=== PATIENT | female | born 1945 | race Caucasian/White ===

== ENCOUNTER → 2023-09-18 10:52 | Outpatient (REF) | payer MEDICARE, SELFPAY ==
[2023-09-18 12:28] LABS: % Basophils 0.4 % (0-2); % Eosinophils 0.4 % (0-6); % Immature Granulocytes 0.4 % (0-0.5); % Lymphocytes 11.6 % (20.5-51.1); % Monocytes 5.2 % (1.7-9.3); Absolute Lymphocytes 0.5 10^3/uL (1.2-3.4); Absolute Monocytes 0.2 10^3/uL (0.1-0.6); Absolute Neutrophils 3.8 10^3/uL (1.4-6.5); Hematocrit 32.5 % (37.0-47.0); Hemoglobin 10.4 g/dL (12.0-16.0); Mean Corpuscular Hgb 31.2 pg (27.0-31.0); Mean Corpuscular Volume 97.6 fL (81.0-99.0); Mean Platelet Volume 10.8 fL (7.4-10.4); Nucleated Red Blood Cells % 0 %; Platelet Count 156 10^3/uL (130-400); Red Blood Cell Count 3.33 10^6/uL (4.20-5.40); Red Cell Dist. Width 13.1 % (11.5-14.5); White Blood Cell Count 4.7 10^3/uL (4.8-10.8)
[2023-09-18 13:13] LABS: ALT (SGPT) 14 U/L (0-35); AST (SGOT) 31 U/L (14-36); Albumin 3.7 g/dl (3.5-5.0); Alkaline Phosphatase 58 U/L (38-126); Blood Urea Nitrogen 16 mg/dl (7-17); Calcium 9.2 mg/dl (8.4-10.2); Carbon Dioxide 32 mmol/L (22-30); Chloride 103 mmol/L (98-107); Glucose 95 mg/dl (70-99); Iron 86 ug/dl (37-170); Sodium 142 mmol/L (135-145); Total Bilirubin 0.9 mg/dl (0.2-1.3); Total Protein 6.2 g/dl (6.3-8.2); eGFR > 60.00
[2023-09-18 13:23] LABS: Percent Saturation 32 % (20-50); Total Iron Binding Capacity 263 ug/dl (265-497)
[2023-09-18 13:35] LABS: Vitamin D, 25-OH*** 56.3 ng/mL (30-80)
[2023-09-18 13:53] LABS: Ferritin 30.9 ng/ml (11.1-264.0)
[2023-09-18 14:25] LABS: Vitamin B12 585 pg/ml (239-931)
== END ==
LOC: RAD 10:52
PROVIDERS: ATTENDING PHYSICIAN Surgery Vascular Surgery; FAMILY PHYSICIAN Internal Medicine; REFERRING PHYSICIAN Internal Medicine Rheumatology
DX: I73.9 Peripheral vascular disease, unspecified (principal); D64.9 Anemia, unspecified; E55.9 Vitamin D deficiency, unspecified; E78.5 Hyperlipidemia, unspecified; M06.00 Rheumatoid arthritis without rheumatoid factor, unspecified site; M54.9 Dorsalgia, unspecified; M79.671 Pain in right foot; M79.641 Pain in right hand; M81.0 Age-related osteoporosis without current pathological fracture; Z68.1 Body mass index [BMI] 19.9 or less, adult; Z79.899 Other long term (current) drug therapy
CPT/HCPCS: 36415; 80053; 82306; 82607; 82728; 82746; 83540; 83550; 85025; 86140; 93922; 93925

== ENCOUNTER → 2023-10-22 06:50 | Outpatient (REF) | payer MEDICARE, SELFPAY | LOC: MRI 06:50 | PROVIDERS: ATTENDING PHYSICIAN Physician Assistant Surgical; FAMILY PHYSICIAN Internal Medicine | DX: M54.50 Low back pain, unspecified (principal) | CPT/HCPCS: 72148 ==

== ENCOUNTER → 2023-12-19 10:26 | Outpatient (REF) | payer MEDICARE, SELFPAY | LOC: RAD 10:26 | PROVIDERS: ATTENDING PHYSICIAN Internal Medicine Hematology & Oncology; FAMILY PHYSICIAN Internal Medicine; OTHER PHYSICIAN Internal Medicine Rheumatology | DX: R63.4 Abnormal weight loss (principal); M06.9 Rheumatoid arthritis, unspecified; D64.9 Anemia, unspecified | CPT/HCPCS: 74177; Q9967 ==

== ENCOUNTER 2024-02-19 13:51 | Inpatient (IN) | payer MEDICARE, SELFPAY ==
[2024-02-19] VITALS (10 sets, daily range): BP systolic 123–155; BP diastolic 60–97; BMI 20.3; BMI 19.2
--- NOTE | 2024-02-19 07:11 | ED.GENMED ---
History of Present Illness
General
Chief Complaint: Chest Pain
Time Seen by Provider: 02/19/24 07:05
History of Present Illness
History of Present Illness:
78-year-old female with history of aortic stenosis and hypertension presents to the emergency department for evaluation of chest pain radiating through to the thoracic back beginning last night. She felt nauseated last night, took a Xanax in order
to sleep when she awoke the pain was much worse. Denies any vomiting, shortness of breath. Denies positional or pleuritic nature to the pain. No fever, chills, sweats, coughing, leg swelling, abdominal pain, or lower GI symptoms. Notes a family
history of 'ruptured aorta' involving both her mother and her grandmother
Past History
Past History
ED Past Medical History: HTN, Valvular disease ( heart murmur) and Other (Rheumatoid arthritis, bipolar, pulmonary embolism)
ED Past Surgical History: Cholecystectomy, Gynecological (Hysterectomy), Orthopedic (Right hand surgery, left hand surgery, R knee replacement) and Other (Surgery for deviated septum)
Social History
Tobacco: Former smoker
Alcohol: None
Drug: None
Personal:
Living: alone
Employment: Retired
Family History
Family History: Hypertension and CAD
Review of Systems
Review of Systems
Allergies reviewed?: Yes
All Other Systems: ROS reviewed and negative except as documented in HPI and ROS
Phy Exam
Physical Exam
Physical Exam:
GEN: Well appearing, NAD, WDWN
Eyes: PERRLA, EOMs intact, no scleral icterus
HENT: NCAT, oral mucosa moist, no JVD
Lungs: CTAB, no wheezes, rales, rhonchi, normal chest wall excursion
Cardiac: Regular rate and rhythm, 4/6 holosystolic murmur, radial and pedal pulses 2+ and symmetric bilaterally
Abdomen: S, NT, ND, NABS, no masses or hepatosplenomegaly
Neuro: AO x 3, bilateral upper extremity strength intact and symmetric
MSK: No gross deformity or ecchymosis. No edema. No digital clubbing
Skin: No rashes, petechiae. Normal color, no pallor or jaundice.
Psych: Calm, cooperative, proper hygiene
Scores
Heart Score for Chest Pain Patients
STEMI patient?: No
History: Moderately Suspicious
ECG: Nonspecific Repolarization
Age: >/= 65 years
Risk Factors: >/= 3 Risk Factors or History of CAD
Troponin: </= Normal Limit
Heart Score for Chest Pain Patients: 6
Heart Score Risk: 20.3% MACE over next 6 weeks
Course
Orders/Labs/Results
Orders:
Orders
02/19/24 06:44
EKG [Electrocardiogram (*1)] Urgent
Reason for Study: Chest Pain
EKG- Treatment ONCE
02/19/24 06:50
Cardiac Monitoring- Treatment ONCE
IV Insert/Care/Rem.- Treatment PRN
02/19/24 07:03
Complete Blood Count/With Diff Urgent
Comprehensive Metabolic Panel Urgent
Troponin I Urgent
02/19/24 07:26
CT Chest/abd/pelvis Angio W/wo Urgent
Comment:
Reason For Exam: chest pain radiating to back, FmHx of TAA
02/19/24 08:27
Famotidine [Pepcid] 20 mg IV NOW STA
Sucralfate Suspension [Carafate Suspension] 1 gm PO NOW STA
02/19/24 08:28
EKG- Treatment ONCE
02/19/24 10:00
Electrocardiogram (*1) Urgent
Reason for Study: Chest Pain
02/19/24 10:09
Troponin I Routine
02/19/24 11:00
Aspirin Chewable [Low Strength Aspirin] 324 mg PO NOW STA
Heparin 3,300 units IV NOW STA
Heparin 81488 Units/250 ml 25,000 units in 250 ml IV PER PROTOCOL
Weight to be used for heparin protocol in kilograms (kg):: 55.3
Protocol:: Cardiac Tx/Acute Coronary
PTT Goal Range to be used:: PTT 73 to 111 seconds
Order type:: Initial
INITIAL Infusion Dose (UNITS/KG/hr) & then follow protocol:: 12 units/kg/hr
Infusion Dose in UNITS/hr & then follow protocol (UNITS/hr):: 650
INFUSION RATE in mL/hr & then follow protocol (mL/hr):: 6.5
PTT less than or equal to 64 seconds:: Increase rate by 200 units/hr (+ 2 mL/hr)
PTT 64.1 to 72.9 seconds:: Increase rate by 100 units/hr (+ 1 mL/hr)
PTT 73 to 111 seconds:: Target Range. No change in rate.
PTT 111.1 to 130.9 seconds:: Decrease rate by 100 units/hr (- 1 mL/hr)
PTT 131 to 199.9 seconds:: HOLD for 1 hr. Then decrease rate by 200 units/hr (- 2 mL/hr)
PTT greater than or equal to 200 seconds:: HOLD for 2 hrs & Notify Provider. Then decrease by 200 units/hr (-
2 mL/hr)
Lab follow-up:: Each change, PTT q6h until 2 consecutive are therapeutic. Then PTT
daily.
Nursing to Place Non Medication Order As Directed
Physician Order: PTT 6 hours after initial start of Heparin infusion
Above order entered?: Yes
02/19/24 11:16
PTT Urgent
Comment: Obtain baseline before beginning heparin infusion if not already collected
02/19/24 12:47
Acetaminophen [Tylenol] 650 mg PO Q6HPRN PRN
Nitroglycerin Sublingual [Nitrostat (Sublingual)] 0.4 mg SL NOW STA
02/19/24 13:05
Admit/Transfer Patient As Directed
Co-Sign Provider:
Level of Care: Inpatient admission
Assign to:: IVU
Physician / Group: jona jimenez
Diagnosis: nstemi
Reason for Hospitalization: nstemi
Expected length of stay greater than two midnights?: Yes
ELOS- Estimated Length of Stay in days: 5
I certify the patient meets the requirements for IP care: Yes
Code Status As Directed
Resuscitation Status: Do not resuscitate
Reached after discussion with pt or family/Healthcare POA: Yes
Based on pt advanced directive or healthcare POA form: Yes
Decision communicated with: per pt
02/19/24 13:06
DNR Bracelet Application ONCE
02/19/24 13:18
Metoprolol [Lopressor] 12.5 mg PO NOW STA
02/19/24 13:19
CARDIOLOGY CONSULT Routine
Consulting Provider: Marcio Chapman
Was physician already notified: Yes
Reason for consult: nstemi
02/19/24 13:52
Troponin I Q6H
02/19/24 14:00
EKG [Electrocardiogram (*1)] Urgent
Reason for Study: Chest Pain
02/19/24 14:20
Hydrocodone 5/APAP 325 [[place] 5/325] 1 tablet PO Q8HPRN PRN
02/19/24 14:20
VTE Contraindication Routine
VTE Mechanical Device Contraindication: Medical Contraindication
Pharmocologic Contraindication: Medical Contraindication
Comment: pt on iv heparin
Heparin Protocol- PTT Orders As Directed
PTT per Heparin protocol: -Obtain CBC and baseline PTT - if not already collected.
-Obtain PTT 6 hours from start of infusion. Then, every 6 hours until 2 consecutive
PTT's are therapeutic. Then, PTT Daily.
-With each rate change, obtain PTT every 6 hours until 2 consecutive PTT's are
therapeutic. Then, PTT Daily.
Activity As Directed
Activity Level: As Tolerated
Intake/ Output As Directed
Frequency: Per unit guidelines
Notify MD As Directed
Notify physician if: PTT is greater than or equal to 200.
Vital Signs As Directed
Frequency: Per unit guidelines
Weight As Directed
Frequency: Daily
Ot Eval And Treat Routine
Pt Eval And Treat Routine
Activity Level: As Tolerated
02/19/24 17:22
PTT Urgent
02/19/24 20:00
Troponin I Q6H
Metoprolol [Lopressor] 12.5 mg PO BID
02/19/24 22:00
Alprazolam [Xanax] 0.5 mg PO HS
Mirtazapine [Remeron] 60 mg PO HS
Polyethylene Glycol Powder [Miralax] 17 grams PO HS
02/20/24 02:00
Troponin I Q6H
02/20/24 06:00
Cardiovascular Evaluation IN AM
Complete Blood Count/With Diff IN AM
Comprehensive Metabolic Panel IN AM
02/20/24 08:00
Amlodipine [Norvasc] 2.5 mg PO DAILY
Aspirin Low Dose EC [Aspir Low (Enteric Coated)] 81 mg PO DAILY
Cholecalciferol (Vitamin D3) [VITAMIN D3 (cholecalciferol)] 25 mcg PO DAILY
Citalopram [Celexa] 20 mg PO DAILY
MethylPREDNISolone [Medrol] 4 mg PO DAILY
Oxycodone Controlled Release [Oxycontin (Controlled Release)] 20 mg PO DAILY
lisinopril 40 mg PO DAILY
omeprazole 40 mg PO DAILY
vitamins A,C,L-fuhd-hqsnmh [PreserVision AREDS] 1 cap PO DAILY
02/21/24 06:00
Complete Blood Count/No Diff Q2D
Comment: notify provider: Platelet count < 130,000 or decrease by 50% from baseline
Complete Blood Count/With Diff IN AM
Comprehensive Metabolic Panel IN AM
02/22/24 06:00
Complete Blood Count/With Diff IN AM
Comprehensive Metabolic Panel IN AM
02/23/24 06:00
Complete Blood Count/No Diff Q2D
Comment: notify provider: Platelet count < 130,000 or decrease by 50% from baseline
Complete Blood Count/With Diff IN AM
Comprehensive Metabolic Panel IN AM
02/25/24 06:00
Complete Blood Count/No Diff Q2D
Comment: notify provider: Platelet count < 130,000 or decrease by 50% from baseline
02/27/24 06:00
Complete Blood Count/No Diff Q2D
Comment: notify provider: Platelet count < 130,000 or decrease by 50% from baseline
02/29/24 06:00
Complete Blood Count/No Diff Q2D
Comment: notify provider: Platelet count < 130,000 or decrease by 50% from baseline
03/02/24 06:00
Complete Blood Count/No Diff Q2D
Comment: notify provider: Platelet count < 130,000 or decrease by 50% from baseline
03/04/24 06:00
Complete Blood Count/No Diff Q2D
Comment: notify provider: Platelet count < 130,000 or decrease by 50% from baseline
03/06/24 06:00
Complete Blood Count/No Diff Q2D
Comment: notify provider: Platelet count < 130,000 or decrease by 50% from baseline
Abnormal Lab Results
02/19/24 02/19/24
07:03 10:09
WBC 12.4 H 10^3/uL
(4.8-10.8)
RBC 3.72 L 10^6/uL
(4.20-5.40)
Hgb 11.5 L g/dL
(12.0-16.0)
Hct 34.4 L %
(37.0-47.0)
MPV 10.7 H fL
(7.4-10.4)
Abs Immat Gran (auto) 0.1 H 10^3/uL
(0-0.05)
Absolute Neuts (auto) 10.8 H 10^3/uL
(1.4-6.5)
Absolute Lymphs (auto) 0.9 L 10^3/uL
(1.2-3.4)
Immature Gran % 0.6 H %
(0-0.5)
Neutrophils % 87.3 H %
(42.2-75.2)
Lymphocytes % 7.4 L %
(20.5-51.1)
Chloride 109 H mmol/L
(98-107)
BUN 25 H mg/dl
(7-17)
Glucose 129 H mg/dl
(70-99)
Troponin I 0.094 H* D ng/ml
02/19/24 07:03
02/19/24 07:03
Vital Signs
Initial and Last Documented VS:
Initial Vital Signs
Temp Pulse Resp BP Pulse Ox
97.9 F 91 20 145/90 98
02/19/24 06:55 02/19/24 06:55 02/19/24 06:55 02/19/24 06:55 02/19/24 06:55
Last Documented Vital Signs
Temp Pulse Resp BP Pulse Ox
98.6 F 63 20 155/69 98
02/19/24 14:48 02/19/24 14:45 02/19/24 14:48 02/19/24 14:35 02/19/24 14:33
MDM/Problems Addressed
MDM/Problems Addressed:
Patient was initially evaluated for chest pain rating to the back, she noted a positive family history of aortic aneurysm ruptures thus was sent promptly for CT dissection study which was unremarkable for aortic emergency. Initial troponin was
negative however pain persisted. She was treated for gastritis/GERD with improvement in symptoms however repeat troponin came back elevated prompting concern for acute coronary syndrome. On my reevaluation the patient's pain had resolved thus we
avoided giving nitroglycerin particularly in the setting of her known aortic stenosis. Will admit to the hospital service with cardiology consultation for further assessment
Comment
Comment:
EKG independently interpreted by me shows a normal sinus rhythm at a rate of [address] changes concerning for ischemia, isolated PVC noted, QTc of 418
*Critical Care Note
Total Time (30-74mins, 75-104mins- exclusive of procedures): Not Applicable
ED Attending Note
-
Portions of this chart may have been created with voice recognition software.� Occasional wrong word or��sound alike� substitutions may have occurred due to the inherent limitations of voice recognition software.
Discharge Plan
Departure
Patient Disposition: Admit
Date of Disposition: 02/19/24
Time of Disposition: 11:01
Admit to: Telemetry
Presentation/result/management discussed w/ accepting MD/DO: Hospitalist
Discharge Problem:
Non-ST elevation IN (NSTEMI), Aortic stenosis
Interventions
Interventions:
*Risk Screen - Suicide Last Done: 02/19/24 07:08
*General Assessment Last Done: 02/19/24 07:08
*Neglect/Abuse Screening Last Done: 02/19/24 07:08
ED- Fall Risk Assessment Last Done: 02/19/24 07:08
*ED COVID-19 Vaccine History Last Done: 02/19/24 07:08
ED- Cardiac Assessment Last Done: 02/19/24 07:08
[2024-02-19 07:16] LABS: % Basophils 0.1 % (0-2); % Immature Granulocytes 0.6 % (0-0.5); % Lymphocytes 7.4 % (20.5-51.1); % Monocytes 4.6 % (1.7-9.3); % Neutrophils 87.3 % (42.2-75.2); Absolute Immature Granulocytes 0.1 10^3/uL (0-0.05); Absolute Lymphocytes 0.9 10^3/uL (1.2-3.4); Absolute Monocytes 0.6 10^3/uL (0.1-0.6); Absolute Neutrophils 10.8 10^3/uL (1.4-6.5); Hematocrit 34.4 % (37.0-47.0); Hemoglobin 11.5 g/dL (12.0-16.0); Mean Corp Hgb Conc. 33.4 g/dL (33.0-37.0); Mean Corpuscular Hgb 30.9 pg (27.0-31.0); Mean Corpuscular Volume 92.5 fL (81.0-99.0); Mean Platelet Volume 10.7 fL (7.4-10.4); Nucleated Red Blood Cells % 0 %; Platelet Count 182 10^3/uL (130-400); Red Blood Cell Count 3.72 10^6/uL (4.20-5.40); Red Cell Dist. Width 13.7 % (11.5-14.5); White Blood Cell Count 12.4 10^3/uL (4.8-10.8)
[2024-02-19 07:32] LABS: ALT (SGPT) 17 U/L (0-35); AST (SGOT) 31 U/L (14-36); Albumin 4.5 g/dl (3.5-5.0); Alkaline Phosphatase 54 U/L (38-126); Blood Urea Nitrogen 25 mg/dl (7-17); Calcium 9.4 mg/dl (8.4-10.2); Carbon Dioxide 23 mmol/L (22-30); Chloride 109 mmol/L (98-107); Estimated Creatinine Clearance 44 ml/min; Glucose 129 mg/dl (70-99); Potassium 4.2 mmol/L (3.5-5.1); Sodium 142 mmol/L (135-145); Total Bilirubin 0.9 mg/dl (0.2-1.3); eGFR > 60.00
[2024-02-19 07:43] LABS: Troponin I 0.013 ng/ml
[2024-02-19] MEDS: PEPCID 20 MG IV ×2 (08:35→19:44)
[2024-02-19] MEDS: CARAFATE SUSPENSION 1 GM PO ×2 (08:35→19:44)
[2024-02-19 10:46] LABS: Troponin I 0.094 ng/ml
[2024-02-19] MEDS: LOW STRENGTH ASPIRIN 324 MG PO (11:21)
[2024-02-19] MEDS: HEPARIN 3300 UNITS IV (11:21)
[2024-02-19] MEDS: HEPARIN 25000 UNITS/250 ML IV (11:22)
[2024-02-19 11:45] LABS: APTT 25.5 Sec (23.4-35.0)
--- NOTE | 2024-02-19 12:48 | HPS.HSE ---
Family Physician
-
Family Physician: Tangela Ching
Chief Complaint
-
chest thru to back
History of Present Illness
78-year-old female who reports midsternal chest pain through to her back with strong heaviness, nausea and indigestion that started yesterday. She reports taking a Xanax to try to help her sleep which she did but upon wakening the chest pain was
still present 8 out of 10 along with nausea and indigestion. She has no past medical history of NM. She does have past medical history of aortic stenosis and gastritis. She also reports she has been feeling depressed since losing her
August 04, 2023. She denies radiation, diaphoresis headache, sore throat, fever, chills, shortness of breath, cough, abdominal pain, vomiting, diarrhea, urinary symptoms. She has past medical history of HTN, HLD, aortic stenosis, gastritis,
chronic back pain on chronic oral opiates, rheumatoid arthritis, DDD lumbar, depression, anxiety, memory impairment post anesthesia right knee surgery lasting 2 weeks in 2014, PE post right knee surgery 2014, pleural effusion approximately 2011 that
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
Medical History
Past Medical History
Past Medical History: Reports Other
Additional Past Medical History:
HTN-benign
HLD
Aortic stenosis
Superior mesenteric artery syndrome
Gastritis
Chronic back pain
Rheumatoid arthritis on chronic oral opiates
DDD lumbar
Depression/anxiety
History memory impairment post anesthesia knee surgery lasting 2 weeks 2014
PE post knee surgery 2014
Pleural effusion 2011 with MRSA
Ex-smoker smoked for 3 years
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
Pancreatitis Hx
Gout
Anemia
Past Surgical History: Reports Other
Additional Past Surgical History:
Right hand surgery
Left hand surgery
Right foot surgery
Right total knee replacement 10/12/2014
Deviated septum repair
Tonsillectomy
Cholecystectomy
Social History
Tobacco: Former Smoker (Smoked for 3 years)
Alcohol: Former (Drank for 30 years quit age 49)
Drug: None
Personal: (August 04, 2023)
Living: Alone
Employment: Retired
Family History
Family History: Other (Mother ruptured abdominal aortic aneurysm history of CVA age 60s and carotid stenosis, maternal grandmother ruptured AAA, father mesothelioma, 2 brothers 1 brain hemorrhage, other sepsis, 2 sisters
living depression)
Allergies / Home Medications
Allergies reflects when Allergies were last updated in [employer].
Home Medications with original date entered in [employer]
Allergy/Medication List:
Allergies
Allergy/AdvReac Type Severity Reaction Status Date / Time
Sulfa (Sulfonamide Allergy Stomach Verified 02/19/24 06:46
Antibiotics) cramps
Home Medications
lisinopril 40 mg tablet 40 mg PO DAILY Heart disease/condition 09/29/14
amlodipine 2.5 mg tablet 2.5 mg PO DAILY Heart disease/condition 01/23/16
methylprednisolone 4 mg tablet 4 mg PO DAILY Anti-inflammatory 01/23/16
etanercept 50 mg/mL (1 mL) subcutaneous syringe (Enbrel) 50 mg SQ SA arthritis 12/09/20
oxycodone 20 mg tablet,crush resistant,extended release 12 hr (OxyContin) 20 mg PO DAILY 12/09/20
alprazolam 0.5 mg tablet (Xanax) 0.5 mg PO HS sleep 06/18/22
aspirin 81 mg tablet,delayed release 81 mg PO DAILY 06/18/22
cholecalciferol (vitamin D3) 25 mcg (1,000 unit) tablet (Vitamin D3) 25 mcg PO DAILY 02/19/24
citalopram 20 mg tablet 20 mg PO DAILY 02/19/24
hydrocodone 5 mg-acetaminophen 325 mg tablet 1 tab PO Q8HPRN PRN severe pain 02/19/24
mirtazapine 30 mg tablet 60 mg PO HS 02/19/24
omeprazole 40 mg capsule,delayed release 40 mg PO DAILY 02/19/24
polyethylene glycol 3350 17 gram oral powder packet (Miralax) 17 g PO HS 02/19/24
vitamins A,C,R-iovb-vasntj 4,296 mcg-226 mg-90 mg capsule (PreserVision AREDS) 1 cap PO DAILY 02/19/24
Review of Systems
-
History Source: Patient
A 12 point ROS was completed and negative except as noted: Yes
Constitutional: Denies Fever or Fatigue
EENT: Denies Sore Throat or Runny Nose
Respiratory: Denies Cough or Trouble Breathing
Cardiac: Reports Chest Pain (Midsternal to back); Denies Diaphoresis, Palpitations or Syncope
Abdomen/GI: Reports Nausea; Denies Abdominal Pain, Vomiting or Diarrhea
: Denies Dysuria, Frequency, Flank Pain, Incontinence or Difficulty Voiding
Musculoskeletal: Denies Joint Pain or Edema
Skin: Denies Itching or Rash
Neurological: Denies Dizzy, Headache, Weakness or Numbness
Endocrine: Reports No Symptoms
Hematologic/Lymphatic: Reports No Symptoms
Psych: Reports Calm and Depression (Over loss of in July)
Physical Exam
Vital Signs
Vital Signs
Temp Pulse Resp BP Pulse Ox
97.9 F 76 16 139/60 99
02/19/24 06:55 02/19/24 12:30 02/19/24 12:30 02/19/24 12:00 02/19/24 12:30
Physical Exam
General: Conversant and Pain (5 out of 10 chest pain); No Fever or Chills
HEENT: NormoCephalic, Anicteric, PERRLA, [place] Conjunctivae and No Ptosis
Respiratory: Clear; No Wheezes, Rales or Rhonchi
Cardiac: S1/S2, Regular Rhythm and Murmur (4/6 systolic); No Rub, Gallop or Peripheral Edema
Breast: Deferred by me
GI: Soft, Non Tender, Non Distended, Normal Bowel Sounds and No Hepatosplenomegaly
Rectal: Deferred by Provider
Genito-urinary: Deferred by me
Musculoskeletal: No Clubbing, No Cyanosis and No Edema
Skin: Warm and Dry; No Rash or Jaundice
Neuro: AO x 3, No Motor Deficits, Nonfocal/grossly intact and Cranial Nerves Intact; No DTR's Intact & Symmetrical, Slurred Speech, Facial Droop or Tremors
Psych: Calm
Laboratory Results
-
02/19/24 07:03
02/19/24 07:03
Laboratory Results
APTT 25.5 Sec (23.4-35.0) 02/19/24 11:16
Total Bilirubin 0.9 mg/dl (0.2-1.3) 02/19/24 07:03
AST 31 U/L (14-36) 02/19/24 07:03
ALT 17 U/L (0-35) 02/19/24 07:03
Alkaline Phosphatase 54 U/L (38-126) 02/19/24 07:03
Troponin I 0.094 ng/ml H* D 02/19/24 10:09
Impression/Plan
-
Impression/plan:
Admit to IVU
#NSTEMI
-Troponin 0.094 will trend
-Trend daily EKGs
-Aspirin 325 given in ER will continue aspirin 81 mg daily
-Sublingual nitroglycerin NOW for chest pain 5 out of 10
-IV heparin drip
-Add metoprolol tartrate 12.5 mg twice daily will give dose now
-Check lipid profile
-Check 2D echo
EKG: NSR 69 bpm, QTc [address] elevation present anterior leads
CT chest abdomen pelvis with without: 1. Small saccular aneurysm of the infrarenal abdominal aorta measuring up to 6.5 mm
2. 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
3. Severe coronary artery and mitral valve calcifications. Moderate aortic valve calcifications
4. No aortic dissection or thoracic aneurysm
#Per CT saccular aneurysm of the infrarenal abdominal aorta measuring up to 6.5 mm
#Leukocytosis secondary to daily methylprednisone 4 mg for RA
No signs of infection, fever, chills, cough
#HTN-benign
139/60
-Continue lisinopril 40 mg daily
#HLD
-Check lipid profile
#Aortic stenosis
2D echo 06/29/2022: EF 55 to 60%, mild LVH, no wall abnormalities, mild to moderate MR, mild aortic stenosis peak mean gradient 49/18, mild to moderate TR
#Gastritis hx
-Continue omeprazole
#Rheumatoid arthritis on chronic oral opiates
#Chronic back pain/DDD lumbar
-Continue OxyContin 20 mg daily
-She takes Enbrel on Saturdays only
-Patient on methylprednisone 4 mg daily
#Depression/anxiety
-Continue citalopram 20 mg daily, Xanax 0.5 mg at bedtime
-Continue mirtazapine 60 mg at bedtime
#PE post knee surgery 2014
#Pleural effusion 2012 with MRSA
Other PMH:
History memory impairment post anesthesia knee surgery lasting 2 weeks 2014
Ex-smoker smoked for 3 years
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
Pancreatitis Hx
Gout
Anemia-Hgb stable 11.5
DVT prophylaxis
IV heparin drip
DNR per patient
[2024-02-19] MEDS: NITROSTAT (SUBLINGUAL) 0.4 MG SL (13:05)
--- NOTE | 2024-02-19 13:43 | CON.CAR ---
Addendum entered and electronically signed by Marcio Chapman MD 02/19/24 15:24:
I saw and examined the patient.
The Post Closing Specialist's note was reviewed and I agree with the note.
Comment:
GEN: No distress, awake, Ox3
HEENT: supple, anicteric, mmm
LUNGS: CTA, no wheezes/rales
CV: Reg, S1/S2, 3/6 syst LSB, no gallop
ABD: soft, BS+, NT/ND
EXT: No edema
NEURO: Gross non-focal
SKIN: chronic stasis channges
plan:
She has a past medical history of rheumatoid arthritis, pulmonary embolism, hypertension, coronary artery disease, aortic stenosis and mitral regurgitation who presents with 12 to 18 hours of chest tightness and chest discomfort. The pain started
last night as a pressure in the center of her chest which did radiate to her back. She took Xanax and helped her sleep but she had more pain this morning which is up to 9 out of 10. At that point she came to the emergency room. Troponin was 0.13
and repeat was 0.09. She was given nitroglycerin which improved her symptoms. She has known peripheral vascular disease. She currently is pain-free.
Check echocardiogram to reevaluate LVEF and valves.
Will proceed with cardiac catheterization to evaluate for coronary artery disease. I suspect she likely will have multivessel coronary artery disease.
Continue aspirin, check lipids, and start high intensity statin..
Will add metoprolol. Continue lisinopril.
Original Note:
Consultation
Consultation Request
Date/Time Consultation Performed: 02/19/24
Requesting Provider: Petros Felipe PA-C
Performing Provider: Chelsea Moore PA-C for Dr. Chapman
Reason for Consultation: CP
Medical History
-
Chief Complaint: CP
History of Present Illness:
Patient is a 78 yo F with PMH of RA on chronic steroids, chronic back pain requiring opioids, PE s/p R knee replacement in 2017, depression/anxiety, HTN, remote former smoker, mild , mitral regurgitation, coronary artery calcifications by prior CT
scans who presented to [facility] due to chest discomfort. She reports 2 days ago she got a 'lumbar shot'. She states yesterday she developed indigestion/stomach ache/nausea and took Pepto-Bismol without improvement. She then developed some chest
discomfort with radiation through to her back. She took a dose of Xanax and was able to sleep. This morning when she woke up she continued with the discomfort. She describes it as achy in her chest, but feels more sharp in her back. She came to
the emergency room for evaluation of this. She reports some pain significantly improved status post sublingual nitro x 1 and aspirin. She is presently with minimal pain on IV heparin. She describes claudication with walking approximately 5
minutes, then needs to rest prior to resuming. She is followed by Dr. Duarte as an outpatient. She denies prior chest discomfort with ambulation. She denies shortness of breath or palpitations. Initial troponin 0.013, repeat 0.09 resulting in
cardiology consultation. States she was started on cholesterol medication last year by PCP.
PMH:
RA on chronic steroid therapy
chronic back pain requiring opioids
PE s/p R knee replacement 2016
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
depression/anxiety
HTN
HLD
mild
MR
coronary artery calcifications by CT scans
Family history of aortic aneurysm
Remote former smoker
Former alcoholic
Past Medical History
Past Medical History: Other (in HPI)
Social History
Tobacco: Former Smoker
Alcohol: Former
Personal:
Employment: Retired
Family History
Family History: Other (aortic aneurysm in mother)
Allergies / Home Medications
Allergy/AdvReac Type Severity Reaction Status Date / Time
Sulfa (Sulfonamide Allergy Stomach Verified 02/19/24 06:46
Antibiotics) cramps
�Medication �Instructions �Recorded �Confirmed �Type
lisinopril 40 mg tablet 40 mg PO DAILY Heart 09/29/14 02/19/24 History
disease/condition
amlodipine 2.5 mg tablet 2.5 mg PO DAILY Heart 01/23/16 02/19/24 History
disease/condition
methylprednisolone 4 mg tablet 4 mg PO DAILY Anti-inflammatory 01/23/16 02/19/24 History
etanercept 50 mg/mL (1 mL) 50 mg SQ SA arthritis 12/09/20 02/19/24 History
subcutaneous syringe (Enbrel)
oxycodone 20 mg tablet,crush 20 mg PO DAILY 12/09/20 02/19/24 History
resistant,extended release 12 hr
(OxyContin)
alprazolam 0.5 mg tablet (Xanax) 0.5 mg PO HS sleep 06/18/22 02/19/24 History
aspirin 81 mg tablet,delayed 81 mg PO DAILY 06/18/22 02/19/24 History
release
cholecalciferol (vitamin D3) 25 25 mcg PO DAILY 02/19/24 02/19/24 History
mcg (1,000 unit) tablet (Vitamin
D3)
citalopram 20 mg tablet 20 mg PO DAILY 02/19/24 02/19/24 History
hydrocodone 5 mg-acetaminophen 325 1 tab PO Q8HPRN PRN severe pain 02/19/24 02/19/24 History
mg tablet
mirtazapine 30 mg tablet 60 mg PO HS 02/19/24 02/19/24 History
omeprazole 40 mg capsule,delayed 40 mg PO DAILY 02/19/24 02/19/24 History
release
polyethylene glycol 3350 17 gram 17 g PO HS 02/19/24 02/19/24 History
oral powder packet (Miralax)
vitamins A,C,Q-vxog-zhpewd 4,296 1 cap PO DAILY 02/19/24 02/19/24 History
mcg-226 mg-90 mg capsule
(PreserVision AREDS)
Review of Systems
-
History Source: Patient
All other systems: Negative unless noted
Physical Exam
Vital Signs
Temp Pulse Resp BP Pulse Ox
97.9 F 71 24 130/97 98
02/19/24 06:55 02/19/24 13:02 02/19/24 13:02 02/19/24 13:02 02/19/24 13:02
Lab Results
02/19/24 07:03
02/19/24 07:03
Troponin I 0.094 ng/ml H* D 02/19/24 10:09
Physical Exam
General: No Apparent Distress and Comfortable
HEENT: Normocephalic, Anicteric and Moist Mucous Membranes
Respiratory: Clear and Non Labored Respirations
Cardiac: S1/S2, Regular Rhythm and Murmur
GI: Soft, Non Tender, Non Distended and Normal Bowel Sounds
Musculoskeletal: No Clubbing, No Cyanosis and No Edema
Skin: Warm, Dry and Other (thin skin with scattered ecchymoses consistent with chronic steroid use)
Neuro: AO x 3
Impression / Plan
-
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 Portillo in 2019
Assessment:
Presentation with CP
Elevated troponin
coronary artery calcifications by CT scans
HTN
HLD
mild
Mild to moderate MR
RA on chronic steroid therapy
chronic back pain requiring opioids
PE s/p R knee replacement 2016
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
LE claudication, followed by vascular
depression/anxiety
Family history of aortic aneurysm
Remote former smoker
Former alcoholic
DNR code status
ECHO 2021: EF 55 to 60%, mild concentric LVH, mild to moderate eccentric MR, mild with peak/mean gradients 49/18 mmHg, mild to moderate TR, PAP 39 mmHg
Plan:
-Patient presents with chest discomfort with radiation to her back. Initial troponin negative, however repeat 0.09 resulting in cardiology consultation.
-She has noted to have severe coronary artery calcification dating back at least 2019, again noted by CT scan earlier today. No evidence of dissection or thoracic aortic aneurysm
-EKG with isolated ST elevation in V2. Patient's pain significantly reduced status post sublingual nitro x 1 and aspirin
-Continue IV heparin
-Cardiac catheterization procedure reviewed with patient and she is agreeable to proceed. N.p.o. status for now. Significant concern for multivessel coronary disease
-Check echo, last from 2021 with results as above, mild to moderate MR and mild
-Trend troponins to peak
-Continue aspirin
-Add beta-mable
-Check CVE. On rosuvastatin as outpatient
-Further recommendations based on results of cardiac catheterization
-On amlodipine 2.5 mg daily and lisinopril 40 mg daily as outpatient.
Data Reviewed
-
EKG: Tracing Personally Visualized and interpreted
CT Scan: Report Reviewed by me
Medical Tests (Nuc Med, Echo etc): Report Reviewed by me
Labs: Labs Reviewed by me
Old Records: Reviewed
--- NOTE | 2024-02-19 13:45 | W.PN.UPDATE ---
Update Note
Progress Note Update
Patient seen and examined, discussed with DELMA Salas, and I agree with her note.
Gen-AAOx3, NAD
HEENT-NC, AT, anicteric, clear oral mm
Neck-supple
CV-reg, no M, +S1/S2
Lungs-clear B/L
Abd-soft, NT, ND
Ext-no edema
Musculoskeletal-no cyanosis, clubbing
Skin-warm and dry
Neuro-grossly non-focal
Psych-calm, cooperative
Atypical chest pain -admit to IVU. Trend troponins. EKG concerning, ST elevation noted in anterior leads. Consult cardiology. Continue IV heparin. Add beta-blockade. Continue aspirin.
Patient denies history of coronary disease. Denies exertional symptoms.
Essential hypertension -stable.
Hyperlipidemia
Aortic stenosis
Rheumatoid arthritis
History of pleural effusion
History of pulm embolism
Gout
Depression/anxiety
DNR
[2024-02-19] MEDS: LOPRESSOR 12.5 MG PO ×2 (14:00→19:24)
[2024-02-19 14:29] LABS: Troponin I 0.416 ng/ml
--- NOTE | 2024-02-19 16:33 | CM ---
Chart reviewed. Patient is independent of ADLS, lives with her son in a 1 STH, 2 SULEMAN, 0 DME. Patient currently with no discharge needs. Plan is for the patient to return home. CM to follow
--- NOTE | 2024-02-19 17:27 | PTCARENOTE ---
Pt received from the ED at 1430. Pt denies any chest pain or sob. Heparin infusing as ordered. Pt NPO for poss cath today which was now rescheduled to tomorrow. No c/o offered.
[2024-02-19 17:53] LABS: APTT 96.9 Sec (23.4-35.0)
[2024-02-19] MEDS: NSS (PRESERVATIVE FREE) 8 ML IV (19:45)
[2024-02-19 20:40] LABS: Troponin I 0.523 ng/ml
[2024-02-19] MEDS: REMERON 60 MG PO (22:22)
[2024-02-19] MEDS: XANAX 0.5 MG PO (22:22)
[2024-02-19 23:07] LABS: APTT 73.2 Sec (23.4-35.0)
[2024-02-20] VITALS (14 sets, daily range): BP systolic 109–171; BP diastolic 59–121; BMI 18.9
--- NOTE | 2024-02-20 00:56 | PTCARENOTE ---
Pt rec'd at beginning of shift awake, alert. Pt reported having nausea and some GI discomfort at that time. Pt states it is not the same pressure that she came in with. pt also reports freq loose/soft stools. No recent hx of abx. Pt states 'I think
it might be because I'm anxious'. 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 Pt given Carafate and IV Pepcid with relief of GI symptoms noted. Sinus on telemetry. Heparin gtt therapeutic. Npo after mn for cath in am.
[2024-02-20 03:27] LABS: % Basophils 0.1 % (0-2); % Immature Granulocytes 0.5 % (0-0.5); % Lymphocytes 9.9 % (20.5-51.1); % Monocytes 4.3 % (1.7-9.3); % Neutrophils 85.2 % (42.2-75.2); Absolute Immature Granulocytes 0.1 10^3/uL (0-0.05); Absolute Lymphocytes 0.9 10^3/uL (1.2-3.4); Absolute Monocytes 0.4 10^3/uL (0.1-0.6); Absolute Neutrophils 7.9 10^3/uL (1.4-6.5); Hematocrit 32.2 % (37.0-47.0); Mean Corp Hgb Conc. 34.2 g/dL (33.0-37.0); Mean Corpuscular Hgb 30.7 pg (27.0-31.0); Mean Corpuscular Volume 89.9 fL (81.0-99.0); Mean Platelet Volume 11.1 fL (7.4-10.4); Nucleated Red Blood Cells % 0 %; Platelet Count 152 10^3/uL (130-400); Red Blood Cell Count 3.58 10^6/uL (4.20-5.40); Red Cell Dist. Width 13.9 % (11.5-14.5); White Blood Cell Count 9.3 10^3/uL (4.8-10.8)
[2024-02-20 03:40] LABS: APTT 73.4 Sec (23.4-35.0)
--- NOTE | 2024-02-20 04:05 | PTCARENOTE ---
Pt with no c/o chest pain or nausea during the night.
[2024-02-20 04:08] LABS: Troponin I 0.395 ng/ml
[2024-02-20 04:21] LABS: ALT (SGPT) 17 U/L (0-35); AST (SGOT) 31 U/L (14-36); Alkaline Phosphatase 50 U/L (38-126); Blood Urea Nitrogen 27 mg/dl (7-17); Calcium 8.8 mg/dl (8.4-10.2); Carbon Dioxide 23 mmol/L (22-30); Chloride 112 mmol/L (98-107); Estimated Creatinine Clearance 46 ml/min; Glucose 94 mg/dl (70-99); HDL Cholesterol 100 mg/dl; LDL Cholesterol, Calculated 78 mg/dl; Potassium 4.5 mmol/L (3.5-5.1); Sodium 141 mmol/L (135-145); Total Cholesterol 191 mg/dl (50-199); Total Protein 6.4 g/dl (6.3-8.2); Triglyceride 68 mg/dl (10-149); Very Low Density Lipoprotein 13 mg/dl (0-30); eGFR > 60.00
[2024-02-20] MEDS: ASPIR LOW (ENTERIC COATED) 81 MG PO (07:01)
[2024-02-20 08:31] LABS: ACT-LR - POC 221 Seconds (116-155)
[2024-02-20 08:41] LABS: ACT-LR - POC 258 Seconds (116-155)
[2024-02-20 08:58] LABS: ACT-LR - POC 284 Seconds (116-155)
[2024-02-20] MEDS: PROTONIX 40 MG PO (09:42)
[2024-02-20] MEDS: LOPRESSOR 12.5 MG PO ×3 (09:42→11:00)
[2024-02-20] MEDS: OXYCONTIN (CONTROLLED RELEASE) 20 MG PO (09:42)
[2024-02-20] MEDS: ZESTRIL 40 MG PO (09:43)
[2024-02-20] MEDS: NORVASC 2.5 MG PO (09:43)
--- NOTE | 2024-02-20 10:00 | W.PN.UPDATE ---
Update Note
Progress Note Update
informed by nursing that patient in new afib post cath. EKG completed to confirm. new diagnosis for patient. was just given 12.5mg po lopressor. will give additional 12.5mg now and increase dose to 25mg BID. will plan to resume IV heparin when able
s/p radial band protocol.
--- NOTE | 2024-02-20 10:51 | PTCARENOTE ---
Assessed the patient's skin as per the quarterly prevalence study. I found an old stage 2 pressure wound on the patient's right lateral ankle. It has scabbed over. She stated that 'That has been there for quite awhile'. 'I just can't seem to get rid
of it.' I explained that it was caused by pressure and she said that she sleeps on her right side. I applied skin prep and a silicone boarder foam dressing over the old wound.
--- NOTE | 2024-02-20 11:49 | CONSULT.CT ---
Addendum entered and electronically signed by Stew Billings MD 02/21/24 08:46:
I saw and examined the patient.
The PA's note was reviewed and I agree with the note.
Comment:
I met with Mrs. Larios at the bedside. She is a 78-year-old, frail appearing female, who presented with an NSTEMI. Has concomitant MV and AV disease, on chronic steroids, has severe MAC, and appears failure to thrive. STS risk well into the 20% for
CABG MVR. We discussed her case at [facility], and she is deemed not a surgical candidate by our group. I agree. We did briefly speak about PCI intervention on the RCA which was the group recommendation. I will defer this to Dr. Duong. CT surgery will sign
off. Thank you.
Stew Billings MD
Cardiac Surgeon
[facility]
Original Note:
Consultation
-
Date/Time Consultation Requested: 02/20/2024
Date/Time Consultation Performed: 02/20/2024
Requesting Provider: Ad
Performing Provider: Josephine pac
Reason for Consultation: Evaluation for CABG/AVR/MVR
Patient History
Physicians
Family Physician: Dr. Tangela Ching
Outpatient Orthopedic Shoe Maker: none
Inpatient Orthopedic Shoe Maker: Ad
History of Present Illness
Patient is a 78-year-old female with a past medical history of rheumatoid arthritis on chronic steroids for over 10 years. She also has a history of chronic back pain requiring opioids, pulmonary embolism status post right knee replacement in 2017,
depression/anxiety, hypertension, remote smoking history, mild aortic stenosis, mitral regurgitation, coronary artery disease. She also has past medical history of gastritis, former alcoholic with 29 years of sobriety. History of pancreatitis,
gout, anemia. She is followed by Dr. Duarte for PAD.
She presented to [facility] ED with 12 to 18 hours of chest tightness. Chest pain described as pressure in the center of her chest which radiated to her back. She ruled in for NSTEMI with serial enzymes studies. Pain was relieved with
nitroglycerin.
She underwent echo on 02/19/2024 which showed normal left ventricular function with ejection fraction of 55%. Severely dilated left atrium. Mitral valve with moderate to severe mitral regurgitation. Aortic valve had moderate aortic stenosis with
peak and mean gradients of 55 and 35 mmHg. Aortic valve area 0.98 cm�. Mild aortic regurgitation. Mild to moderate tricuspid regurgitation with pulmonary artery pressure estimated to be 33 mmHg. Trace pulmonic regurgitation.
Cardiac catheterization performed today by Dr. Duong showing critical three-vessel coronary artery disease.
This complex patient is not a surgical candidate due to multiple comorbidities along with long-term steroid use.
Plan to continue to optimize medical management.
Past Medical History
Past Medical History: Angina, Atrial Fib, CAD, HTN, Hypercholesterolemia and Valvular Disease
Past Surgical History
Past Surgical History: Abdominal, Hysterectomy, Orthopedic and Tonsilectomy
Family History
Mother: at Age (Mother at age 71 from ruptured abdominal aortic aneurysm, also had stroke in her 60s)
Father: at Age (Father at age 71 from mesothelioma)
Family Medical History: CAD and Hypertension
Social History
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
Drug: None
Tobacco: Former Smoker (Smoked 2 packs/day for approximately 5 years and quit 50 years ago)
Personal: ( in July 2023)
Living: With Family (Lives with son)
Employment: Retired
Allergies
Allergy/AdvReac Type Severity Reaction Status Date / Time
Sulfa (Sulfonamide Allergy Stomach Verified 02/19/24 06:46
Antibiotics) cramps
Home Medications
�Medication �Instructions �Recorded �Confirmed �Type
lisinopril 40 mg tablet 40 mg PO DAILY Heart 09/29/14 02/19/24 History
disease/condition
amlodipine 2.5 mg tablet 2.5 mg PO DAILY Heart 01/23/16 02/19/24 History
disease/condition
methylprednisolone 4 mg tablet 4 mg PO DAILY Anti-inflammatory 01/23/16 02/19/24 History
etanercept 50 mg/mL (1 mL) 50 mg SQ SA arthritis 12/09/20 02/19/24 History
subcutaneous syringe (Enbrel)
oxycodone 20 mg tablet,crush 20 mg PO DAILY 12/09/20 02/19/24 History
resistant,extended release 12 hr
(OxyContin)
alprazolam 0.5 mg tablet (Xanax) 0.5 mg PO HS sleep 06/18/22 02/19/24 History
aspirin 81 mg tablet,delayed 81 mg PO DAILY 06/18/22 02/19/24 History
release
cholecalciferol (vitamin D3) 25 25 mcg PO DAILY 02/19/24 02/19/24 History
mcg (1,000 unit) tablet (Vitamin
D3)
citalopram 20 mg tablet 20 mg PO DAILY 02/19/24 02/19/24 History
hydrocodone 5 mg-acetaminophen 325 1 tab PO Q8HPRN PRN severe pain 02/19/24 02/19/24 History
mg tablet
mirtazapine 30 mg tablet 60 mg PO HS 02/19/24 02/19/24 History
omeprazole 40 mg capsule,delayed 40 mg PO DAILY 02/19/24 02/19/24 History
release
polyethylene glycol 3350 17 gram 17 g PO HS 02/19/24 02/19/24 History
oral powder packet (Miralax)
vitamins A,C,V-nptm-igldym 4,296 1 cap PO DAILY 02/19/24 02/19/24 History
mcg-226 mg-90 mg capsule
(PreserVision AREDS)
Review of Systems
-
History Source: Patient
General: Reports Fatigue
HEENT: Reports Visual Changes (Has macular degeneration)
Respiratory: Reports SOB and BADILLO
Cardiac: Reports Chest Pain, CAD, Known Vascular Disease and Nausea
Abdomen/GI: Reports Nausea and Constipation (Takes MiraLAX daily)
: Reports Nocturia (Wakes up 1 time a night to urinate)
Musculoskeletal: Reports Arthralgias and Other (Chronic back pain takes p.o. opiates, rheumatoid arthritis treated with steroids for approximately 10 years)
Skin: Reports Other (Skin changes of lower legs)
Vascular: Reports Claudication and PVD
Physical Exam
Vital Signs
Temp 98.9 F 02/20/24 11:12
Temp route: Oral 02/20/24 11:12
Pulse 108 02/20/24 11:15
Rhythm: Atrial fibrillation 02/20/24 09:32
Resp Rate 20 02/20/24 11:12
Blood pressure 139/89 02/20/24 11:00
Blood pressure extremity used: Right upper arm 02/20/24 11:12
Position: Lying 02/20/24 11:12
MAP (cuff-Mahi Monitor) 104 02/20/24 11:00
SaO2 95 02/20/24 11:15
Oxygen Mode of Delivery Room air 02/20/24 09:32
Acceptable pain level during hospitalization? 0 02/19/24 06:46
Can the patient verbally communicate their pain? Yes 02/20/24 09:32
Pain scale ratin 02/19/24 19:30
Actual Weight 113 lb 5.082 oz 02/20/24 03:13
Body Mass Index (BMI) 18.9 02/20/24 03:13
Labs
02/20/24 03:17
02/20/24 03:17
APTT 73.4 Sec (23.4-35.0) H 02/20/24 03:17
Troponin I 0.395 ng/ml H* 02/20/24 03:17
Exam
General: Comfortable and Other (Very pleasant elderly female, appears thin and frail.)
HEENT: Normocephalic, Anicteric and Atraumatic
Neck: Carotid Bruit (Bilateral carotid bruits versus transmitted murmur of aortic stenosis/no palpable lymphadenopathy of neck ), Trachea Midline and Other
Respiratory: Clear
Cardiac: Irregular Rhythm (Went into atrial fibrillation post cath today continues in A-fib) and Murmur (Loud blowing systolic ejection murmur at second intercostal space heard loudest on right, MR murmur heard in left axilla)
GI: Soft, Non Tender, Non Distended and Normal Bowel Sounds
Rectal: Deferred by Provider
Skin: Warm, Dry and Other (Bilateral dark skin discoloration below knees)
Neuro: Awake, Alert, Oriented and AO x 3
Extremities: Pulses (Right popliteal pulse slightly decreased compared to left popliteal pulse, distal pulses barely palpable, feet cool dry, no areas of nonhealing ulcers on soles of feet)
Lymph: No Lymphadenopathy
Psych: Calm
Assessment / Plan
-
Assessment:
Three-vessel coronary artery disease
Aortic stenosis
Moderate to severe mitral regurgitation
Mild aortic regurgitation
Mild to moderate tricuspid regurgitation
Trace pulmonic regurgitation
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
Hypertension
Anemia
Rheumatoid arthritis with long-term steroid use
Macular degeneration
PAD followed by Dr. Arnulfo Duarte
Hiatal hernia
Hyperlipidemia
Chronic back pain with chronic opiate use
Atrial fibrillation status post cardiac cath today
History of left pleural effusion 2017 subsequently developed MRSA
Gastritis
Superior mesenteric artery syndrome
Depression/anxiety
History of memory impairment postanesthesia after knee replacement lasting approximately 2 weeks 2014
Pulmonary embolism status post knee surgery 2014
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
History of pancreatitis
Gout
Leukocytosis secondary to daily methylprednisone for rheumatoid arthritis
Plan:
Continue to optimize maximal medical therapy, not a surgical candidate.
--- NOTE | 2024-02-20 11:53 | ITS.CL.CATH ---
Adult Family Home Program Manager - Catheterization
Cardiac Catheterization
Procedure Report:
LEFT AND RIGHT HEART CATHETERIZATION
Date of Procedure: February 20, 2024
Referring: Silverio Chapman
PROCEDURES:
1. Left heart catheterization, coronary angiogram.
2. Right heart catheterization.
3. Ultrasound-guided access
4. Physiologic functional testing using iFR of proximal to mid LAD
INDICATION: Patient is a 78-year-old frail female with past medical history of rheumatoid arthritis on chronic steroids, hypertension, hyperlipidemia, peripheral artery disease who presents after an episode of substernal chest pressure found to have
an NSTEMI now being referred for a left heart catheterization to rule out obstructive CAD. Peak troponin was 0.5. Echocardiogram from this admission showed normal biventricular function with moderate aortic stenosis with mean transaortic gradient
of 35 mmHg and moderate to severe mitral regurgitation.
ACCESS:
1. Left radial artery, 5 [place] sheath, under ultrasound guidance.
2. Right common femoral vein, 6 [place] sheath, under ultrasound guidance using a micropuncture kit.
HEMODYNAMICS
RA (m) : 10
RV (s/d,m) : 29/8, 12
PA (s/d, m) : 35/16, 24
PCWP (m) : 17
PA saturation: 72.4% on room air
AO saturation: 95.3% on room air
RA saturation: 72.8% on room air
Cardiac Output : 4.28 L/min
Cardiac Index : 2.76 L/min/m-2
Systemic vascular resistance: 1793 dsc^(-5)
Pulmonary vascular resistance: 1.63 heredia unit
AO (s/d) : 145/92
CORONARY FINDINGS
DOMINANCE: Right
LEFT MAIN: The left main artery is a large-caliber vessel which gives rise to the left anterior descending artery and the left circumflex artery. There is a mild ostial and distal left main tapering.
LEFT ANTERIOR DESCENDING: The left into descending artery is a medium to large caliber vessel which gives rise to 2 major diagonal branches as it courses through the anterior interventricular groove and wraps around the apex. There is proximal
diffuse atherosclerotic plaque with 2 serial 50% stenosis in the proximal to mid LAD. Distal LAD has an eccentric 70% stenosis. iFR was performed which was positive at 0.83 for the distal LAD and at 0.88 for proximal to mid LAD.
CIRCUMFLEX: The left circumflex artery is a medium caliber vessel which gives rise to 1 major obtuse marginal branch. There is an eccentric 50 to 60% ostial left circumflex stenosis and a 80 to 85% stenosis in the OM branch which could be potential
culprit of presenting NSTEMI.
RIGHT CORONARY ARTERY: The right coronary artery is a large-caliber, dominant vessel which gives rise to the right posterior descending artery and the right posterolateral system. There is a heavily calcified 90-95 ostial RCA stenosis % and a 85%
mid RCA stenosis. There is a 60% ostial RPDA stenosis (upper branch of a dual RPDA system).
HEMODYNAMIC ASSESSMENT OF THE LAD WITH A VOLCANO OMNI WIRE: The origin of the left coronary artery was cannulated with a 5 Fr EBU 3.5 guide catheter. Intravenous heparin was administered and the ACT was followed during the procedure. Two hundred
micrograms of intracoronary nitroglycerin was given through the guide catheter. A [place] Omni wire was advanced to the guide catheter tip and normalized in the left main. The Omni wire was then carefully manipulated across the stenosis in the
proximal to mid with the iFR below the ischemic threshold serially measuring 0.83, 0.82, 0.83 at the distal LAD. A slow pullback was performed which showed an IFR of 0.88 for the 2 serial proximal and mid LAD stenoses. The Omni wire was then
pulled back to the guide catheter where the Pd/Pa measured 1.0 confirming no baseline drift in pressure readings
SEDATION: 71 minutes of procedural sedation was utilized. An independent medical receptionist medical assistant was present to assist with and help manage the patient's level of consciousness and physiologic status.
RADIATION SUMMARY: Fluoro Time (min): 18.3, Dose (mGy): 351.9, DAP (Gy.cm2) : 23.2
Closure Device:
1. Vascular band over left radial artery, 14 cc of air.
2. Manual pressure was held over the right common femoral venous access site with successful hemostasis
CONCLUSIONS
1. Heavily calcified coronary arteries along with aortic and mitral valve annuli.
2. Significant multivessel coronary artery disease.
3. Elevated left and right-sided filling pressures with normal cardiac output.
RECOMMENDATIONS
1. Have a family and heart team discussion given advanced age with multiple significant comorbid conditions and chronic steroid use, presentation with DNR status in regards to management options including medications only versus medications and
high risk PCI versus medications and high risk CABG + AVR +/- mitral valve intervention.
2. Continued medical therapy for presenting non-ST elevation PR.
3. Optimization of cardiovascular risk factors.
4. Wean radial band per protocol.
5. Bedrest per protocol for right common femoral venous access.
6. Eventual referral for outpatient cardiac rehab.
Copy to: Silverio Chapman
Emily Duong MD, FAC, [facility]
[2024-02-20] MEDS: MEDROL 4 MG PO (13:22)
[2024-02-20] MEDS: OCUVITE SOFTGEL 1 CAP PO (13:22)
[2024-02-20] MEDS: CELEXA 20 MG PO (13:22)
[2024-02-20] MEDS: VITAMIN D3 (cholecalciferol) 25 MCG PO (13:22)
--- NOTE | 2024-02-20 13:39 | W.PN.HOSP.TC ---
Today's Communication/Plan
-
Continue current care
Assessment / Plan
Assessment / Plan
Gen-AAOx3, NAD
HEENT-NC, AT, anicteric, clear oral mm
Neck-supple
CV-reg, no M, +S1/S2
Lungs-clear B/L
Abd-soft, NT, ND
Ext-no edema
Musculoskeletal-no cyanosis, clubbing
Skin-warm and dry
Neuro-grossly non-focal
Psych-calm, cooperative
NSTEMI -continue monitoring and IVU. Underwent left and right-sided cardiac catheterization today, triple-vessel disease noted. CT surgery consulted for discussion regarding high risk surgery.
Remains on IV heparin. Continue aspirin, metoprolol. Add Lipitor.
New onset atrial fibrillation -after cardiac catheterization. Heart rate 111 on EKG. Metoprolol added.
Essential hypertension -stable.
Hyperlipidemia
Aortic stenosis
Rheumatoid arthritis
History of pleural effusion
History of pulm embolism
Gout
Depression/anxiety
DNR -confirmed with patient.
Anticipated Discharge: > 48 hours
Subjective/Interval History
-
Date of Service: February 20, 2024
Patient seen and examined. Currently no complaints.
Objective Data
-
Labs:
Laboratory Results
02/20/24
03:17
WBC 9.3
Hgb 11.0 L
Hct 32.2 L
Plt Count 152
APTT 73.4 H
Sodium 141
Potassium 4.5
Chloride 112 H
Carbon Dioxide 23
BUN 27 H
Creatinine 0.8
Glucose 94
Calcium 8.8
Total Bilirubin 1.0
AST 31
ALT 17
Alkaline Phosphatase 50
Vital Signs:
Vital Signs
Temp Pulse Resp BP Pulse Ox
98.9 F 102 20 139/89 96
02/20/24 11:12 02/20/24 11:45 02/20/24 11:12 02/20/24 11:00 02/20/24 11:45
I&O
02/19/24 02/20/24 02/21/24
06:59 06:59 06:59
Intake Total 78 / 78
Balance 78 / 78
Review of Systems
-
History Source: Patient
All other systems: Reviewed and negative
--- NOTE | 2024-02-20 14:12 | W.PN.UPDATE ---
Update Note
Progress Note Update
patient spontaneously converted back to SR around 1400. continue lopressor. will continue to monitor.
--- NOTE | 2024-02-20 15:22 | W.PN.UPDATE ---
Update Note
Progress Note Update
Procedure Type:�CABG + MVR
PERIOPERATIVE OUTCOME ESTIMATE %
Operative Mortality 25.8%
Morbidity & Mortality 51.7%
Stroke 3.6%
Renal Failure 15.6%
Reoperation 16.1%
Prolonged Ventilation 37.6%
Deep Sternal Wound Infection 0.16%
Long Hospital Stay (>14 days) 35.6%
Short Hospital Stay (<6 days)* 3.64%
Clinical Summary
Planned Surgery: CABG + MVR, Urgent, First cardiovascular surgery
Demographics: 78 year old, White, female, 51kg, 165cm, BMI: 18.7 kg/m�
Lab Values: Creatinine: 0.8 mg/dL, Hematocrit: 32.2%, WBC Count: 9.3 10�/�L, Platelet Count: 075229 cells/�L
PreOp Medications: Steroids <=24 hrs
Substance Abuse: Former smoker
Risk Factors / Comorbidities: Hypertension
Pulmonary RF: Moderate CLD
Vascular RF: Peripheral Artery Disease
Cardiac Status: Ejection Fraction = 50%
Coronary Artery Disease: 3 vessels diseased, Non-ST Elevation SD, SD: >6 Hrs but <24 Hrs
Valve Disease: Aortic Stenosis, Mild AR, Severe MR, Moderate TR
Arrhythmia: Recent A-fib
--- NOTE | 2024-02-20 15:28 | CM ---
Chart reviewed. Patient is independent of ADLS, lives wit her son in a 1 STH, 2 SULEMAN, 0 DME. Patient has pace prescription plan. Plan is for the patient to return home. CM to follow
[2024-02-20] MEDS: LASIX 20 MG IV (16:09)
[2024-02-20] MEDS: LIPITOR 40 MG PO (17:33)
--- NOTE | 2024-02-20 19:51 | PTCARENOTE ---
Pt very anxious prior to cardiac cath. Pt received post cardiac cath done via left radial artery and right femoral vein. Right femoral vein site with dry and intact dressing, no sign of bleeding or hematoma. Left radial site ecchymotic with [address]. Extended time needed to remove radial bands due to hematomas and re swelling and oozing. Both bands finally removed at 17:25, plan to restart IV heparin at prior rate if radial sites remain stable starting at 23:25 tonight. Pt noted
to be in atrial fib post cardiac cath at a rate @100. Pt denies ever having this problem, RUSH Freeman notified. pt given additional metoprolol 12.5 mgs and she converted back to sinus rhythm @ 14:00.
[2024-02-20] MEDS: LOPRESSOR 25 MG PO (20:20)
[2024-02-20] MEDS: XANAX 0.5 MG PO (22:12)
[2024-02-20] MEDS: REMERON 60 MG PO (22:12)
[2024-02-20] MEDS: HEPARIN 25000 UNITS/250 ML IV (23:26)
--- NOTE | 2024-02-20 23:35 | PTCARENOTE ---
Pt. has no complaints of CP so far this shift, VSS, NSR-SB on the monitor. Left radial cath site dressing CDI, area ecchymotic but no hematoma assessed, radial pulse palpable. Right groin dressing also CDI, assessment WNL. Heparin drip restarted
at 2325 at 650 units/hr as per order. Pt. currently sleeping.
[2024-02-21] VITALS (9 sets, daily range): BP systolic 104–149; BP diastolic 63–84; PULSE 64–66; BMI 18.4
[2024-02-21 05:48] LABS: Hematocrit 32.7 % (37.0-47.0); Hemoglobin 11.1 g/dL (12.0-16.0); Mean Corp Hgb Conc. 33.9 g/dL (33.0-37.0); Mean Corpuscular Hgb 30.7 pg (27.0-31.0); Mean Corpuscular Volume 90.6 fL (81.0-99.0); Mean Platelet Volume 11.2 fL (7.4-10.4); Platelet Count 170 10^3/uL (130-400); Red Blood Cell Count 3.61 10^6/uL (4.20-5.40); Red Cell Dist. Width 13.8 % (11.5-14.5); White Blood Cell Count 8.6 10^3/uL (4.8-10.8)
[2024-02-21 05:59] LABS: APTT 51.1 Sec (23.4-35.0)
[2024-02-21 06:15] LABS: ALT (SGPT) 19 U/L (0-35); AST (SGOT) 31 U/L (14-36); Albumin 4.1 g/dl (3.5-5.0); Alkaline Phosphatase 53 U/L (38-126); Blood Urea Nitrogen 35 mg/dl (7-17); Carbon Dioxide 23 mmol/L (22-30); Chloride 108 mmol/L (98-107); Estimated Creatinine Clearance 40 ml/min; Glucose 98 mg/dl (70-99); HDL Cholesterol 101 mg/dl; LDL Cholesterol, Calculated 87 mg/dl; Potassium 4.2 mmol/L (3.5-5.1); Sodium 139 mmol/L (135-145); Total Bilirubin 1.2 mg/dl (0.2-1.3); Total Cholesterol 203 mg/dl (50-199); Total Protein 6.4 g/dl (6.3-8.2); Triglyceride 78 mg/dl (10-149); Very Low Density Lipoprotein 15 mg/dl (0-30); eGFR > 60.00
[2024-02-21] MEDS: ZESTRIL 40 MG PO (08:05)
[2024-02-21] MEDS: OCUVITE SOFTGEL 1 CAP PO (08:05)
[2024-02-21] MEDS: ASPIR LOW (ENTERIC COATED) 81 MG PO (08:05)
[2024-02-21] MEDS: VITAMIN D3 (cholecalciferol) 25 MCG PO (08:05)
[2024-02-21] MEDS: PROTONIX 40 MG PO (08:05)
[2024-02-21] MEDS: MEDROL 4 MG PO (08:06)
[2024-02-21] MEDS: CELEXA 20 MG PO (08:06)
[2024-02-21] MEDS: NORVASC 2.5 MG PO (08:06)
[2024-02-21] MEDS: LOPRESSOR 25 MG PO ×2 (08:06→19:45)
[2024-02-21] MEDS: OXYCONTIN (CONTROLLED RELEASE) 20 MG PO (08:07)
--- NOTE | 2024-02-21 09:49 | PN.CDI ---
CDI
- -
CDI:
Physician Documentation Request
Admit Date: 02/19/24 13:51
Dear Doctor Frank,
Please review the following and provide your response in the progress notes.
Clinical Indicators:
Height: 5 ft 5 in
Weight:110 lb 10.7 oz
BMI:18.4
If possible, please provide an associated diagnosis related to the abnormal BMI, such as:
BMI < or = to 19
Underweight
Cachectic
- Other
Use of terms such as suspected, likely, concern for, or probable (associated with a specific diagnosis that is being evaluated, monitored, or treated as if it exists) are acceptable and can be coded in the inpatient setting, when documented at the
time of discharge.
Thank you,
Clare Costa RN
CDI Specialist
[place] [facility]
Please use your independent medical judgment in providing your response.
--- NOTE | 2024-02-21 09:50 | PN.CDI ---
CDI
- -
CDI:
Physician Documentation Request
Admit Date: 02/19/24 13:51
Dear Doctor Frank,
Please review the following and provide your response in the progress notes.
Clinical Indicators:
Pt admitted with NSTEMI
Documented per WOCN panel , Right Ankle pressure injury stage 2 ...Silicone border foam placed .
Physician documentation of the type and location of wounds is required for compliant documentation. Based on the above clinical findings and your assessment, please provide the following in your progress note:
1. Location of the ulcer/wound, including laterality.
2. Type (etiology) of ulcer/wound:
- Pressure (decubitus) ulcer
- Non-pressure ulcer
- Other
Use of terms such as suspected, likely, concern for, or probable (associated with a specific diagnosis that is being evaluated, monitored, or treated as if it exists) are acceptable and can be coded in the inpatient setting, when documented at the
time of discharge.
Thank you,
Clare Costa RN
CDI Specialist
[place] [facility]
Please use your independent medical judgment in providing your response.
*Source: National Pressure Ulcer Advisory Panel (NPUAP)
--- NOTE | 2024-02-21 10:08 | W.PN.CARDCBS ---
Addendum entered and electronically signed by Emily Duong MD 02/21/24 12:12:
I saw and examined the patient.
The Hearing Dog Trainer's note was reviewed and I agree with the note.
Comment: Overall patient is doing well. No recurrent chest discomfort.
Vital signs and lab work reviewed. Anemia is stable as well as renal function. On exam patient is a elderly female, frail and cachectic, in no acute distress, out of bed into a chair, normal S1 and soft S2, 3 out of 6 mid to late peaking systolic
ejection murmur, abdomen is soft, nontender, nondistended with active bowel sounds, very fine bibasilar Rales with elevated JVP. No significant lower extremity edema.
Recommendations:
1. A sat down and had a lengthy discussion with the patient. We discussed her case at our weekly structural meeting this morning with CT surgery present and we agreed that given patient's chronic steroid use, advanced age and frailty, she would
not be a good surgical candidate for open heart intervention for multivessel coronary artery disease, moderate aortic stenosis and moderate to severe mitral regurgitation in the setting of significant MAC.
2. We did discuss the other treatment options including PCI with likely atherectomy to ostial and mid RCA in addition to medications versus medical therapy only. We discussed the risk and benefits of each of these approaches in thorough detail
just like we did yesterday and patient for now continues to lean towards medical therapy only excepting increased risk for MACE events.
3. We will initiate the second antiplatelet agent given patient came in with an NSTEMI and continue to optimize her medical therapy while she works with PT OT and ambulates to reassess for any recurrent symptoms. Gentle diuresis with ongoing
discussions in case when she speaks to her son and her sister, changes her mind and wants to pursue PCI.
4. 1 episode of paroxysmal atrial fibrillation noted post cath yesterday. Patient is now in sinus rhythm on telemetry. Her [id number] score is at least 5 and therefore eventually will need to be on oral anticoagulation for stroke prevention.
For now we will continue IV heparin drip.
Emily Duong MD, [facility], FSCAI
Original Note:
Today's Communication / Plan
-
ongoing discussions regarding treatment of MVCAD - RCA PCI vs medical therapy
plavix load
in SR. eventual OAC
Impression / Plan
-
Primary Power Transformer Repairer: last seen by Dr. Portillo in 2019
Assessment:
Presentation with CP
Elevated troponin
coronary artery calcifications by CT scans
HTN
HLD
mild
Mild to moderate MR
RA on chronic steroid therapy
chronic back pain requiring opioids
PE s/p R knee replacement 2016
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
LE claudication, followed by vascular
depression/anxiety
Family history of aortic aneurysm
Remote former smoker
Former alcoholic
DNR code status
ECHO 2021: EF 55 to 60%, mild concentric LVH, mild to moderate eccentric MR, mild with peak/mean gradients 49/18 mmHg, mild to moderate TR, PAP 39 mmHg
ECHO 02/19/2024: EF 55 to 60%, mild concentric LVH, severely dilated the atrium, at least moderate to severe MR, moderate with peak/mean gradients 56/35 mmHg, AMARIS 0.98 cm�, mild AR, mild to moderate TR, PAP 33 mmHg
Plan:
-Patient presented with chest discomfort. Troponin peaked up 0.523
-status post cardiac catheterization with multivessel coronary disease. Culprit felt to be RCA
-difficult situation and multidisciplinary discussions ongoing. Patient felt to be high risk candidate for CABG/valve(s), and she does not want surgical intervention. Discussed option of RCA PCI versus trial of medical therapy. She is presently
leaning towards medical therapy at this time, however will discuss with volunteer patient representative and son
-Echo from 02/18 with preserved EF, at least moderate to severe MR, moderate
-She also had episode of atrial fibrillation yesterday, status post spontaneous conversion back to sinus rhythm. She has remained in sinus rhythm overnight on review of telemetry.
-[id number] score of 5 for age, female, HTN, vascular disease. plan for eventual transition to OAC, currently on IV heparin
-she is also high risk for bleeding/bruising with RA on chronic steroid therapy
-continue asa, lipitor, lopressor (new this admission), lisinopril, norvasc. will load with plavix today with plan for eventual eliquis, plavix WITHOUT asa
-LDL 87.
Progress Note - Power Transformer Repairer
Subjective
Date of Service: February 21, 2024
no CP, SOB, palpitations overnight.
Objective
Labs:
02/21/24 05:31
02/21/24 05:31
Labs
Hgb 11.1 g/dL (12.0-16.0) L 02/21/24 05:31
Hct 32.7 % (37.0-47.0) L 02/21/24 05:31
Plt Count 170 10^3/uL (130-400) 02/21/24 05:31
APTT 51.1 Sec (23.4-35.0) H 02/21/24 05:31
Sodium 139 mmol/L (135-145) 02/21/24 05:31
Potassium 4.2 mmol/L (3.5-5.1) 02/21/24 05:31
BUN 35 mg/dl (7-17) H 02/21/24 05:31
Creatinine 0.9 mg/dL (0.6-1.0) 02/21/24 05:31
Glucose 98 mg/dl (70-99) 02/21/24 05:31
Troponins
02/19/24 02/19/24 02/19/24
07:03 10:09 13:52
Troponin I 0.013 0.094 H* D 0.416 H* D
02/19/24 02/20/24
20:00 03:17
Troponin I 0.523 H* D 0.395 H*
Vital Signs and I&O:
Vital Signs
Temp Pulse Resp BP Pulse Ox
98.6 F 73 18 121/66 98
02/21/24 07:20 02/21/24 07:02 02/21/24 07:20 02/21/24 08:06 02/21/24 09:30
Vital Signs
Temp Pulse Resp BP Pulse Ox
98.6 F 73 18 121/66 98
02/21/24 07:20 02/21/24 07:02 02/21/24 07:20 02/21/24 08:06 02/21/24 09:30
Intake & Output
02/19/24 02/20/24 02/21/24 02/22/24
07:59 07:59 07:59 07:59
Intake Total 78 / 78 1005.5 / 1005.5
Balance 78 / 78 1005.5 / 1005.5
Physical Exam
Physical Exam
GEN: No distress, awake, alert, oriented x3. sitting in chair
HEENT: supple, anicteric, mmm, eomi
LUNGS: CTA B/L, no wheezes/rales
CV: Reg, S1/S2, 2/6 syst LSB
ABD: soft, BS+, NT/ND
EXT: No cyanosis, clubbing, edema
NEURO: Gross non-focal
SKIN: Warm, pink, dry. No rash. Thin skin with ecchymoses and scars of chest, B/L UE and LE
[2024-02-21] MEDS: PLAVIX 600 MG PO (13:12)
[2024-02-21] MEDS: LASIX 20 MG PO (13:12)
[2024-02-21] MEDS: HEPARIN 25000 UNITS/250 ML IV (13:18)
[2024-02-21 13:46] LABS: APTT 79.8 Sec (23.4-35.0)
--- NOTE | 2024-02-21 14:15 | CM ---
Chart reviewed. Patient is independent of ADLS, lives with her son in a 1 STH, 2 SULEMAN, 0 DME. Patient has Pace Prescription Plan. Plan is for the patient to return home. CM to follow
--- NOTE | 2024-02-21 14:56 | W.PN.HOSP.TC ---
Addendum entered and electronically signed by Papi Marie DO 02/21/24 15:58:
Right Ankle pressure injury stage 2 -care per wound care nurse.
Underweight -BMI 18.4
Original Note:
Today's Communication/Plan
-
Continue current care
Assessment / Plan
Assessment / Plan
Gen-AAOx3, NAD
HEENT-NC, AT, anicteric, clear oral mm
Neck-supple
CV-reg, no M, +S1/S2
Lungs-clear B/L
Abd-soft, NT, ND
Ext-no edema
Musculoskeletal-no cyanosis, clubbing
Skin-warm and dry
Neuro-grossly non-focal
Psych-calm, cooperative
NSTEMI -continue monitoring and IVU. Underwent left and right-sided cardiac catheterization today, triple-vessel disease noted. Deemed to be high operative risk candidate after the interdisciplinary meeting between CT surgery and cardiology.
Remains on IV heparin. Continue aspirin, metoprolol. Add Lipitor. Patient believes she is going to have a cardiac catheterization with possible stenting on Saturday.
New onset atrial fibrillation -after cardiac catheterization. Spontaneously converted to sinus rhythm.
Essential hypertension -stable.
Hyperlipidemia
Aortic stenosis
Rheumatoid arthritis
History of pleural effusion
History of pulm embolism
Gout
Depression/anxiety
DNR -confirmed with patient.
Anticipated Discharge: > 48 hours
Subjective/Interval History
-
Date of Service: February 21, 2024
Patient seen and examined. No complaints currently.
Objective Data
-
Labs:
Laboratory Results
02/21/24 02/21/24 02/21/24
05:31 13:26 19:30
WBC 8.6
Hgb 11.1 L
Hct 32.7 L
Plt Count 170
APTT 51.1 H 79.8 H Pending
Sodium 139
Potassium 4.2
Chloride 108 H
Carbon Dioxide 23
BUN 35 H
Creatinine 0.9
Glucose 98
Calcium 9.0
Total Bilirubin 1.2
AST 31
ALT 19
Alkaline Phosphatase 53
Vital Signs:
Vital Signs
Temp Pulse Resp BP Pulse Ox
98.7 F 66 16 132/70 94
02/21/24 12:29 02/21/24 14:00 02/21/24 12:29 02/21/24 11:39 02/21/24 12:29
I&O
02/20/24 02/21/24 02/22/24
06:59 06:59 06:59
Intake Total 78 / 78 1005.5 / 1005.5
Balance 78 / 78 1005.5 / 1005.5
Review of Systems
-
History Source: Patient
All other systems: Reviewed and negative
[2024-02-21] MEDS: LIPITOR 40 MG PO (18:18)
--- NOTE | 2024-02-21 18:59 | PTCARENOTE ---
Pt denies any discomfort. Telemetry shows sinus rhythm. Left radial site very ecchymotic but unchanged from 02/20. Heparin infusion continues, pt loaded with plavix.
[2024-02-21] MEDS: XANAX 0.5 MG PO (22:09)
[2024-02-21] MEDS: MIRALAX 17 GRAMS PO (22:09)
[2024-02-21] MEDS: REMERON 60 MG PO (22:09)
--- NOTE | 2024-02-21 22:37 | PTCARENOTE ---
Pt received start of shift, HR SB/SR. Heparin infusing at 850units/hr. R groin site dressing CDI, soft, no hematoma. L radial cath site dressing CDI - ecchymotic. Pt requesting Miralax. TT STAFF MINE WARFARE OFFICER Hephziba, PRN miralax order placed. Pt denies any CP.
Informed to notify RN if any changes, call castillo within reach.
~1944: Raised firm area [id number] noted above L radial insertion site - manual pressure held at site of hematoma for 15min, hematoma no longer present. Surrounding site soft. Activity restrictions reinforced w/ pt.
~2024: 1.5x1.5cm raised firm area noted above L radial insertion site. Manual pressure held 40 minutes. hematoma no longer present. surrounding site soft.
~2127 - 0.5x0.5cm raised firm area noted above L radial insertion site. RUSH Kauffman at bedside- pressure held 30 minutes. MEGHANN wrap placed around site for continuous pressure. Informed pt to notify RN if any numbness or tingling in fingers - SPO2
distal to meghann wrap 96-97%. Cap refill <2 seconds.
[2024-02-22 03:15] VITALS: BP 135/71
--- NOTE | 2024-02-22 03:39 | W.PN.UPDATE ---
Update Note
Progress Note Update
-pt has recurrent hematoma at the site of L radial artery. She is on iv Heparin. Nurse placed manual pressure multiple times last night. I then held pressure for 30 min last night and placed tight dunia wrap overnight. Small hematoma recurred this
am.
-after 30 min of manual compression this am, small hematoma was observed again. Placed TR band at 4:10 am with 7 cc of air. Digits are warm, pink, intact sensation, no paresthesia. Will start removing 2 cc of air in an hour, then as directed
-ordered US of radial artery for am
[2024-02-22 03:50] LABS: % Basophils 0.1 % (0-2); % Immature Granulocytes 1.4 % (0-0.5); % Lymphocytes 12.3 % (20.5-51.1); % Monocytes 8.2 % (1.7-9.3); Absolute Immature Granulocytes 0.1 10^3/uL (0-0.05); Absolute Monocytes 0.7 10^3/uL (0.1-0.6); Absolute Neutrophils 6.2 10^3/uL (1.4-6.5); Hematocrit 31.5 % (37.0-47.0); Hemoglobin 10.9 g/dL (12.0-16.0); Mean Corp Hgb Conc. 34.6 g/dL (33.0-37.0); Mean Corpuscular Hgb 31.7 pg (27.0-31.0); Mean Corpuscular Volume 91.6 fL (81.0-99.0); Mean Platelet Volume 11.5 fL (7.4-10.4); Nucleated Red Blood Cells % 0 %; Platelet Count 156 10^3/uL (130-400); Red Blood Cell Count 3.44 10^6/uL (4.20-5.40); Red Cell Dist. Width 13.7 % (11.5-14.5)
[2024-02-22 04:02] LABS: APTT 107.2 Sec (23.4-35.0)
[2024-02-22 04:30] LABS: ALT (SGPT) 20 U/L (0-35); AST (SGOT) 30 U/L (14-36); Albumin 3.8 g/dl (3.5-5.0); Alkaline Phosphatase 46 U/L (38-126); Blood Urea Nitrogen 39 mg/dl (7-17); Calcium 9.1 mg/dl (8.4-10.2); Carbon Dioxide 24 mmol/L (22-30); Chloride 108 mmol/L (98-107); Estimated Creatinine Clearance 40 ml/min; Glucose 103 mg/dl (70-99); Potassium 4.5 mmol/L (3.5-5.1); Sodium 139 mmol/L (135-145); Total Bilirubin 1.1 mg/dl (0.2-1.3); Total Protein 6.2 g/dl (6.3-8.2); eGFR > 60.00
[2024-02-22 04:51] VITALS: BMI 18.3
--- NOTE | 2024-02-22 06:23 | PTCARENOTE ---
Pt w/ another hematoma 0.5cmx0.5cm at L radial site. manual pressure held on site for 30 minutes. Upon release, firm bulge noted to be forming once more. Manual pressure placed back on site, CVPA [place] notified. TR wristband x1 placed on L radial
site + hematoma by CVPA. 7cc air injected into band. Continuous pulsox placed on L hand. After 1 hour, removed 2mL 30 minutes apart twice. 3mL air to be left in band per CVPA. L radial site soft, tender, and very ecchymotic. No tenseness or firmness
noted around site.
[2024-02-22 07:48] VITALS: BP 131/66
--- NOTE | 2024-02-22 07:52 | W.PN.CARDCBS ---
Addendum entered and electronically signed by Marcio Chapman MD 02/22/24 08:55:
I saw and examined the patient.
The Sales Service Representative's note was reviewed and I agree with the note.
Comment:
GEN: No distress, awake, Ox3
HEENT: supple, anicteric, mmm
LUNGS: scatt rhonchi
CV: Reg, S1/S2, 3/6 syst LSB, no gallop
ABD: soft, BS+, NT/ND
EXT: L radial severe ecchymosis with TR band
NEURO: Gross non-focal
SKIN: No rash
Plan:
Still having significant bruising/ecchymosis/possible hematoma at radial access. Continue TR band and stop IV heparin for now. Check ultrasound of radial artery.
Continue aspirin, Plavix, metoprolol, and atorvastatin.
She is agreeable to RCA stenting on Saturday.
Fortunately she remains in sinus rhythm. With her chronic steroid use and frailty am not sure she is a great anticoagulation candidate. Options would include Eliquis plus Plavix versus just aspirin and Plavix with monitoring for recurrence of
A-fib, although with significant much regurgitation she will have recurrent atrial fibrillation. Hemoglobin currently stable at 10-11.
Original Note:
Today's Communication / Plan
-
Discontinue heparin
Arterial ultrasound of left radial access site today
Continue aspirin, Plavix,, Lopressor and statin
Plan for PCI of RCA on 02/24/2024
Impression / Plan
-
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 Portillo in 2019
Assessment:
Presentation 02/19/2024 with CP
Elevated troponin
Multivessel coronary artery disease on cardiac catheterization 02/20/2024
Right radial access site hematoma/bleeding post catheterization
HTN
HLD
mild
Mild to moderate MR
RA on chronic steroid therapy
chronic back pain requiring opioids
PE s/p R knee replacement 2016
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
LE claudication, followed by vascular
depression/anxiety
Family history of aortic aneurysm
Remote former smoker
Former alcoholic
DNR code status
ECHO 2021: EF 55 to 60%, mild concentric LVH, mild to moderate eccentric MR, mild with peak/mean gradients 49/18 mmHg, mild to moderate TR, PAP 39 mmHg
ECHO 02/19/2024: EF 55 to 60%, mild concentric LVH, severely dilated the atrium, at least moderate to severe MR, moderate with peak/mean gradients 56/35 mmHg, AMARIS 0.98 cm�, mild AR, mild to moderate TR, PAP 33 mmHg
Cardiac catheterization 02/20/2024: LM mild ostial and distal tapering. LAD 2 serial 50% stenosis in proximal to mid, distal 70% stenosis. iFR positive at 0.83 for the distal LAD and at 0.88 for proximal to mid LAD. LCX: Ostial 50 to 60%, OM branch
80 to 85%. RCA large-caliber dominant vessel with heavily calcified 90 to 95% ostial, 85% mid. Ostial RPDA 60%.
HEMODYNAMICS:RA (m) : 10; RV (s/d,m) : 29/8, 12; PA (s/d, m) : 35/16, 24; PCWP (m) : 17; Cardiac Output : 4.28 L/min; Cardiac Index : 2.76 L/min/m-2; Systemic vascular resistance: 1793 dsc^(-5); Pulmonary vascular resistance: 1.63 heredia un
Plan:
-Patient presented 02/19/2024 with chest discomfort. Troponin peaked up 0.523
-status post cardiac catheterization with multivessel coronary disease. Culprit felt to be RCA
-difficult situation and multidisciplinary discussions ongoing. Patient felt to be high risk candidate for CABG/valve(s), and she does not want surgical intervention. Discussed option of RCA PCI versus trial of medical therapy. Patient is now
leaning towards PCI of RCA on 02/24/2024. Will make her n.p.o. and add her to schedule.
-Continue DAPT with aspirin and Plavix, was loaded 02/21/2024
-Echo from 02/18 with preserved EF, at least moderate to severe MR, moderate
-LDL 87. Atorvastatin 40 mg new this admission
-She has episodes of paroxysmal atrial fibrillation 02/20/2024 lasting about 2 hours, status post spontaneous conversion back to sinus rhythm. She has remained in sinus rhythm in last 24 plus hours upon tele review. Continue Lopressor. If
recurrent atrial fibrillation could consider amiodarone.
-she is also high risk for bleeding/bruising with RA on chronic steroid therapy
-[id number] score of 5 for age, female, HTN, vascular disease. Plan for eventual transition to OAC.
-Placed on IV heparin for NSTEMI and PAF. Also was provided Plavix bolus of 300 mg on 02/21/2024. Patient then developed bleeding at left radial access site in lithography contact worker of 02/22/2024 requiring 30 minutes of manual compression. Noted to have
small hematoma. TR band placed. Heparin discontinued. Ultrasound of radial artery ordered 02/22/2024
-continue asa, lipitor, lopressor (new this admission), lisinopril, norvasc. Plan for eventual eliquis, plavix WITHOUT asa
Progress Note - Staffing Assistant
Subjective
Date of Service: February 22, 2024
Patient seen and examined. Patient sitting in bed. Overall feels well and denies chest pain
Reviewed events of overnight patient developed left radial artery site hematoma with manual pressure held on numerous occasions. TR band placed and remains in place. Moderate amount of ecchymosis is noted in left forearm. Good perfusion
Objective
Labs:
02/22/24 03:31
02/22/24 03:31
Labs
Hgb 10.9 g/dL (12.0-16.0) L 02/22/24 03:31
Hct 31.5 % (37.0-47.0) L 02/22/24 03:31
Plt Count 156 10^3/uL (130-400) 02/22/24 03:31
APTT 107.2 Sec (23.4-35.0) H 02/22/24 03:31
Sodium 139 mmol/L (135-145) 02/22/24 03:31
Potassium 4.5 mmol/L (3.5-5.1) 02/22/24 03:31
BUN 39 mg/dl (7-17) H 02/22/24 03:31
Creatinine 0.9 mg/dL (0.6-1.0) 02/22/24 03:31
Glucose 103 mg/dl (70-99) H 02/22/24 03:31
Troponins
02/19/24 02/19/24 02/19/24
10 13:52 20:00
Troponin I 0.094 H* D 0.416 H* D 0.523 H* D
02/20/24
03:17
Troponin I 0.395 H*
Vital Signs and I&O:
Vital Signs
Temp Pulse Resp BP Pulse Ox
98.3 F 62 18 131/66 98
02/22/24 07:51 02/22/24 07:48 02/22/24 07:51 02/22/24 07:48 02/22/24 07:51
Vital Signs
Temp Pulse Resp BP Pulse Ox
98.3 F 62 18 131/66 98
02/22/24 07:51 02/22/24 07:48 02/22/24 07:51 02/22/24 07:48 02/22/24 07:51
Intake & Output
02/20/24 02/21/24 02/22/24 02/23/24
06:59 06:59 06:59 06:59
Intake Total 1005.5 / 1005.5 720 / 720
Balance 1005.5 / 1005.5 720 / 720
Physical Exam
Physical Exam
GEN: No distress, awake, Ox3, sitting in bed
HEENT: supple, anicteric, mmm
LUNGS: CTA, no wheezes/rales
CV: Reg, S1/S2, 2/6 harsh systolic murmur at right sternal border, 2/ 6 soft blowing murmur at apex
ABD: soft, BS+, NT/ND
EXT: No edema, clubbing or cyanosis; left radial access site with TR band in place. Moderate amount of ecchymosis of left forearm, good perfusion without evidence of limb ischemia
NEURO: Gross non-focal
SKIN: No rash, warm, dry, pink
[2024-02-22] MEDS: PROTONIX 40 MG PO (07:59)
[2024-02-22] MEDS: ASPIR LOW (ENTERIC COATED) 81 MG PO (07:59)
[2024-02-22] MEDS: NORVASC 2.5 MG PO (07:59)
[2024-02-22] MEDS: PLAVIX 75 MG PO (07:59)
[2024-02-22] MEDS: VITAMIN D3 (cholecalciferol) 25 MCG PO (07:59)
[2024-02-22] MEDS: ZESTRIL 40 MG PO (07:59)
[2024-02-22] MEDS: LOPRESSOR 25 MG PO ×2 (08:00→19:57)
[2024-02-22] MEDS: OXYCONTIN (CONTROLLED RELEASE) 20 MG PO (08:00)
[2024-02-22] MEDS: MEDROL 4 MG PO (08:00)
[2024-02-22] MEDS: CELEXA 20 MG PO (08:00)
--- NOTE | 2024-02-22 11:00 | W.PN.UPDATE ---
Update Note
Progress Note Update
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 Dampened monophasic flow
within radial artery distal to the catheterization site.
Will consult vascular surgery.
Patient, patient's son Froylan, primary service and nursing updated.
[2024-02-22] MEDS: NORCO 5/325 1 TABLET PO (11:16)
--- NOTE | 2024-02-22 11:24 | CON.VAS ---
Consultation
Consultation Request
Date/Time Consultation Requested: 02/22/24
Performing Provider: Curtis Fontenot MD
Reason for Consultation: Left Radial Pseudoaneurysm
Medical History
-
Chief Complaint: L Radial Post-Cath Pseudo
History of Present Illness:
78F admitted for NSTEMI POD 2 from [facility] via L radial loaded on Plavix on heparin gtt developed L radial hematoma and ecchymosis. Radial duplex obtained demonstrating small 2.5x2.1 cm thrombosed pseudoaneurysm. Pt asymptomatic at this time with no
motor or neuro loss in LUE or hand. Dopplerable ulnar, palmar arch and radial
Past Medical History
Past Medical History: CAD, HTN and Hypercholesterolemia
Allergies / Home Medications
Allergy/AdvReac Type Severity Reaction Status Date / Time
Sulfa (Sulfonamide Allergy Stomach Verified 02/19/24 06:46
Antibiotics) cramps
�Medication �Instructions �Recorded �Confirmed �Type
lisinopril 40 mg tablet 40 mg PO DAILY Heart 09/29/14 02/19/24 History
disease/condition
amlodipine 2.5 mg tablet 2.5 mg PO DAILY Heart 01/23/16 02/19/24 History
disease/condition
methylprednisolone 4 mg tablet 4 mg PO DAILY Anti-inflammatory 01/23/16 02/19/24 History
etanercept 50 mg/mL (1 mL) 50 mg SQ SA arthritis 12/09/20 02/19/24 History
subcutaneous syringe (Enbrel)
oxycodone 20 mg tablet,crush 20 mg PO DAILY 12/09/20 02/19/24 History
resistant,extended release 12 hr
(OxyContin)
alprazolam 0.5 mg tablet (Xanax) 0.5 mg PO HS sleep 06/18/22 02/19/24 History
aspirin 81 mg tablet,delayed 81 mg PO DAILY 06/18/22 02/19/24 History
release
cholecalciferol (vitamin D3) 25 25 mcg PO DAILY 02/19/24 02/19/24 History
mcg (1,000 unit) tablet (Vitamin
D3)
citalopram 20 mg tablet 20 mg PO DAILY 02/19/24 02/19/24 History
hydrocodone 5 mg-acetaminophen 325 1 tab PO Q8HPRN PRN severe pain 02/19/24 02/19/24 History
mg tablet
mirtazapine 30 mg tablet 60 mg PO HS 02/19/24 02/19/24 History
omeprazole 40 mg capsule,delayed 40 mg PO DAILY 02/19/24 02/19/24 History
release
polyethylene glycol 3350 17 gram 17 g PO HS 02/19/24 02/19/24 History
oral powder packet (Miralax)
vitamins A,C,O-rfly-cyynsn 4,296 1 cap PO DAILY 02/19/24 02/19/24 History
mcg-226 mg-90 mg capsule
(PreserVision AREDS)
Physical Exam
Vital Signs
Temp Pulse Resp BP Pulse Ox
98.3 F 62 18 131/66 98
02/22/24 07:51 02/22/24 07:48 02/22/24 07:51 02/22/24 07:48 02/22/24 07:51
Lab Results
02/22/24 03:31
02/22/24 03:31
Troponin I 0.395 ng/ml H* 02/20/24 03:17
Physical Exam
General: Well Developed and No Apparent Distress
HEENT: Normocephalic
Respiratory: Clear
Cardiac: S1/S2 and Other (dopplerable L radial, ulnar and palmar arch )
GI: Soft
Skin: Warm
Assessment / Plan
-
78F s/p LHC via L radial c/b pseudoaneurysm confirmed on duplex. I reviewed the ultrasound myself which demonstrates a small 2.5x2.1 cm pseudo that is thrombosed. No active flow chamber. On exam, patient is without motor or neuro dysfunction.
-MEGHANN Wrap and Elevate LUE
-may use ice for pain
-repeat duplex in AM
-hold off heparin unless necessary for NSTEMI and symptomatic CAD
-if pain worsens, or hematoma expands (unlikely); will proceed to OR for radial repair
-discussed with bedside nurse and ICU team
Data Reviewed
-
CT Scan: Image Personally Visualized and interpreted
Ultrasound: Image Personally Visualized and interpreted
Medical Tests (Nuc Med, Echo etc): Image Personally Visualized and interpreted
Labs: Labs Reviewed by me
[2024-02-22 11:56] VITALS: BP 117/54
--- NOTE | 2024-02-22 12:19 | W.PN.HOSP.TC ---
Today's Communication/Plan
-
continue current care
Assessment / Plan
Assessment / Plan
Gen-AAOx3, NAD
HEENT-NC, AT, anicteric, clear oral mm
Neck-supple
CV-reg, no M, +S1/S2
Lungs-clear B/L
Abd-soft, NT, ND
Ext-no edema
Musculoskeletal-no cyanosis, clubbing
Skin-warm and dry
Neuro-grossly non-focal
Psych-calm, cooperative
NSTEMI -continue monitoring and IVU. Underwent left and right-sided cardiac catheterization 02/19, triple-vessel disease noted. Deemed to be high operative risk candidate after the interdisciplinary meeting between CT surgery and cardiology. IV
heparin stopped. Continue aspirin, metoprolol, Lipitor. Plan cardiac catheterization with possible stenting on Saturday.
Left distal radial artery pseudoaneurysm - vascular surgery input noted. MEGHANN wrap, elevate, ICE for pain, repeat duplex US in am. If worsens, may need operative intervention.
New onset atrial fibrillation -after cardiac catheterization. Spontaneously converted to sinus rhythm.
Essential hypertension -stable.
Hyperlipidemia
Aortic stenosis
Rheumatoid arthritis
History of pleural effusion
History of pulm embolism
Gout
Depression/anxiety
DNR -confirmed with patient.
Anticipated Discharge: > 48 hours
Subjective/Interval History
-
Date of Service: February 22, 2024
Patient seen/examined. Some left wrist pain.
Objective Data
-
Labs:
Laboratory Results
02/22/24
03:31
WBC 8.0
Hgb 10.9 L
Hct 31.5 L
Plt Count 156
APTT 107.2 H
Sodium 139
Potassium 4.5
Chloride 108 H
Carbon Dioxide 24
BUN 39 H
Creatinine 0.9
Glucose 103 H
Calcium 9.1
Total Bilirubin 1.1
AST 30
ALT 20
Alkaline Phosphatase 46
Vital Signs:
Vital Signs
Temp Pulse Resp BP Pulse Ox
98.5 F 60 18 117/54 96
02/22/24 11:58 02/22/24 12:00 02/22/24 11:58 02/22/24 11:56 02/22/24 12:00
I&O
02/21/24 02/22/24 02/23/24
06:59 06:59 06:59
Intake Total 1005.5 / 1005.5 720 / 720 300 / 300
Balance 1005.5 / 1005.5 720 / 720 300 / 300
Review of Systems
-
History Source: Patient
All other systems: Reviewed and negative
[2024-02-22] MEDS: MIRALAX 17 GRAMS PO (14:57)
[2024-02-22 15:21] VITALS: BP 109/65
[2024-02-22] MEDS: OCUVITE SOFTGEL PO (15:26)
[2024-02-22] MEDS: TYLENOL 650 MG PO (15:28)
[2024-02-22] MEDS: LIPITOR 40 MG PO (17:24)
--- NOTE | 2024-02-22 18:07 | PTCARENOTE ---
Heparin infusion stopped at 07:10 per . Pt taken for peripheral U/S with RN who removed left radial band for the procedure. Small thrombosed pseudoaneurysm was detected. Radial band left off per but firm 5X2X1 cm hematoma
reformed so it was reapplied by RN as ordered with 3mls air inserted. Soon after pt was seen by , radial band was removed and dunia wrap bandage was applied to her left forearm. Pt with warm fingers,good radial pulse, cap refill
<2seconds and pulse oximetry was 96-99% to left index finger. Pt's hand was elevated on a pillow. Pt was given hydrocodone and later tylenol as well as an ice pack with fair pain relief. Plan for peripheral U/S on 02/22.
Telemetry shows sinus rhythm with 6 seconds of atrial fib.@12:23.
[2024-02-22 19:17] VITALS: BP 125/62
[2024-02-22 22:02] VITALS: BP 125/70
[2024-02-22] MEDS: REMERON 60 MG PO (22:02)
[2024-02-22] MEDS: XANAX 0.5 MG PO (22:02)
--- NOTE | 2024-02-22 23:40 | PTCARENOTE ---
Pt received start of shift, HR SR. L radial site w/ prabhakar wrap on. Site feels soft. Pt's fingers warm, pink, cap refill <2 seconds. At 2200 prabhakar wrap removed to check site underneath. Site very ecchymotic but soft. No tenseness or firm edema palpable.
Prabhakar wrap placed back on immediately after site check. R groin site LATONIA, slight ecchymosis, soft.
[2024-02-23] VITALS (7 sets, daily range): BP systolic 94–132; BP diastolic 56–76; BMI 18.4
[2024-02-23 02:29] LABS: % Basophils 0.1 % (0-2); % Immature Granulocytes 1.8 % (0-0.5); % Lymphocytes 11.8 % (20.5-51.1); % Monocytes 8.2 % (1.7-9.3); % Neutrophils 78.1 % (42.2-75.2); Absolute Immature Granulocytes 0.2 10^3/uL (0-0.05); Absolute Lymphocytes 1.1 10^3/uL (1.2-3.4); Absolute Monocytes 0.8 10^3/uL (0.1-0.6); Absolute Neutrophils 7.1 10^3/uL (1.4-6.5); Hematocrit 32.2 % (37.0-47.0); Hemoglobin 11.2 g/dL (12.0-16.0); Mean Corp Hgb Conc. 34.8 g/dL (33.0-37.0); Mean Corpuscular Hgb 31.1 pg (27.0-31.0); Mean Corpuscular Volume 89.4 fL (81.0-99.0); Mean Platelet Volume 10.6 fL (7.4-10.4); Nucleated Red Blood Cells % 0 %; Platelet Count 170 10^3/uL (130-400); Red Cell Dist. Width 13.4 % (11.5-14.5); White Blood Cell Count 9.1 10^3/uL (4.8-10.8)
[2024-02-23 02:52] LABS: ALT (SGPT) 22 U/L (0-35); AST (SGOT) 26 U/L (14-36); Albumin 3.6 g/dl (3.5-5.0); Alkaline Phosphatase 45 U/L (38-126); Blood Urea Nitrogen 39 mg/dl (7-17); Calcium 9.3 mg/dl (8.4-10.2); Carbon Dioxide 26 mmol/L (22-30); Chloride 106 mmol/L (98-107); Estimated Creatinine Clearance 36 ml/min; Glucose 106 mg/dl (70-99); Potassium 4.9 mmol/L (3.5-5.1); Sodium 137 mmol/L (135-145); Total Bilirubin 0.9 mg/dl (0.2-1.3); eGFR 57.31
[2024-02-23] MEDS: VITAMIN D3 (cholecalciferol) 25 MCG PO (09:13)
[2024-02-23] MEDS: ZESTRIL 40 MG PO (09:13)
[2024-02-23] MEDS: ASPIR LOW (ENTERIC COATED) 81 MG PO (09:13)
[2024-02-23] MEDS: PROTONIX 40 MG PO (09:13)
[2024-02-23] MEDS: CELEXA 20 MG PO (09:13)
[2024-02-23] MEDS: OXYCONTIN (CONTROLLED RELEASE) 20 MG PO (09:14)
[2024-02-23] MEDS: OCUVITE SOFTGEL 1 CAP PO (09:14)
[2024-02-23] MEDS: MEDROL 4 MG PO (09:14)
[2024-02-23] MEDS: PLAVIX 75 MG PO (09:14)
[2024-02-23] MEDS: NORVASC 2.5 MG PO (09:14)
[2024-02-23] MEDS: LOPRESSOR 25 MG PO ×2 (09:14→19:47)
--- NOTE | 2024-02-23 10:06 | W.PN.HOSP.TC ---
Today's Communication/Plan
-
Continue current care
Assessment / Plan
Assessment / Plan
Gen-AAOx3, NAD
HEENT-NC, AT, anicteric, clear oral mm
Neck-supple
CV-reg, no M, +S1/S2
Lungs-clear B/L
Abd-soft, NT, ND
Ext-no edema
Musculoskeletal-no cyanosis, clubbing
Skin-warm and dry
Neuro-grossly non-focal
Psych-calm, cooperative
NSTEMI -continue monitoring and IVU. Underwent left and right-sided cardiac catheterization 02/19, triple-vessel disease noted. Deemed to be high operative risk candidate after the interdisciplinary meeting between CT surgery and cardiology. IV
heparin stopped. Continue aspirin, metoprolol, Lipitor. Plan cardiac catheterization with possible stenting on Saturday.
Left distal radial artery pseudoaneurysm - vascular surgery input noted. MEGHANN wrap, elevate, ICE for pain, repeat duplex US in am. If worsens, may need operative intervention.
New onset atrial fibrillation -after cardiac catheterization. Spontaneously converted to sinus rhythm.
Essential hypertension -stable.
Hyperlipidemia
Aortic stenosis
Rheumatoid arthritis
History of pleural effusion
History of pulm embolism
Gout
Depression/anxiety
DNR -confirmed with patient.
Anticipated Discharge: > 48 hours
Subjective/Interval History
-
Date of Service: February 23, 2024
Patient seen and examined. Improving left wrist pain.
Objective Data
-
Labs:
Laboratory Results
02/23/24 02/23/24
02:18 06:00
WBC 9.1
Hgb 11.2 L
Hct 32.2 L
Plt Count 170
APTT Cancelled
Sodium 137
Potassium 4.9
Chloride 106
Carbon Dioxide 26
BUN 39 H
Creatinine 1.0
Glucose 106 H
Calcium 9.3
Total Bilirubin 0.9
AST 26
ALT 22
Alkaline Phosphatase 45
Vital Signs:
Vital Signs
Temp Pulse Resp BP Pulse Ox
98.5 F 70 20 107/67 97
02/23/24 07:15 02/23/24 09:14 02/23/24 07:15 02/23/24 09:14 02/23/24 07:15
I&O
02/22/24 02/23/24 02/24/24
06:59 06:59 06:59
Intake Total 720 / 720 300 / 300
Balance 720 / 720 300 / 300
Review of Systems
-
History Source: Patient
All other systems: Reviewed and negative
--- NOTE | 2024-02-23 10:47 | W.PN.CARDCBS ---
Today's Communication / Plan
-
For repeat ultrasound of the left wrist to follow pseudoaneurysm. For now plan is conservative therapy. Will continue aspirin and Plavix and hold IV heparin.
Tentative plan is for RCA PCI in AM.
She remains in sinus rhythm. Pending results of PCI will need to make decision regarding long-term antiplatelet and anticoagulation for her. Options would likely include Eliquis plus Plavix.
Continue metoprolol, lisinopril, and atorvastatin. Continue Norvasc.
She remains on long-term methylprednisone 4 mg daily for her rheumatoid arthritis.
Impression / Plan
-
Primary Rotor Balancer: last seen by Dr. Portillo in 2018
Assessment:
Presentation 02/19/2024 with CP
Elevated troponin
Multivessel coronary artery disease on cardiac catheterization 02/20/2024
Left radial access site pseudoaneurysm/bleeding post catheterization
HTN
HLD
mild
Mild to moderate MR
RA on chronic steroid therapy
chronic back pain requiring opioids
PE s/p R knee replacement 2016
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
LE claudication, followed by vascular
depression/anxiety
Family history of aortic aneurysm
Remote former smoker
Former alcoholic
DNR code status
ECHO 2021: EF 55 to 60%, mild concentric LVH, mild to moderate eccentric MR, mild with peak/mean gradients 49/18 mmHg, mild to moderate TR, PAP 39 mmHg
ECHO 02/19/2024: EF 55 to 60%, mild concentric LVH, severely dilated the atrium, at least moderate to severe MR, moderate with peak/mean gradients 56/35 mmHg, AMARIS 0.98 cm�, mild AR, mild to moderate TR, PAP 33 mmHg
Cardiac catheterization 02/20/2024: LM mild ostial and distal tapering. LAD 2 serial 50% stenosis in proximal to mid, distal 70% stenosis. iFR positive at 0.83 for the distal LAD and at 0.88 for proximal to mid LAD. LCX: Ostial 50 to 60%, OM branch
80 to 85%. RCA large-caliber dominant vessel with heavily calcified 90 to 95% ostial, 85% mid. Ostial RPDA 60%.
HEMODYNAMICS:RA (m) : 10; RV (s/d,m) : 29/8, 12; PA (s/d, m) : 35/16, 24; PCWP (m) : 17; Cardiac Output : 4.28 L/min; Cardiac Index : 2.76 L/min/m-2; Systemic vascular resistance: 1793 dsc^(-5); Pulmonary vascular resistance: 1.63 heredia un
Plan:
-Patient presented 02/19/2024 with chest discomfort. Troponin peaked up 0.523
-status post cardiac catheterization with multivessel coronary disease. Culprit felt to be RCA
-difficult situation and multidisciplinary discussions ongoing. Patient felt to be high risk candidate for CABG/valve(s), and she does not want surgical intervention. Discussed option of RCA PCI versus trial of medical therapy. Patient is now
agreeable towards PCI of RCA on 02/24/2024. Will make her n.p.o. and add her to schedule.
-Continue DAPT with aspirin and Plavix, was loaded 02/21/2024
-Echo from 02/18 with preserved EF, at least moderate to severe MR, moderate
-LDL 87. Atorvastatin 40 mg new this admission
-She has episodes of paroxysmal atrial fibrillation 02/20/2024 lasting about 2 hours, status post spontaneous conversion back to sinus rhythm. She has remained in sinus rhythm in last 24 plus hours upon tele review. Continue Lopressor. If
recurrent atrial fibrillation could consider amiodarone.
-she is also high risk for bleeding/bruising with RA on chronic steroid therapy
-[id number] score of 5 for age, female, HTN, vascular disease. Plan for eventual transition to OAC.
-Placed on IV heparin for NSTEMI and PAF. Also was provided Plavix bolus of 300 mg on 02/21/2024. Patient then developed bleeding at left radial access site in referral specialist of 02/22/2024 requiring 30 minutes of manual compression. Noted to have
small hematoma. TR band placed. Heparin discontinued. Ultrasound of radial artery 02/21 revealed pseudoaneurysm. Plan per vascular surgery is to repeat ultrasound today. Hemoglobin stable at 11.2. Will remain off heparin.
-continue asa, lipitor, lopressor (new this admission), lisinopril, norvasc.
Progress Note - Rotor Balancer
Subjective
Date of Service: February 23, 2024
She denies chest pains. Left wrist ecchymosis is about the same. Remains wrapped
Objective
Labs:
02/23/24 02:18
02/23/24 02:18
Labs
Hgb 11.2 g/dL (12.0-16.0) L 02/23/24 02:18
Hct 32.2 % (37.0-47.0) L 02/23/24 02:18
Plt Count 170 10^3/uL (130-400) 02/23/24 02:18
APTT Cancelled 02/23/24 06:00
Sodium 137 mmol/L (135-145) 02/23/24 02:18
Potassium 4.9 mmol/L (3.5-5.1) 02/23/24 02:18
BUN 39 mg/dl (7-17) H 02/23/24 02:18
Creatinine 1.0 mg/dL (0.6-1.0) 02/23/24 02:18
Glucose 106 mg/dl (70-99) H 02/23/24 02:18
Vital Signs and I&O:
Vital Signs
Temp Pulse Resp BP Pulse Ox
98.5 F 68 20 107/67 94
02/23/24 07:15 02/23/24 10:00 02/23/24 07:15 02/23/24 09:14 02/23/24 08:30
Vital Signs
Temp Pulse Resp BP Pulse Ox
98.5 F 68 20 107/67 94
02/23/24 07:15 02/23/24 10:00 02/23/24 07:15 02/23/24 09:14 02/23/24 08:30
Intake & Output
02/21/24 02/22/24 02/23/24 02/24/24
06:59 06:59 06:59 06:59
Intake Total 1005.5 / 1005.5 720 / 720 300 / 300
Balance 1005.5 / 1005.5 720 / 720 300 / 300
Physical Exam
Physical Exam
GEN: No distress, awake, Ox3
HEENT: supple, anicteric, mmm
LUNGS: CTA, no wheezes/rales
CV: Reg, S1/S2, 3/6 syst LSB, no gallop
ABD: soft, BS+, NT/ND
EXT: L wrist ecchymosis
NEURO: Gross non-focal
SKIN: No rash
[2024-02-23] MEDS: NORCO 5/325 1 TABLET PO (16:39)
[2024-02-23] MEDS: MIRALAX 17 GRAMS PO (16:39)
--- NOTE | 2024-02-23 16:44 | PTCARENOTE ---
patient c/o right hand arthritic pain, [place] po given as ordered. also patient request miralax, given as ordered.
[2024-02-23] MEDS: LIPITOR 40 MG PO (17:16)
--- NOTE | 2024-02-23 20:50 | PTCARENOTE ---
Pt ambulating the room as self. POC discussed- pt verbalized understanding. Plans discussed for tomorrows procedure- emotional support provided. SR/SB on the monitor.
[2024-02-23] MEDS: XANAX 0.5 MG PO (22:20)
[2024-02-23] MEDS: REMERON 60 MG PO (22:20)
[2024-02-24] VITALS (26 sets, daily range): BP systolic 67–132; BP diastolic 46–82; BMI 18.4
[2024-02-24] MEDS: OCUVITE SOFTGEL 1 CAP PO (08:32)
[2024-02-24] MEDS: PLAVIX 75 MG PO (08:33)
[2024-02-24] MEDS: ZESTRIL 40 MG PO (08:33)
[2024-02-24] MEDS: OXYCONTIN (CONTROLLED RELEASE) 20 MG PO (08:33)
[2024-02-24] MEDS: ASPIR LOW (ENTERIC COATED) 81 MG PO (08:33)
[2024-02-24] MEDS: CELEXA 20 MG PO (08:33)
[2024-02-24] MEDS: NORVASC 2.5 MG PO (08:33)
[2024-02-24] MEDS: VITAMIN D3 (cholecalciferol) 25 MCG PO (08:33)
[2024-02-24] MEDS: MEDROL 4 MG PO (08:34)
[2024-02-24] MEDS: LOPRESSOR 25 MG PO ×2 (08:34→19:42)
[2024-02-24] MEDS: PROTONIX 40 MG PO (08:37)
--- NOTE | 2024-02-24 09:16 | PTCARENOTE ---
director of cath lab RNs in to take pt to director of cath lab in her bed. report given over the phone. will continue ot monitor.
--- NOTE | 2024-02-24 09:40 | ITS.CL.CATH ---
Machine Binding Folder - Catheterization
Cardiac Catheterization
Procedure Report:
CORONARY INTERVENTION
Date of Procedure: February 24, 2024
Referring: Silverio Chapman
PROCEDURES:
1. Selective right coronary angiogram.
2. Ultrasound-guided access.
3. Successful percutaneous coronary artery intervention of 99% heavily calcified ostial RCA and 90% mid RCA stenoses with plaque modification using IVL shockwave 3.0x12 mm balloon followed by 2 overlapping 3.0 x 38 mm and 3.0 x 28 mm Xience bala
point drug-eluting stents, postdilated with a 3.25 x 20 mm NC balloon at 18 bridget distally and a 3.5 x 15 mm NC balloon at 20 bridget ostially with an excellent angiographic result.
4. IVL Shockwave.
5. Temporary trans-venous pacemaker via right common femoral venous access.
INDICATION: Patient is a 78-year-old frail female with past medical history of rheumatoid arthritis on chronic steroids, hypertension, hyperlipidemia, peripheral artery disease who presents after an episode of substernal chest pressure found to have
an NSTEMI and underwent a diagnostic left heart catheterization on February 20, 2024. Peak troponin was 0.5. Echocardiogram from this admission showed normal biventricular function with moderate aortic stenosis with mean transaortic gradient of 35
mmHg and moderate to severe mitral regurgitation. Diagnostic left heart catheterization last week showed significant ostial and mid RCA stenosis which was thought to be culprit of presenting acute coronary syndrome. She also had obstructive
disease in the left circumflex/OM system and IFR positive disease in the LAD. A heart team discussion was had with lengthy discussions multiple times with patient and his son and patient was deemed too high risk for CABG. After discussion of all
the risk and benefits in detail, patient now presents back to the heart catheterization lab for percutaneous coronary intervention of ostial and mid RCA with possible atherectomy.
ACCESS:
1. Right common femoral artery, 7 [place] sheath, under ultrasound guidance using a micropuncture kit.
2. Right common femoral vein, 6 [place] sheath, under ultrasound guidance using a micropuncture kit
HEMODYNAMICS
AO (s/d) : 123/62
LV (s/d): 138/6
LVEDP: 12
Estimated invasive transaortic mean gradient of 24 mmHg consistent with moderate aortic stenosis.
CORONARY FINDINGS: Left coronary arteries were not selectively engaged or shot in this study. Below report for the left coronary system is what was noted on recent diagnostic study, from February 20, 2024.
DOMINANCE: Right
LEFT MAIN: The left main artery is a large-caliber vessel which gives rise to the left anterior descending artery and the left circumflex artery. There is a mild ostial and distal left main tapering.
LEFT ANTERIOR DESCENDING: The left into descending artery is a medium to large caliber vessel which gives rise to 2 major diagonal branches as it courses through the anterior interventricular groove and wraps around the apex. There is proximal
diffuse atherosclerotic plaque with 2 serial 50% stenosis in the proximal to mid LAD. Distal LAD has an eccentric 70% stenosis. iFR was performed which was positive at 0.83 for the distal LAD and at 0.88 for proximal to mid LAD.
CIRCUMFLEX: The left circumflex artery is a medium caliber vessel which gives rise to 1 major obtuse marginal branch. There is an eccentric 50 to 60% ostial left circumflex stenosis and a 80% stenosis in the OM branch which could be potential
culprit of presenting NSTEMI.
RIGHT CORONARY ARTERY: The right coronary artery is a large-caliber, dominant vessel which gives rise to the right posterior descending artery and the right posterolateral system. There is a heavily calcified 99% ostial RCA stenosis and a 90% mid
RCA stenosis. There is a 40% ostial RPDA stenosis (upper branch of a dual RPDA system).
CORONARY INTERVENTION: The right coronary artery was selectively engaged using a 7 [place] JR4 guide catheter. Additional unfractionated IV heparin was given to maintain therapeutic ACT throughout the case. Through the right common femoral venous
access, we placed a temporary transvenous pacemaker given baseline bradycardia with potential of having to do atherectomy of the ostial RCA stenosis in case patient were to go into heart block. Transvenous pacemaker was positioned in the RV and
placement was confirmed by checking thresholds. A 190 cm 0.014' power turn flex coronary wire was carefully navigated across the ostial and mid RCA lesions into the distal vessel. The lesions were initially predilated using a 2.0 x 12 mm
semi-compliant balloon with good expansion in the mid RCA, with a waist noted at the ostial calcified lesion. The ostial lesion was further predilated using a 3.0 x 15 mm noncompliant balloon with good expansion and some recoil subsequently but
this helped create a channel to be able to deliver the shockwave balloon. We used a 3.0 x 12 mm IV L shockwave balloon delivering is multiple shocks at the ostial and mid RCA. Subsequently using a 6 [place] guide liner for support delivering stents
we deployed a 3.0 x 38 mm Xience bala point drug-eluting stent distally and overlapped this with a 3.0 x 23 mm Xience bala point drug-eluting stent proximally into the ostium. The stents were postdilated using a 3.25 x 20 mm NC trek balloon at 18 bridget
distally and a 3.5 x 15 mm NC trek balloon at 20 bridget ostially with an excellent angiographic result. Patient tolerated the procedure well with no acute complications. MARITZA-3 flow into the distal branches.
SEDATION: 135 minutes of procedural sedation was utilized. An independent medical office supervisor was present to assist with and help manage the patient's level of consciousness and physiologic status.
RADIATION SUMMARY: Fluoro Time (min): 27.6, Dose (mGy): 445.36, DAP (Gy.cm2) : 34.5
Closure Device:
1. 8 [place] Angio-Seal with successful hemostasis at the right common femoral arterial access site.
2. A 6 [place] right common femoral venous sheath was sutured in place with plan to pull using manual pressure once ACT is below 170 ms.
CONCLUSIONS
1. Heavily calcified coronary arteries along with aortic and mitral valve annuli.
2. Successful percutaneous coronary artery intervention of 99% heavily calcified ostial RCA and 90% mid RCA stenoses with plaque modification using IVL shockwave 3.0x12 mm balloon followed by 2 overlapping 3.0 x 38 mm and 3.0 x 28 mm Xience bala
point drug-eluting stents, postdilated with a 3.25 x 20 mm NC balloon at 18 bridget distally and a 3.5 x 15 mm NC balloon at 20 bridget ostially with an excellent angiographic result.
3. Normal LVEDP at 12 mmHg.
4. Estimated invasive transaortic mean gradient of 24 mmHg consistent with moderate aortic stenosis.
RECOMMENDATIONS
1. Given presentation of acute coronary syndrome and new onset paroxysmal atrial fibrillation, we will plan for continuing aspirin and Plavix today and initiating Eliquis starting tomorrow as long as no issue at any of the cath access sites. We
would plan for triple therapy while patient remains in the hospital up to a maximum of 7 days with plan to discharge home on Eliquis and Plavix.
2. Bedrest per protocol.
3. Plan for medical management of coronary artery disease in the left coronary system for now.
4. Aggressive management cardiovascular risk factors.
5. Ongoing surveillance of moderate aortic stenosis along with moderate to severe mitral regurgitation on goal-directed medical therapy.
6. Referral for outpatient cardiac rehab.
Copy to: Silverio Chapman
Emily Duong MD, [facility], [facility]
[2024-02-24 10:13] LABS: ACT-LR - POC 210 Seconds (116-155)
[2024-02-24 10:24] LABS: ACT-LR - POC 277 Seconds (116-155)
[2024-02-24 10:32] LABS: ACT-LR - POC 269 Seconds (116-155)
[2024-02-24 10:40] LABS: ACT-LR - POC 295 Seconds (116-155)
[2024-02-24 11:02] LABS: ACT-LR - POC 295 Seconds (116-155)
[2024-02-24 11:24] LABS: ACT-LR - POC 269 Seconds (116-155)
[2024-02-24 11:33] LABS: ACT-LR - POC 329 Seconds (116-155)
[2024-02-24 12:30] LABS: ACT-LR - POC 232 Seconds (116-155)
[2024-02-24] MEDS: NSS 500 VEN SHEATH (13:27)
[2024-02-24 13:58] LABS: ACT-LR - POC 200 Seconds (116-155)
[2024-02-24] MEDS: NORCO 5/325 1 TABLET PO (15:00)
[2024-02-24 15:28] LABS: ACT-LR - POC 192 Seconds (116-155)
--- NOTE | 2024-02-24 15:45 | CM ---
Chart reviewed. Patient is independent of ADLS, lives with her son in a 1 STH, 2 SULEMAN, 0 DME. Patient has [facility] Prescription Plan. Patient currently with no discharge needs. Plan is for the patient to return home. CM to follow
--- NOTE | 2024-02-24 15:51 | PTCARENOTE ---
cath labs RNs in bedside to pull sheath and hold pressure. VSS.
--- NOTE | 2024-02-24 16:27 | W.PN.HOSP.TC ---
Today's Communication/Plan
-
start Eliquis tomorrow; continue ASA/Plavix
DC planning
Assessment / Plan
Assessment / Plan
Assessment:
NSTEMI
- s/p cath 02/19 with 3 vessel disease. Deemed to be high operative risk candidate after the interdisciplinary meeting between CT surgery and cardiology
- s/p repeat cath 02/23: s/p RCA plaque modification using IVL shockwave 3.0x12 mm balloon followed by 2 overlapping 3.0 x 38 mm and 3.0 x 28 mm Xience bala point drug-eluting stents, postdilated with a 3.25 x 20 mm NC balloon at 18 bridget distally and a
3.5 x 15 mm NC balloon at 20 bridget ostially with an excellent angiographic result
- continue ASA/Plavix today then add Eliquis tomorrow for 7 days. after 7 days Plavix/Eliquis only.
- continue statin
- continue metoprolol
- OP Cardiac rehab
Moderate
Moderate to severe MR
- outpatient follow up
Left distal radial artery pseudoaneurysm - vascular surgery input noted. MEGHANN wrap, elevate, ICE for pain,
- most recent US showing Interval complete thrombosis of LEFT radial artery pseudoaneurysm measuring 2.3 x 1.0 x 2.2 cm. Multiphasic flow within the radial artery distal to the pseudoaneurysm aneurysm origin.
New onset atrial fibrillation -after cardiac catheterization. Spontaneously converted to sinus rhythm. Start Eliquis tomorrow
Essential hypertension -stable.
Hyperlipidemia
Aortic stenosis
Rheumatoid arthritis
History of pleural effusion
History of pulm embolism
Gout
Depression/anxiety
DNR - confirmed with patient
Anticipated Discharge: > 48 hours
Subjective/Interval History
-
Date of Service: February 24, 2024
denies any new complaints at present
Objective Data
-
Vital Signs:
Vital Signs
Temp Pulse Resp BP Pulse Ox
97.8 F 55 18 115/60 97
02/24/24 12:00 02/24/24 13:00 02/24/24 03:05 02/24/24 08:33 02/24/24 12:00
I&O
02/23/24 02/24/24 02/25/24
06:59 06:59 06:59
Intake Total 300 / 300 480 / 480 200 / 200
Balance 300 / 300 480 / 480 200 / 200
Physical Exam
-
General: No Apparent Distress
HEENT: Normocephalic and Atraumatic
Respiratory: Negative Wheezes
Cardiac: Regular Rhythm and S1/S2
GI: Soft
Neuro: AO x 3
Psych: Calm
Data Reviewed
-
Total Time Spent with Patient (in minutes): 45
[2024-02-24] MEDS: LIPITOR 40 MG PO (17:46)
--- NOTE | 2024-02-24 19:35 | PTCARENOTE ---
Pt. received at change of shift. Pt. AOx3, no complaints of pain. B/l femoral sites clean, dry, and intact. VS WNL. Continuing to monitor the patient.
[2024-02-24] MEDS: REMERON 60 MG PO (22:11)
[2024-02-24] MEDS: XANAX 0.5 MG PO (22:11)
[2024-02-25 03:03] VITALS: BP 111/66
[2024-02-25] MEDS: NSS VEN SHEATH (03:29)
[2024-02-25 03:55] LABS: Hematocrit 27.7 % (37.0-47.0); Hemoglobin 9.6 g/dL (12.0-16.0); Mean Corp Hgb Conc. 34.7 g/dL (33.0-37.0); Mean Corpuscular Hgb 31.5 pg (27.0-31.0); Mean Corpuscular Volume 90.8 fL (81.0-99.0); Mean Platelet Volume 11.2 fL (7.4-10.4); Platelet Count 162 10^3/uL (130-400); Red Blood Cell Count 3.05 10^6/uL (4.20-5.40); Red Cell Dist. Width 13.7 % (11.5-14.5); White Blood Cell Count 10.9 10^3/uL (4.8-10.8)
[2024-02-25 04:28] LABS: Blood Urea Nitrogen 38 mg/dl (7-17); Calcium 8.9 mg/dl (8.4-10.2); Carbon Dioxide 23 mmol/L (22-30); Chloride 109 mmol/L (98-107); Estimated Creatinine Clearance 36 ml/min; Glucose 86 mg/dl (70-99); Potassium 4.8 mmol/L (3.5-5.1); Sodium 137 mmol/L (135-145); eGFR 57.31
[2024-02-25 06:00] VITALS: BMI 18.4
[2024-02-25 07:21] VITALS: BP 112/70
[2024-02-25] MEDS: ASPIR LOW (ENTERIC COATED) 81 MG PO (09:08)
[2024-02-25] MEDS: OCUVITE SOFTGEL 1 CAP PO (09:08)
[2024-02-25] MEDS: ZESTRIL 40 MG PO (09:08)
[2024-02-25] MEDS: OXYCONTIN (CONTROLLED RELEASE) 20 MG PO (09:08)
[2024-02-25] MEDS: PROTONIX 40 MG PO (09:08)
[2024-02-25] MEDS: PLAVIX 75 MG PO (09:09)
[2024-02-25] MEDS: LOPRESSOR 25 MG PO ×2 (09:09→19:35)
[2024-02-25] MEDS: VITAMIN D3 (cholecalciferol) 25 MCG PO (09:09)
[2024-02-25] MEDS: MEDROL 4 MG PO (09:09)
--- NOTE | 2024-02-25 09:09 | W.PN.CARDCBS ---
Addendum entered and electronically signed by Onur Strong MD 02/25/24 10:14:
I saw and examined the patient.
The SOLAR ENERGY SYSTEM INSTALLER or PA's note was reviewed and I agree with the note.
Comment: General: Well developed, well nourished in NAD.
Neck: Supple, no JVD, HJR, carotids +2 B/L, no bruits bilaterally.
Heart: Non displaced PMI, RRR, no murmurs, No S3, S4, no rubs.
Lungs: Scattered rhonchi
Extremities: No clubbing, cyanosis or edema bilaterally.
Neuro: Grossly nonfocal, awake, alert and oriented x3.
Stable from cardiovascular standpoint status post RCA stent. Start Eliquis and continue aspirin and Plavix while hospitalized with eventual d/con Plavix and Eliquis. Will decrease lisinopril to 20 mg daily for hypotension. Discussed with primary
service and hopefully stable for discharge on 02/25
Original Note:
Today's Communication / Plan
-
Start Eliquis 5 mg twice daily
Continue Plavix and aspirin in addition to Eliquis while patient remains hospitalized. Will discharge home patient on Plavix and Eliquis
Reduce lisinopril to 20 mg
Encourage increased activity
Anticipate discharge tomorrow
Impression / Plan
-
Primary Oral And Maxillofacial Surgeon: last seen by Dr. Portillo in 2018
Assessment:
Presentation 02/19/2024 with CP
Elevated troponin
Multivessel coronary artery disease on cardiac catheterization 02/20/2024
s/p RCA ostial to mid overlapping 3.0 x 38 mm and 3.0 x 28 mm Xience bala point drug-eluting stents 02/24/2024
Left radial access site pseudoaneurysm/bleeding post catheterization
HTN
HLD
mild
Mild to moderate MR
RA on chronic steroid therapy
chronic back pain requiring opioids
PE s/p R knee replacement 2016
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
LE claudication, followed by vascular
depression/anxiety
Family history of aortic aneurysm
Remote former smoker
Former alcoholic
DNR code status
ECHO 2021: EF 55 to 60%, mild concentric LVH, mild to moderate eccentric MR, mild with peak/mean gradients 49/18 mmHg, mild to moderate TR, PAP 39 mmHg
ECHO 02/19/2024: EF 55 to 60%, mild concentric LVH, severely dilated the atrium, at least moderate to severe MR, moderate with peak/mean gradients 56/35 mmHg, AMARIS 0.98 cm�, mild AR, mild to moderate TR, PAP 33 mmHg
Cardiac catheterization 02/20/2024: LM mild ostial and distal tapering. LAD 2 serial 50% stenosis in proximal to mid, distal 70% stenosis. iFR positive at 0.83 for the distal LAD and at 0.88 for proximal to mid LAD. LCX: Ostial 50 to 60%, OM branch
80 to 85%. RCA large-caliber dominant vessel with heavily calcified 90 to 95% ostial, 85% mid. Ostial RPDA 60%.
HEMODYNAMICS:RA (m) : 10; RV (s/d,m) : 29/8, 12; PA (s/d, m) : 35/16, 24; PCWP (m) : 17; Cardiac Output : 4.28 L/min; Cardiac Index : 2.76 L/min/m-2; Systemic vascular resistance: 1793 dsc^(-5); Pulmonary vascular resistance: 1.63 heredia un
Cardiac catheterization 02/24/2024: CONCLUSIONS:1. Heavily calcified coronary arteries along with aortic and mitral valve annuli.
2. Successful percutaneous coronary artery intervention of 99% heavily calcified ostial RCA and 90% mid RCA stenoses with plaque modification using IVL shockwave 3.0x12 mm balloon followed by 2 overlapping 3.0 x 38 mm and 3.0 x 28 mm Xience bala
point drug-eluting stents, postdilated with a 3.25 x 20 mm NC balloon at 18 bridget distally and a 3.5 x 15 mm NC balloon at 20 bridget ostially with an excellent angiographic result.
3. Normal LVEDP at 12 mmHg.
4. Estimated invasive transaortic mean gradient of 24 mmHg consistent with moderate aortic stenosis.
Plan:
-Patient presented 02/19/2024 with chest discomfort. Troponin peaked up 0.523. Cardiac catheterization with multivessel coronary disease. Patient felt to be high risk candidate for CABG/valve(s), and she does not want surgical intervention.
-Culprit felt to be RCA and underwent 2 overlapping 3.0 x 38 mm and 3.0 x 28 mm Xience bala point drug-eluting stents from ostial to mid RCA 02/24/2024
-Plan for triple therapy while patient remains in the hospital up to a maximum of 7 days with plan to discharge home on Eliquis and Plavix.
-Right femoral groin site clean dry intact and stable. Will start Eliquis 5 mg twice daily 02/25/24
-Echo from 02/18 with preserved EF, at least moderate to severe MR, moderate . Follow valves as outpatient
-LDL 87. Atorvastatin 40 mg new this admission
-Per review of patient blood pressure reading she has been hypotensive over the last 24 hours. She does note dizziness upon standing. Will reduce lisinopril to 20 mg. Continue 2.5 of amlodipine for vasodilatory benefit and Lopressor 25 mg twice a
day given NSTEMI and brief runs of PAF early in admission.
-Patient then developed bleeding at left radial access site in bioinformaticist of 02/22/2024 requiring 30 minutes of manual compression. Noted to have small hematoma and was found to have left radial artery pseudoaneurysm on ultrasound 02/21. This
occurred on IV heparin after Plavix load of 300 mg. Heparin was discontinued. Repeat ultrasound 02/22/2024 shows complete thrombosis of left radial pseudoaneurysm with multiphasic flow within radial artery distal to pseudoaneurysm. Hemoglobin
stable at 9.6.
-She has episodes of paroxysmal atrial fibrillation 02/20/2024 lasting about 2 hours, status post spontaneous conversion back to sinus rhythm. She has remained in sinus rhythm upon tele review. Continue Lopressor. If recurrent atrial fibrillation
could consider amiodarone.
-she is also high risk for bleeding/bruising with RA on chronic steroid therapy
-[id number] score of 5 for age, female, HTN, vascular disease. Start Eliquis 5 mg BID
Would recommend patient stay another 24 hours with anticipated discharge 02/26/2024
Plan was discussed with hospitalist, patient's nurse Muriel, patient and her son who is at bedside
Progress Note - Oral And Maxillofacial Surgeon
Subjective
Date of Service: February 25, 2024
Patient seen and examined. Patient reports that she is feeling good. She did note dizziness upon ambulating and standing up yesterday. She denies chest pain, shortness of breath, palpitations, edema, orthopnea or PND. She denies pain at right
femoral artery access site.
Objective
Labs:
02/25/24 03:21
02/25/24 03:21
Labs
Hgb 9.6 g/dL (12.0-16.0) L 02/25/24 03:21
Hct 27.7 % (37.0-47.0) L 02/25/24 03:21
Plt Count 162 10^3/uL (130-400) 02/25/24 03:21
APTT Cancelled 02/23/24 06:00
Sodium 137 mmol/L (135-145) 02/25/24 03:21
Potassium 4.8 mmol/L (3.5-5.1) 02/25/24 03:21
BUN 38 mg/dl (7-17) H 02/25/24 03:21
Creatinine 1.0 mg/dL (0.6-1.0) 02/25/24 03:21
Glucose 86 mg/dl (70-99) 02/25/24 03:21
Vital Signs and I&O:
Vital Signs
Temp Pulse Resp BP Pulse Ox
98.1 F 61 20 111/66 98
02/25/24 07:23 02/25/24 03:03 02/25/24 07:23 02/25/24 03:03 02/25/24 03:04
Vital Signs
Temp Pulse Resp BP Pulse Ox
98.1 F 61 20 111/66 98
02/25/24 07:23 02/25/24 03:03 02/25/24 07:23 02/25/24 03:03 02/25/24 03:04
Intake & Output
02/23/24 02/24/24 02/25/24 02/26/24
06:59 06:59 06:59 06:59
Intake Total 300 / 300 480 / 480 300 / 300
Balance 300 / 300 480 / 480 300 / 300
Physical Exam
Physical Exam
GEN: No distress, awake, Ox3, sitting in bed
HEENT: supple, anicteric, mmm
LUNGS: CTA, no wheezes/rales
CV: Reg, S1/S2, 2/6 harsh systolic murmur at right sternal border, 2/ 6 soft blowing murmur at apex
ABD: soft, BS+, NT/ND
EXT: No edema, clubbing or cyanosis; Moderate amount of ecchymosis of left forearm, with small hematoma noted mid forearm. Good perfusion without evidence of limb ischemia
NEURO: Gross non-focal
SKIN: Numerous areas of ecchymosis on arms, legs and chest, no rash, warm, dry, pink
--- NOTE | 2024-02-25 09:16 | W.PN.HOSP.TC ---
Today's Communication/Plan
-
monitor clinically on triple therapy today per Cardiology
requested vascular surgery follow up
DC planning hopefully for dc tomorrow
Assessment / Plan
Assessment / Plan
Assessment:
NSTEMI
- s/p cath 02/19 with 3 vessel disease. Deemed to be high operative risk candidate after the interdisciplinary meeting between CT surgery and cardiology
- s/p repeat cath 02/23: s/p RCA plaque modification using IVL shockwave 3.0x12 mm balloon followed by 2 overlapping 3.0 x 38 mm and 3.0 x 28 mm Xience bala point drug-eluting stents, postdilated with a 3.25 x 20 mm NC balloon at 18 bridget distally and a
3.5 x 15 mm NC balloon at 20 bridget ostially with an excellent angiographic result
- continue ASA/Plavix/Eliquis x 7 days then after 7 days Plavix/Eliquis only. Monitor for signs of bleeding.
- continue statin
- continue metoprolol
- OP Cardiac rehab
Moderate
Moderate to severe MR
- outpatient follow up
Left distal radial artery pseudoaneurysm - vascular surgery input noted. MEGHANN wrap, elevate, ICE for pain,
- most recent US showing Interval complete thrombosis of LEFT radial artery pseudoaneurysm measuring 2.3 x 1.0 x 2.2 cm. Multiphasic flow within the radial artery distal to the pseudoaneurysm aneurysm origin.
- Vascular surgery following
New onset atrial fibrillation
- developed after cardiac catheterization
- Spontaneously converted to sinus rhythm
- continue Eliquis/Metoprolol
Essential hypertension
- stable.
Hyperlipidemia
Aortic stenosis
Rheumatoid arthritis
History of pleural effusion
History of pulm embolism
Gout
Depression/anxiety
DNR - confirmed with patient
Anticipated Discharge: Within 24 hours
Subjective/Interval History
-
Date of Service: February 25, 2024
no new complaints
denies any SOB or CP
Objective Data
-
Labs:
Laboratory Results
02/25/24
03:21
WBC 10.9 H
Hgb 9.6 L
Hct 27.7 L
Plt Count 162
Sodium 137
Potassium 4.8
Chloride 109 H
Carbon Dioxide 23
BUN 38 H
Creatinine 1.0
Glucose 86
Calcium 8.9
Vital Signs:
Vital Signs
Temp Pulse Resp BP Pulse Ox
98.1 F 61 20 111/66 98
02/25/24 07:23 02/25/24 03:03 02/25/24 07:23 02/25/24 03:03 02/25/24 03:04
I&O
02/24/24 02/25/24 02/26/24
06:59 06:59 06:59
Intake Total 480 / 480 300 / 300
Balance 480 / 480 300 / 300
Physical Exam
-
General: No Apparent Distress
HEENT: Normocephalic and Atraumatic
Respiratory: Negative Wheezes or Rales
Cardiac: Regular Rhythm and S1/S2
GI: Soft
Musculoskeletal: Other (LUE bruising from pseudoaneursym)
Neuro: AO x 3
Psych: Calm
Data Reviewed
-
Total Time Spent with Patient (in minutes): 42
Labs: Labs Reviewed by me
[2024-02-25] MEDS: NORVASC 2.5 MG PO (09:19)
[2024-02-25] MEDS: CELEXA 20 MG PO (09:19)
--- NOTE | 2024-02-25 10:29 | CM ---
Chart reviewed. Patient is independent of ADLS, lives with her son in a 1 STH, 2 SULEMAN, 0 DME. Patient is interested in VN. Referral sent to [facility]. Plan is for the patient to return home with [facility]. CM to follow
--- NOTE | 2024-02-25 10:30 | CM ---
Pricing on Eliquis 5mg BID is $0 copay. Patient has [facility] Prescription Plan.
[2024-02-25 11:13] VITALS: BP 138/66
[2024-02-25] MEDS: ELIQUIS 5 MG PO ×2 (13:20→19:36)
[2024-02-25] MEDS: NORCO 5/325 1 TABLET PO (14:12)
[2024-02-25 15:07] LABS: ACT-LR - POC > 397 Seconds (116-155)
[2024-02-25 15:24] VITALS: BP 114/62
--- NOTE | 2024-02-25 15:53 | W.PN.VS ---
Addendum entered and electronically signed by MIGUEL Ho 02/26/24 07:13:
Repeat left radial wrist ultrasound demonstrates continued thrombosis of pseudoaneurysm, vascular surgical intervention not indicated. From a vascular surgery perspective can continue with anticoagulation as medically indicated per primary team.
We will sign off, please call with questions/concerns or changes in clinical exam.
Original Note:
Today's Communication / Plan
-
Patient seen and evaluated with Dr. Arnulfo Duarte III, below plan reviewed with attending.
Assessment/Plan
-
Assessment: 78-year-old female with left radial pseudoaneurysm following cardiac catheterization, ultrasound on 02/23/2024 demonstrated complete thrombosis. However, concern for re-expansion of pseudo aneurysm given increased edema at wrist.
Plan:
Stat left wrist US to re-eval pseudo aneurysm for flow
NPO
Subjective Data
-
Date of Service: February 25, 2024
Patient seen evaluated bedside, reports left wrist was stable and essentially 'flat,' until roughly 2 hours ago when she noticed increasing sized 'lump,' which is non-painful. Denies decreased left hand sensation or motor function.
Offers no other complaints.
Objective Data
-
Vital Signs
Temp Pulse Resp BP Pulse Ox
98.0 F 56 20 114/62 99
02/25/24 15:18 02/25/24 15:24 02/25/24 15:18 02/25/24 15:24 02/25/24 15:24
Intake and Output
02/24/24 02/25/24 02/26/24
06:59 06:59 06:59
Intake Total 480 / 480 300 / 300
Balance 480 / 480 300 / 300
Intake:
Oral fluids 480 / 480 100 / 100
IV fluids (Total) 200 / 200
Nss 500 ml @ 30 mls/hr REBECCA 200 / 200
SHEATH .[id number] GLORIA Rx#:
[id number]
Other:
Number of approximated MODERATE 2
amounts of urine
Lab Results
02/25/24 03:21
02/25/24 03:21
Calcium 8.9 mg/dl (8.4-10.2) 02/25/24 03:21
Total Bilirubin 0.9 mg/dl (0.2-1.3) 02/23/24 02:18
AST 26 U/L (14-36) 02/23/24 02:18
ALT 22 U/L (0-35) 02/23/24 02:18
Alkaline Phosphatase 45 U/L (38-126) 02/23/24 02:18
Total Protein 6.0 g/dl (6.3-8.2) L 02/23/24 02:18
Albumin 3.6 g/dl (3.5-5.0) 02/23/24 02:18
Physical Exam
-
No apparent distress, resting in bed comfortably
No tachycardia
No dyspnea on room air
Left wrist/forearm with extensive ecchymosis, left wrist with marble size lump, radial pulse +2 palpable, motor intact, sensation intact, hand is warm
--- NOTE | 2024-02-25 15:57 | PTCARENOTE ---
large bump noted on L wrist area. vascular in to see patient. stat US ordered and taken via stretcher for test.
--- NOTE | 2024-02-25 15:57 | PTCARENOTE ---
received patient, golf ball size hematoma on left arm, vascular SOILED LINEN DISTRIBUTOR on floor, ordered STAT U/S of left arm. patient taken to U/S via stretcher. patient will remain NPO.
[2024-02-25] MEDS: LIPITOR 40 MG PO (17:21)
--- NOTE | 2024-02-25 18:09 | PTCARENOTE ---
patient returned from U/S, order was put in for patient to eat by vascular RFID SYSTEMS ARCHITECT. left arm has golf ball size lump, tender to touch, distal pulse by doppler.
[2024-02-25 19:33] VITALS: BP 113/60
--- NOTE | 2024-02-25 20:38 | PTCARENOTE ---
Pt. received at change of shift. Pt. seen and assessed. VS WNL. No complaints of pain. L arm site checked, no bleeding at b/l femoral groin sites. Continuing to monitor the pt.
[2024-02-25] MEDS: XANAX 0.5 MG PO (22:05)
[2024-02-25 22:06] VITALS: BP 119/67
[2024-02-25] MEDS: REMERON 60 MG PO (22:06)
--- NOTE | 2024-02-26 02:56 | DOWNTIME ---
There was a [email or web address] Sales Consultant Downtime on 02/26/2024 from 0100 to 02/26/2024 at 0255. Downtime documentation of patient's care, including medication administrations, has been reconciled in the electronic record per guidelines. Refer to the
patient's paper chart under the miscellaneous tab to see printed paper medication records and downtime forms.
[2024-02-26 04:49] VITALS: BP 119/78
[2024-02-26 04:56] VITALS: BMI 18.5
[2024-02-26 05:15] LABS: Hemoglobin 9.3 g/dL (12.0-16.0)
[2024-02-26 05:47] LABS: Blood Urea Nitrogen 40 mg/dl (7-17); Calcium 9.4 mg/dl (8.4-10.2); Carbon Dioxide 20 mmol/L (22-30); Chloride 110 mmol/L (98-107); Estimated Creatinine Clearance 36 ml/min; Glucose 91 mg/dl (70-99); Potassium 4.6 mmol/L (3.5-5.1); Sodium 137 mmol/L (135-145); eGFR 57.31
[2024-02-26 07:16] VITALS: BP 117/69
[2024-02-26] MEDS: ELIQUIS 5 MG PO (08:41)
[2024-02-26] MEDS: OCUVITE SOFTGEL 1 CAP PO (08:41)
[2024-02-26] MEDS: MEDROL 4 MG PO (08:41)
[2024-02-26] MEDS: LOPRESSOR 25 MG PO (08:41)
[2024-02-26] MEDS: OXYCONTIN (CONTROLLED RELEASE) 20 MG PO (08:41)
[2024-02-26] MEDS: ASPIR LOW (ENTERIC COATED) 81 MG PO (08:41)
[2024-02-26] MEDS: PLAVIX 75 MG PO (08:41)
[2024-02-26] MEDS: CELEXA 20 MG PO (08:41)
[2024-02-26] MEDS: NORVASC 2.5 MG PO (08:41)
[2024-02-26] MEDS: VITAMIN D3 (cholecalciferol) 25 MCG PO (08:42)
[2024-02-26] MEDS: PROTONIX 40 MG PO (08:42)
[2024-02-26] MEDS: ZESTRIL 20 MG PO (08:42)
--- NOTE | 2024-02-26 09:10 | PN.CDI ---
CDI
- -
CDI:
Physician Documentation Request
Admit Date: 02/19/24 13:51
Dear Doctor,
Please review the following and provide your response in the progress notes.
Clinical Indicators:
Pt admitted with NSTEMI
Documented per Cardiac cath 02/19, 'PCWP (m) : 17... Elevated left and right-sided filling pressures...'
ECHO 02/18, ' ejection fraction is 55 to 60%...'
Cardiology note 02/20, ' ....very fine bibasilar Rales with elevated JVP. ....Echo from 02/18 with preserved EF...'
Per MAR pt did get IV 20 mg Lasix on 02/19 and 20 mg PO Lasix on 02/20
02/19/24
06:56 02/19/24
14:30 02/20/24
03:13
Actual Weight 121 lb 14.65 oz 115 lb 1.301 oz 113 lb 5.082 oz
02/21/24
05:55
Actual Weight 110 lb 10.753
oz
Please provide a diagnosis for the above finding//Use of Lasix :
Acute Diastolic CHF
Elevated filling pressures only
Other( please Specify)
Use of terms such as suspected, likely, concern for, or probable (associated with a specific diagnosis that is being evaluated, monitored, or treated as if it exists) are acceptable and can be coded in the inpatient setting, when documented at the
time of discharge.
Thank you,
Clare Costa RN
CDI Specialist
[place] [facility]
Please use your independent medical judgment in providing your response.
--- NOTE | 2024-02-26 09:27 | PN.CDI ---
CDI
- -
CDI:
Physician Documentation Request
Admit Date: 02/19/24 13:51
Dear Doctor
Please review the following and provide your response in the progress notes.
Clinical Indicators:
Pt admitted with NSTEMI /Cardiac cath done 02/19
Update note 02/21 @ 0723' pt has recurrent hematoma at the site of L radial artery. She is on iv Heparin. Nurse placed manual pressure multiple times last night. I then held pressure for 30 min last night and placed tight dunia wrap overnight. Small
hematoma recurred this am. after 30 min of manual compression this am, small hematoma was observed again.'
Cardiology note 02/21, ' Still having significant bruising/ecchymosis/possible hematoma at radial access. Continue TR band and stop IV heparin for now....Right radial access site hematoma/bleeding post catheterization...-Placed on IV heparin for
NSTEMI and PAF. Also was provided Plavix bolus of 300 mg on 02/21/2024. Patient then developed bleeding at left radial access site in cloth cutting inspector of 02/22/2024 requiring 30 minutes of manual compression. Noted to have small hematoma. TR band
placed. Heparin discontinued...'
Vascular consult , ' POD [address] [facility] via L radial loaded on Plavix on heparin gtt developed L radial hematoma and ecchymosis. Radial duplex obtained demonstrating small 2.5x2.1 cm thrombosed pseudoaneurysm....hold off heparin ...'
Please clarify the relationship between these conditions:
Yes, Left Radial _Hematoma __ is related to/associated with/exacerbated by Plavix /Heparin gtt__.
No, _Left Radial Hematoma __ is not related to/associated with/exacerbated by _Plavix/Heparin gtt__ but it is due to ___. (Please specify)
Unable to determine
Use of terms such as suspected, likely, concern for, or probable (associated with a specific diagnosis that is being evaluated, monitored, or treated as if it exists) are acceptable and can be coded in the inpatient setting, when documented at the
time of discharge.
Thank you,
Clare Costa RN
CDI Specialist
[place] [facility]
Please use your independent medical judgment in providing your response.
--- NOTE | 2024-02-26 09:56 | PTCARENOTE ---
Pt noted to have tender ecchymotic left groin site, area of firmness marked. notified and assessed site, plan U/S of left groin.
--- NOTE | 2024-02-26 10:05 | W.PN.CARDCBS ---
Addendum entered and electronically signed by Chelsea Moore PA-C 03/04/24 08:31:
add to diagnosis list: mildly elevated filling pressures only
Addendum entered and electronically signed by Marcio Chapman MD 02/27/24 07:28:
Left Radial Hematoma is due to cardiac cath exacerbated by Plavix/Heparin.
Addendum entered and electronically signed by Emily Duong MD 02/26/24 13:46:
I saw and examined the patient.
The Head Of Academic Technology's note was reviewed and I agree with the note.
Comment: Overall patient is doing well and denies any recurrent chest discomfort or shortness of breath. She has been out of bed ambulating without limitations. She does have some tenderness to palpation over the left groin. No successful access
was obtained there however we did attempt a venous stick and therefore we pursued a ultrasound to rule out any vascular injuries.
Vital signs and lab work are reviewed. On exam patient is an elderly female, frail with diffuse ecchymoses especially at the site of recent heart catheterizations. Mild swelling at the left radial site which has been stable for days now. 2
repeated radial artery ultrasounds with pseudoaneurysm that has been completely thrombosed with no flow into the sac. Regular rate, normal S1 and S2, 3 out of 6 mid peaking systolic ejection murmur, lungs are clear to auscultation bilaterally,
abdomen is soft, nontender nondistended with active bowel sounds, warm extremities. Mild tenderness to palpation over the left groin site without evidence of hematoma or bruit. Right groin site is soft, without evidence of hematoma or bruit
Left groin ultrasound 02/26/24: Unremarkable duplex examination of the lleft groin. No evidence of hematoma, pseudoaneurysm or AV fistula.
Recommendations:
1. In the setting of acute coronary syndrome status post 2 overlapping stents in the ostial to mid RCA with atherectomy, plan for Eliquis and Plavix upon discharge. Will hold off on daily baby aspirin at the time of discharge to avoid triple
therapy. High intensity statin and beta-mable as tolerated.
2. New onset paroxysmal atrial fibrillation with plan for Eliquis upon discharge given high CHADS2 Vascor to reduce risk for stroke. She continues to maintain sinus rhythm for now. Continue beta-mable.
3. Plan to medically manage left coronary artery disease with close follow-up as an outpatient.
4. For her moderate aortic stenosis she will get outpatient serial echocardiograms to assess for progression and symptoms.
5. Referral for outpatient cardiac rehab.
Stable for discharge from a cardiac standpoint.
Emily Duong MD, [facility], [facility]
Original Note:
Today's Communication / Plan
-
D/C to home, med list adjusted
Impression / Plan
-
PCP: Dr. Ching
Primary Occupational Analyst: last seen by Dr. Portillo in 2019
Assessment:
Presentation 02/19/2024 with CP
Elevated troponin
Multivessel coronary artery disease on cardiac catheterization 02/20/2024
s/p RCA ostial to mid overlapping 3.0 x 38 mm and 3.0 x 28 mm Xience bala point drug-eluting stents 02/24/2024
Left radial access site pseudoaneurysm/bleeding post catheterization
HTN
HLD
mild
Mild to moderate MR
RA on chronic steroid therapy
chronic back pain requiring opioids
PE s/p R knee replacement 2016
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
LE claudication, followed by vascular
depression/anxiety
Family history of aortic aneurysm
Remote former smoker
Former alcoholic
DNR code status
ECHO 2021: EF 55 to 60%, mild concentric LVH, mild to moderate eccentric MR, mild with peak/mean gradients 49/18 mmHg, mild to moderate TR, PAP 39 mmHg
ECHO 02/19/2024: EF 55 to 60%, mild concentric LVH, severely dilated the atrium, at least moderate to severe MR, moderate with peak/mean gradients 56/35 mmHg, AMARIS 0.98 cm�, mild AR, mild to moderate TR, PAP 33 mmHg
Cardiac catheterization 02/20/2024: LM mild ostial and distal tapering. LAD 2 serial 50% stenosis in proximal to mid, distal 70% stenosis. iFR positive at 0.83 for the distal LAD and at 0.88 for proximal to mid LAD. LCX: Ostial 50 to 60%, OM branch
80 to 85%. RCA large-caliber dominant vessel with heavily calcified 90 to 95% ostial, 85% mid. Ostial RPDA 60%.
HEMODYNAMICS:RA (m) : 10; RV (s/d,m) : 29/8, 12; PA (s/d, m) : 35/16, 24; PCWP (m) : 17; Cardiac Output : 4.28 L/min; Cardiac Index : 2.76 L/min/m-2; Systemic vascular resistance: 1793 dsc^(-5); Pulmonary vascular resistance: 1.63 heredia un
Cardiac catheterization 02/24/2024: CONCLUSIONS:1. Heavily calcified coronary arteries along with aortic and mitral valve annuli.
2. Successful percutaneous coronary artery intervention of 99% heavily calcified ostial RCA and 90% mid RCA stenoses with plaque modification using IVL shockwave 3.0x12 mm balloon followed by 2 overlapping 3.0 x 38 mm and 3.0 x 28 mm Xience bala
point drug-eluting stents, postdilated with a 3.25 x 20 mm NC balloon at 18 bridget distally and a 3.5 x 15 mm NC balloon at 20 bridget ostially with an excellent angiographic result.
3. Normal LVEDP at 12 mmHg.
4. Estimated invasive transaortic mean gradient of 24 mmHg consistent with moderate aortic stenosis.
Plan:
-Left groin u/s without evidence of hematoma, pseudoaneurysm or AV fistula. Hgb went from 9.6 to 9.3.
-Appreciate input from vascular surgery service regarding left radial pseudoaneurysm. Patient reports she was told that no follow up was needed and no additional therapy.
-Patient was managed as NSTEMI and Troponin peaked at 0.523. Cardiac cath showed multivessel CAD and patient felt to be high risk candidate for CABG/valve(s), and she did not want surgical intervention so she returned to the laborer electroplating 02/24/24 for
overlapping 3.0 mm and 3.0 mm Xience to ostial to mid RCA.
-Patient was treated with triple therapy aspirin, Plavix and Eliquis while in the hospital, but will consolidate to Plavix and Eliquis at time of discharge.
-Eliquis 5 mg BID (age 78, Cre 1.0, wt 50 kg). She will be 79 on 10/02/24 and should switch to Eliquis 2.5 mg BID at that time.
-Echo from 02/18 with preserved EF, at least moderate to severe MR, moderate . Follow valves as outpatient
-LDL 87. Atorvastatin 40 mg new this admission
-Outpatient dose of lisinopril decreased to 20 mg daily
-New to Lopressor 25 mg BID
-Outpatient dose of amlodipine 2.5 mg daily continued.
-Newly diagnosed paroxysmal Afib this admission. Cont Lopressor and Eliquis which are both new this admission.
-D/C to home and will arrange for cardiology f/u
Progress Note - Occupational Analyst
Subjective
Date of Service: February 26, 2024
She feels well except for left groin pain
Objective
Labs:
02/26/24 04:56
02/26/24 04:56
Labs
Hgb 9.3 g/dL (12.0-16.0) L 02/26/24 04:56
Hct 27.0 % (37.0-47.0) L 02/26/24 04:56
Plt Count 162 10^3/uL (130-400) 02/25/24 03:21
APTT Cancelled 02/23/24 06:00
Sodium 137 mmol/L (135-145) 02/26/24 04:56
Potassium 4.6 mmol/L (3.5-5.1) 02/26/24 04:56
BUN 40 mg/dl (7-17) H 02/26/24 04:56
Creatinine 1.0 mg/dL (0.6-1.0) 02/26/24 04:56
Glucose 91 mg/dl (70-99) 02/26/24 04:56
Vital Signs and I&O:
Vital Signs
Temp Pulse Resp BP Pulse Ox
98.4 F 76 20 117/69 98
02/26/24 07:13 02/26/24 07:16 02/26/24 07:13 02/26/24 07:16 02/26/24 08:36
Vital Signs
Temp Pulse Resp BP Pulse Ox
98.4 F 76 20 117/69 98
02/26/24 07:13 02/26/24 07:16 02/26/24 07:13 02/26/24 07:16 02/26/24 08:36
Intake & Output
02/24/24 02/25/24 02/26/24 02/27/24
06:59 06:59 06:59 06:59
Intake Total 480 / 480 300 / 300 150 / 150
Balance 480 / 480 300 / 300 150 / 150
Physical Exam
Physical Exam
GEN: NAD
HEENT: MMM
LUNGS: No audible wheeze
CV: SR on tele
ABD: ND
EXT: Left radial hematoma and ecchymosis. Left groin tenderness.
NEURO: Gross non-focal
SKIN: Numerous areas of ecchymosis on arms, legs and chest, no rash, warm, dry, pink
[2024-02-26 11:50] VITALS: BP 114/65
--- NOTE | 2024-02-26 13:08 | W.PN.HOSP.TC ---
Today's Communication/Plan
-
dc to home/VN
Assessment / Plan
Assessment / Plan
Assessment:
NSTEMI
- s/p cath 02/19 with 3 vessel disease. Deemed to be high operative risk candidate after the interdisciplinary meeting between CT surgery and cardiology
- s/p repeat cath 02/23: s/p RCA plaque modification using IVL shockwave 3.0x12 mm balloon followed by 2 overlapping 3.0 x 38 mm and 3.0 x 28 mm Xience bala point drug-eluting stents, postdilated with a 3.25 x 20 mm NC balloon at 18 bridget distally and a
3.5 x 15 mm NC balloon at 20 bridget ostially with an excellent angiographic result
- continue Plavix/Eliquis
- continue statin
- continue metoprolol
- OP Cardiac rehab
Moderate
Moderate to severe MR
- outpatient follow up
Left distal radial artery pseudoaneurysm - vascular surgery input noted. MEGHANN wrap, elevate, ICE for pain,
- most recent US showing Interval complete thrombosis of LEFT radial artery pseudoaneurysm measuring 2.3 x 1.0 x 2.2 cm. Multiphasic flow within the radial artery distal to the pseudoaneurysm aneurysm origin.
- Vascular surgery following
New onset atrial fibrillation
- developed after cardiac catheterization
- spontaneously converted to sinus rhythm
- continue Eliquis/Metoprolol
Essential hypertension
- stable.
Hyperlipidemia
Aortic stenosis
Rheumatoid arthritis
History of pleural effusion
History of pulm embolism
Gout
Depression/anxiety
DNR - confirmed with patient
Anticipated Discharge: Today
Subjective/Interval History
-
Date of Service: February 26, 2024
no acute complaints
Objective Data
-
Labs:
Laboratory Results
02/26/24
04:56
Hgb 9.3 L
Hct 27.0 L
Sodium 137
Potassium 4.6
Chloride 110 H
Carbon Dioxide 20 L
BUN 40 H
Creatinine 1.0
Glucose 91
Calcium 9.4
Vital Signs:
Vital Signs
Temp Pulse Resp BP Pulse Ox
98.1 F 54 18 114/65 100
02/26/24 11:49 02/26/24 12:00 02/26/24 11:49 02/26/24 11:50 02/26/24 11:49
I&O
02/25/24 02/26/24 02/27/24
06:59 06:59 06:59
Intake Total 300 / 300 150 / 150 240 / 240
Balance 300 / 300 150 / 150 240 / 240
Physical Exam
-
General: No Apparent Distress
HEENT: Normocephalic and Atraumatic
Respiratory: Negative Wheezes
Cardiac: Regular Rhythm and S1/S2
GI: Soft and Nontender
Genito-urinary: No Costovertebral Tender
Musculoskeletal: No Edema
Neuro: AO x 3
Hematologic / Lymphatic: No Lymphadenopathy
Psych: Calm
Data Reviewed
-
Total Time Spent with Patient (in minutes): 45
Labs: Labs Reviewed by me
--- NOTE | 2024-02-26 13:11 | W.DS.TRANS ---
DC Summary - Drug Safety Coordinator
-
Discharge Instructions:
Discharge Diagnosis/Procedures [place], multivessel coronary artery disease,
shockwave with angioplasty and stent x2 to Right
Coronary artery. L wrist pseudoaneurysm
Diet 2 Gram Sodium,Low Cholesterol
Additional Activity activity as per post-cath protocol
Driving Restrictions No driving for 24 hours
Bathing Restrictions OK to Shower
Other Services Cardiac Rehab
Instructions:
Stand-Alone Forms: DC Instructions- Cath/EP Lab
Changes to Home Medications: Yes
Discharge Medications:
DC Medications w/original date entered in [employer]
amlodipine 2.5 mg tablet 2.5 mg PO DAILY Heart disease/condition 01/23/16
methylprednisolone 4 mg tablet 4 mg PO DAILY Anti-inflammatory 01/23/16
etanercept 50 mg/mL (1 mL) subcutaneous syringe (Enbrel) 50 mg SQ SA arthritis 12/09/20
oxycodone 20 mg tablet,crush resistant,extended release 12 hr (OxyContin) 20 mg PO DAILY 12/09/20
alprazolam 0.5 mg tablet (Xanax) 0.5 mg PO HS sleep 06/18/22
cholecalciferol (vitamin D3) 25 mcg (1,000 unit) tablet (Vitamin D3) 25 mcg PO DAILY 02/19/24
citalopram 20 mg tablet 20 mg PO DAILY 02/19/24
hydrocodone 5 mg-acetaminophen 325 mg tablet 1 tab PO Q8HPRN PRN severe pain 02/19/24
mirtazapine 30 mg tablet 60 mg PO HS 02/19/24
polyethylene glycol 3350 17 gram oral powder packet (Miralax) 17 g PO HS 02/19/24
vitamins A,C,W-nsnx-vszrno 4,296 mcg-226 mg-90 mg capsule (PreserVision AREDS) 1 cap PO DAILY 02/19/24
apixaban 5 mg tablet (Eliquis) 5 mg PO BID Blood clot prevention/tx #60 tabs 02/26/24
atorvastatin 40 mg tablet 40 mg PO QPM High cholesterol #30 tabs 02/26/24
clopidogrel 75 mg tablet 75 mg PO DAILY Heart disease/condition #30 tabs 02/26/24
lisinopril 20 mg tablet 20 mg PO DAILY Heart disease/condition #30 tabs 02/26/24
metoprolol tartrate 25 mg tablet 25 mg PO BID Heart disease/condition #60 tabs 02/26/24
pantoprazole 40 mg tablet,delayed release 40 mg PO DAILY Gastrointestinal issue #30 tabs 02/26/24
Home Medication Changes
Eliquis+Plavix. ASA stopped
pantoprazole from omeprazole
MEGHANN decreased
Pending Results: No
Total time spent discharging patient (in min): 42
--- NOTE | 2024-02-26 14:56 | PTCARENOTE ---
Pt had left groin vascular U/S. Pt seen by . Telemetry and IV device removed. Discharge instructions reviewed with pt regarding activity guidelines, wound care, medications and their actions, new doses and possible side effects, reporting
cares and concerns and follow up appt's. Very good understanding verbalized. Pt escorted out via wheelchair and discharged to home.
== END 2024-02-26 14:35 | disposition home health service (06) | DRG 324 ==
LOC: IVU 13:51
PROVIDERS: Clinical Nurse Specialist Family Health; Internal Medicine Interventional Cardiology; Nurse Practitioner; Physician Assistant; Physician Assistant Medical; Student in an Organized Health Care Education/Training Program; ADMITTING PHYSICIAN Hospitalist; ATTENDING PHYSICIAN Internal Medicine; CONSULT PHYSICIAN Internal Medicine Cardiovascular Disease; CONSULT PHYSICIAN Thoracic Surgery (Cardiothoracic Vascular Surgery); EMERGENCY PHYSICIAN Emergency Medicine; FAMILY PHYSICIAN Internal Medicine; OTHER PHYSICIAN Surgery Vascular Surgery
PROC: B2111ZZ Fluoroscopy of Multiple Coronary Arteries using Low Osmolar Contrast (ICD-10-PCS; 2024-02-20)
PROC: 4A023N8 Measurement of Cardiac Sampling and Pressure, Bilateral, Percutaneous Approach (ICD-10-PCS; 2024-02-20)
PROC: 02F03ZZ Fragmentation in Coronary Artery, One Artery, Percutaneous Approach (ICD-10-PCS; 2024-02-24)
PROC: 027035Z Dilation of Coronary Artery, One Artery with Two Drug-eluting Intraluminal Devices, Percutaneous Approach (ICD-10-PCS; 2024-02-24)
DX: I21.4 Non-ST elevation (NSTEMI) myocardial infarction (principal); D68.32 Hemorrhagic disorder due to extrinsic circulating anticoagulants; I97.630 Postprocedural hematoma of a circulatory system organ or structure following a cardiac catheterization; Z68.1 Body mass index [BMI] 19.9 or less, adult; K55.1 Chronic vascular disorders of intestine; I25.10 Atherosclerotic heart disease of native coronary artery without angina pectoris; I72.1 Aneurysm of artery of upper extremity; I10 Essential (primary) hypertension; E78.5 Hyperlipidemia, unspecified; I35.0 Nonrheumatic aortic (valve) stenosis; I48.0 Paroxysmal atrial fibrillation; L89.512 Pressure ulcer of right ankle, stage 2; R63.6 Underweight; Z79.02 Long term (current) use of antithrombotics/antiplatelets; Z86.711 Personal history of pulmonary embolism
CPT/HCPCS: 71275; 74174; 80048; 80053; 80061; 84484; 85014; 85018; 85025; 85027; 85347; 85730; 87070; 92972; 93005; 93306; 93456; 93571; 93926; 93930; 93931; 96374; 96375; 97161; 97166; 99152; 99153; 99285; C1725; C1760; C1761; C1769; C1874; C1887; C1894; C9600; Q9967

== ENCOUNTER 2024-04-10 08:13 | Outpatient (RCR) | payer MEDICARE, SELFPAY | END 2024-04-10 23:59 | disposition home or self-care (01) | LOC: CRHB 08:13 | PROVIDERS: Internal Medicine Interventional Cardiology; ATTENDING PHYSICIAN Internal Medicine Cardiovascular Disease; FAMILY PHYSICIAN Internal Medicine | DX: I25.10 Atherosclerotic heart disease of native coronary artery without angina pectoris (principal); Z95.5 Presence of coronary angioplasty implant and graft; I25.2 Old myocardial infarction | CPT/HCPCS: G0422; G0423 ==

== ENCOUNTER 2024-04-24 09:58 | Emergency (ER) | payer MEDICARE, SELFPAY ==
[2024-04-24 09:59] VITALS: BP 141/68
--- NOTE | 2024-04-24 10:30 | ED.SKININJ ---
HPI-Injury
General
Chief Complaint: Skin Surface Trauma
Source: patient
Exam Limitations: none
Time Seen by Provider: 04/24/24 10:29
Nursing documentation reviewed up to this point in time: agreed with
History of Present Illness-Injury
Initial Injury comments:
78-year-old female on Plavix and Eliquis post OR/A-fib presents stating at 4 AM she scraped her left upper arm on a cabinet when going to the bathroom. She is unable to get it to stop bleeding.
Past History
Past History
ED Past Medical History: HTN, OR, Valvular disease ( heart murmur) and Other (Rheumatoid arthritis, bipolar, pulmonary embolism)
ED Past Surgical History: Cholecystectomy, Gynecological (Hysterectomy), Orthopedic (Right hand surgery, left hand surgery, R knee replacement) and Other (Surgery for deviated septum)
Social History
Tobacco: Former smoker
Alcohol: None
Drug: None
Personal:
Living: with family
Employment: Retired
Family History
Family History: Hypertension and CAD
Review of Systems
Review of Systems
Allergies reviewed?: Yes
All Other Systems: ROS reviewed and negative except as documented in HPI and ROS
Skin: Reports other (Skin tear left upper arm oozing blood)
Phy Exam
Physical Exam
Physical Exam:
GENERAL: No acute distress. A&Ox3.
CONSTITUTIONAL: Afebrile.
RESPIRATORY: Regular respirations, nonlabored, lungs clear.
CARDIOVASCULAR: Regular rate and rhythm, no murmurs, no rubs.
MUSCULOSKELETAL: Moves with ease. Well perfused.
SKIN: Warm, dry, pink. Dressing removed, skin tear left upper arm 1 cm x 1.5 cm, minimal oozing
PSYCH: Normal mood and affect. Well kept, interactive and appropriate
NEUROLOGIC: Awake, alert and oriented. No focal neurological deficits
Course
Orders/Labs/Results
Orders:
Orders
04/24/24 10:58
Tranexamic Acid 500 mg TOPICAL NOW STA
Vital Signs
Initial and Last Documented VS:
Initial Vital Signs
Temp Pulse Resp BP Pulse Ox
98.1 F 69 20 141/68 97
04/24/24 09:59 04/24/24 09:59 04/24/24 09:59 04/24/24 09:59 04/24/24 09:59
Last Documented Vital Signs
Temp Pulse Resp BP Pulse Ox
98.1 F 69 20 141/68 97
04/24/24 09:59 04/24/24 09:59 04/24/24 09:59 04/24/24 09:59 04/24/24 09:59
MDM/Problems Addressed
MDM/Problems Addressed:
78-year-old female on Plavix and Eliquis post OR/A-fib presents stating at 4 AM she scraped her left upper arm on a cabinet when going to the bathroom. She is unable to get it to stop bleeding.
Bleeding well-controlled in triage with application of gauze and Coban elastic wrap
11:10 a.m.
Without pressure, bleeding has stopped
TXA dressing placed. No further bleeding
*Critical Care Note
Total Time (30-74mins, 75-104mins- exclusive of procedures): Not Applicable
ED Attending Note
-
Portions of this chart may have been created with voice recognition software.� Occasional wrong word or��sound alike� substitutions may have occurred due to the inherent limitations of voice recognition software.
Discharge Plan
Departure
Patient Disposition: Home (Routine Discharge)
Date of Disposition: 04/24/24
Time of Disposition: 11:09
Patient with high blood pressure during this ER visit?: No
Condition: Good
Discharge Problem:
Skin tear of left upper extremity
Instructions: Wound Care (DC)
Prescriptions:
No Action
amlodipine 2.5 MG tablet
2.5 mg PO DAILY
methylprednisolone 4 MG tablet
4 mg PO DAILY
oxycodone [OxyContin] 20 MG tablet,oral only,ext.rel.12 hr
20 mg PO DAILY
Enbrel 50 MG/ML syringe
50 mg SQ SA
alprazolam [Xanax] 0.5 mg Tablet
0.5 mg PO HS
polyethylene glycol 3350 [Miralax] 17 gram Powder In Packet
17 g PO HS
hydrocodone-acetaminophen 5-325 mg Tablet
1 tab PO Q8HPRN PRN (Reason: severe pain)
citalopram 20 mg Tablet
20 mg PO DAILY
mirtazapine 30 mg Tablet
60 mg PO HS
cholecalciferol (vitamin D3) [Vitamin D3] 25 mcg (1,000 unit) Tablet
25 mcg PO DAILY
PreserVision AREDS 4,296 mcg-226 mg-90 mg Capsule
1 cap PO DAILY
Eliquis 5 mg Tablet
5 mg PO BID Qty: 60 11RF
atorvastatin 40 mg Tablet
40 mg PO QPM Qty: 30 11RF
lisinopril 20 mg Tablet
20 mg PO DAILY Qty: 30 11RF
clopidogrel 75 mg Tablet
75 mg PO DAILY Qty: 30 11RF
pantoprazole 40 mg Tablet,Delayed Release (Dr/Ec)
40 mg PO DAILY Qty: 30 11RF
metoprolol tartrate 25 mg Tablet
25 mg PO BID Qty: 60 11RF
Referrals:
Tangela Ching MD [Family Provider] - As needed
Activity Restrictions/Additional Instructions:
As we discussed, remove the dressing on Saturday morning, then replace with a Band-Aid and keep it on while showering.
After 1 week you may allow the shower water to gently run over the area to keep it clean.
Interventions
Interventions:
*Risk Screen - Suicide Last Done: 04/24/24 09:59
*General Assessment Last Done: 04/24/24 09:59
*Neglect/Abuse Screening Last Done: 04/24/24 09:59
*Nursing Disposition Last Done: 04/24/24 11:29
ED-Skin Assessment Last Done: 04/24/24 11:14
Discharge Date and Time
Discharge Date/Time: 04/24/24 11:30
Print Language: AUSTRAL[place]
== END 2024-04-24 11:30 | disposition home or self-care (01) ==
LOC: EMR 09:58
PROVIDERS: EMERGENCY PHYSICIAN Emergency Medicine; FAMILY PHYSICIAN Internal Medicine
DX: S41.112A Laceration without foreign body of left upper arm, initial encounter (principal); W22.09XA Striking against other stationary object, initial encounter; Z88.2 Allergy status to sulfonamides; Z79.01 Long term (current) use of anticoagulants; I48.91 Unspecified atrial fibrillation; Z79.02 Long term (current) use of antithrombotics/antiplatelets; I10 Essential (primary) hypertension; R01.1 Cardiac murmur, unspecified; M06.9 Rheumatoid arthritis, unspecified; F31.9 Bipolar disorder, unspecified; F41.9 Anxiety disorder, unspecified; F32.A Depression, unspecified; D64.9 Anemia, unspecified; I25.2 Old myocardial infarction; Z96.651 Presence of right artificial knee joint; Z86.711 Personal history of pulmonary embolism; Z87.891 Personal history of nicotine dependence; Z90.49 Acquired absence of other specified parts of digestive tract
CPT/HCPCS: 99282

== ENCOUNTER 2024-04-27 08:45 | Outpatient (RCR) | payer MEDICARE, SELFPAY | END 2024-04-27 23:59 | disposition home or self-care (01) | LOC: CRHB 08:45 | PROVIDERS: ATTENDING PHYSICIAN Internal Medicine Cardiovascular Disease; FAMILY PHYSICIAN Internal Medicine | DX: I25.10 Atherosclerotic heart disease of native coronary artery without angina pectoris (principal); Z95.5 Presence of coronary angioplasty implant and graft; I25.2 Old myocardial infarction | CPT/HCPCS: G0422; G0423 ==

== ENCOUNTER 2024-05-15 08:50 | Outpatient (RCR) | payer MEDICARE, SELFPAY | END 2024-05-15 23:59 | disposition home or self-care (01) | LOC: CRHB 08:50 | PROVIDERS: ATTENDING PHYSICIAN Internal Medicine Cardiovascular Disease; FAMILY PHYSICIAN Internal Medicine | DX: I25.10 Atherosclerotic heart disease of native coronary artery without angina pectoris (principal); Z95.5 Presence of coronary angioplasty implant and graft; I25.2 Old myocardial infarction | CPT/HCPCS: G0422; G0423 ==

== ENCOUNTER 2024-05-18 11:39 | Emergency (ER) | payer MEDICARE, SELFPAY ==
[2024-05-18 11:46] VITALS: BP 147/67
[2024-05-18 12:13] LABS: % Basophils 0.6 % (0-2); % Eosinophils 0.8 % (0-6); % Immature Granulocytes 0.5 % (0-0.5); % Monocytes 6.1 % (1.7-9.3); Absolute Eosinophils 0.1 10^3/uL (0-0.7); Absolute Lymphocytes 1.3 10^3/uL (1.2-3.4); Absolute Monocytes 0.4 10^3/uL (0.1-0.6); Absolute Neutrophils 4.4 10^3/uL (1.4-6.5); Hematocrit 31.1 % (37.0-47.0); Hemoglobin 10.1 g/dL (12.0-16.0); Mean Corp Hgb Conc. 32.5 g/dL (33.0-37.0); Mean Corpuscular Hgb 30.4 pg (27.0-31.0); Mean Corpuscular Volume 93.7 fL (81.0-99.0); Mean Platelet Volume 11.4 fL (7.4-10.4); Nucleated Red Blood Cells % 0 %; Platelet Count 162 10^3/uL (130-400); Red Blood Cell Count 3.32 10^6/uL (4.20-5.40); Red Cell Dist. Width 13.6 % (11.5-14.5); White Blood Cell Count 6.2 10^3/uL (4.8-10.8)
[2024-05-18 12:24] LABS: INR 1.16; PT 14.6 Sec (11.4-14.6)
[2024-05-18 12:25] LABS: APTT 29.6 Sec (23.4-35.0)
[2024-05-18 12:38] LABS: ALT (SGPT) 29 U/L (0-35); AST (SGOT) 39 U/L (14-36); Albumin 4.2 g/dl (3.5-5.0); Alkaline Phosphatase 59 U/L (38-126); Blood Urea Nitrogen 27 mg/dl (7-17); Calcium 9.4 mg/dl (8.4-10.2); Carbon Dioxide 31 mmol/L (22-30); Chloride 101 mmol/L (98-107); Glucose 116 mg/dl (70-99); Potassium 5.1 mmol/L (3.5-5.1); Sodium 142 mmol/L (135-145); Total Bilirubin 0.9 mg/dl (0.2-1.3); Total Protein 6.5 g/dl (6.3-8.2); eGFR 51.11
--- NOTE | 2024-05-18 13:13 | ED.GENMED ---
History of Present Illness
General
Chief Complaint: Skin Surface Trauma
Source: patient and records
Time Seen by Provider: 05/18/24 13:01
History of Present Illness
History of Present Illness:
78-year-old female with past medical history of myocardial infarction February of this year, hypertension, previous PE, paroxysmal A-fib, anemia presenting to the emergency department from cardiac rehab after she notified staff while there this morning
about atraumatic ecchymosis that she has been experiencing over the last few weeks, Saturday noticed more pronounced ecchymosis along the anterior portion of her chest. Patient states that she noticed a small hematoma over the left medial clavicle
and left gastrocnemius but states she never had any trauma to cause this. She notes that she otherwise feels quite well. Denies any fevers, chills, rigors, night sweats, abnormal weight loss, fatigue, chest pain, abdominal pain. She does note
last night she felt transient palpitations that lasted for only a few seconds and then resolved. Patient is on Eliquis due to the history of paroxysmal atrial fibrillation as well as PE and reports good compliance with this. At present time
patient states her only concern is mild tenderness directly over the small hematoma over the left anterior portion of her chest but otherwise feels quite well.
Past History
Past History
ED Past Medical History: HTN, NM, Valvular disease ( heart murmur) and Other (Rheumatoid arthritis, bipolar, pulmonary embolism)
ED Past Surgical History: Cholecystectomy, Gynecological (Hysterectomy), Orthopedic (Right hand surgery, left hand surgery, R knee replacement) and Other (Surgery for deviated septum)
Social History
Tobacco: Former smoker
Alcohol: None
Drug: None
Personal:
Living: with family
Employment: Retired
Family History
Family History: Hypertension and CAD
Review of Systems
Review of Systems
All Other Systems: ROS reviewed and negative except as documented in HPI and ROS
Phy Exam
Physical Exam
Physical Exam:
GENERAL: Alert , in no apparent distress
HEAD: NCAT
EYE: clear conjunctiva
NECK: Supple
ENT: mmm, no petechiae
CARDIAC: Regular rate and rhythm, holosystolic murmur .
LUNGS: Clear breath sounds bilaterally, no acute respiratory distress, no wheezes/rales/rhonchi
CHEST WALL: moderate sized area of erythema extending from the chris down towards the xiphoid and spreads to anterior bilateral chest. Small hematoma measuring <1cm medial left clavicle is mildly tender. no active bleeding.
ABDOMEN: Soft, without focal tenderness, no r/g, no cvat, no retroperitoneal/flank ecchymosis
NEUROLOGICAL: Alert and oriented
SKIN: Warm and dry, skin intact. scattered older appearing ecchymosis bilateral forearms and bilateral lower legs
MUSCULOSKELETAL: No edema, well perfused.
PSYCH: Normal and appropriate interaction.
Scores
Heart Failure Risk
Heart Failure Risk Score: Not Applicable
Heart Score for Chest Pain Patients
STEMI patient?: Not applicable
Withdrawal Assessment of Alcohol
Withdrawal Assessment Completed?: Not applicable
Course
Orders/Labs/Results
Orders:
Orders
05/18/24 12:00
Complete Blood Count/With Diff Urgent
Comprehensive Metabolic Panel Urgent
PT/INR [Prothrombin Time] Urgent
PTT Urgent
05/18/24 13:12
Electrocardiogram (*1) Urgent
Reason for Study: Palpitations
EKG- Treatment ONCE
CR Chest - 2 Views Urgent
Comment:
Reason For Exam: atraumatic ecchymosis
Abnormal Lab Results
05/18/24
12:00
RBC 3.32 L 10^6/uL
(4.20-5.40)
Hgb 10.1 L g/dL
(12.0-16.0)
Hct 31.1 L %
(37.0-47.0)
MCHC 32.5 L g/dL
(33.0-37.0)
MPV 11.4 H fL
(7.4-10.4)
Carbon Dioxide 31 H mmol/L
(22-30)
BUN 27 H mg/dl
(7-17)
Creatinine 1.1 H mg/dL
(0.6-1.0)
Glucose 116 H mg/dl
(70-99)
AST 39 H U/L
(14-36)
05/18/24 12:00
05/18/24 12:00
Vital Signs
Initial and Last Documented VS:
Initial Vital Signs
Temp Pulse Resp BP Pulse Ox
98.0 F 60 18 147/67 98
05/18/24 11:46 05/18/24 11:46 05/18/24 11:46 05/18/24 11:46 05/18/24 11:46
Last Documented Vital Signs
Temp Pulse Resp BP Pulse Ox
98.0 F 64 18 142/70 98
05/18/24 11:46 05/18/24 13:58 05/18/24 13:58 05/18/24 13:58 05/18/24 13:58
MDM/Problems Addressed
Differential Diagnosis Includes:
malignancy, anemia, less concern for infection, patient without any trauma
MDM/Problems Addressed:
78-year-old female presenting to the emergency department for evaluation of atraumatic ecchymosis that has been occurring over the last few weeks with no etiology known. Over the weekend patient states the ecchymosis on her chest got worse which is
why she presented to the ER today at the request of her cardiac rehab team. Patient had labs initiated upon arrival. She has no leukocytosis, mild chronic anemia which is improved from her hemoglobin back in February, normal platelet count and normal
coags. Patient's kidney function is better than her usual baseline and liver function testing is otherwise unremarkable. Will add on a chest x-ray and EKG given patient's reported palpitations last night although I am less suspicious for any
abnormalities on this testing. Disposition pending.
Chronic conditions affecting care: CAD and Arrhythmia
*Radiology
Radiology exam reviewed: radiology read reviewed
*Pulse Oximetry
Patient hypoxic: no
*EKG
Interpreted by ED Provider?: Yes
Heart Rate: 50
Rate: bradycardiac
Rhythm: sinus
Ischemia: no ischemia
*Critical Care Note
Total Time (30-74mins, 75-104mins- exclusive of procedures): Not Applicable
Data Reviewed
Review of Other/Old Records Reveals: Labs and Records
Patient Management
Discussion with other providers: PCP
Escalation/DeEscalation of care consider admission/obs:
Patient's workup largely unremarkable for any acute findings. I notified patient's primary care provider about visit to the ER today and she will follow-up with the patient in the coming week. Patient aware of return precautions. Stable for
discharge home.
ED Attending Note
-
Portions of this chart may have been created with voice recognition software.� Occasional wrong word or��sound alike� substitutions may have occurred due to the inherent limitations of voice recognition software.
Discharge Plan
Departure
Patient Disposition: Home (Routine Discharge)
Date of Disposition: 05/18/24
Time of Disposition: 14:09
Patient with high blood pressure during this ER visit?: Yes
Discharge Problem:
Ecchymosis, Anemia
Instructions: Taking care of bruises
Prescriptions:
No Action
amlodipine 2.5 MG tablet
2.5 mg PO DAILY
methylprednisolone 4 MG tablet
4 mg PO DAILY
oxycodone [OxyContin] 20 MG tablet,oral only,ext.rel.12 hr
20 mg PO DAILY
Enbrel 50 MG/ML syringe
50 mg SQ SA
alprazolam [Xanax] 0.5 mg Tablet
0.5 mg PO HS
polyethylene glycol 3350 [Miralax] 17 gram Powder In Packet
17 g PO HS
hydrocodone-acetaminophen 5-325 mg Tablet
1 tab PO Q8HPRN PRN (Reason: severe pain)
citalopram 20 mg Tablet
20 mg PO DAILY
mirtazapine 30 mg Tablet
60 mg PO HS
cholecalciferol (vitamin D3) [Vitamin D3] 25 mcg (1,000 unit) Tablet
25 mcg PO DAILY
PreserVision AREDS 4,296 mcg-226 mg-90 mg Capsule
1 cap PO DAILY
Eliquis 5 mg Tablet
5 mg PO BID Qty: 60 11RF
atorvastatin 40 mg Tablet
40 mg PO QPM Qty: 30 11RF
lisinopril 20 mg Tablet
20 mg PO DAILY Qty: 30 11RF
clopidogrel 75 mg Tablet
75 mg PO DAILY Qty: 30 11RF
pantoprazole 40 mg Tablet,Delayed Release (Dr/Ec)
40 mg PO DAILY Qty: 30 11RF
metoprolol tartrate 25 mg Tablet
25 mg PO BID Qty: 60 11RF
Referrals:
Tangela Ching MD [Family Provider] -
Interventions
Interventions:
*Risk Screen - Suicide Last Done: 05/18/24 11:48
*General Assessment Last Done: 05/18/24 11:48
*Neglect/Abuse Screening Last Done: 05/18/24 11:48
ED- Fall Risk Assessment Last Done: 05/18/24 12:28
*ED COVID-19 Vaccine History Last Done: 05/18/24 11:48
*Nursing Disposition Last Done: 05/18/24 14:19
ED-Skin Assessment Last Done: 05/18/24 12:28
Discharge Date and Time
Discharge Date/Time: 05/18/24 14:38
Print Language: KAZAKH
[2024-05-18 13:58] VITALS: BP 142/70
== END 2024-05-18 14:38 | disposition home or self-care (01) ==
LOC: EMR 11:39
PROVIDERS: EMERGENCY PHYSICIAN Emergency Medicine; FAMILY PHYSICIAN Internal Medicine
DX: R23.3 Spontaneous ecchymoses (principal); D64.9 Anemia, unspecified; I10 Essential (primary) hypertension; I25.10 Atherosclerotic heart disease of native coronary artery without angina pectoris; I25.2 Old myocardial infarction; I48.0 Paroxysmal atrial fibrillation; M06.9 Rheumatoid arthritis, unspecified; Z79.01 Long term (current) use of anticoagulants; Z82.49 Family history of ischemic heart disease and other diseases of the circulatory system; Z86.711 Personal history of pulmonary embolism; Z87.891 Personal history of nicotine dependence; Z90.49 Acquired absence of other specified parts of digestive tract; Z90.710 Acquired absence of both cervix and uterus; Z96.651 Presence of right artificial knee joint
CPT/HCPCS: 99283; 71046; 80053; 85025; 85610; 85730; 93005

== ENCOUNTER 2024-05-28 17:32 | Emergency (ER) | payer MEDICARE, SELFPAY ==
[2024-05-28 17:36] VITALS: BP 145/84
--- NOTE | 2024-05-28 17:42 | ED.GENMED ---
ED Provider Triage
<MIGUEL De León - Last Filed: 05/28/24 17:46>
-
Patient seen by provider in Triage?: Seen in Triage
Attestation: A medical screening examination has been initiated by a qualified medical provider. Based on the assessment performed at this time, it has been determined that an emergent medical condition may exist and the patient has been informed
that further medical evaluation and possible additional diagnostic testing may be needed.
HPI: 78-year-old female presents to the ER for evaluation of chest pain. She reports she started with left-sided chest pain about 30 minutes prior to arrival denies any shortness of breath nausea vomiting. She does have history of MO February 2024.
She is on plavix and eliquis .
Pt reports area is sore to touch denies injury.
GENERAL: Alert , in no apparent distress
EYE: No visual abnormalities.
NECK: Trachea midline
ENT: No visible abnormalities.
LUNGS: No acute respiratory distress, chest with anterior ecchymosis
Heart : RRR + systolic heart murmur
NEUROLOGICAL: Alert and oriented
SKIN: Skin intact. No visible changes.
MUSCULOSKELETAL: Moving extremities normally
PSYCH: Normal and appropriate interaction.
This is a medical evaluation conducted in person to initiate diagnostic evaluation and provide initial therapeutics. Please see further documentation by the treating clinician.
History of Present Illness
<MIGUEL De León - Last Filed: 05/28/24 17:46>
General
Chief Complaint: Chest Pain
Time Seen by Provider: 05/28/24 19:06
<Natan Mckenzie DO - Last Filed: 05/29/24 02:27>
General
Source: patient and records
Exam Limitations: none
Nursing documentation reviewed up to this point in time: agreed with
History of Present Illness
History of Present Illness:
78-year-old female CAD status post stenting in February4patient Dr. Duong presents with chest pain somewhat reminiscent of her prior angina nonradiating no nausea or vomiting started at 5 PM still present, does not take nitroglycerin has not had any
chest pain since her stenting, prior records reviewed she had sounds like good diffuse coronary calcifications, not thought to be surgical candidate due to comorbid conditions, chronic steroid use, rheumatoid, treated with stenting
Past History
<MIGUEL De León - Last Filed: 05/28/24 17:46>
Past History
ED Past Medical History: HTN, MO, Valvular disease ( heart murmur) and Other (Rheumatoid arthritis, bipolar, pulmonary embolism)
ED Past Surgical History: Cholecystectomy, Gynecological (Hysterectomy), Orthopedic (Right hand surgery, left hand surgery, R knee replacement) and Other (Surgery for deviated septum)
Social History
Tobacco: Former smoker
Alcohol: None
Drug: None
Personal:
Living: with family
Employment: Retired
Family History
Family History: Hypertension and CAD
Phy Exam
<Natan Mckenzie DO - Last Filed: 05/29/24 02:27>
Physical Exam
Physical Exam:
Physical Exam
General: no apparent distress, not acutely ill
Neck: No jaundice
Heart: Regular soft
Lungs: no acute respiratory distress. clear bilaterally
Abdomen: Nontender
Neuro: alert and oriented. no focal neurological deficits
Skin: no rash
Psychiatric: well kept. interactive and cooperative
Extremities: no edema.
Scores
<Natan Mckenzie DO - Last Filed: 05/29/24 02:27>
Heart Score for Chest Pain Patients
STEMI patient?: No
History: Slightly or Non-Suspicious
ECG: Normal
Age: >/= 65 years
Risk Factors: >/= 3 Risk Factors or History of CAD
Troponin: </= Normal Limit
Heart Score for Chest Pain Patients: 4
Heart Score Risk: 20.3% MACE over next 6 weeks
Course
<MIGUEL De León - Last Filed: 05/28/24 17:46>
Orders/Labs/Results
Orders:
Orders
05/28/24 17:33
Electrocardiogram (*1) Urgent
Reason for Study: Chest Pain
EKG- Treatment ONCE
05/28/24 17:45
Chest [CR Chest - 2 Views ] Urgent
Comment:
Reason For Exam: cp
05/28/24 17:46
CMP [Comprehensive Metabolic Panel] Urgent
Complete Blood Count/With Diff Urgent
Troponin I Urgent
05/28/24 19:18
Nitroglycerin Sublingual [Nitrostat (Sublingual)] 0.4 mg SL [id number] PRN
05/28/24 21:16
Troponin I Urgent
Abnormal Lab Results
05/28/24
17:46
RBC 3.37 L 10^6/uL
(4.20-5.40)
Hgb 10.0 L g/dL
(12.0-16.0)
Hct 31.1 L %
(37.0-47.0)
MCHC 32.2 L g/dL
(33.0-37.0)
MPV 11.5 H fL
(7.4-10.4)
BUN 27 H mg/dl
(7-17)
Glucose 122 H mg/dl
(70-99)
AST 48 H U/L
(14-36)
ALT 36 H U/L
(0-35)
05/28/24 17:46
05/28/24 17:46
Vital Signs
Initial and Last Documented VS:
Initial Vital Signs
Temp Pulse Resp BP Pulse Ox
97.7 F 68 16 145/84 99
05/28/24 17:36 05/28/24 17:36 05/28/24 17:36 05/28/24 17:36 05/28/24 17:36
Last Documented Vital Signs
Temp Pulse Resp BP Pulse Ox
97.7 F 63 14 125/70 95
05/28/24 17:36 05/28/24 21:45 05/28/24 21:45 05/28/24 21:00 05/28/24 21:45
<Natan Mckenzie, DO - Last Filed: 05/29/24 02:27>
Orders/Labs/Results
Orders:
Orders
05/28/24 17:33
Electrocardiogram (*1) Urgent
Reason for Study: Chest Pain
EKG- Treatment ONCE
05/28/24 17:45
Chest [CR Chest - 2 Views ] Urgent
Comment:
Reason For Exam: cp
05/28/24 17:46
CMP [Comprehensive Metabolic Panel] Urgent
Complete Blood Count/With Diff Urgent
Troponin I Urgent
05/28/24 19:18
Nitroglycerin Sublingual [Nitrostat (Sublingual)] 0.4 mg SL [id number] PRN
05/28/24 21:16
Troponin I Urgent
Abnormal Lab Results
05/28/24
17:46
RBC 3.37 L 10^6/uL
(4.20-5.40)
Hgb 10.0 L g/dL
(12.0-16.0)
Hct 31.1 L %
(37.0-47.0)
MCHC 32.2 L g/dL
(33.0-37.0)
MPV 11.5 H fL
(7.4-10.4)
BUN 27 H mg/dl
(7-17)
Glucose 122 H mg/dl
(70-99)
AST 48 H U/L
(14-36)
ALT 36 H U/L
(0-35)
05/28/24 17:46
05/28/24 17:46
Vital Signs
Initial and Last Documented VS:
Initial Vital Signs
Temp Pulse Resp BP Pulse Ox
97.7 F 68 16 145/84 99
05/28/24 17:36 05/28/24 17:36 05/28/24 17:36 05/28/24 17:36 05/28/24 17:36
Last Documented Vital Signs
Temp Pulse Resp BP Pulse Ox
97.7 F 63 14 125/70 95
05/28/24 17:36 05/28/24 21:45 05/28/24 21:45 05/28/24 21:00 05/28/24 21:45
<Natan Mckenzie DO - Last Filed: 05/29/24 02:27>
MDM/Problems Addressed
Differential Diagnosis Includes:
ACS reflux non-STEMI musculoskeletal causes doubt PE she is a great
MDM/Problems Addressed:
Chest pain
Chronic conditions affecting care: HTN, CAD and Other (Rheumatoid)
Acute Exacerbation and/or Progression of Chronic Illness: HTN and CAD
<Natan Mckenzie DO - Last Filed: 05/29/24 02:27>
*Radiology
Radiology exam reviewed: radiology read reviewed
*Pulse Oximetry
Patient hypoxic: no
*EKG
Interpreted by ED Provider?: Yes
Interpretation: abnormal
Comparison EKG: no comparison EKG present
Heart Rate: 78
Rate: normal
Rhythm: sinus
Ischemia: non-specific ST changes
*Suede Cleaner Interpretation
Rate: normal
Heart Rate: 78
Rhythm: sinus
*Critical Care Note
Total Time (30-74mins, 75-104mins- exclusive of procedures): Not Applicable
Data Reviewed
Review of Other/Old Records Reveals: Labs and Progress Notes
Source: patient and records
<Natan Mckenzie DO - Last Filed: 05/29/24 02:27>
Update Note
Update Note:
Update still with pain troponin noted EKG noted try nitrates, prior cardiac cath noted blood work notes reviewed
10 PM second troponin noted chest x-ray noted patient appears comfortable
Patient has follow-up already scheduled with cardiology will place for the chest pain hotline
ED Attending Note
<MIGUEL De León - Last Filed: 05/28/24 17:46>
-
Portions of this chart may have been created with voice recognition software.� Occasional wrong word or��sound alike� substitutions may have occurred due to the inherent limitations of voice recognition software.
Discharge Plan
Departure
Patient Disposition: Home (Routine Discharge)
Date of Disposition: 05/28/24
Time of Disposition: 22:02
Patient with high blood pressure during this ER visit?: Yes
Condition: Good
Covid-19: Not Applicable
Discharge Problem:
Chest pain
Instructions: Chest Pain DCA Follow Up
Prescriptions:
New
isosorbide mononitrate 30 mg tablet extended release 24 hr
30 mg PO DAILY Qty: 30 0RF
No Action
amlodipine 2.5 MG tablet
2.5 mg PO DAILY
methylprednisolone 4 MG tablet
4 mg PO DAILY
oxycodone [OxyContin] 20 MG tablet,oral only,ext.rel.12 hr
20 mg PO DAILY
Enbrel 50 MG/ML syringe
50 mg SQ SA
alprazolam [Xanax] 0.5 mg Tablet
0.5 mg PO HS
polyethylene glycol 3350 [Miralax] 17 gram Powder In Packet
17 g PO HS
hydrocodone-acetaminophen 5-325 mg Tablet
1 tab PO Q8HPRN PRN (Reason: severe pain)
citalopram 20 mg Tablet
20 mg PO DAILY
mirtazapine 30 mg Tablet
60 mg PO HS
cholecalciferol (vitamin D3) [Vitamin D3] 25 mcg (1,000 unit) Tablet
25 mcg PO DAILY
PreserVision AREDS 4,296 mcg-226 mg-90 mg Capsule
1 cap PO DAILY
Eliquis 5 mg Tablet
5 mg PO BID Qty: 60 11RF
atorvastatin 40 mg Tablet
40 mg PO QPM Qty: 30 11RF
lisinopril 20 mg Tablet
20 mg PO DAILY Qty: 30 11RF
clopidogrel 75 mg Tablet
75 mg PO DAILY Qty: 30 11RF
pantoprazole 40 mg Tablet,Delayed Release (Dr/Ec)
40 mg PO DAILY Qty: 30 11RF
metoprolol tartrate 25 mg Tablet
25 mg PO BID Qty: 60 11RF
Referrals:
Emily Duong MD [Active] - Next open appointment
Tangela Ching MD [Family Provider] -
Interventions
Interventions:
*Risk Screen - Suicide Last Done: 05/28/24 18:03
*General Assessment Last Done: 05/28/24 18:03
*Neglect/Abuse Screening Last Done: 05/28/24 18:03
ED- Fall Risk Assessment Last Done: 05/28/24 18:03
*ED COVID-19 Vaccine History Last Done: 05/28/24 18:03
*Nursing Disposition Last Done: 05/28/24 22:21
ED- Cardiac Assessment Last Done: 05/28/24 18:06
Discharge Date and Time
Discharge Date/Time: 05/28/24 22:25
Print Language: LIBYAN
[2024-05-28 18:03] VITALS: BMI 19.7
[2024-05-28 18:04] VITALS: BP 141/68
[2024-05-28 18:04] LABS: % Basophils 0.7 % (0-2); % Eosinophils 1.5 % (0-6); % Immature Granulocytes 0.3 % (0-0.5); % Lymphocytes 24.1 % (20.5-51.1); % Monocytes 8.9 % (1.7-9.3); % Neutrophils 64.5 % (42.2-75.2); Absolute Eosinophils 0.1 10^3/uL (0-0.7); Absolute Lymphocytes 1.4 10^3/uL (1.2-3.4); Absolute Monocytes 0.5 10^3/uL (0.1-0.6); Absolute Neutrophils 3.9 10^3/uL (1.4-6.5); Hematocrit 31.1 % (37.0-47.0); Mean Corp Hgb Conc. 32.2 g/dL (33.0-37.0); Mean Corpuscular Hgb 29.7 pg (27.0-31.0); Mean Corpuscular Volume 92.3 fL (81.0-99.0); Mean Platelet Volume 11.5 fL (7.4-10.4); Nucleated Red Blood Cells % 0 %; Platelet Count 154 10^3/uL (130-400); Red Blood Cell Count 3.37 10^6/uL (4.20-5.40); Red Cell Dist. Width 13.7 % (11.5-14.5)
[2024-05-28 18:18] LABS: ALT (SGPT) 36 U/L (0-35); AST (SGOT) 48 U/L (14-36); Albumin 4.2 g/dl (3.5-5.0); Alkaline Phosphatase 59 U/L (38-126); Blood Urea Nitrogen 27 mg/dl (7-17); Calcium 9.5 mg/dl (8.4-10.2); Carbon Dioxide 30 mmol/L (22-30); Chloride 104 mmol/L (98-107); Estimated Creatinine Clearance 44 ml/min; Glucose 122 mg/dl (70-99); Sodium 144 mmol/L (135-145); Total Bilirubin 0.7 mg/dl (0.2-1.3); Total Protein 6.7 g/dl (6.3-8.2); eGFR > 60.00
[2024-05-28 18:29] LABS: Troponin I < 0.012 ng/ml
[2024-05-28] MEDS: NITROSTAT (SUBLINGUAL) 0.4 MG SL (19:37)
[2024-05-28 19:38] VITALS: BP 139/75
[2024-05-28 20:00] VITALS: BP 125/66
[2024-05-28 21:00] VITALS: BP 125/70
[2024-05-28 21:46] LABS: Troponin I < 0.012 ng/ml
== END 2024-05-28 22:25 | disposition home or self-care (01) ==
LOC: EMR 17:32
PROVIDERS: Nurse Practitioner; EMERGENCY PHYSICIAN Emergency Medicine; FAMILY PHYSICIAN Internal Medicine
DX: R07.89 Other chest pain (principal); I10 Essential (primary) hypertension; I25.10 Atherosclerotic heart disease of native coronary artery without angina pectoris; I25.2 Old myocardial infarction; M06.9 Rheumatoid arthritis, unspecified; Z79.02 Long term (current) use of antithrombotics/antiplatelets; Z82.49 Family history of ischemic heart disease and other diseases of the circulatory system; Z86.711 Personal history of pulmonary embolism; Z87.891 Personal history of nicotine dependence; Z90.49 Acquired absence of other specified parts of digestive tract; Z90.710 Acquired absence of both cervix and uterus; Z95.5 Presence of coronary angioplasty implant and graft; Z96.651 Presence of right artificial knee joint
CPT/HCPCS: 99283; 71046; 80053; 84484; 85025; 93005

== ENCOUNTER 2024-06-07 11:42 | Emergency (ER) | payer MEDICARE, SELFPAY ==
[2024-06-07 11:54] VITALS: BP 111/70
[2024-06-07 11:55] VITALS: BP 111/70
[2024-06-07] MEDS: ZOFRAN ODT (ORALLY DISINTEGRATING) 4 MG PO (12:13)
[2024-06-07 12:15] LABS: % Basophils 0.5 % (0-2); % Eosinophils 0.9 % (0-6); % Immature Granulocytes 0.6 % (0-0.5); % Lymphocytes 20.3 % (20.5-51.1); % Monocytes 4.3 % (1.7-9.3); % Neutrophils 73.4 % (42.2-75.2); Absolute Eosinophils 0.1 10^3/uL (0-0.7); Absolute Lymphocytes 1.3 10^3/uL (1.2-3.4); Absolute Monocytes 0.3 10^3/uL (0.1-0.6); Absolute Neutrophils 4.8 10^3/uL (1.4-6.5); Hematocrit 33.4 % (37.0-47.0); Hemoglobin 10.8 g/dL (12.0-16.0); Mean Corp Hgb Conc. 32.3 g/dL (33.0-37.0); Mean Corpuscular Hgb 29.6 pg (27.0-31.0); Mean Corpuscular Volume 91.5 fL (81.0-99.0); Mean Platelet Volume 11.1 fL (7.4-10.4); Nucleated Red Blood Cells % 0 %; Platelet Count 183 10^3/uL (130-400); Red Blood Cell Count 3.65 10^6/uL (4.20-5.40); Red Cell Dist. Width 13.3 % (11.5-14.5); White Blood Cell Count 6.6 10^3/uL (4.8-10.8)
[2024-06-07 12:27] LABS: ALT (SGPT) 38 U/L (0-35); AST (SGOT) 54 U/L (14-36); Albumin 4.3 g/dl (3.5-5.0); Alkaline Phosphatase 79 U/L (38-126); Blood Urea Nitrogen 27 mg/dl (7-17); Calcium 9.4 mg/dl (8.4-10.2); Carbon Dioxide 26 mmol/L (22-30); Chloride 104 mmol/L (98-107); Estimated Creatinine Clearance 37 ml/min; Glucose 134 mg/dl (70-99); Lipase 244 U/L (23-300); Potassium 4.4 mmol/L (3.5-5.1); Sodium 143 mmol/L (135-145); Total Protein 6.8 g/dl (6.3-8.2); eGFR 57.31
--- NOTE | 2024-06-07 13:37 | ED.GENMED ---
History of Present Illness
General
Chief Complaint: Abdominal Symptoms
Source: patient
Exam Limitations: none
Time Seen by Provider: 06/07/24 13:11
Nursing documentation reviewed up to this point in time: agreed with
History of Present Illness
History of Present Illness:
pt is a 78 y/o Fwht h/o CAD, htn, hld, , AF on eliquis, RA on tiki
here with severe diffuse abd pain and stool today about 30 minutes after eating a bagel and cream cheese at [employer] this morning
pt says she got home and got cramps in her abd
she took pepto but shortly after felt pretty intense pain and sensation to move bowels
she had profuse stool following that; she says it actually was not liquidity but formed and she continued to go
she felt lightheaded and weak and thought 'i'm going to '
she did not vomit but felt nauseated
called for her son whom she lives with and he called 911
she got zofran en route and was in a lot of pain on arrival but feels better now
she has not had fever, chills, bloody styool,, bloody vomiting
no previuos bowel altering surgery
Past History
Past History
ED Past Medical History: HTN, [place], Valvular disease ( heart murmur) and Other (Rheumatoid arthritis, bipolar, pulmonary embolism)
ED Past Surgical History: Cholecystectomy, Gynecological (Hysterectomy), Orthopedic (Right hand surgery, left hand surgery, R knee replacement) and Other (Surgery for deviated septum)
Social History
Tobacco: Former smoker
Alcohol: None
Drug: None
Personal:
Living: with family
Employment: Retired
Family History
Family History: Hypertension and CAD
Phy Exam
Physical Exam
Physical Exam:
GENERAL: Alert , in no apparent distress, looks much better than on arrival per RN
EYE: pupils equal and reactive
NECK: Supple
ENT: o/p clr, mmm.
CARDIAC: Regular rate and rhythm .
LUNGS: Clear breath sounds bilaterally, no acute respiratory distress, no wheezes/rales/rhonchi
ABDOMEN: Soft, without focal tenderness, very minimal lower abd tenderness, no r/g, no cvat, normal bowel sounds
NEUROLOGICAL: Alert and oriented, no focal neuro deficits
SKIN: Warm and dry, skin intact.
MUSCULOSKELETAL: No edema, well perfused. neg stefanie's sign
PSYCH: Normal and appropriate interaction.
Course
Orders/Labs/Results
Orders:
Orders
06/07/24 12:05
Complete Blood Count/With Diff Urgent
Comprehensive Metabolic Panel Urgent
Lipase Urgent
06/07/24 12:10
Ondansetron Orally Disint [Zofran Odt (Orally Disintegrating)] 4 mg .ROUTE .STK-MED ONE
06/07/24 12:12
Ondansetron HCl [Zofran] 4 mg PO NOW STA
06/07/24 12:13
Ondansetron Orally Disint [Zofran Odt (Orally Disintegrating)] 4 mg PO NOW STA
06/07/24 13:40
Lactic Acid Q4H
Comment: CANCEL 2nd LACTIC ACID IF 1st LACTIC ACID IS LESS THAN 2
06/07/24 13:43
CT Abd/pel W Iv And Oral Contr Urgent
Comment:
Reason For Exam: diffuse abd pain, nauesa, diarrhea
Iohexol [Omnipaque] See Protocol PO NOW STA
06/07/24 17:55
Dicyclomine [Bentyl] 10 mg PO NOW STA
Abnormal Lab Results
06/07/24
12:05
RBC 3.65 L 10^6/uL
(4.20-5.40)
Hgb 10.8 L g/dL
(12.0-16.0)
Hct 33.4 L %
(37.0-47.0)
MCHC 32.3 L g/dL
(33.0-37.0)
MPV 11.1 H fL
(7.4-10.4)
Immature Gran % 0.6 H %
(0-0.5)
Lymphocytes % 20.3 L %
(20.5-51.1)
BUN 27 H mg/dl
(7-17)
Glucose 134 H mg/dl
(70-99)
AST 54 H U/L
(14-36)
ALT 38 H U/L
(0-35)
06/07/24 12:05
06/07/24 12:05
Vital Signs
Initial and Last Documented VS:
Initial Vital Signs
Pulse Resp Pulse Ox
73 18 98
06/07/24 11:45 06/07/24 11:45 06/07/24 11:45
Last Documented Vital Signs
Pulse Resp BP Pulse Ox
83 20 151/72 97
06/07/24 18:10 06/07/24 17:00 06/07/24 18:10 06/07/24 18:07
MDM/Problems Addressed
Differential Diagnosis Includes:
colitis, gastroenteritis; ischemic colitis; bowel obstructoin, di vertic
MDM/Problems Addressed:
78 y/o F
nausea/diarrhea after eating [employer]
pt had significant pain with stools
she felt better after zofran here in the ER and now just has mild pain
very minimal abdominal tenderness; hg stable 10.8, mild transaminitisi
normal wbc
ct shows very mild colitis focal
she feels much better
she would like to go home
d/c madhav with a few tabs zofran, a few bentyl
*Critical Care Note
Total Time (30-74mins, 75-104mins- exclusive of procedures): Not Applicable
ED Attending Note
-
Portions of this chart may have been created with voice recognition software.� Occasional wrong word or��sound alike� substitutions may have occurred due to the inherent limitations of voice recognition software.
Discharge Plan
Departure
Patient Disposition: Home (Routine Discharge)
Date of Disposition: 06/07/24
Time of Disposition: 17:55
Patient with high blood pressure during this ER visit?: No
Condition: Fair
Discharge Problem:
Colitis
Instructions: Colitis (DC)
Prescriptions:
New
ondansetron 4 mg tablet,disintegrating
4 mg PO Q8H PRN (Reason: nausea and vomiting) 2 Days Qty: 4 0RF
dicyclomine 10 mg capsule
10 mg PO BID PRN (Reason: abdominal pain) Qty: 6 0RF
No Action
amlodipine 2.5 MG tablet
2.5 mg PO DAILY
methylprednisolone 4 MG tablet
4 mg PO DAILY
oxycodone [OxyContin] 20 MG tablet,oral only,ext.rel.12 hr
20 mg PO DAILY
Enbrel 50 MG/ML syringe
50 mg SQ SA
alprazolam [Xanax] 0.5 mg Tablet
0.5 mg PO HS
hydrocodone-acetaminophen 5-325 mg Tablet
1 tab PO Q8HPRN PRN (Reason: severe pain)
citalopram 20 mg Tablet
30 mg PO DAILY
mirtazapine 30 mg Tablet
60 mg PO HS
cholecalciferol (vitamin D3) [Vitamin D3] 25 mcg (1,000 unit) Tablet
25 mcg PO DAILY
PreserVision AREDS 4,296 mcg-226 mg-90 mg Capsule
1 cap PO DAILY
Eliquis 5 mg Tablet
5 mg PO BID Qty: 60 11RF
atorvastatin 40 mg Tablet
40 mg PO QPM Qty: 30 11RF
clopidogrel 75 mg Tablet
75 mg PO DAILY Qty: 30 11RF
pantoprazole 40 mg Tablet,Delayed Release (Dr/Ec)
40 mg PO DAILY Qty: 30 11RF
metoprolol tartrate 25 mg Tablet
25 mg PO BID Qty: 60 11RF
lisinopril 10 mg Tablet
10 mg PO DAILY
bismuth subsalicylate [Pepto-Bismol] 262 mg/15 mL Suspension
524 mg PO DAILYPRN PRN (Reason: STOMACH ACHE)
Referrals:
Tangela Ching MD [Family Provider] - Follow up in 2-3 days
Activity Restrictions/Additional Instructions:
You have a small area of colitis on your CAT scan which is usually caused by an infection, most commonly viral. It is usually self-limiting. You can try the brat diet, bananas, rice, applesauce, toast for your diet for right now and advance as
tolerated. Make sure you stay hydrated. If you are feeling nauseated you could try a dose of Zofran every 8 hours as needed. For crampy abdominal pain you can try Bentyl 10 mg twice a day but if you are diarrhea gets worse or you are having
worsening pain or fevers or any blood in your stool you should return to the ER. Otherwise follow-up with your doctor. Show them the copy of your CAT scan. You may need to have a colonoscopy to prove that this area of inflammation has resolved.
Interventions
Interventions:
*Risk Screen - Suicide Last Done: 06/07/24 11:51
*General Assessment Last Done: 06/07/24 11:51
*Neglect/Abuse Screening Last Done: 06/07/24 11:51
ED- Fall Risk Assessment Last Done: 06/07/24 18:20
*ED COVID-19 Vaccine History Last Done: 06/07/24 11:51
*Nursing Disposition Last Done: 06/07/24 18:20
HB-Rgyxbk-Aoiwcjxwpe Assessment Last Done: 06/07/24 11:53
Discharge Date and Time
Discharge Date/Time: 06/07/24 18:21
Print Language: KHMER
[2024-06-07] MEDS: OMNIPAQUE 50 ML PO (13:50)
[2024-06-07 13:58] LABS: Lactic Acid 1.2 mmol/L (0.7-2.0)
[2024-06-07] MEDS: BENTYL 10 MG PO (18:07)
[2024-06-07 18:10] VITALS: BP 151/72
== END 2024-06-07 18:21 | disposition home or self-care (01) ==
LOC: EMR 11:42
PROVIDERS: Physician Assistant; EMERGENCY PHYSICIAN Student in an Organized Health Care Education/Training Program; FAMILY PHYSICIAN Internal Medicine
DX: K52.9 Noninfective gastroenteritis and colitis, unspecified (principal); Z87.891 Personal history of nicotine dependence; I25.10 Atherosclerotic heart disease of native coronary artery without angina pectoris; I10 Essential (primary) hypertension; E78.5 Hyperlipidemia, unspecified; M06.9 Rheumatoid arthritis, unspecified; I48.91 Unspecified atrial fibrillation; Z79.01 Long term (current) use of anticoagulants
CPT/HCPCS: 99283; 74177; 80053; 83605; 83690; 85025; Q9967

== ENCOUNTER 2024-06-08 02:37 | Inpatient (IN) | payer MEDICARE, SELFPAY ==
[2024-06-08] VITALS (12 sets, daily range): BP systolic 92–156; BP diastolic 50–86; PULSE 68–104; BMI 19.0
--- NOTE | 2024-06-08 00:56 | ED.GENMED ---
History of Present Illness
<FAHAD Echavarria - Last Filed: 06/08/24 01:29>
General
Chief Complaint: Rectal Bleeding
Source: patient
Exam Limitations: none
Time Seen by Provider: 06/08/24 00:45
Nursing documentation reviewed up to this point in time: agreed with
History of Present Illness
History of Present Illness:
Patient is a 78yo F who was discharged earlier today w/ colitis & told to return if any blood in stool. Pt reports she went home, took meds, laid down, and when she got back up she had a large bloody BM. States 'it just flowed out of me' on
standing. She reports BM is bright red liquid and clots. Reports worsened lower abdominal pain rated 8/10. Admits to 1 BM since being here which was bright red w/ less clots. She is visibly shaking due to discomfort. She denies development of any
new sxs.
Past History
<FAHAD Echavarria - Last Filed: 06/08/24 01:29>
Past History
ED Past Medical History: HTN, PA, Valvular disease ( heart murmur) and Other (Rheumatoid arthritis, bipolar, pulmonary embolism)
ED Past Surgical History: Cholecystectomy, Gynecological (Hysterectomy), Orthopedic (Right hand surgery, left hand surgery, R knee replacement) and Other (Surgery for deviated septum)
Social History
Tobacco: Former smoker
Alcohol: None
Drug: None
Personal:
Living: with family
Employment: Retired
Family History
Family History: Hypertension and CAD
Review of Systems
<FAHAD Echavarria - Last Filed: 06/08/24 01:29>
Review of Systems
Constitutional: Denies fever, fatigue or chills
Respiratory: Denies cough or trouble breathing
Cardiac: Denies chest pain or palpitations
ABD/GI: Reports abdominal pain, nausea, diarrhea and bloody stools; Denies vomiting or constipated
Neurological: Denies dizzy or headache
Hematologic/Lymphatic: Reports bleeding
Phy Exam
<Yumiko Bennett [facility] - Last Filed: 06/08/24 01:29>
General Physical Exam
General Presentation: moderate distress
General age: appears stated age
General Skin: warm and dry
General Habitus: elderly
General Mental: alert and tearful
Cardiovascular Exam
Cardiovascular Exam: regular rate/rhythm, no edema, no gallop and no murmur
Pulmonary Exam
Pulmonary Exam: lungs clear, no respiratory distress, no rales, no crackles, no rhonchi and no wheezing
Gastrointestinal Exam
Gastrointestinal Exam: normal bowel sounds, soft and non distended
Palpation: left lower quadrant: Severe tenderness and right lower quadrant: Severe tenderness
Neurological Exam
Neurological Exam: alert, oriented x3, no motor deficits and speech normal
Skin Exam
Skin Exam: normal color
Course
<Yumiko Bennett [facility] - Last Filed: 06/08/24 01:29>
Orders/Labs/Results
Orders:
Orders
06/08/24 01:13
Type+Screen Urgent
Complete Blood Count/With Diff Urgent
Comprehensive Metabolic Panel Urgent
PTT Urgent
Prothrombin Time Urgent
06/08/24 01:21
IV Insert/Care/Rem.- Treatment PRN
Pantoprazole 80 mg/100 ml Nss [Protonix] 80 mg in 100 ml IV NOW
Pantoprazole [Protonix IV] 80 mg IV NOW STA
06/08/24 01:32
STOOL [C difficile Antigen & Toxins] Urgent
[place] Source: Feces/Stool
Specimen Description:
Date Specimen was Collected: 06/08/24
Time Specimen was Collected: 01:33
Stool For WBC Urgent
[place] Source: Feces/Stool
Specimen Description:
Date Specimen was Collected: 06/08/24
Time Specimen was Collected: 01:33
Stool for Occult Blood Routine
Abnormal Lab Results
06/08/24
01:13
RBC 3.61 L 10^6/uL
(4.20-5.40)
Hgb 10.7 L g/dL
(12.0-16.0)
Hct 32.1 L %
(37.0-47.0)
MPV 11.0 H fL
(7.4-10.4)
Absolute Neuts (auto) 7.4 H 10^3/uL
(1.4-6.5)
Absolute Monos (auto) 0.9 H 10^3/uL
(0.1-0.6)
Neutrophils % 75.7 H %
(42.2-75.2)
Lymphocytes % 13.2 L %
(20.5-51.1)
06/08/24 01:13
Vital Signs
Initial and Last Documented VS:
Initial Vital Signs
Temp Pulse Resp BP Pulse Ox
99.1 F 96 22 132/86 96
06/08/24 00:31 06/08/24 00:31 06/08/24 00:31 06/08/24 00:31 06/08/24 00:31
Last Documented Vital Signs
Temp Pulse Resp BP Pulse Ox
99.1 F 79 19 156/83 96
06/08/24 00:31 06/08/24 01:22 06/08/24 01:22 06/08/24 01:21 06/08/24 00:31
[place];eRinier Hoover, DO - Last Filed: 06/08/24 01:37>
Orders/Labs/Results
Orders:
Orders
06/08/24 01:13
Type+Screen Urgent
Complete Blood Count/With Diff Urgent
Comprehensive Metabolic Panel Urgent
PTT Urgent
Prothrombin Time Urgent
06/08/24 01:21
IV Insert/Care/Rem.- Treatment PRN
Pantoprazole 80 mg/100 ml Nss [Protonix] 80 mg in 100 ml IV NOW
Pantoprazole [Protonix IV] 80 mg IV NOW STA
06/08/24 01:32
STOOL [C difficile Antigen & Toxins] Urgent
[place] Source: Feces/Stool
Specimen Description:
Date Specimen was Collected: 06/08/24
Time Specimen was Collected: 01:33
Stool For WBC Urgent
[place] Source: Feces/Stool
Specimen Description:
Date Specimen was Collected: 06/08/24
Time Specimen was Collected: 01:33
Stool for Occult Blood Routine
Abnormal Lab Results
06/08/24
01:13
RBC 3.61 L 10^6/uL
(4.20-5.40)
Hgb 10.7 L g/dL
(12.0-16.0)
Hct 32.1 L %
(37.0-47.0)
MPV 11.0 H fL
(7.4-10.4)
Absolute Neuts (auto) 7.4 H 10^3/uL
(1.4-6.5)
Absolute Monos (auto) 0.9 H 10^3/uL
(0.1-0.6)
Neutrophils % 75.7 H %
(42.2-75.2)
Lymphocytes % 13.2 L %
(20.5-51.1)
06/08/24 01:13
Vital Signs
Initial and Last Documented VS:
Initial Vital Signs
Temp Pulse Resp BP Pulse Ox
99.1 F 96 22 132/86 96
06/08/24 00:31 06/08/24 00:31 06/08/24 00:31 06/08/24 00:31 06/08/24 00:31
Last Documented Vital Signs
Temp Pulse Resp BP Pulse Ox
99.1 F 79 19 156/83 96
06/08/24 00:31 06/08/24 01:22 06/08/24 01:22 06/08/24 01:21 06/08/24 00:31
<FAHAD Echavarria - Last Filed: 06/08/24 01:29>
MDM/Problems Addressed
Differential Diagnosis Includes:
colorectal malignancy, ulcerative colitis, diverticulitis
<Reinier Hoover DO - Last Filed: 06/08/24 01:37>
MDM/Problems Addressed
Differential Diagnosis Includes:
colorectal malignancy, ulcerative colitis, diverticulitis , GI bleed
Chronic conditions affecting care: Other (On Eliquis)
<FAHAD Echavarria - Last Filed: 06/08/24 01:29>
*Critical Care Note
Total Time (30-74mins, 75-104mins- exclusive of procedures): Not Applicable
<Reinier Hoover DO - Last Filed: 06/08/24 01:37>
*Radiology
Radiology exam reviewed: radiology read reviewed (Radiology report from earlier today reviewed)
*Pulse Oximetry
Patient hypoxic: no
*Critical Care Note
Total Time (30-74mins, 75-104mins- exclusive of procedures): 35
comment:
Critical care statement: A total of 35 minutes of critical care time was provided for this patient. This time is separate from time utilized to perform the aforementioned documented procedures. Aggregate critical care time includes only time
during which I was engaged in work directly related to the patient's care, as described above, whether at the bedside or elsewhere in the Emergency Department.
<DO Edinson Thompson Last Filed: 06/08/24 01:37>
Patient Management
Social determinants of health affecting care: Strong social support
Discussion with other providers: Hospitalist
ED Attending Note
<FAHAD Echavarria - Last Filed: 06/08/24 01:29>
-
Portions of this chart may have been created with voice recognition software.� Occasional wrong word or��sound alike� substitutions may have occurred due to the inherent limitations of voice recognition software.
<Reinier Hoover DO - Last Filed: 06/08/24 01:37>
ED Attending Note
Patient seen and examined by attending physician: Yes
I performed the substantive portion of visit, reviewed & personally made and approve the management plan that is documented in note by myself or MARTHA.: Yes
ED Attending Note:
Pleasant 78-year-old female presents to the emergency department with GI bleed. She was seen in the emergency department earlier today and diagnosed with colitis. She was advised to return to the ER with any changing or worsening of symptoms. Had
a CT scan earlier in the day which showed a focal area of wall thickening suggestive of infectious or inflammatory colitis. Colonoscopy is recommended to exclude colonic neoplasm. Patient was seen in conjunction with the PA student. I have
reviewed and agree with the history and treatment plan presented. On my independent physical exam, patient is awake, alert, and oriented x3 moderate acute distress. Heart is regular rate and rhythm. Abdomen soft with diffuse tenderness to
palpation. Good bowel sounds throughout. Patient did have a bowel movement of bright red blood while in the emergency department. She states that she had a smaller one prior to my arrival. We did collect the stool.
[place]a texted GI. Patient to be admitted to the hospitalist service for GI bleed. Blood consent is on the chart.
Discharge Plan
Departure
Patient Disposition: Admit
Date of Disposition: 06/08/24
Time of Disposition: 01:36
Presentation/result/management discussed w/ accepting MD/DO: Hospitalist
Discharge Problem:
Acute GI bleeding, Colitis
Prescriptions:
No Action
amlodipine 2.5 MG tablet
2.5 mg PO DAILY
methylprednisolone 4 MG tablet
4 mg PO DAILY
oxycodone [OxyContin] 20 MG tablet,oral only,ext.rel.12 hr
20 mg PO DAILY
Enbrel 50 MG/ML syringe
50 mg SQ SA
alprazolam [Xanax] 0.5 mg Tablet
0.5 mg PO HS
polyethylene glycol 3350 [Miralax] 17 gram Powder In Packet
17 g PO HSPRN PRN (Reason: constipation)
hydrocodone-acetaminophen 5-325 mg Tablet
1 tab PO Q8HPRN PRN (Reason: severe pain)
citalopram 20 mg Tablet
20 mg PO DAILY
mirtazapine 30 mg Tablet
60 mg PO HS
cholecalciferol (vitamin D3) [Vitamin D3] 25 mcg (1,000 unit) Tablet
25 mcg PO DAILY
PreserVision AREDS 4,296 mcg-226 mg-90 mg Capsule
1 cap PO DAILY
Eliquis 5 mg Tablet
5 mg PO BID Qty: 60 11RF
atorvastatin 40 mg Tablet
40 mg PO QPM Qty: 30 11RF
lisinopril 20 mg Tablet
20 mg PO DAILY Qty: 30 11RF
clopidogrel 75 mg Tablet
75 mg PO DAILY Qty: 30 11RF
pantoprazole 40 mg Tablet,Delayed Release (Dr/Ec)
40 mg PO DAILY Qty: 30 11RF
metoprolol tartrate 25 mg Tablet
25 mg PO BID Qty: 60 11RF
isosorbide mononitrate 30 mg tablet extended release 24 hr
30 mg PO DAILY Qty: 30 0RF
ondansetron 4 mg tablet,disintegrating
4 mg PO Q8H PRN (Reason: nausea and vomiting) 2 Days Qty: 4 0RF
dicyclomine 10 mg capsule
10 mg PO BID PRN (Reason: abdominal pain) Qty: 6 0RF
Referrals:
Humza,Tangela M., MD [Family Provider] -
Interventions
Interventions:
*Risk Screen - Suicide Last Done: 06/08/24 00:31
*General Assessment Last Done: 06/08/24 00:48
*Neglect/Abuse Screening Last Done: 06/08/24 00:31
ED- Fall Risk Assessment Last Done: 06/08/24 01:19
*ED COVID-19 Vaccine History Last Done: 06/08/24 00:48
HM-Fzjbhs-Wunxdisxvi Assessment Last Done: 06/08/24 00:56
ED- Cardiac Assessment Last Done: 06/08/24 00:56
ED- Pulmonary Assessment Last Done: 06/08/24 00:56
Discharge Date and Time
Print Language: DANISH
--- NOTE | 2024-06-08 00:58 | EDRN ---
Pt was discharged from this ED, went home and went to sleep. Pt woke and says when she stood up, bloody liquid came out of her rectum spilling onto the floor. Pt noted blood clots in it. Abdominal pain increased so pt returned to ED. Pt denies
cp, sob, constipation, fever/chills/cough, weakness, dizziness, urinary symptoms, nausea/vomiting.
[2024-06-08 01:21] LABS: % Basophils 0.4 % (0-2); % Eosinophils 1.7 % (0-6); % Immature Granulocytes 0.3 % (0-0.5); % Lymphocytes 13.2 % (20.5-51.1); % Monocytes 8.7 % (1.7-9.3); % Neutrophils 75.7 % (42.2-75.2); Absolute Eosinophils 0.2 10^3/uL (0-0.7); Absolute Lymphocytes 1.3 10^3/uL (1.2-3.4); Absolute Monocytes 0.9 10^3/uL (0.1-0.6); Absolute Neutrophils 7.4 10^3/uL (1.4-6.5); Hematocrit 32.1 % (37.0-47.0); Hemoglobin 10.7 g/dL (12.0-16.0); Mean Corp Hgb Conc. 33.3 g/dL (33.0-37.0); Mean Corpuscular Hgb 29.6 pg (27.0-31.0); Mean Corpuscular Volume 88.9 fL (81.0-99.0); Nucleated Red Blood Cells % 0 %; Platelet Count 169 10^3/uL (130-400); Red Blood Cell Count 3.61 10^6/uL (4.20-5.40); Red Cell Dist. Width 13.5 % (11.5-14.5); White Blood Cell Count 9.8 10^3/uL (4.8-10.8)
[2024-06-08] MEDS: PROTONIX IV 80 MG IV (01:28)
[2024-06-08] MEDS: PROTONIX 100 IV (01:32)
[2024-06-08 01:33] LABS: APTT 31.2 Sec (23.4-35.0); INR 1.29; PT 15.9 Sec (11.4-14.6)
--- NOTE | 2024-06-08 01:37 | HPS.HSE ---
Family Physician
-
Family Physician: Tangela Ching
Chief Complaint
-
Bloody diarrhea
History of Present Illness
Patient is a 78 y.o female w/ history of CAD with recent stent to RCA, paroxysmal atrial fibrillation dgx recently and started on eliquis in addition to on going plavix, RA on tiki and oral prednisolone chronic anemia presenting to the emergency
department with bloody bowel movements.
Patient initially presented to the emergency department this morning with abdominal pain nausea vomiting and diarrhea. She apparently developed diffuse severe abdominal pain about 30 minutes after having bagel and cream cheese in the morning. She
had cramps and took some Pepto-Bismol and then developed intense pain and sensation to move bowels. She reportedly had a large BM and during this episode felt lightheaded and dizzy and EMS was called and patient brought to the emergency department.
At the time she was diagnosed with colitis. She was hemodynamically stable and in no acute distress felt better and was discharged.
On arrival home patient attempted to eat banana and there had abdominal cramps and diarrhea which was bloody. She had another episode of bloody bowel movement and decided to come to the emergency department. She reported that the blood had small
amounts of clots. She denied seeing any melena. She denied any hematemesis. She denied feeling dizzy or lightheaded this time. She has had no fevers. She reports that she is always cold and always has chills. Patient had a screening
colonoscopy a year ago which showed internal hemorrhoids and diverticuli but no other findings. She denies any prior history of rectal bleeding.
On arrival in the emergency department she had a temp of 99.1, blood pressure was stable at 156/80 with a pulse of 79 and she was satting 96% on room air. Hemoglobin was 10.7 unchanged from prior, there was no leukocytosis and a platelet count was
169. Chemistries were unremarkable.
Medical History
Past Medical History
Past Medical History: Reports Arrhythmia (Paroxysmal atrial fibrillation), CAD (Is status post PCI with stents to RCA), HTN, MS (NSTEMI), Valvular Disease (Aortic stenosis), Psychiatric (Bipolar disorder) and Other (SMA syndrome)
Additional Past Medical History:
Rheumatoid arthritis
Past Surgical History: Reports Cholecystectomy, Gynocological (Hysterectomy) and Orthopedic (Right knee surgery)
Social History
Tobacco: Former Smoker
Alcohol: Former
Drug: None
Living: With Family
Employment: Retired
Family History
Family History: Not pertinent
Allergies / Home Medications
Allergies reflects when Allergies were last updated in [employer].
Home Medications with original date entered in [facility]
Allergy/Medication List:
Allergies
Allergy/AdvReac Type Severity Reaction Status Date / Time
Sulfa (Sulfonamide Allergy Stomach Verified 06/08/24 00:33
Antibiotics) cramps
Home Medications
amlodipine 2.5 mg tablet 2.5 mg PO DAILY Heart disease/condition 01/23/16
methylprednisolone 4 mg tablet 4 mg PO DAILY Anti-inflammatory 01/23/16
etanercept 50 mg/mL (1 mL) subcutaneous syringe (Enbrel) 50 mg SQ SA arthritis 12/09/20
oxycodone 20 mg tablet,crush resistant,extended release 12 hr (OxyContin) 20 mg PO DAILY 12/09/20
alprazolam 0.5 mg tablet (Xanax) 0.5 mg PO HS sleep 06/18/22
cholecalciferol (vitamin D3) 25 mcg (1,000 unit) tablet (Vitamin D3) 25 mcg PO DAILY 02/19/24
citalopram 20 mg tablet 20 mg PO DAILY 02/19/24
hydrocodone 5 mg-acetaminophen 325 mg tablet 1 tab PO Q8HPRN PRN severe pain 02/19/24
mirtazapine 30 mg tablet 60 mg PO HS 02/19/24
polyethylene glycol 3350 17 gram oral powder packet (Miralax) 17 g PO HSPRN PRN constipation 02/19/24
vitamins A,C,R-lqmm-cuopeu 4,296 mcg-226 mg-90 mg capsule (PreserVision AREDS) 1 cap PO DAILY 02/19/24
apixaban 5 mg tablet (Eliquis) 5 mg PO BID Blood clot prevention/tx #60 tabs 02/26/24
atorvastatin 40 mg tablet 40 mg PO QPM High cholesterol #30 tabs 02/26/24
clopidogrel 75 mg tablet 75 mg PO DAILY Heart disease/condition #30 tabs 02/26/24
lisinopril 20 mg tablet 20 mg PO DAILY Heart disease/condition #30 tabs 02/26/24
metoprolol tartrate 25 mg tablet 25 mg PO BID Heart disease/condition #60 tabs 02/26/24
pantoprazole 40 mg tablet,delayed release 40 mg PO DAILY Gastrointestinal issue #30 tabs 02/26/24
isosorbide mononitrate 30 mg tablet,extended release 24 hr 30 mg PO DAILY #30 tabs 05/28/24
dicyclomine 10 mg capsule 10 mg PO BID PRN abdominal pain #6 caps 06/07/24
ondansetron 4 mg disintegrating tablet 4 mg PO Q8H PRN nausea and vomiting 2 days #4 tabs 06/07/24
Review of Systems
-
History Source: Patient
Constitutional: Reports Chills
EENT: Reports No Symptoms
Respiratory: Reports No Symptoms
Cardiac: Reports No Symptoms
Abdomen/GI: Reports Abdominal Pain, Nausea, Vomiting, Diarrhea and Bloody Stools
: Reports No Symptoms
Musculoskeletal: Reports No Symptoms
Skin: Reports No Symptoms
Neurological: Reports No Symptoms
Endocrine: Reports No Symptoms
Hematologic/Lymphatic: Reports No Symptoms
Psych: Reports No Symptoms
Physical Exam
Vital Signs
Vital Signs
Temp Pulse Resp BP Pulse Ox
99.1 F 79 19 156/83 96
06/08/24 00:31 06/08/24 01:22 06/08/24 01:22 06/08/24 01:21 06/08/24 00:31
Physical Exam
General: No Apparent Distress, Appears Chronically Ill and Cachectic
HEENT: NormoCephalic, Anicteric, Atraumatic and PERRLA
Respiratory: Clear
Cardiac: S1/S2 and Regular Rhythm
Breast: Deferred by me
GI: Soft, Non Tender, Non Distended and Normal Bowel Sounds
Rectal: Red
Genito-urinary: Deferred by me
Musculoskeletal: No Clubbing, No Cyanosis and No Edema
Skin: Warm
Neuro: AO x 3
Hematologic/Lymphatic: No Lymphadenopathy
Psych: Anxious
Laboratory Results
-
06/08/24 01:13
Data Reviewed
-
CT Scan: Report Reviewed by me
Lab Data: Labs Reviewed by me
Old Records: Reviewed
Impression/Plan
-
IMPRESSION:
78-year-old female with complex past medical history including CAD status post PCI completed by radial aneurysm with ultimately 2 stents placed in RCA, on anticoagulation with episode of proximal atrial fibrillation. Periprocedural, hypertension,
rheumatoid arthritis, SMA syndrome, anxiety bipolar who presented to the emergency department initially with episode of loose stool/diarrhea, nausea vomiting and was diagnosed with colitis and sent home and now returns to the emergency department
with 3 bloody bowel movements. She is well-appearing and hemodynamically stable but quite anxious. Likely has anticoagulation associated body bowel movements in the setting of colitis which is possibly infectious versus ischemic. Screening
screening colonoscopy performed a year ago with diverticulosis and internal hemorrhoids but otherwise no other abnormal findings.
PLAN:
1. Rectal Bleeding - Episode of diarrhea mixed with blood. HD stable. Afebrile, no leukocytosis. Hgb has been stable compared to am. She is anxious but in no acute distress. Possibly ischemic vs infectious colitis given recent otherwise normal
colonoscopy.
- admit to med/surg
- clear liquid diet for now
- type and screen,h/h q 8 to 12 for now
- no obvious active bleeding, transfuse if unstable or Hgb drops to < 8
- hold eliquis now, continue plavix
- stool culture, cdiff and wbc
- bentyl prn
- continue her ppi as iv daily, no evidence of melena
- GI consult
2. CAD s/p PCI in January - No chest pain
- continue plavix, statin
- continue metoprolol, imdur
- holding eliquis for now
3. pAFIB - Episode of afib occured around the catheterization. Was normal sinus at discharge .
- hold eliquis for now until bleeding stops or diarrhea improved
- continue rate control with metoprolol
4. HTN
- continue lisionpril
5. RA
- daily prednisonoone 4mg
- Embrel as outpatient
-pain control
DVT PPX - SCDs for now
Code Status - DNR
[2024-06-08 01:42] LABS: ALT (SGPT) 36 U/L (0-35); AST (SGOT) 48 U/L (14-36); Albumin 3.7 g/dl (3.5-5.0); Alkaline Phosphatase 77 U/L (38-126); Blood Urea Nitrogen 18 mg/dl (7-17); Carbon Dioxide 27 mmol/L (22-30); Chloride 108 mmol/L (98-107); Estimated Creatinine Clearance 41 ml/min; Glucose 96 mg/dl (70-99); Potassium 3.6 mmol/L (3.5-5.1); Sodium 144 mmol/L (135-145); Total Bilirubin 1.5 mg/dl (0.2-1.3); eGFR > 60.00
[2024-06-08] MEDS: D5LR 500 IV (03:24)
--- NOTE | 2024-06-08 04:02 | EDRN ---
TT to Luz RIVERA regarding ortho signs. Ortho signs changed from q4h x 24 hours to q6h.
[2024-06-08 04:26] LABS: Blood Urea Nitrogen 19 mg/dl (7-17); Calcium 8.9 mg/dl (8.4-10.2); Carbon Dioxide 26 mmol/L (22-30); Chloride 109 mmol/L (98-107); Estimated Creatinine Clearance 41 ml/min; Glucose 85 mg/dl (70-99); Potassium 3.9 mmol/L (3.5-5.1); Sodium 143 mmol/L (135-145); eGFR > 60.00
[2024-06-08 06:28] LABS: % Basophils 0.5 % (0-2); % Eosinophils 1.7 % (0-6); % Immature Granulocytes 0.3 % (0-0.5); % Lymphocytes 17.5 % (20.5-51.1); % Monocytes 9.3 % (1.7-9.3); % Neutrophils 70.7 % (42.2-75.2); Absolute Eosinophils 0.2 10^3/uL (0-0.7); Absolute Lymphocytes 1.6 10^3/uL (1.2-3.4); Absolute Monocytes 0.8 10^3/uL (0.1-0.6); Absolute Neutrophils 6.3 10^3/uL (1.4-6.5); Hematocrit 31.1 % (37.0-47.0); Hemoglobin 10.2 g/dL (12.0-16.0); Mean Corp Hgb Conc. 32.8 g/dL (33.0-37.0); Mean Corpuscular Hgb 29.6 pg (27.0-31.0); Mean Corpuscular Volume 90.1 fL (81.0-99.0); Mean Platelet Volume 11.3 fL (7.4-10.4); Nucleated Red Blood Cells % 0 %; Platelet Count 152 10^3/uL (130-400); Red Blood Cell Count 3.45 10^6/uL (4.20-5.40); Red Cell Dist. Width 13.7 % (11.5-14.5); White Blood Cell Count 8.9 10^3/uL (4.8-10.8)
[2024-06-08] MEDS: OXYCONTIN (CONTROLLED RELEASE) 20 MG PO (07:41)
[2024-06-08] MEDS: LOPRESSOR 25 MG PO ×2 (07:41→20:04)
[2024-06-08] MEDS: ZESTRIL 20 MG PO (07:43)
[2024-06-08] MEDS: MEDROL 4 MG PO (07:43)
[2024-06-08] MEDS: NORVASC 2.5 MG PO (07:44)
[2024-06-08] MEDS: IMDUR (EXTENDED RELEASE) 30 MG PO (07:44)
[2024-06-08] MEDS: BENTYL 10 MG PO (07:44)
[2024-06-08] MEDS: PLAVIX 75 MG PO (07:44)
[2024-06-08] MEDS: ZOFRAN 4 MG IV (08:05)
--- NOTE | 2024-06-08 09:03 | CON.GI ---
Addendum entered and electronically signed by Berta Marks MD 06/08/24 17:34:
I saw and examined the patient.
The resident's note was reviewed and I agree with the note.
Comment: 78-year-old female with history of paroxysmal A-fib on Eliquis, history of CAD with recent RCA stent, rheumatoid arthritis, history of SMA syndrome in 2020, chronic anemia followed by me as outpatient-colonoscopy 2022 with diverticulosis
and hemorrhoids, upper endoscopy in 2022 essentially unremarkable, presenting with postprandial abdominal pain in the last 1 week, then started having significant pain yesterday followed initially by nonbloody diarrhea and then bloody diarrhea.
Last episode at 11 AM this morning. Hemoglobin in the emergency room was 10.2, close to her baseline.CT scan of the abdomen pelvis with oral and IV contrast showing focal area of wall thickening involving the redundant distal transverse colon,
questionable wall thickening and mild adjacent inflammation, rule out infectious or inflammatory. Mild biliary dilation noted.
Patient has history of bile duct dilation noted on previous CT, was suggested to get MRI/MRCP but patient had CO needing RCA stent and did not get the MRCP yet. Today, total bilirubin and transaminases were noted to be elevated but alkaline
phosphatase in normal limits.
-Abdominal pain, bloody diarrhea-C. difficile negative, cultures pending
No leukocytosis and diarrhea seems to have improved.
Cannot rule out mesenteric ischemia, less likely infectious but await stool studies.
She will need MRA to evaluate mesenteric vasculature.
Currently on clear liquids, will advance as tolerated.
-Elevated LFTs or bilirubin and transaminases. Will add direct bilirubin.
Chronic dilation and bile ducts noted without any evidence of choledocholithiasis or adjacent mass lesions.
Will follow.
-History of chronic anemia
-History of GERD, continue PPI
-Anticoagulation is on hold for now
Original Note:
Documented by User: Chely Arevalo MD, Resident 06/08/24 12:24
Consultation
-
Date/Time Consultation Requested: 06/08/24 03.00 am
Date/Time Consultation Performed: 06/08/24 09.20 am
Requesting Provider: Antonio Blackwell MD
Performing Provider: Chely Arevalo MD
Reason for Consultation: Hematochezia
Medical History
Chief Complaint / HPI
Chief Complaint: Hematochezia
History of Present Illness:
The patient is a 78 year old female with a PMH of AD with recent stent to RCA, paroxysmal atrial fibrillation dgx recently and started on Eliquis in addition to on going Plavix, RA on tiki and oral prednisolone chronic anemia presenting to the
emergency department with bloody bowel movements.The patient presented to ER the day before with abdominal pain nausea vomiting and diarrhea after she developed diffuse severe abdominal pain about in 30 minutes following her breakfast. She came ER
and was diagnosed with colitis and discharged. Following her discharge, she started to have abdominal cramps and diarrhea which was bloody. She had another episode of bloody bowel movement and decided to come to the emergency department. She
reported that the blood had small amounts of clot and 3 episodes of bloody diarrhea at home. She reported having repeatadly blood diarrhea huma 12-20 minutes since she presented to ER. She also reported her angie started to be less bloody but she
noticed she had a dark stool color this morning. She denied any hematemesis. Patient had a screening colonoscopy a year ago which showed internal hemorrhoids and diverticulosis but no other findings. She denies any prior history of rectal
bleeding.
Past Medical History
Past Medical History: Arrhythmias (Paroxysmal atrial fibrillation), CAD (Is status post PCI with 2 stents to RCA in February 2024 ), HTN, CO (NSTEMI), Valvular Disease (Aortic stenosis), Psychiatric (Bipolar disorder) and Other (SMA syndrome, RA )
Past Surgical History: Other ( Cholecystectomy, Gynocological (Hysterectomy) and Orthopedic (Right knee surgery))
Social History
Tobacco: Smoker
Alcohol: Former
Drug: None
Living: With Family
Employment: Retired
Family History
Family History: Reviewed & Not Pertinent
Allergies / Home Medications
Allergy/AdvReac Type Severity Reaction Status Date / Time
Sulfa (Sulfonamide Allergy Stomach Verified 06/08/24 00:33
Antibiotics) cramps
�Medication �Instructions �Recorded
amlodipine 2.5 mg tablet 2.5 mg PO DAILY Heart 01/23/16
disease/condition
methylprednisolone 4 mg tablet 4 mg PO DAILY Anti-inflammatory 01/23/16
etanercept 50 mg/mL (1 mL) 50 mg SQ SA arthritis 12/09/20
subcutaneous syringe (Enbrel)
oxycodone 20 mg tablet,crush 20 mg PO DAILY 12/09/20
resistant,extended release 12 hr
(OxyContin)
alprazolam 0.5 mg tablet (Xanax) 0.5 mg PO HS sleep 06/18/22
cholecalciferol (vitamin D3) 25 25 mcg PO DAILY 02/19/24
mcg (1,000 unit) tablet (Vitamin
D3)
citalopram 20 mg tablet 30 mg PO DAILY 02/19/24
hydrocodone 5 mg-acetaminophen 325 1 tab PO Q8HPRN PRN severe pain 02/19/24
mg tablet
mirtazapine 30 mg tablet 60 mg PO HS 02/19/24
vitamins A,C,K-scqb-evwfus 4,296 1 cap PO DAILY 02/19/24
mcg-226 mg-90 mg capsule
(PreserVision AREDS)
apixaban 5 mg tablet (Eliquis) 5 mg PO BID Blood clot 02/26/24
prevention/tx #60 tabs
atorvastatin 40 mg tablet 40 mg PO QPM High cholesterol #30 02/26/24
tabs
clopidogrel 75 mg tablet 75 mg PO DAILY Heart 02/26/24
disease/condition #30 tabs
metoprolol tartrate 25 mg tablet 25 mg PO BID Heart 02/26/24
disease/condition #60 tabs
pantoprazole 40 mg tablet,delayed 40 mg PO DAILY Gastrointestinal 02/26/24
release issue #30 tabs
dicyclomine 10 mg capsule 10 mg PO BID PRN abdominal pain #6 06/07/24
caps
ondansetron 4 mg disintegrating 4 mg PO Q8H PRN nausea and 06/07/24
tablet vomiting 2 days #4 tabs
bismuth subsalicylate 262 mg/15 mL 524 mg PO DAILYPRN PRN STOMACH ACHE 06/08/24
oral suspension (Pepto-Bismol)
lisinopril 10 mg tablet 10 mg PO DAILY 06/08/24
Review of Systems
-
History Source: Patient
EENT: Reports No Symptoms
Respiratory: Reports No Symptoms
Cardiac: Reports No Symptoms
Abdomen/GI: Reports Pain (Reports Abdominal Pain, Nausea, Vomiting, Diarrhea and Bloody Stools)
: Reports No Symptoms
Musculoskeletal: Reports No Symptoms
Skin: Reports Other (Bruising on lower extremities )
Neurological: Reports No Symptoms
Vital Signs
Temp Pulse Resp BP Pulse Ox
98.1 F 94 18 137/74 100
06/08/24 08:48 06/08/24 08:48 06/08/24 08:48 06/08/24 08:48 06/08/24 08:48
Physical Exam
Exam
General: No Apparent Distress and Pain
HEENT: Normocephalic and Anicteric
Respiratory: Clear
Cardiac: S1/S2, Regular Rhythm and Murmur
GI: Soft and Tender (Midabdominal area tenderness, no guarding , no rebound)
Musculoskeletal: No Clubbing and No Edema
Skin: Warm and Dry
Neuro: Awake, Alert, Oriented and AO x 3
Results
WBC 8.9 10^3/uL (4.8-10.8) 06/08/24 06:21
Hgb 10.2 g/dL (12.0-16.0) L 06/08/24 06:21
Hct 31.1 % (37.0-47.0) L 06/08/24 06:21
MCV 90.1 fL (81.0-99.0) 06/08/24 06:21
Plt Count 152 10^3/uL (130-400) 06/08/24 06:21
Absolute Neuts (auto) 6.3 10^3/uL (1.4-6.5) 06/08/24 06:21
PT 15.9 Sec (11.4-14.6) H 06/08/24 01:13
INR 1.29 06/08/24 01:13
APTT 31.2 Sec (23.4-35.0) 06/08/24 01:13
Sodium 143 mmol/L (135-145) 06/08/24 03:18
Potassium 3.9 mmol/L (3.5-5.1) 06/08/24 03:18
Chloride 109 mmol/L (98-107) H 06/08/24 03:18
Carbon Dioxide 26 mmol/L (22-30) 06/08/24 03:18
BUN 19 mg/dl (7-17) H 06/08/24 03:18
Creatinine 0.9 mg/dL (0.6-1.0) 06/08/24 03:18
Calcium 8.9 mg/dl (8.4-10.2) 06/08/24 03:18
Total Bilirubin 1.5 mg/dl (0.2-1.3) H 06/08/24 01:13
AST 48 U/L (14-36) H 06/08/24 01:13
ALT 36 U/L (0-35) H 06/08/24 01:13
Alkaline Phosphatase 77 U/L (38-126) 06/08/24 01:13
Diagnostic Image Results:
#CT Abd/Pelvis: FINDINGS:
Lower Chest: Lung bases are clear, without pleural effusion or airspace consolidation. No significant pericardial effusion.
Abdomen:
Peritoneum: No free air is seen within the peritoneal cavity.
Retroperitoneum: No pathologic lymphadenopathy is seen within the retroperitoneum.
Vessels: Diffuse arterial calcification within the abdominal aorta and major branches. Mild ectasia of the abdominal aorta, measuring 2.4 cm in greatest orthogonal dimension.
Liver: No focal liver masses appreciated. Attenuation of the liver is within normal limits, and the hepatic contour is smooth.
No filling defects are seen within the opacified portal or hepatic veins.
Gallbladder: The gallbladder has been removed. No abnormal fluid collection is seen within the gallbladder fossa.
Bile Ducts: Mild intra and extrahepatic biliary ductal dilation, which may be within normal limits following cholecystectomy.
Spleen: Within normal limits.
Pancreas: No pancreatic mass or adjacent inflammatory change.
Adrenals: No adrenal mass appreciated.
Kidneys/Ureters: No nephrolithiasis or hydronephrosis on either side. No aggressive renal mass appreciated. The ureters are nondilated .
Bowel: The stomach and small bowel are not significantly dilated, and no inflammatory change is appreciated.
Mild colonic diverticulosis is seen, most pronounced in the sigmoid, without associated inflammatory change to suggest diverticulitis .
The transverse colon and proximal descending colon are tortuous. There is focal wall thickening and mild adjacent inflammatory change involving the distal aspect of the redundant transverse colon, best appreciated on series 201 images 35-40.
Remainder of the colon is within normal limits
Appendix: The appendix is not well seen, however no inflammatory changes are identified to suggest appendicitis.
Pelvis: No free fluid is seen within the pelvis. No pathologic pelvic lymphadenopathy .
Reproductive Organs: The uterus is not seen, consistent with prior hysterectomy or uterine atrophy.
Bladder: No significant bladder wall thickening or adjacent fat stranding.
Abdominal Wall: No significant abdominal wall hernia formation. No abdominal wall mass appreciated.
Bones: Grade 1 anterolisthesis of L4 on L5, associated with uncovering of the intervertebral disc.
Paraspinal soft tissues: No significant paraspinal soft tissue stranding or large soft tissue mass.
IMPRESSION:
1. Focal area of wall thickening involving a redundant distal transverse colon as detailed above, suggestive of focal infectious or inflammatory colitis. Colonoscopy is recommended to exclude colonic neoplasm.
2. Advanced calcific atherosclerotic change within the arterial vasculature. Mild ectasia of the abdominal aorta, without abdominal aortic aneurysm.
3. Mild biliary ductal dilation, which may be within normal limits following cholecystectomy.
Prior GI Procedures:
#EGD: 10/22/22
Findings:
The examined esophagus was moderately tortuous.
The Z-line was regular and was found 35 cm from the incisors.
A small hiatal hernia was present.
Patchy mildly erythematous mucosa was found in the gastric antrum.
Biopsies were taken with a cold forceps for histology.
The examined duodenum was normal until the 2nd portion.
#Colonoscopy: 10/22/22
Findings:
The perianal and digital rectal examinations were normal.
The terminal ileum appeared normal.
The colon (entire examined portion) appeared normal.
A few small-mouthed diverticula were found in the sigmoid colon and
descending colon.
Internal hemorrhoids were found during retroflexion.
Assessment / Plan
-
The patient is a 78 year old female who presented to ER complaining from bloody stools episodes which started yesterday. She had 3 episodes at home and multiple episodes of bloody diarrhea since she presented to ER. She noticed her stool color was
dark this morning and less bloody. She was started on anticoagulant in February 2024 due her CAD. She had her colonoscopy and endoscopy one year ago.Endoscopy was not significant and colonoscopy showed diverticulosis in the sigmoid colon and in the
descending colon and Internal hemorrhoids. Denies previous bowel bleeding, constipation of hx of colitis. She was recently diagnosed with colitis the day before due having acute started abdominal pain and diarrhea.
#Hematochezia
-Differential diagnosis include PUD, ischemic colitis, AVM/Heyde syndrome
-Less likely infectious, low suspicion for C. difficile with hematochezia
-Hemoglobin has been stable likely 10.2 /not actively bleeding
-On clear liquid
-Hold Eliquis
-Patient is still on Plavix and can be considered dc regarding hgb results
-Continue IV PPI drip and can be switched to PPI IV BID if the patient does not have melena and Hgb keenan
-Stool studies including culture, C. difficile testing, stool WBC pending
Plan
-Continue IV PPI drip and can be switched to PPI IV BID if the patient does nor have melena and Hgb keenan
-Continue to monitor Hgb every 12 hours
-Continue with clear liquid diet for now
-Follow-up stool studies
-Hold Eliquis
-
-
Thank you for consultation and allowing me to participate in the patient's care. Please call the energy conservation technician GI physician during the after hours with any questions or concerns.

Documented by User: Berta Marks MD 06/08/24 17:24
Assessment / Plan
-
The patient is a 78 year old female who presented to ER complaining from bloody stools episodes which started yesterday. She had 3 episodes at home and multiple episodes of bloody diarrhea since she presented to ER. She noticed her stool color was
dark this morning and less bloody. She was started on anticoagulant in February 2024 due her CAD. She had her colonoscopy and endoscopy one year ago.Endoscopy was not significant and colonoscopy showed diverticulosis in the sigmoid colon and in the
descending colon and Internal hemorrhoids. Denies previous bowel bleeding, constipation of hx of colitis. She was recently diagnosed with colitis the day before due having acute started abdominal pain and diarrhea.
#Hematochezia
-Differential diagnosis include PUD, ischemic colitis, AVM/Heyde syndrome
-Less likely infectious, low suspicion for C. difficile with hematochezia
-Hemoglobin has been stable likely 10.2 /not actively bleeding
-On clear liquid
-Hold Eliquis
-Patient is still on Plavix and can be considered dc regarding hgb results
-Continue IV PPI drip and can be switched to PPI IV BID if the patient does not have melena and Hgb keenan
-Stool studies including culture, C. difficile testing, stool WBC pending
Plan
-Continue IV PPI drip and can be switched to PPI IV BID if the patient does nor have melena and Hgb keenan
-Continue to monitor Hgb every 12 hours
-Continue with clear liquid diet for now
-Follow-up stool studies
-Hold Eliquis
pls see pt plan on addendum note.
[2024-06-08] MEDS: NSS (PRESERVATIVE FREE) IV (09:13)
[2024-06-08] MEDS: PROTONIX IV IV (09:13)
[2024-06-08] MEDS: CELEXA 20 MG PO (10:02)
--- NOTE | 2024-06-08 10:14 | W.PN.HOSP.TC ---
Today's Communication/Plan
-
Continue IV PPI
Trend H/H
Hold Eliquis
GI consult
Assessment / Plan
Assessment / Plan
#Hematochezia
-Differential diagnosis include PUD, ischemic colitis, AVM/Heyde syndrome
-Less likely infectious, low suspicion for C. difficile with hematochezia
-Hemoglobin has been stable between 10.2 and 10.8 over 3 lab draws
-Stool studies including culture, C. difficile testing, stool WBC pending
-Home Eliquis on hold, was continued on home Plavix
-Was started on IV PPI drip during ED course
-GI consulted
Plan
-Continue IV PPI drip for now
-Continue to monitor H/H every 12 hours
-Consider CTA A/P GIB protocol if recurrence
-Continue with clear liquid diet for now
-Follow-up stool studies
-Hold Eliquis
#CAD s/p PCI
-Status post PCI to the RCA in January 2024
-Home medications include metoprolol, Imdur, Plavix, high intensity statin
-Not currently on dual antiplatelet therapy due to AC for atrial fibrillation
-No signs of coronary ischemia/chest pain here
#Paroxysmal AF
-Periprocedural to her catheterization; was in NSR at discharge
-Home medications include beta-mable and Eliquis; Eliquis held for GIB
-Heart rate currently sinus, Eliquis remains held
#Rheumatoid arthritis
-Home regimen includes daily prednisone 4 mg; Enbrel injections outpatient
-Likely associated with her CAD history; no history of ILD
-No signs of active flare at this time
#Hypertension
-No known history of hypertensive systemic disease
-Home medications include lisinopril; also on metoprolol
-Blood pressure currently well-controlled
DVT prophylaxis: SCDs
Diet: Clear liquid diet
CODE STATUS: DNR
Anticipated Discharge: 24 - 48 hours
Subjective/Interval History
-
Date of Service: June 08, 2024
Seen and examined at the bedside. No acute events reported since admission. AFVSS as of this morning.
Hemoglobin since admission has been fairly stable, between 10.2 and 10.8 on 3 lab draws
As of this morning she states she has some abdominal pain which is slightly improved from admission. Denies chest pain, dyspnea, fevers or chills, nausea/vomiting, paresthesias or weakness, other causes of bleeding.
Objective Data
-
Labs:
Laboratory Results
06/08/24 06/08/24 06/08/24
01:13 03:18 06:21
WBC 9.8 8.9
Hgb 10.7 L 10.2 L
Hct 32.1 L 31.1 L
Plt Count 169 152
PT 15.9 H
INR 1.29
APTT 31.2
Sodium 144 143
Potassium 3.6 3.9
Chloride 108 H 109 H
Carbon Dioxide 27 26
BUN 18 H 19 H
Creatinine 0.9 0.9
Glucose 96 85
Calcium 9.0 8.9
Total Bilirubin 1.5 H
AST 48 H
ALT 36 H
Alkaline Phosphatase 77
06/08/24 06/08/24
14:00 22:00
WBC
Hgb Pending Pending
Hct Pending Pending
Plt Count
PT
INR
APTT
Sodium
Potassium
Chloride
Carbon Dioxide
BUN
Creatinine
Glucose
Calcium
Total Bilirubin
AST
ALT
Alkaline Phosphatase
Vital Signs:
Vital Signs
Temp Pulse Resp BP Pulse Ox
98.1 F 94 18 137/74 100
06/08/24 08:48 06/08/24 08:48 06/08/24 08:48 06/08/24 08:48 06/08/24 08:48
Review of Systems
-
History Source: Patient
All other systems: Reviewed and negative
Physical Exam
-
General: No Apparent Distress, Comfortable and Other (Thin female)
HEENT: Normocephalic, Atraumatic, Moist Mucous Membranes and Anicteric
Respiratory: Clear to Auscultation and Non Labored Respirations; Negative Wheezes, Rales or Rhonchi
Cardiac: Regular Rhythm, S1/S2 and Murmur (3/6 RUSB, crescendo decrescendo, radiation to carotids); Negative Rub, JVD or Gallop
GI: Soft, Nondistended, Normal Bowel Sounds and Tender (Mild, periumbilical; no peritoneal sign)
Musculoskeletal: No Clubbing, No Cyanosis and No Edema
Skin: Warm and Dry; Negative Rash or Jaundice
Neuro: AO x 3, Nonfocal/Grossly Intact and Central Nerve's Intact
Psych: Calm
Data Reviewed
-
Labs: Labs Reviewed by me and Discussed with Patient
[2024-06-08] MEDS: D5LR 1000 IV (12:31)
--- NOTE | 2024-06-08 13:05 | PTCARENOTE ---
pt from ED via stretcher. pt is AAO*3, Vss, room air. pt denies any pain. pt states had bloody stool at home and one in the ED, but not as bad as one at home. pt is oriented to the room. call castillo within the reach. plan of care ongoing.
[2024-06-08] MEDS: D5LR IV (13:13)
[2024-06-08] MEDS: LIPITOR 40 MG PO (17:11)
[2024-06-08 18:50] LABS: Hematocrit 27.2 % (37.0-47.0); Hemoglobin 9.1 g/dL (12.0-16.0)
[2024-06-08] MEDS: REMERON 60 MG PO (20:04)
[2024-06-08] MEDS: XANAX 0.5 MG PO (20:05)
[2024-06-09] MEDS: D5LR 1000 IV (05:14)
[2024-06-09] MEDS: DILAUDID 0.25 MG IV ×2 (07:31→15:24)
[2024-06-09 07:35] VITALS: BP 119/66
[2024-06-09] MEDS: ZOFRAN 4 MG IV ×2 (07:38→15:28)
[2024-06-09 08:13] LABS: % Basophils 0.6 % (0-2); % Eosinophils 3.1 % (0-6); % Immature Granulocytes 0.6 % (0-0.5); % Lymphocytes 33.1 % (20.5-51.1); % Monocytes 10.2 % (1.7-9.3); % Neutrophils 52.4 % (42.2-75.2); Absolute Eosinophils 0.2 10^3/uL (0-0.7); Absolute Lymphocytes 2.1 10^3/uL (1.2-3.4); Absolute Monocytes 0.6 10^3/uL (0.1-0.6); Absolute Neutrophils 3.2 10^3/uL (1.4-6.5); Hemoglobin 9.4 g/dL (12.0-16.0); Mean Corp Hgb Conc. 32.4 g/dL (33.0-37.0); Mean Corpuscular Hgb 29.5 pg (27.0-31.0); Mean Corpuscular Volume 90.9 fL (81.0-99.0); Nucleated Red Blood Cells % 0 %; Platelet Count 133 10^3/uL (130-400); Red Blood Cell Count 3.19 10^6/uL (4.20-5.40); Red Cell Dist. Width 13.8 % (11.5-14.5); White Blood Cell Count 6.2 10^3/uL (4.8-10.8)
--- NOTE | 2024-06-09 08:24 | W.PN.GI.CBS2 ---
Addendum entered and electronically signed by Natalio Pugh MD 06/09/24 18:38:
I saw and examined the patient.
The medical massage therapist note was reviewed and I agree with the note.
--Abdominal pain/hematochezia-clinically feeling better. No further rectal bleeding this a.m. last colonoscopy 2022-diverticulosis.
MRA 06/08
IMPRESSION:
1. ACUTE COLITIS involving the ascending, transverse, and descending colon with colonic wall thickening, mild pericolonic inflammation, and minimal pericolonic fluid.
2. 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
3. Severe greater than 70% diameter stenosis in the proximal superior mesenteric artery.
4. 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
5. Severe calcific atherosclerotic plaque in the abdominal aorta and common iliac arteries.
6. 1.0 cm penetrating ulcer arising from the right anterior wall of the infrarenal abdominal aorta.
7. Mild aneurysmal dilatation and penetrating ulcer arising from the medial wall of the right common iliac artery.
8. Moderate biliary dilatation (probably secondary to previous cholecystectomy).
9. Severe bilateral facet joint arthrosis at L4/L5 causing severe central canal stenosis.
plan
Will recommend vascular surgical eval
Continue monitor H&H
Follow-up stool studies (C. difficile negative)
Currently kept on Plavix. Okay to restart on anticoagulation if no bleeding for another 24 hours
Low residual diet as tolerated
Follow-up with Dr. Marks as outpatient-
Original Note:
Today's Communication / Plan
-
MRA pending
Assessment / Plan
-
Impression: The patient is a 78 year old female who presented to ER complaining from bloody stools episodes which started yesterday. She had 3 episodes at home and multiple episodes of bloody diarrhea since she presented to ER. She noticed her stool
color was dark this morning and less bloody. She was started on anticoagulant in February 2024 due her CAD. She had her colonoscopy and endoscopy one year ago.Endoscopy was not significant and colonoscopy showed diverticulosis in the sigmoid colon and
in the descending colon and Internal hemorrhoids. Denies previous bowel bleeding, constipation of hx of colitis. She was recently diagnosed with colitis the day before due having acute started abdominal pain and diarrhea. This morning, the patient
had 2 episodes of diarrhea in the morning and the amount was less and the color was less dark.
Assessment/Plan:
#Hematochezia
-Differential diagnosis include PUD, ischemic colitis, AVM/Heyde syndrome, mesenteric ischemia
-MR-A was ordered and pending for this afternoon to evaluate mesenteric vasculature.
-Less likely infectious:C. difficile negative, No leukocytosis, stool studies pending
-Hemoglobin has been stable likely 10.2 /not actively bleeding
-On clear liquid
-Hold Eliquis
-Patient is still on Plavix and can be considered dc regarding hgb results
-Continue IV PPI drip and can be switched to PPI IV BID if the patient does not have melena and Hgb keenan
-Stool studies including culture, C. difficile testing, stool WBC pending
#Bile duct dilation
-Chronic dilation and bile ducts noted without any evidence of choledocholithiasis or adjacent mass lesions
-Total bilirubin elevated, transaminases trending down, DB was ordered
-Had been suggested to get MRI/MRCP at OP setting but patient had CO needing RCA stent and did not get the MRCP yet.
Plan
-Continue IV PPI drip and can be switched to PPI IV BID if the patient does nor have melena and Hgb keenan
-Continue to monitor Hgb every 12 hours
-Continue with clear liquid diet for now
-Follow-up stool studies
-Hold Eliquis
.
Subjective
Subjective
Date of Service: June 09, 2024
Patient denies abdominal pain this morning after she was given pain medication. Reports she had 2 episodes of diarrhea which was dark colored.
Objective
Data Reviewed
Laboratory Data:
Laboratory Results
06/09/24 07:13
Laboratory Results
PT 15.9 Sec (11.4-14.6) H 06/08/24 01:13
INR 1.29 06/08/24 01:13
APTT 31.2 Sec (23.4-35.0) 06/08/24 01:13
Total Bilirubin 1.5 mg/dl (0.2-1.3) H 06/08/24 01:13
AST 48 U/L (14-36) H 06/08/24 01:13
ALT 36 U/L (0-35) H 06/08/24 01:13
Alkaline Phosphatase 77 U/L (38-126) 06/08/24 01:13
Vital Signs and I&O:
Vital Signs
Temp Pulse Resp BP Pulse Ox
98.4 F 68 16 96/50 93
06/08/24 23:55 06/08/24 23:55 06/08/24 23:55 06/08/24 23:55 06/08/24 23:55
I&O
06/08/24 06/09/24 06/10/24
06:59 06:59 06:59
Intake Total 1290 / 1290
Balance 1290 / 1290
Physical Exam
Physical Exam
HEENT: Anicteric and Moist mucous membranes
Cardiology: Normal Sinus Rhythm, S1, S2 and Murmur
Pulmonary: Clear
GI: Soft, Non Distended and Non Tender
Extremities: No Edema
Neuro: Non Focal
[2024-06-09 08:52] LABS: ALT (SGPT) 29 U/L (0-35); AST (SGOT) 39 U/L (14-36); Albumin 3.2 g/dl (3.5-5.0); Alkaline Phosphatase 63 U/L (38-126); Blood Urea Nitrogen 14 mg/dl (7-17); Calcium 8.4 mg/dl (8.4-10.2); Carbon Dioxide 29 mmol/L (22-30); Chloride 107 mmol/L (98-107); Estimated Creatinine Clearance 37 ml/min; Glucose 94 mg/dl (70-99); Potassium 4.1 mmol/L (3.5-5.1); Sodium 142 mmol/L (135-145); Total Bilirubin 1.5 mg/dl (0.2-1.3); Total Protein 5.5 g/dl (6.3-8.2); eGFR 57.31
[2024-06-09] MEDS: NORVASC 2.5 MG PO (09:26)
[2024-06-09] MEDS: CELEXA 20 MG PO (09:26)
[2024-06-09] MEDS: PLAVIX 75 MG PO (09:26)
[2024-06-09] MEDS: ZESTRIL 20 MG PO (09:26)
[2024-06-09] MEDS: MEDROL 4 MG PO (09:26)
[2024-06-09] MEDS: LOPRESSOR 25 MG PO ×2 (09:26→20:49)
[2024-06-09] MEDS: IMDUR (EXTENDED RELEASE) 30 MG PO (09:26)
[2024-06-09] MEDS: NSS (PRESERVATIVE FREE) 10 ML IV (09:27)
[2024-06-09] MEDS: PROTONIX IV 40 MG IV (09:27)
[2024-06-09] MEDS: OXYCONTIN (CONTROLLED RELEASE) PO (09:32)
--- NOTE | 2024-06-09 10:44 | W.PN.HOSP.TC ---
Addendum entered and electronically signed by Onur Rose DO 06/09/24 10:54:
Physical exam:
NAD, AAOx4
RRR without M/G/R, normal S1 and S2
CTA bilaterally, nonlabored
Mild periumbilical tenderness without peritoneal signs
Nondistended abdomen, soft
No edema, 2+ pulses
No focal neurologic deficits
Original Note:
Today's Communication/Plan
-
Follow-up MRA abdomen
Trend H/H every 12 hours
IV PPI
Advance diet as tolerated
Assessment / Plan
Assessment / Plan
#Hematochezia
-Differential diagnosis include PUD, ischemic colitis, AVM/Heyde syndrome, mesenteric ischemia
-Hemoglobin has been relatively stable between 9.1 and 10.8 over multiple lab draw
-Stool studies including culture, C. difficile testing, stool WBC pending unremarkable
-Home Eliquis on hold, was continued on home Plavix; no recurrence of bleeding while here
-Was started on IV PPI drip during ED course which has been transitioned to daily IV
-GI consulted
Plan
-Continue IV PPI daily and trend H/H every 12 hours
-Follow-up MRA abdomen to rule out mesenteric ischemia (acute versus chronic)
-Continue with clear liquid diet and ADAT
-Follow-up stool studies for completeness
-Hold Eliquis
#CAD s/p PCI
-Status post PCI to the RCA in January 2024
-Home medications include metoprolol, Imdur, Plavix, high intensity statin
-Not currently on dual antiplatelet therapy due to AC for atrial fibrillation
-No signs of coronary ischemia/chest pain here
#Paroxysmal AF
-Periprocedural to her catheterization; was in NSR at discharge
-Home medications include beta-mable and Eliquis; Eliquis held for GIB
-Heart rate currently sinus, Eliquis remains held
#Rheumatoid arthritis
-Home regimen includes daily prednisone 4 mg; Enbrel injections outpatient
-Likely associated with her CAD history; no history of ILD
-No signs of active flare at this time
#Hypertension
-No known history of hypertensive systemic disease
-Home medications include lisinopril; also on metoprolol
-Blood pressure currently well-controlled
#H/O SMA syndrome
DVT prophylaxis: SCDs
Diet: Clear liquid diet
CODE STATUS: DNR
Anticipated Discharge: 24 - 48 hours
Subjective/Interval History
-
Date of Service: June 09, 2024
Seen and examined at the bedside. No acute events reported overnight. AFVSS as of this morning
Objective Data
-
Labs:
Laboratory Results
06/09/24
07:13
WBC 6.2
Hgb 9.4 L
Hct 29.0 L
Plt Count 133
Sodium 142
Potassium 4.1
Chloride 107
Carbon Dioxide 29
BUN 14
Creatinine 1.0
Glucose 94
Calcium 8.4
Total Bilirubin 1.5 H
AST 39 H
ALT 29
Alkaline Phosphatase 63
Vital Signs:
Vital Signs
Temp Pulse Resp BP Pulse Ox
98.2 F 82 18 119/66 97
06/09/24 07:35 06/09/24 07:35 06/09/24 07:35 06/09/24 07:35 06/09/24 07:35
I&O
06/08/24 06/09/24 06/10/24
06:59 06:59 06:59
Intake Total 1290 / 1290
Balance 1290 / 1290
[2024-06-09 12:02] LABS: Direct Bilirubin 0.2 mg/dl (0.0-0.4)
--- NOTE | 2024-06-09 14:50 | CM ---
Pt seen bedside. Pt lives w/ adult son in a [facility]- 2 steps to enter
Prev. independent, denies any DME use
Had SNF in the past, had [facility] this past year
MRI of abdomen this AM
Plan: Home no needs anticipated
[2024-06-09 15:15] VITALS: BP 131/63
[2024-06-09] MEDS: LIPITOR 40 MG PO (17:28)
[2024-06-09] MEDS: REMERON 60 MG PO (21:02)
[2024-06-09] MEDS: XANAX 0.5 MG PO (21:02)
[2024-06-09 23:00] VITALS: BP 115/59
[2024-06-10 08:08] VITALS: BP 133/80
[2024-06-10] MEDS: ZOFRAN 4 MG IV ×2 (08:40→17:40)
[2024-06-10] MEDS: DILAUDID 0.25 MG IV ×2 (08:43→17:39)
[2024-06-10] MEDS: BENTYL 10 MG PO (08:43)
[2024-06-10] MEDS: PROTONIX IV 40 MG IV (08:45)
[2024-06-10] MEDS: OXYCONTIN (CONTROLLED RELEASE) 20 MG PO (08:45)
[2024-06-10] MEDS: IMDUR (EXTENDED RELEASE) 30 MG PO (08:45)
[2024-06-10] MEDS: NSS (PRESERVATIVE FREE) 10 ML IV (08:45)
[2024-06-10] MEDS: ZESTRIL 20 MG PO (08:46)
[2024-06-10] MEDS: PLAVIX 75 MG PO (08:46)
[2024-06-10] MEDS: CELEXA 20 MG PO (08:46)
[2024-06-10] MEDS: MEDROL 4 MG PO (08:46)
[2024-06-10] MEDS: NORVASC 2.5 MG PO (08:46)
[2024-06-10] MEDS: LOPRESSOR 25 MG PO ×2 (08:52→20:39)
[2024-06-10 09:11] LABS: % Basophils 0.4 % (0-2); % Eosinophils 3.7 % (0-6); % Immature Granulocytes 0.3 % (0-0.5); % Lymphocytes 21.2 % (20.5-51.1); % Monocytes 9.1 % (1.7-9.3); % Neutrophils 65.3 % (42.2-75.2); Absolute Eosinophils 0.3 10^3/uL (0-0.7); Absolute Lymphocytes 1.4 10^3/uL (1.2-3.4); Absolute Monocytes 0.6 10^3/uL (0.1-0.6); Absolute Neutrophils 4.4 10^3/uL (1.4-6.5); Hematocrit 29.6 % (37.0-47.0); Hemoglobin 9.7 g/dL (12.0-16.0); Mean Corp Hgb Conc. 32.8 g/dL (33.0-37.0); Mean Corpuscular Hgb 29.7 pg (27.0-31.0); Mean Corpuscular Volume 90.5 fL (81.0-99.0); Mean Platelet Volume 11.2 fL (7.4-10.4); Nucleated Red Blood Cells % 0 %; Platelet Count 124 10^3/uL (130-400); Red Blood Cell Count 3.27 10^6/uL (4.20-5.40); Red Cell Dist. Width 13.6 % (11.5-14.5); White Blood Cell Count 6.7 10^3/uL (4.8-10.8)
[2024-06-10 09:19] LABS: Blood Urea Nitrogen 11 mg/dl (7-17); Calcium 8.6 mg/dl (8.4-10.2); Carbon Dioxide 29 mmol/L (22-30); Chloride 110 mmol/L (98-107); Estimated Creatinine Clearance 47 ml/min; Glucose 90 mg/dl (70-99); Potassium 4.1 mmol/L (3.5-5.1); Sodium 147 mmol/L (135-145); eGFR > 60.00
--- NOTE | 2024-06-10 11:54 | W.PN.HOSP.TC ---
Today's Communication/Plan
-
Trend CBC and monitor for GI bleeding
Plan to resume Eliquis tomorrow if no further bleeding
Continue statin and Plavix
Vascular surgery consult
Assessment / Plan
Assessment / Plan
#Chronic mesenteric ischemia
#High-grade celiac and SMA artery lesions
#H/O SMA syndrome
#Hematochezia
-Hemoglobin has been relatively stable between 9.1 and 10.8 over multiple lab draws
-MRA showed >70% stenosis of origin of celiac and the proximal SMA arteries
-Stool studies including culture, C. difficile testing, stool WBC pending unremarkable
-Home Eliquis on hold, was continued on home Plavix; no recurrence of bleeding while here
-Was started on IV PPI drip during ED course which has been transitioned to PO daily
-GI following
Plan
-Monitor for bleeding, trend daily CBC
-Plan to resume home Eliquis tomorrow if no further bleeding
-Avoid hypotension, MAP goal >65 mmHg
-Continue home statin and Plavix
-Vascular surgery consult for consideration of intervention
#Aortic penetrating ulcer
-MRI yesterday showed 1 cm penetrating ulcer of the right anterior wall into the infrarenal abdominal aorta
-Patient states she has family history of her mother and grandmother dying from 'ruptured aorta's'
-Remains on high intensity statin and antiplatelet therapy
-Vascular surgery following, will follow up the recommendations
#CAD s/p PCI
-Status post PCI to the RCA in January 2024
-Home medications include metoprolol, Imdur, Plavix, high intensity statin
-Not currently on dual antiplatelet therapy due to AC for atrial fibrillation
-No signs of coronary ischemia/chest pain here
#Paroxysmal AF
-Periprocedural to her catheterization; was in NSR at discharge
-Home medications include beta-mable and Eliquis; Eliquis held for GIB
-Heart rate currently sinus, Eliquis remains held
#Rheumatoid arthritis
-Home regimen includes daily prednisone 4 mg; Enbrel injections outpatient
-Likely associated with her CAD history; no history of ILD
-No signs of active flare at this time
#Hypertension
-No known history of hypertensive systemic disease
-Home medications include lisinopril; also on metoprolol
-Blood pressure currently well-controlled
DVT prophylaxis: SCDs
Diet: Clear liquid diet
CODE STATUS: DNR
Anticipated Discharge: 24 - 48 hours
Subjective/Interval History
-
Date of Service: June 10, 2024
Seen and examined at the bedside. No acute events reported overnight. AFVSS as of this morning.
MRA yesterday did show high-grade lesions to the proximal celiac and SMA arteries. Vascular surgery consulted for consideration of intervention. She states she still has periumbilic abdominal pain. Denies any recurrence of hematochezia or melena
Denies acute complaints of chest pain, dyspnea, fevers or chills, diarrhea, urinary issues, other bleeding sources, paresthesias or weakness
Objective Data
-
Labs:
Laboratory Results
06/10/24
08:55
WBC 6.7
Hgb 9.7 L
Hct 29.6 L
Plt Count 124 L
Sodium 147 H
Potassium 4.1
Chloride 110 H
Carbon Dioxide 29
BUN 11
Creatinine 0.8
Glucose 90
Calcium 8.6
Vital Signs:
Vital Signs
Temp Pulse Resp BP Pulse Ox
98.3 F 75 18 115/59 97
06/10/24 08:08 06/10/24 08:52 06/10/24 08:08 06/10/24 08:52 06/10/24 08:08
I&O
06/09/24 06/10/24 06/11/24
06:59 06:59 06:59
Intake Total 1290 / 1290 5875 / 2774
Balance 1290 / 1290 2774 / 2774
Review of Systems
-
History Source: Patient
All other systems: Reviewed and negative
Physical Exam
-
General: No Apparent Distress, Comfortable and Other (Thin female)
HEENT: Normocephalic, Atraumatic and Moist Mucous Membranes
Respiratory: Clear to Auscultation and Non Labored Respirations
Cardiac: Regular Rhythm and S1/S2; Negative Murmur, Rub or Gallop
GI: Soft, Nondistended, Normal Bowel Sounds, Tender (Periumbilical, no peritoneal signs), No Hepatosplenomegaly and No Hernias
Musculoskeletal: No Clubbing, No Cyanosis and No Edema
Skin: Warm, Dry and Normal Turgor; Negative Rash
Neuro: AO x 3, Nonfocal/Grossly Intact and Central Nerve's Intact
Psych: Calm
Data Reviewed
-
MRI: Report Reviewed by me, Discussed with Physician (Vascular surgeon) and Discussed with Patient
Labs: Labs Reviewed by me and Discussed with Patient
--- NOTE | 2024-06-10 14:27 | CM ---
Chart reviewed.
Vascular surg eval pending
CM will cont. to follow for recommendations
Plan: Home no needs anticipated
[2024-06-10 15:00] VITALS: BP 116/59
--- NOTE | 2024-06-10 15:42 | W.PN.UPDATE ---
Addendum entered and electronically signed by Jermaine Rodríguez MD 06/10/24 15:57:
Per patient request, I discussed entire findings/plan (including risks/benefits/alternatives) with her son Froylan Keen ([phone]). He understands all and was appreciative for the update and agrees with proceeding.
Original Note:
Update Note
Progress Note Update
Seen and evaluated with DELMA Martins. Full consultation to follow. 78-year-old with significant CV risk factors (CAD/afib, htn, ) who presents with a couple days of loose repeated BMs, followed by keya blood per rectum. Associated abd pain. No N/V.
Now with improvement in pain, but continual diarrhea (non-bloody). She notes over the last couple months, post prandial pain - every meal she eats. 5 lb weight loss thus far.
On exam/ Awake, alert. LUE 2+ brachial/radial pulse. Abd soft, ND, NT.
LE 2+ fem palp b/l.
CT and MRA reviewed.
Severe calcified atherosclerotic plaque throughout abd aorta Severe calcified plaque at origins of celiac and SMA. Likely high grade stenoses of both. SMA with extensive calcified plaque extending well distally, but less stenosis rendering than
at the origin.
Plan/ Mesenteric arterial insufficiency (no acute mesenteric ischemia)
Discussed with patient recommendation at this point for revascularization of the mesenteric's given constant postprandial pain, and now this bout of bloody diarrhea/colitis. Discussed with patient mesenteric arteriography. Discussed possible left
brachial approach. Discussed risks/benefits/alternatives. Risks including but not limited to bleeding, access site complications/ischemic complications, bowel ischemia/reperfusion injury, need for bowel resection, stroke (if brachial approach),
inability to successfully treat endovascularly. Discussed limited surgical options due to severe plaque burden throughout aorta/iliacs and throughout the SMA.
She understands all and wishes to proceed. Will plan angiogram tomorrow. NPO after midnight. Hold eliquis.
--- NOTE | 2024-06-10 15:52 | CON.VAS ---
Consultation
Consultation Request
Date/Time Consultation Performed: 06/10/24 1600
Requesting Provider: Hospitalist
Performing Provider: Emma Martins, GEOSPATIAL ANALYST-C for Jermaine Rodríguez MD
Reason for Consultation: SMA plaque
Medical History
-
Chief Complaint: Diarrhea
History of Present Illness:
This is a 78-year-old with significant past medical history for paroxysmal atrial fibrillation, CAD, hypertension, ND, aortic stenosis, and bipolar disorder who presents with a couple days of loose repeated BMs, followed by keya blood per rectum
with accompanying abdominal pain. However she notes, last improvement in symptoms since admission and is currently without pain. Does report intermittent continued diarrhea but vastly slowed down since admission. She does note over the last
couple months postprandial pain after every meal she eats, with a roughly 5 pound weight loss. She does follow-up with our office with Dr. Duarte for peripheral arterial disease and was last seen in September 2023 where she was reporting stable
claudication symptoms. Per outside patient office note there was no reports of postprandial pain at that time. CT and MRA reviewed. Severe calcified atherosclerotic plaque throughout abd aorta Severe calcified plaque at origins of celiac and SMA.
Likely high grade stenoses of both. SMA with extensive calcified plaque extending well distally, but less stenosis rendering than at the origin.
Past Medical History
Past Medical History: Arrhythmias (Paroxysmal atrial fibrillation), CAD, HTN, ND, Valvular Disease (Aortic stenosis) and Psychiatric (Bipolar disorder)
Past Surgical History: Cholecystectomy, Gynecological (Hysterectomy) and Orthopedic (Right knee surgery)
Social History
Tobacco: Former Smoker
Alcohol: Former
Drug: None
Personal:
Living: With Family
Allergies / Home Medications
Allergy/AdvReac Type Severity Reaction Status Date / Time
Sulfa (Sulfonamide Allergy Stomach Verified 06/08/24 00:33
Antibiotics) cramps
�Medication �Instructions �Recorded �Confirmed �Type
amlodipine 2.5 mg tablet 2.5 mg PO DAILY Heart 01/23/16 06/08/24 History
disease/condition
methylprednisolone 4 mg tablet 4 mg PO DAILY Anti-inflammatory 01/23/16 06/08/24 History
etanercept 50 mg/mL (1 mL) 50 mg SQ SA arthritis 12/09/20 06/08/24 History
subcutaneous syringe (Enbrel)
oxycodone 20 mg tablet,crush 20 mg PO DAILY Pain 12/09/20 06/08/24 History
resistant,extended release 12 hr
(OxyContin)
alprazolam 0.5 mg tablet (Xanax) 0.5 mg PO HS sleep 06/18/22 06/08/24 History
cholecalciferol (vitamin D3) 25 25 mcg PO DAILY Supplement 02/19/24 06/08/24 History
mcg (1,000 unit) tablet (Vitamin
D3)
citalopram 20 mg tablet 30 mg PO DAILY Depression 02/19/24 06/08/24 History
hydrocodone 5 mg-acetaminophen 325 1 tab PO Q8HPRN PRN severe pain 02/19/24 06/08/24 History
mg tablet
mirtazapine 30 mg tablet 60 mg PO HS Neurological Condition 02/19/24 06/08/24 History
vitamins A,C,G-tjds-qugdpe 4,296 1 cap PO DAILY Supplement 02/19/24 06/08/24 History
mcg-226 mg-90 mg capsule
(PreserVision AREDS)
apixaban 5 mg tablet (Eliquis) 5 mg PO BID Blood clot 02/26/24 06/08/24 Rx
prevention/tx #60 tabs
atorvastatin 40 mg tablet 40 mg PO QPM High cholesterol #30 02/26/24 06/08/24 Rx
tabs
clopidogrel 75 mg tablet 75 mg PO DAILY Heart 02/26/24 06/08/24 Rx
disease/condition #30 tabs
metoprolol tartrate 25 mg tablet 25 mg PO BID Heart 02/26/24 06/08/24 Rx
disease/condition #60 tabs
pantoprazole 40 mg tablet,delayed 40 mg PO DAILY Gastrointestinal 02/26/24 06/08/24 Rx
release issue #30 tabs
dicyclomine 10 mg capsule 10 mg PO BID PRN abdominal pain #6 06/07/24 06/08/24 Rx
caps
ondansetron 4 mg disintegrating 4 mg PO Q8H PRN nausea and 06/07/24 06/08/24 Rx
tablet vomiting 2 days #4 tabs
bismuth subsalicylate 262 mg/15 mL 524 mg PO DAILYPRN PRN STOMACH ACHE 06/08/24 06/08/24 History
oral suspension (Pepto-Bismol)
lisinopril 10 mg tablet 10 mg PO DAILY Blood Pressure 06/08/24 06/08/24 History
Review of Systems
-
History Source: Patient
Constitutional: Reports No Symptoms
EENT: Reports No Symptoms
Respiratory: Reports No Symptoms
Cardiac: Reports No Symptoms
Abdomen/GI: Reports Abdominal Pain (Does note months of abdominal pain after eating) and Diarrhea (Upon presentation now improving)
Musculoskeletal: Reports No Symptoms
Skin: Reports No Symptoms
Neurological: Reports No Symptoms
Physical Exam
Vital Signs
Temp Pulse Resp BP Pulse Ox
98.6 F 71 14 116/59 93
06/10/24 15:00 06/10/24 15:00 06/10/24 15:00 06/10/24 15:00 06/10/24 15:00
Lab Results
06/10/24 08:55
06/10/24 08:55
Physical Exam
General: No Apparent Distress
HEENT: Normocephalic and Atraumatic
Respiratory: Non Labored Respirations
Cardiac: Negative JVD
GI: Soft, Non Tender and Non Distended
Musculoskeletal: No Edema and Other (Bilateral radial pulse +2 palpable)
Skin: Warm
Neuro: AO x 3
Pulses: Bilateral Femoral: +2 (Distal pulses nonpalpable)
Assessment / Plan
-
Assessment: 78-year-old female with mesenteric arterial insufficiency
Plan:
Dr. Rodríguez discussed with patient recommendation at this point for revascularization of the mesenteric's given constant postprandial pain, and now this bout of bloody diarrhea/colitis. He also discussed with patient mesenteric arteriography and
possible left brachial approach. Discussed risks/benefits/alternatives. Risks including but not limited to bleeding, access site complications/ischemic complications, bowel ischemia/reperfusion injury, need for bowel resection, stroke (if brachial
approach), inability to successfully treat endovascularly. Discussed limited surgical options due to severe plaque burden throughout aorta/iliacs and throughout the SMA. She understands all and wishes to proceed.
Will plan angiogram tomorrow.
NPO after midnight.
Hold eliquis.
I performed this shared service with the attending. I evaluated the patient [id number] and have entered clinical documentation as shown in the encounter note. I performed the following component(s):�history and physical exam. Note that medical
decision making is not final until attested by vascular attending.
Data Reviewed
-
Medical Tests (Nuc Med, Echo etc): Report Reviewed by me
Labs: Labs Reviewed by me and Discussed with Physician
--- NOTE | 2024-06-10 16:59 | W.PN.GI.CBS2 ---
Today's Communication / Plan
-
Follow-up vascular surgical recommendation
Outpatient GI follow-up
Assessment / Plan
-
Impression: The patient is a 78 year old female who presented to ER complaining from bloody stools episodes which started yesterday. She had 3 episodes at home and multiple episodes of bloody diarrhea since she presented to ER. She noticed her stool
color was dark this morning and less bloody. She was started on anticoagulant in February 2024 due her CAD. She had her colonoscopy and endoscopy one year ago.Endoscopy was not significant and colonoscopy showed diverticulosis in the sigmoid colon and
in the descending colon and Internal hemorrhoids. Denies previous bowel bleeding, constipation of hx of colitis. She was recently diagnosed with colitis the day before due having acute started abdominal pain and diarrhea. This morning, the patient
had 2 episodes of diarrhea in the morning and the amount was less and the color was less dark.
-- Postprandial abdominal pain/hematochezia-clinically feeling better. last colonoscopy 2022-diverticulosis.
MRA 06/08
IMPRESSION:
1. ACUTE COLITIS involving the ascending, transverse, and descending colon with colonic wall thickening, mild pericolonic inflammation, and minimal pericolonic fluid.
2. 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
3. Severe greater than 70% diameter stenosis in the proximal superior mesenteric artery.
4. 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
5. Severe calcific atherosclerotic plaque in the abdominal aorta and common iliac arteries.
6. 1.0 cm penetrating ulcer arising from the right anterior wall of the infrarenal abdominal aorta.
7. Mild aneurysmal dilatation and penetrating ulcer arising from the medial wall of the right common iliac artery.
8. Moderate biliary dilatation (probably secondary to previous cholecystectomy).
9. Severe bilateral facet joint arthrosis at L4/L5 causing severe central canal stenosis.
plan
Clinically abdominal pain is better. Continues to have loose stools but no blood. Stool studies negative for infection
Low-fat lactose-free diet
vascular surgical eval -reviewed. Angiogram tomorrow
Continue monitor H&H
Currently kept on Plavix. Resume Eliquis when okay with vascular surgery
Follow-up with Dr. Marks as outpatient. will s/o. will be available if any questions
.
Total Time Spent with Patient (in minutes): 35
Subjective
Subjective
Date of Service: June 10, 2024
Denies any abdominal pain. Tolerating diet. Had few bouts of diarrhea this a.m. no blood with stool
Objective
Data Reviewed
Laboratory Data:
Laboratory Results
06/10/24 08:55
06/10/24 08:55
Laboratory Results
PT 15.9 Sec (11.4-14.6) H 06/08/24 01:13
INR 1.29 06/08/24 01:13
APTT 31.2 Sec (23.4-35.0) 06/08/24 01:13
Total Bilirubin 1.5 mg/dl (0.2-1.3) H 06/09/24 07:13
AST 39 U/L (14-36) H 06/09/24 07:13
ALT 29 U/L (0-35) 06/09/24 07:13
Alkaline Phosphatase 63 U/L (38-126) 06/09/24 07:13
Vital Signs and I&O:
Vital Signs
Temp Pulse Resp BP Pulse Ox
98.6 F 71 14 116/59 93
06/10/24 15:00 06/10/24 15:00 06/10/24 15:00 06/10/24 15:00 06/10/24 15:00
I&O
06/09/24 06/10/24 06/11/24
06:59 06:59 06:59
Intake Total 1290 / 1290 2775 / 2775
Balance 1290 / 1290 2775 / 2775
Physical Exam
Physical Exam
GI: Soft, Non Distended and Non Tender
[2024-06-10] MEDS: LIPITOR 40 MG PO (17:37)
[2024-06-10] MEDS: REMERON 60 MG PO (21:02)
[2024-06-10] MEDS: XANAX 0.5 MG PO (21:02)
[2024-06-10 23:32] VITALS: BP 97/58
[2024-06-11] MEDS: PROTONIX 40 MG PO (07:26)
[2024-06-11] MEDS: OXYCONTIN (CONTROLLED RELEASE) 20 MG PO (07:26)
[2024-06-11] MEDS: IMDUR (EXTENDED RELEASE) 30 MG PO (07:26)
[2024-06-11] MEDS: ZESTRIL 20 MG PO (07:27)
[2024-06-11] MEDS: MEDROL 4 MG PO (07:28)
[2024-06-11] MEDS: CELEXA 20 MG PO (07:28)
[2024-06-11] MEDS: LOPRESSOR 25 MG PO ×2 (07:28→20:33)
[2024-06-11] MEDS: NORVASC 2.5 MG PO (07:28)
[2024-06-11] MEDS: NSS (PRESERVATIVE FREE) IV (07:28)
[2024-06-11] MEDS: ZOFRAN 4 MG IV (07:33)
[2024-06-11] MEDS: PLAVIX 75 MG PO (07:38)
[2024-06-11 08:02] VITALS: BP 135/77
[2024-06-11 08:12] LABS: % Basophils 0.7 % (0-2); % Eosinophils 4.2 % (0-6); % Immature Granulocytes 0.7 % (0-0.5); % Monocytes 10.3 % (1.7-9.3); % Neutrophils 56.1 % (42.2-75.2); Absolute Eosinophils 0.2 10^3/uL (0-0.7); Absolute Lymphocytes 1.3 10^3/uL (1.2-3.4); Absolute Monocytes 0.5 10^3/uL (0.1-0.6); Absolute Neutrophils 2.6 10^3/uL (1.4-6.5); Hematocrit 28.8 % (37.0-47.0); Hemoglobin 9.1 g/dL (12.0-16.0); Mean Corp Hgb Conc. 31.6 g/dL (33.0-37.0); Mean Corpuscular Volume 91.7 fL (81.0-99.0); Nucleated Red Blood Cells % 0 %; Platelet Count 120 10^3/uL (130-400); Red Blood Cell Count 3.14 10^6/uL (4.20-5.40); Red Cell Dist. Width 13.6 % (11.5-14.5); White Blood Cell Count 4.6 10^3/uL (4.8-10.8)
[2024-06-11 08:15] LABS: INR 1.06; PT 13.9 Sec (11.4-14.6)
[2024-06-11 08:16] LABS: APTT 26.3 Sec (23.4-35.0)
[2024-06-11 09:00] LABS: Blood Urea Nitrogen 14 mg/dl (7-17); Calcium 8.5 mg/dl (8.4-10.2); Carbon Dioxide 29 mmol/L (22-30); Chloride 108 mmol/L (98-107); Estimated Creatinine Clearance 41 ml/min; Glucose 86 mg/dl (70-99); Potassium 3.7 mmol/L (3.5-5.1); Sodium 144 mmol/L (135-145); eGFR > 60.00
--- NOTE | 2024-06-11 09:29 | W.PN.UPDATE ---
Update Note
Progress Note Update
Due to scheduling issues, will move patient to tomorrow (06/12/24) with Dr. Arnulfo Duarte. Patient and son updated and agree with plan. Hospitalist also updated via [place] text. Per hospitalist recommendation regular diet ordered, will be n.p.o. at
midnight this evening.
--- NOTE | 2024-06-11 10:23 | W.PN.HOSP.TC ---
Addendum entered and electronically signed by Onur Rose DO 06/11/24 11:13:
#Aortic Stenosis
-Impressive murmur, crescendo/decrescendo
-No signs of delayed carotid upstroke, S2 present
-Likely moderate to severe
Original Note:
Today's Communication/Plan
-
Hold Eliquis
N.p.o. after midnight for SMA stent tomorrow
Continue with Plavix and high intensity statin
Trend CBC
Assessment / Plan
Assessment / Plan
#Chronic mesenteric ischemia
#High-grade celiac and SMA artery lesions
#H/O SMA syndrome
#Hematochezia from colitis
-Hemoglobin has been relatively stable between 9.1 and 10.8 over multiple lab draws
-MRA showed >70% stenosis of origin of celiac and the proximal SMA arteries
-Stool studies including culture, C. difficile testing, stool WBC pending unremarkable
-Home Eliquis on hold, was continued on home Plavix; no recurrence of bleeding while here
-Was started on IV PPI drip during ED course which has been transitioned to PO daily
-GI and vascular surgery following, plan for SMA stent tomorrow
Plan
-Monitor for bleeding, trend daily CBC
-NPO after midnight for SMA stent tomorrow
-Plan to resume home Eliquis after SMA stent
-Avoid hypotension, MAP goal >65 mmHg
-Continue home high intensity statin and Plavix
#Aortic penetrating ulcer
-MRI yesterday showed 1 cm penetrating ulcer of the right anterior wall into the infrarenal abdominal aorta
-Patient states she has family history of her mother and grandmother dying from 'ruptured aorta's'
-Remains on high intensity statin and antiplatelet therapy
-Vascular surgery following, will follow up the recommendations
#CAD s/p PCI
-Status post PCI to the RCA in January 2024
-Home medications include metoprolol, Imdur, Plavix, high intensity statin
-Not currently on dual antiplatelet therapy due to AC for atrial fibrillation
-No signs of coronary ischemia/chest pain here
#Paroxysmal AF
-Periprocedural to her catheterization; was in NSR at discharge
-Home medications include beta-mable and Eliquis; Eliquis held for GIB
-Heart rate currently sinus, Eliquis remains held
#Rheumatoid arthritis
-Home regimen includes daily prednisone 4 mg; Enbrel injections outpatient
-Likely associated with her CAD history; no history of ILD
-No signs of active flare at this time
#Hypertension
-No known history of hypertensive systemic disease
-Home medications include lisinopril; also on metoprolol
-Blood pressure currently well-controlled
DVT prophylaxis: SCDs
Diet: Regular; NPO @ MN
CODE STATUS: DNR
Anticipated Discharge: 24 - 48 hours
Subjective/Interval History
-
Date of Service: June 11, 2024
Seen and examined at the bedside. No acute events reported overnight. AFVSS this morning.
Was initially scheduled for SMA stent with vascular surgery today however procedure had to be rescheduled for tomorrow.
She otherwise states she feels improved with minimal abdomen pain since yesterday. Denies fevers or chills, chest pain, dyspnea, N/V/D, bleeding or bruising, paresthesias or weakness, urinary issues per
Objective Data
-
Labs:
Laboratory Results
06/11/24
07:52
WBC 4.6 L
Hgb 9.1 L
Hct 28.8 L
Plt Count 120 L
PT 13.9
INR 1.06
APTT 26.3
Sodium 144
Potassium 3.7
Chloride 108 H
Carbon Dioxide 29
BUN 14
Creatinine 0.9
Glucose 86
Calcium 8.5
Vital Signs:
Vital Signs
Temp Pulse Resp BP Pulse Ox
97.9 F 78 18 135/77 98
06/11/24 08:02 06/11/24 08:02 06/11/24 08:02 06/11/24 08:02 06/11/24 08:02
I&O
06/10/24 06/11/24 06/12/24
06:59 06:59 06:59
Intake Total 2775 / 2775 540 / 540
Balance 2775 / 2775 540 / 540
Review of Systems
-
History Source: Patient
All other systems: Reviewed and negative
Physical Exam
-
General: No Apparent Distress, Comfortable and Other (Thin female)
HEENT: Normocephalic, Atraumatic and Moist Mucous Membranes
Respiratory: Clear to Auscultation and Non Labored Respirations
Cardiac: Regular Rhythm and S1/S2; Negative Murmur, Rub or Gallop
GI: Soft, Nontender, Nondistended, Normal Bowel Sounds and No Hepatosplenomegaly
Musculoskeletal: No Clubbing, No Cyanosis and No Edema
Skin: Warm, Dry and Normal Turgor; Negative Rash
Neuro: AO x 3, Nonfocal/Grossly Intact and Central Nerve's Intact
Psych: Calm
Data Reviewed
-
Labs: Labs Reviewed by me and Discussed with Patient
[2024-06-11] MEDS: DILAUDID 0.25 MG IV ×2 (11:38→16:55)
--- NOTE | 2024-06-11 11:45 | CM ---
Chart reviewed.
Angiogram today, plan for SMA stent tomorrow
GI and vascular surgery following
ADC: 24-48 hours
Plan: CM will cont. to follow for d/c needs
Home no needs is anticipated
[2024-06-11 15:24] VITALS: BP 116/65
[2024-06-11] MEDS: LIPITOR 40 MG PO (16:55)
[2024-06-11] MEDS: REMERON 60 MG PO (20:33)
[2024-06-11] MEDS: XANAX 0.5 MG PO (20:34)
[2024-06-11 23:00] VITALS: BP 105/65
[2024-06-12] MEDS: PLAVIX 75 MG PO (07:03)
[2024-06-12] MEDS: NORVASC 2.5 MG PO (07:03)
[2024-06-12] MEDS: IMDUR (EXTENDED RELEASE) 30 MG PO (07:03)
[2024-06-12] MEDS: PROTONIX 40 MG PO (07:03)
[2024-06-12] MEDS: NSS (PRESERVATIVE FREE) IV (07:04)
[2024-06-12] MEDS: CELEXA 20 MG PO (07:04)
[2024-06-12] MEDS: LOPRESSOR 25 MG PO (07:04)
[2024-06-12] MEDS: OXYCONTIN (CONTROLLED RELEASE) 20 MG PO (07:04)
[2024-06-12] MEDS: MEDROL 4 MG PO (07:04)
[2024-06-12] MEDS: ZESTRIL 20 MG PO (07:05)
[2024-06-12 07:38] LABS: Hematocrit 28.3 % (37.0-47.0); Mean Corp Hgb Conc. 31.8 g/dL (33.0-37.0); Mean Corpuscular Hgb 29.1 pg (27.0-31.0); Mean Corpuscular Volume 91.6 fL (81.0-99.0); Platelet Count 119 10^3/uL (130-400); Red Blood Cell Count 3.09 10^6/uL (4.20-5.40); Red Cell Dist. Width 13.5 % (11.5-14.5); White Blood Cell Count 5.1 10^3/uL (4.8-10.8)
[2024-06-12] MEDS: DILAUDID 0.25 MG IV ×2 (07:42→16:30)
[2024-06-12] MEDS: ZOFRAN 4 MG IV (07:45)
[2024-06-12 08:12] LABS: Blood Urea Nitrogen 15 mg/dl (7-17); Calcium 8.3 mg/dl (8.4-10.2); Carbon Dioxide 28 mmol/L (22-30); Chloride 108 mmol/L (98-107); Estimated Creatinine Clearance 41 ml/min; Glucose 84 mg/dl (70-99); Potassium 3.9 mmol/L (3.5-5.1); Sodium 145 mmol/L (135-145); eGFR > 60.00
[2024-06-12 08:15] VITALS: BP 148/78
--- NOTE | 2024-06-12 10:25 | W.PN.HOSP.TC ---
Addendum entered and electronically signed by Onur Rose DO 06/12/24 15:36:
CDI: Eliquis likely contributed to bleeding in the context of underlying colitis.
Original Note:
Today's Communication/Plan
-
SMA stent with vascular surgery
Resume Eliquis tonight versus tomorrow
Continue with Plavix and statin
Trend CBC
Assessment / Plan
Assessment / Plan
#Chronic mesenteric ischemia
#High-grade celiac and SMA artery lesions
#H/O SMA syndrome
#Hematochezia from colitis
-Hemoglobin has been relatively stable between 9.1 and 10.8 over multiple lab draws
-MRA showed >70% stenosis of origin of celiac and the proximal SMA arteries
-Stool studies including culture, C. difficile testing, stool WBC pending unremarkable
-Home Eliquis on hold, was continued on home Plavix; no recurrence of bleeding while here
-Was started on IV PPI drip during ED course which has been transitioned to PO daily
-GI and vascular surgery following, plan for SMA stent tomorrow
Plan
-Monitor for bleeding, trend daily CBC
-Plan for vascular stent placement today
-Plan to resume home Eliquis tonight or tomorrow
-Avoid hypotension, MAP goal >65 mmHg
-Continue home high intensity statin and Plavix
#Aortic penetrating ulcer
-MRI yesterday showed 1 cm penetrating ulcer of the right anterior wall into the infrarenal abdominal aorta
-Patient states she has family history of her mother and grandmother dying from 'ruptured aorta's'
-Remains on high intensity statin and antiplatelet therapy
-Vascular surgery following, will follow up the recommendations
#CAD s/p PCI
-Status post PCI to the RCA in January 2024
-Home medications include metoprolol, Imdur, Plavix, high intensity statin
-Not currently on dual antiplatelet therapy due to AC for atrial fibrillation
-No signs of coronary ischemia/chest pain here
#Paroxysmal AF
-Periprocedural to her catheterization; was in NSR at discharge
-Home medications include beta-mable and Eliquis; Eliquis held for GIB
-Heart rate currently sinus, Eliquis remains held
#Rheumatoid arthritis
-Home regimen includes daily prednisone 4 mg; Enbrel injections outpatient
-Likely associated with her CAD history; no history of ILD
-No signs of active flare at this time
#Hypertension
-No known history of hypertensive systemic disease
-Home medications include lisinopril; also on metoprolol
-Blood pressure currently well-controlled
DVT prophylaxis: SCDs
Diet: N.p.o. pending procedure today
CODE STATUS: DNR
Anticipated Discharge: 24 - 48 hours
Subjective/Interval History
-
Date of Service: June 12, 2024
Seen and examined at the bedside. No acute events reported overnight. AFVSS this morning.
She states she did have some abdominal pain and nausea this morning though it improved after pain meds. Remains without bloody bowel movements since admission.
She denies any other acute complaints including chest pain, dyspnea, fevers or chills, lightheadedness, palpitations, urinary issues, bleeding or bruising, paresthesias or weakness
Objective Data
-
Labs:
Laboratory Results
06/12/24
07:15
WBC 5.1
Hgb 9.0 L
Hct 28.3 L
Plt Count 119 L
Sodium 145
Potassium 3.9
Chloride 108 H
Carbon Dioxide 28
BUN 15
Creatinine 0.9
Glucose 84
Calcium 8.3 L
Vital Signs:
Vital Signs
Temp Pulse Resp BP Pulse Ox
97.8 F 72 18 148/78 98
06/12/24 08:15 06/12/24 08:15 06/12/24 08:15 06/12/24 08:15 06/12/24 08:15
I&O
06/11/24 06/12/24 06/13/24
06:59 06:59 06:59
Intake Total 540 / 540 0 / 0
Balance 540 / 540 0 / 0
Review of Systems
-
History Source: Patient
All other systems: Reviewed and negative
Physical Exam
-
General: No Apparent Distress, Comfortable and Other (Thin female)
HEENT: Normocephalic, Atraumatic and Moist Mucous Membranes
Respiratory: Clear to Auscultation and Non Labored Respirations; Negative Wheezes, Rales or Rhonchi
Cardiac: Regular Rhythm and S1/S2; Negative Murmur, Rub or Gallop
GI: Soft, Nontender, Nondistended, Normal Bowel Sounds and No Hepatosplenomegaly
Musculoskeletal: No Clubbing, No Cyanosis and No Edema
Skin: Warm, Dry and Normal Turgor; Negative Rash
Neuro: AO x 3, Nonfocal/Grossly Intact and Central Nerve's Intact
Psych: Calm
Data Reviewed
-
Labs: Labs Reviewed by me and Discussed with Patient
--- NOTE | 2024-06-12 10:46 | CM ---
Pt seen bedside.
Stent placement today. ADC: 24-48 hours
No identified d/c needs at this time
Plan: Home no needs
[2024-06-12 13:57] VITALS: BMI 19.0
--- NOTE | 2024-06-12 14:11 | PTCARENOTE ---
Addendum entered by Edwige Chapin RN 06/12/24 14:49:
Patient left in bed to labor training manager for procedure - correction to location below. Patient will be transferred after procedure to surgical unit.
Original Note:
Patient for SMA stenting today. Has been NPO since midnight last night. Patient understands procedure. Pneumatic compression stockings maintained. Report given to GI lab.
--- NOTE | 2024-06-12 14:44 | PTCARENOTE ---
Patient arrived to CCL recovery area for Vascular procedure. Patient seen my anesthesia prior to arrival. Patient placed on tele monitor, NSR. Doppler DP pulses. Patient resting comfortably awaiting procedure. call castillo in reach.
--- NOTE | 2024-06-12 15:14 | PN.CDI ---
CDI
- -
CDI:
Physician Documentation Request
Admit Date: 06/08/24 02:37
Dear Doctor Milton,
Patient presented to ED with blood in stool. Patient taking Eliquis at home which was held.
Please clarify if a relationship exist between these conditions:
Yes, hematochezia is related to/associated with/due to exacerbated by Eliquis
No, hematochezia is not related to/associated with/due to/exacerbated by Eliquis
Unable to determine
Use of terms such as suspected, likely, concern for, or probable (associated with a specific diagnosis that is being evaluated, monitored, or treated as if it exists) are acceptable and can be coded in the inpatient setting, when documented at the
time of discharge.
Thank you,
Liz Cazares RN, BSN
CDI Specialist
tiger text
Please use your independent medical judgment in providing your response.
[2024-06-12 15:53] VITALS: BP 125/79
[2024-06-12] MEDS: LIPITOR 40 MG PO (16:30)
--- NOTE | 2024-06-12 16:40 | CM ---
Pt d/c today
Son will transport at d/c
IMM reviewed, pt given copy
Plan: Home no needs
--- NOTE | 2024-06-12 19:43 | PTCARENOTE ---
Patient's procedure not completed today. Patient discharged home and will come back to hospital as an outpatient on Saturday for SMA stent. laborer drying department to call patient on Saturday with time and place to report to on Saturday. Reviewed Eloquis usage with
last dose to be taken on Saturday morning. Patient verbalizes understanding of instructions. Peripheral IV removed. Patient's son transported patient home. Patient denies questions and has the number to call for any questions related to procedure.
--- NOTE | 2024-06-22 14:36 | W.DCSUMMARY ---
Discharge Summary
Discharge Data
Date of Admission: 06/08/24
Date of Discharge: 06/12/24
-
Pending Results: No
Hospital Course
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 MRA abdomen showed >70% stenosis of
the origin of the celiac and proximal SMA arteries. Stool cultures and other stool studies negative for infectious findings. Eliquis held, continued on home Plavix without recurrence of bleeding. Started on IV PPI therapy that was transition to
oral therapy and hospital. Was scheduled to have intervention to the SMA with stent however procedure had to be delayed due to vascular scheduling with emergent procedures taking precedent. Was discharged with directions to hold Eliquis prior to
vascular follow-up for stent placement in the outpatient setting. 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 Has a history of ruptured aorta and mother and
grandmother
Discharge Plan
-
Patient Disposition: Home (Routine Discharge)
Discharge Diagnosis/Procedures: Chronic mesenteric ischemia
Condition: Fair
Diet: As tolerated
Additional Diets: small meals
Activity: As tolerated
Driving Restrictions: No driving for 24 hours
Bathing Restrictions: None
Activity Restrictions/Additional Instructions:
Follow up with PCP/Family doctor in 1-2 weeks after discharge
You will have vascular stent placed with vascular surgery this upcoming saturday (06/16)
If you develope recurrence of blood in your stool, including dark black tar-like stools, come back to the ED for evaluation
Instructions: Ischemic bowel disease
Referrals:
Le Grant CRNP [Specified Professional Personl] - (Vascular office will call you Saturday with instructions for your procedure on Saturday)
Tangela Ching MD [Family Provider] -
Additional Discharge Medication Instructions: Resume eliquis twice daily this evening; stop taking eliquis after you take your dose on saturday morning, in preparation of procedure on saturday
See below
Prescriptions:
New
isosorbide mononitrate 30 mg Tablet Extended Release 24 Hr
30 mg PO DAILY 30 Days Qty: 30 0RF
lisinopril 20 mg Tablet
20 mg PO DAILY 30 Days Qty: 30 0RF
Continued
amlodipine 2.5 MG tablet
2.5 mg PO DAILY
methylprednisolone 4 MG tablet
4 mg PO DAILY
oxycodone [OxyContin] 20 MG tablet,oral only,ext.rel.12 hr
20 mg PO DAILY
Enbrel 50 MG/ML syringe
50 mg SQ SA
alprazolam [Xanax] 0.5 mg Tablet
0.5 mg PO HS
hydrocodone-acetaminophen 5-325 mg Tablet
1 tab PO Q8HPRN PRN (Reason: severe pain)
citalopram 20 mg Tablet
30 mg PO DAILY
mirtazapine 30 mg Tablet
60 mg PO HS
cholecalciferol (vitamin D3) [Vitamin D3] 25 mcg (1,000 unit) Tablet
25 mcg PO DAILY
PreserVision AREDS 4,296 mcg-226 mg-90 mg Capsule
1 cap PO DAILY
atorvastatin 40 mg Tablet
40 mg PO QPM Qty: 30 11RF
clopidogrel 75 mg Tablet
75 mg PO DAILY Qty: 30 11RF
pantoprazole 40 mg Tablet,Delayed Release (Dr/Ec)
40 mg PO DAILY Qty: 30 11RF
metoprolol tartrate 25 mg Tablet
25 mg PO BID Qty: 60 11RF
ondansetron 4 mg tablet,disintegrating
4 mg PO Q8H PRN (Reason: nausea and vomiting) 2 Days Qty: 4 0RF
dicyclomine 10 mg capsule
10 mg PO BID PRN (Reason: abdominal pain) Qty: 6 0RF
bismuth subsalicylate [Pepto-Bismol] 262 mg/15 mL Suspension
524 mg PO DAILYPRN PRN (Reason: STOMACH ACHE)
Discontinued
lisinopril 10 mg Tablet
10 mg PO DAILY
No Action
apixaban 5 mg Tablet
5 mg PO BID
Discharge Orders:
Discharge Patient (As Directed); Ordered 06/12/24
Ordered By: Onur Rose
Discharge Date and Time
Discharge Date/Time: 06/12/24 17:50
Print Language: [place]
== END 2024-06-12 17:50 | disposition home or self-care (01) | DRG 378 ==
LOC: 4 EAST ACU 02:37
PROVIDERS: Nurse Practitioner; ADMITTING PHYSICIAN Internal Medicine; ATTENDING PHYSICIAN Internal Medicine; CONSULT PHYSICIAN Internal Medicine Gastroenterology; CONSULT PHYSICIAN Surgery Vascular Surgery; EMERGENCY PHYSICIAN Student in an Organized Health Care Education/Training Program; FAMILY PHYSICIAN Internal Medicine
DX: K62.5 Hemorrhage of anus and rectum (principal); D68.32 Hemorrhagic disorder due to extrinsic circulating anticoagulants; K55.1 Chronic vascular disorders of intestine; I77.4 Celiac artery compression syndrome; K52.9 Noninfective gastroenteritis and colitis, unspecified; I10 Essential (primary) hypertension; I35.0 Nonrheumatic aortic (valve) stenosis; I25.10 Atherosclerotic heart disease of native coronary artery without angina pectoris; F41.9 Anxiety disorder, unspecified; I48.0 Paroxysmal atrial fibrillation; R79.89 Other specified abnormal findings of blood chemistry; K21.9 Gastro-esophageal reflux disease without esophagitis; F17.200 Nicotine dependence, unspecified, uncomplicated; K44.9 Diaphragmatic hernia without obstruction or gangrene; I77.1 Stricture of artery; K64.8 Other hemorrhoids; I70.0 Atherosclerosis of aorta; I71.40 Abdominal aortic aneurysm, without rupture, unspecified; M06.9 Rheumatoid arthritis, unspecified; F31.9 Bipolar disorder, unspecified; Z96.651 Presence of right artificial knee joint; I25.2 Old myocardial infarction; Z90.49 Acquired absence of other specified parts of digestive tract; Z90.710 Acquired absence of both cervix and uterus; Z79.52 Long term (current) use of systemic steroids; Z79.02 Long term (current) use of antithrombotics/antiplatelets; Z79.01 Long term (current) use of anticoagulants; Z86.711 Personal history of pulmonary embolism; Z95.5 Presence of coronary angioplasty implant and graft; Z88.2 Allergy status to sulfonamides
CPT/HCPCS: 74177; 74185; 80048; 80053; 82248; 83605; 83690; 85014; 85018; 85025; 85027; 85610; 85730; 86850; 86900; 86901; 87045; 87046; 87324; 87427; 87449; 89055; 96374; 99291; A9585; Q9967

== ENCOUNTER 2024-06-16 09:24 | Day surgery (SDC) | payer MEDICARE, SELFPAY ==
[2024-06-16] VITALS (20 sets, daily range): BP systolic 114–133; BP diastolic 57–81; BMI 19.2
[2024-06-16 09:50] LABS: Hematocrit 32.6 % (37.0-47.0); Hemoglobin 10.5 g/dL (12.0-16.0); Mean Corp Hgb Conc. 32.2 g/dL (33.0-37.0); Mean Corpuscular Hgb 29.5 pg (27.0-31.0); Mean Corpuscular Volume 91.6 fL (81.0-99.0); Mean Platelet Volume 11.1 fL (7.4-10.4); Platelet Count 175 10^3/uL (130-400); Red Blood Cell Count 3.56 10^6/uL (4.20-5.40); Red Cell Dist. Width 13.6 % (11.5-14.5); White Blood Cell Count 8.8 10^3/uL (4.8-10.8)
[2024-06-16 10:00] LABS: APTT 27.2 Sec (23.4-35.0); INR 1.02; PT 13.2 Sec (11.4-14.6)
[2024-06-16 10:14] LABS: Blood Urea Nitrogen 17 mg/dl (7-17); Calcium 10.3 mg/dl (8.4-10.2); Carbon Dioxide 34 mmol/L (22-30); Chloride 102 mmol/L (98-107); Estimated Creatinine Clearance 38 ml/min; Glucose 96 mg/dl (70-99); Potassium 4.3 mmol/L (3.5-5.1); Sodium 146 mmol/L (135-145); eGFR 57.31
--- NOTE | 2024-06-16 10:45 | W.SUR.PREOP ---
Pre-Operative Surgical Note
-
I have examined this patient prior to the performance of the scheduled procedure.
The patient's condition is unchanged from the time of the current History and
Physical and the patient is able to undergo the scheduled procedure.
--- NOTE | 2024-06-16 12:56 | OR.RPT ---
Operative Report
Operative Report
Date of Operation: 06/16/2024
Pre Op Diagnosis: Concern for chronic mesenteric ischemia
Post Op Diagnosis: Concern for chronic mesenteric ischemia
Procedure:
1.) Balloon angioplasty and stenting of superior mesenteric artery stenosis (7 mm x 22 mm iCast stent; postdilated to 8 mm)
2.) Diagnostic aortogram
3.) Selected catheterization and arteriogram of superior mesenteric artery
4.) Ultrasound-guided percutaneous access to the right common femoral artery
Surgeon: Arnulfo Duarte III, MD
Automobile Mechanic Radiator: Dariusz Trimble MD PhD, PGY2
Anesthesia: Sedation with local
Fluoroscopy:
19.5 min
974 mGy
159.88 Gy.cm2
Complications: None
Estimated Blood Loss: 10 cc
History and Indications for Procedure: 78-year-old female with symptoms concerning for chronic mesenteric ischemia.
Procedure in Detail: Renetta Tierney was correctly identified and placed supine on the operating table. After adequate induction of anesthesia the bilateral groins were prepped and draped in the usual sterile fashion. A timeout was performed with
the nursing and anesthesia staff confirming the patient's identity as well as the nature and laterality of the procedure.
The right common femoral artery was identified under ultrasound guidance. The artery was patent. The superior and inferior aspects of the femoral head were identified with radiographic guidance and marked at the skin level. The proposed puncture
site was infiltrated with local anesthesia. Under ultrasound guidance we accessed the right common femoral artery with a micropuncture needle and upsized to a 5 Fr sheath over a Bentson wire. The wire and a pigtail catheter were advanced into the
abdominal aorta and a diagnostic aortogram was performed:
Diffusely calcified but patent abdominal aorta. Patent celiac artery. Calcified plaque identified at the origin of the celiac. Patent superior mesenteric artery. Calcified plaque with associated stenosis identified at the superior mesenteric
artery origin.
ENDOVASCULAR INTERVENTION: Systemic heparin was administered. Using an MHK catheter and a Glidewire we selected the superior mesenteric artery under roadmap guidance. A selected arteriogram was performed which confirmed calcified stenosis at the
origin of the superior mesenteric artery. The Glidewire was advanced into a distal jejunal branch. The Glidewire was exchanged out for a Frank through a Quickcross catheter. A 7 Mongolian curved 55 cm sheath was advanced across the SMA stenosis over
the Frank wire under radiographic guidance. An arteriogram confirmed proper position within the superior mesenteric artery. The screen was marked and under roadmap guidance a 7 mm x 22 mm iCast stent was positioned in the desired location. The
sheath was retracted to fully expose the stent and the stent was deployed in the desired location. I then postdilated the stent with an 8 mm angioplasty balloon.
COMPLETION ARTERIOGRAM: Excellent technical result. Widely patent superior mesenteric artery. Patent superior mesenteric artery stent with no significant residual stenosis identified. Brisk flow through the superior mesenteric artery.
Satisfied with this result we concluded the procedure. The sheath tip was pulled back into the right external iliac artery. Protamine was administered. The sheath was pulled and direct manual pressure was held over the puncture site. Hemostasis
was achieved. A sterile dressing was applied.
The patient tolerated the procedure well and was taken to the recovery area in stable condition.
Attestation: I was present and responsible for the entire procedure.
Signed:
Arnulfo Duarte III, MD
[facility]
[phone] (cell)
--- NOTE | 2024-06-16 13:45 | W.IMMPOSTOP ---
Surgical Immed Post Op Note
-
Primary Surgeon: Arnulfo Duarte III, MD
Assisting Surgeon: Dariusz Trimble MD, PhD (PGY-2)
Pre-op Diagnosis: Possible chronic mesenteric ischemia
Post-op Diagnosis: Possible chronic mesenteric ischemia
Procedure Performed: aortogram, balloon angioplasty and stenting of proximal SMA
Anesthesia Type: MAC
Specimen / Cultures: None
Estimated Blood Loss: Minimal
Complications: None
Operative Findings: The patient was brought to the OR and placed in the supine position. The patient was prepped and draped in usual sterile fashion. Fluoroscopy was used to identify the superior and inferior aspects of the right femoral head and
these boundaries were marked at the skin level. Ultrasound guidance was used to identify the RCFA. Micropuncture kit was used to access the right [employer]. A 5Fr sheath was insertion over wire. Then a glidewire and catheter were used to access the
abdominal aorta. Diagnostic aortogram showed calcified distal abdominal aorta and identified the celiac and SMA. The proximal SMA showed a focal area of stenosis. The SMA was selected with a guidewire and catheter. The area of stenosis was crossed
with wires and balloon angioplasty was performed. A stent was delivered and the site was post dilated. Following this, completion aortogram showed improvement in the caliber of the SMA with a patent stent. Catheters and wires were removed. At the
completion of the procedure, manual pressure was held and the site was hemostatic. The patient had doppler signals noted in both feet at the conclusion of the case. The patient was transferred to the PACU in stable condition.
== END 2024-06-16 17:59 | disposition home or self-care (01) ==
LOC: CATH 09:24
PROVIDERS: ATTENDING PHYSICIAN Surgery Vascular Surgery; FAMILY PHYSICIAN Internal Medicine
DX: K55.1 Chronic vascular disorders of intestine (principal); I48.0 Paroxysmal atrial fibrillation; I25.10 Atherosclerotic heart disease of native coronary artery without angina pectoris; I25.2 Old myocardial infarction; I10 Essential (primary) hypertension; I35.0 Nonrheumatic aortic (valve) stenosis; F31.9 Bipolar disorder, unspecified
CPT/HCPCS: 37236; 36245; 75726; 80048; 85027; 85610; 85730; C1725; C1769; C1874; Q9967

== ENCOUNTER → 2024-06-19 09:07 | Outpatient (REF) | payer MEDICARE, SELFPAY | LOC: RCS 09:07 | PROVIDERS: ATTENDING PHYSICIAN Internal Medicine Interventional Cardiology; FAMILY PHYSICIAN Internal Medicine; REFERRING PHYSICIAN Internal Medicine Rheumatology | DX: I25.10 Atherosclerotic heart disease of native coronary artery without angina pectoris (principal); Z95.5 Presence of coronary angioplasty implant and graft; I35.0 Nonrheumatic aortic (valve) stenosis; I10 Essential (primary) hypertension; I34.0 Nonrheumatic mitral (valve) insufficiency; E78.5 Hyperlipidemia, unspecified | CPT/HCPCS: 93306 ==

== ENCOUNTER 2024-06-19 15:02 | Emergency (ER) | payer MEDICARE, SELFPAY ==
[2024-06-19 15:04] VITALS: BP 125/89
[2024-06-19 15:38] VITALS: BMI 19.7
--- NOTE | 2024-06-19 15:38 | EDRN ---
Pt says she thinks she had 'a bad panic attack.' Pt says she started shaking from head to toe, her fingers were numb and she thought she was dying. Pt took 1 sl ntg and says she was also crying hysterically. Pt is now apologetic stating she is
calmed down and feels better. No cp, sob, abd pain, n/v, fever/chills/cough, weakness, dizziness. Pt says 'I feel very upset inside.' Pt adds last panic attack was 20 years ago and this is the worst one she's ever had. Pt was here on Saturday and
had a stent place in an abominal artery. Pt had a heart attack in February and had 2 stents placed. 'I was scared to with this surgery on Saturday because of the risk.'
[2024-06-19 15:40] VITALS: BP 142/88
[2024-06-19 16:00] VITALS: BP 146/91
--- NOTE | 2024-06-19 16:40 | ED.GENMED ---
History of Present Illness
General
Chief Complaint: Chest Pain
Source: patient
Exam Limitations: none
Time Seen by Provider: 06/19/24 16:38
Nursing documentation reviewed up to this point in time: agreed with
History of Present Illness
History of Present Illness:
The patient is a very pleasant 78-year-old female with a past medical history of A-fib, coronary artery disease, hypertension, and anxiety who reports that she was sitting and watching TV at around 2:15 PM and started to feel anxious today. Patient
reports she developed chest pain, shortness of breath, felt as though her heart was racing, and describes a feeling of overwhelming panic. Patient reports she has had similar episodes like this in the past which she attributes to panic attacks.
Patient reports that she took a nitroglycerin and reports that all the symptoms went away after 15 to 30 minutes. Patient reports that she now feels calm and comfortable and 'feels silly' to be here. Patient reports she has been under a lot of
stress recently due to the recent presidential election, a recent stent placed by Dr. Duarte for chronic mesenteric ischemia, and admits that she had a long day today because she underwent an ultrasound for her heart earlier today as well. Patient
denies leg pain and leg swelling. Patient reports when she takes a deep breath she has no chest pain at all. She denies cough and fever.
Past History
Past History
ED Past Medical History: CAD, HTN, [place], Valvular disease ( heart murmur) and Other (Rheumatoid arthritis, bipolar, pulmonary embolism)
ED Past Surgical History: Cholecystectomy, Gynecological (Hysterectomy), Orthopedic (Right hand surgery, left hand surgery, R knee replacement) and Other (Surgery for deviated septum)
Social History
Tobacco: Former smoker
Alcohol: None
Drug: None
Personal:
Living: with family
Employment: Retired
Family History
Family History: Hypertension and CAD
Review of Systems
Review of Systems
Allergies reviewed?: Yes
All Other Systems: ROS reviewed and negative except as documented in HPI and ROS
Constitutional: Reports no symptoms
EENT: Reports no symptoms
Respiratory: Reports trouble breathing
Cardiac: Reports chest pain and palpitations
ABD/GI: Reports no symptoms
: Reports no symptoms
Musculoskeletal: Reports no symptoms
Skin: Reports no symptoms
Neurological: Reports no symptoms
Endocrine: Reports no symptoms
Hematologic/Lymphatic: Reports no symptoms
Psychiatric: Reports anxiety
Phy Exam
Physical Exam
Physical Exam:
Physical Exam
General: no apparent distress, not acutely ill. Well and comfortable appearing
Neck: supple. no meningeal signs. normal psoterior pharynx
Heart: s1/s2 regular rate and rhythm, murmur present
Lungs: no acute respiratory distress. clear bilaterally. I have patient take a deep breath, she has no pain at all in her chest.
Abdomen: normal bowel sounds. not tender. no CVAT. No pulsatile mass.
Neuro: alert and oriented. no focal neurological deficits
Skin: no rash
Psychiatric: well kept. interactive and cooperative
Extremities: no edema. no calf tenderness. negative homans. good distal pulses
Scores
Heart Score for Chest Pain Patients
STEMI patient?: No
History: Slightly or Non-Suspicious
ECG: Nonspecific Repolarization
Age: >/= 65 years
Risk Factors: >/= 3 Risk Factors or History of CAD
Troponin: </= Normal Limit
Heart Score for Chest Pain Patients: 5
Heart Score Risk: 20.3% MACE over next 6 weeks
Course
Orders/Labs/Results
Orders:
Orders
06/19/24 15:07
Electrocardiogram (*1) Urgent
Reason for Study: Chest Pain
EKG- Treatment ONCE
06/19/24 18:09
Complete Blood Count/With Diff Urgent
Comprehensive Metabolic Panel Urgent
Lipase Urgent
Troponin I Urgent
Abnormal Lab Results
06/19/24
18:09
RBC 3.11 L 10^6/uL
(4.20-5.40)
Hgb 9.1 L g/dL
(12.0-16.0)
Hct 28.1 L %
(37.0-47.0)
MCHC 32.4 L g/dL
(33.0-37.0)
MPV 11.1 H fL
(7.4-10.4)
Absolute Monos (auto) 0.7 H 10^3/uL
(0.1-0.6)
Immature Gran % 0.6 H %
(0-0.5)
Monocytes % 9.4 H %
(1.7-9.3)
BUN 19 H mg/dl
(7-17)
AST 38 H U/L
(14-36)
Total Protein 6.0 L g/dl
(6.3-8.2)
06/19/24 18:09
06/19/24 18:09
Vital Signs
Initial and Last Documented VS:
Initial Vital Signs
Temp Pulse Resp BP Pulse Ox
98.1 F 87 16 125/89 97
06/19/24 15:04 06/19/24 15:04 06/19/24 15:04 06/19/24 15:04 06/19/24 15:04
Last Documented Vital Signs
Temp Pulse Resp BP Pulse Ox
98.1 F 66 14 144/73 97
06/19/24 15:04 06/19/24 19:01 06/19/24 19:01 06/19/24 19:01 06/19/24 17:00
MDM/Problems Addressed
Differential Diagnosis Includes:
Acute coronary syndrome, pulmonary embolism, pneumonia, acute anxiety
MDM/Problems Addressed:
Patient presents with acute chest pain and anxiety which have resolved
Chronic conditions affecting care: CAD and Arrhythmia
Acute Exacerbation and/or Progression of Chronic Illness:
Patient symptoms may be due to acute exacerbation of chronic coronary artery disease
*Pulse Oximetry
Patient hypoxic: no
*EKG
Interpreted by ED Provider?: Yes
Interpretation: abnormal
Comparison EKG: no changes
Rate: normal
Rhythm: sinus
[place]: left axis deviation
Interval: normal interval
QRS Pattern: normal QRS
Ischemia: no ischemia
*Footwear Sales Leader Interpretation
Rate: normal
Interpretation: normal
Rhythm: sinus
*Critical Care Note
Total Time (30-74mins, 75-104mins- exclusive of procedures): Not Applicable
Data Reviewed
Review of Other/Old Records Reveals: Operative Reports (Cardiac cath report reviewed by me from 02/24/2024 when patient was stented)
Source: patient and family (Son who is at the bedside)
Update Note
Update Note:
Patient remains well and comfortable hours in the emergency department. EKG appears nonischemic and troponin is in the normal range. Patient has no pleuritic chest pain when she takes a deep breath nor any chest pain at all. Therefore, it is
unlikely she is acute coronary syndrome and PE.
ED Attending Note
-
Portions of this chart may have been created with voice recognition software.� Occasional wrong word or��sound alike� substitutions may have occurred due to the inherent limitations of voice recognition software.
Discharge Plan
Departure
Patient Disposition: Home (Routine Discharge)
Date of Disposition: 06/19/24
Time of Disposition: 19:27
Patient with high blood pressure during this ER visit?: Yes
Condition: Good
Covid-19: Not Applicable
Discharge Problem:
Chest pain in adult
Instructions: Chest Pain DCA Follow Up, BLOOD PRESSURE
Prescriptions:
No Action
amlodipine 2.5 MG tablet
2.5 mg PO DAILY
methylprednisolone 4 MG tablet
4 mg PO DAILY
oxycodone [OxyContin] 20 MG tablet,oral only,ext.rel.12 hr
20 mg PO DAILY
Enbrel 50 MG/ML syringe
50 mg SQ SA
alprazolam [Xanax] 0.5 mg Tablet
0.5 mg PO HS
hydrocodone-acetaminophen 5-325 mg Tablet
1 tab PO Q8HPRN PRN (Reason: severe pain)
citalopram 20 mg Tablet
30 mg PO DAILY
mirtazapine 30 mg Tablet
60 mg PO HS
cholecalciferol (vitamin D3) [Vitamin D3] 25 mcg (1,000 unit) Tablet
25 mcg PO DAILY
PreserVision AREDS 4,296 mcg-226 mg-90 mg Capsule
1 cap PO DAILY
atorvastatin 40 mg Tablet
40 mg PO QPM Qty: 30 11RF
clopidogrel 75 mg Tablet
75 mg PO DAILY Qty: 30 11RF
pantoprazole 40 mg Tablet,Delayed Release (Dr/Ec)
40 mg PO DAILY Qty: 30 11RF
metoprolol tartrate 25 mg Tablet
25 mg PO BID Qty: 60 11RF
ondansetron 4 mg tablet,disintegrating
4 mg PO Q8H PRN (Reason: nausea and vomiting) 2 Days Qty: 4 0RF
dicyclomine 10 mg capsule
10 mg PO BID PRN (Reason: abdominal pain) Qty: 6 0RF
bismuth subsalicylate [Pepto-Bismol] 262 mg/15 mL Suspension
524 mg PO DAILYPRN PRN (Reason: STOMACH ACHE)
isosorbide mononitrate 30 mg Tablet Extended Release 24 Hr
30 mg PO DAILY 30 Days Qty: 30 0RF
lisinopril 20 mg Tablet
20 mg PO DAILY 30 Days Qty: 30 0RF
apixaban 5 mg Tablet
5 mg PO BID
Referrals:
Tangela Ching MD [Family Provider] -
Activity Restrictions/Additional Instructions:
Return for any further chest pain or shortness of breath. Return for fever
Interventions
Interventions:
*Risk Screen - Suicide Last Done: 06/19/24 15:06
*General Assessment Last Done: 06/19/24 15:06
*Neglect/Abuse Screening Last Done: 06/19/24 15:06
*ED COVID-19 Vaccine History Last Done: 06/19/24 15:06
ED- Cardiac Assessment Last Done: 06/19/24 15:48
Discharge Date and Time
Print Language: SPANISH
[2024-06-19 17:00] VITALS: BP 146/78
[2024-06-19 18:13] VITALS: BP 152/76
[2024-06-19 18:23] LABS: % Basophils 0.4 % (0-2); % Eosinophils 1.4 % (0-6); % Immature Granulocytes 0.6 % (0-0.5); % Lymphocytes 21.4 % (20.5-51.1); % Monocytes 9.4 % (1.7-9.3); % Neutrophils 66.8 % (42.2-75.2); Absolute Eosinophils 0.1 10^3/uL (0-0.7); Absolute Lymphocytes 1.5 10^3/uL (1.2-3.4); Absolute Monocytes 0.7 10^3/uL (0.1-0.6); Absolute Neutrophils 4.6 10^3/uL (1.4-6.5); Hematocrit 28.1 % (37.0-47.0); Hemoglobin 9.1 g/dL (12.0-16.0); Mean Corp Hgb Conc. 32.4 g/dL (33.0-37.0); Mean Corpuscular Hgb 29.3 pg (27.0-31.0); Mean Corpuscular Volume 90.4 fL (81.0-99.0); Mean Platelet Volume 11.1 fL (7.4-10.4); Nucleated Red Blood Cells % 0 %; Platelet Count 151 10^3/uL (130-400); Red Blood Cell Count 3.11 10^6/uL (4.20-5.40); Red Cell Dist. Width 13.7 % (11.5-14.5); White Blood Cell Count 6.9 10^3/uL (4.8-10.8)
[2024-06-19 18:41] LABS: ALT (SGPT) 26 U/L (0-35); AST (SGOT) 38 U/L (14-36); Albumin 3.7 g/dl (3.5-5.0); Alkaline Phosphatase 70 U/L (38-126); Blood Urea Nitrogen 19 mg/dl (7-17); Calcium 9.3 mg/dl (8.4-10.2); Carbon Dioxide 29 mmol/L (22-30); Estimated Creatinine Clearance 43 ml/min; Glucose 86 mg/dl (70-99); Lipase 162 U/L (23-300); Total Bilirubin 0.8 mg/dl (0.2-1.3); eGFR > 60.00
[2024-06-19 18:49] LABS: Troponin I 0.015 ng/ml
[2024-06-19 19:01] VITALS: BP 144/73
[2024-06-19 19:01] LABS: Chloride 105 mmol/L (98-107); Potassium 3.7 mmol/L (3.5-5.1); Sodium 143 mmol/L (135-145)
== END 2024-06-19 19:38 | disposition home or self-care (01) ==
LOC: EMR 15:02
PROVIDERS: EMERGENCY PHYSICIAN Emergency Medicine; FAMILY PHYSICIAN Internal Medicine
DX: R07.89 Other chest pain (principal); I48.91 Unspecified atrial fibrillation; I25.10 Atherosclerotic heart disease of native coronary artery without angina pectoris; I10 Essential (primary) hypertension; F41.9 Anxiety disorder, unspecified; M06.9 Rheumatoid arthritis, unspecified; Z82.49 Family history of ischemic heart disease and other diseases of the circulatory system; Z86.711 Personal history of pulmonary embolism; Z87.891 Personal history of nicotine dependence; Z90.49 Acquired absence of other specified parts of digestive tract; Z90.710 Acquired absence of both cervix and uterus; Z96.651 Presence of right artificial knee joint
CPT/HCPCS: 99283; 80053; 83690; 84484; 85025; 93005

== ENCOUNTER → 2024-07-07 08:16 | Outpatient (REF) | payer MEDICARE, SELFPAY | LOC: RAD 08:16 | PROVIDERS: ATTENDING PHYSICIAN Internal Medicine Rheumatology | DX: M81.0 Age-related osteoporosis without current pathological fracture (principal) | CPT/HCPCS: 77080 ==

== ENCOUNTER → 2024-07-20 11:12 | Outpatient (REF) | payer MEDICARE, SELFPAY | LOC: DHVS 11:12 | PROVIDERS: ATTENDING PHYSICIAN Surgery Vascular Surgery; FAMILY PHYSICIAN Internal Medicine; OTHER PHYSICIAN Internal Medicine Rheumatology | DX: K55.1 Chronic vascular disorders of intestine (principal) | CPT/HCPCS: 93975 ==

== ENCOUNTER 2024-09-08 00:25 | Observation (INO) | payer MEDICARE, SELFPAY ==
[2024-09-07 17:40] VITALS: BP 160/77
[2024-09-07 17:56] LABS: % Basophils 0.6 % (0-2); % Immature Granulocytes 0.4 % (0-0.5); % Lymphocytes 34.6 % (20.5-51.1); % Monocytes 9.3 % (1.7-9.3); % Neutrophils 54.1 % (42.2-75.2); Absolute Basophils 0.1 10^3/uL (0-0.2); Absolute Eosinophils 0.1 10^3/uL (0-0.7); Absolute Lymphocytes 2.7 10^3/uL (1.2-3.4); Absolute Monocytes 0.7 10^3/uL (0.1-0.6); Absolute Neutrophils 4.3 10^3/uL (1.4-6.5); Hematocrit 32.8 % (37.0-47.0); Hemoglobin 10.3 g/dL (12.0-16.0); Mean Corp Hgb Conc. 31.4 g/dL (33.0-37.0); Mean Corpuscular Hgb 27.9 pg (27.0-31.0); Mean Corpuscular Volume 88.9 fL (81.0-99.0); Mean Platelet Volume 10.8 fL (7.4-10.4); Nucleated Red Blood Cells % 0 %; Platelet Count 163 10^3/uL (130-400); Red Blood Cell Count 3.69 10^6/uL (4.20-5.40); White Blood Cell Count 7.9 10^3/uL (4.8-10.8)
[2024-09-07 18:15] LABS: ALT (SGPT) 24 U/L (0-35); AST (SGOT) 37 U/L (14-36); Albumin 4.4 g/dl (3.5-5.0); Alkaline Phosphatase 60 U/L (38-126); Blood Urea Nitrogen 34 mg/dl (7-17); Calcium 9.3 mg/dl (8.4-10.2); Carbon Dioxide 27 mmol/L (22-30); Chloride 102 mmol/L (98-107); Glucose 138 mg/dl (70-99); Potassium 4.6 mmol/L (3.5-5.1); Sodium 138 mmol/L (135-145); Total Bilirubin 0.7 mg/dl (0.2-1.3); Total Protein 6.9 g/dl (6.3-8.2); eGFR 57.31
[2024-09-07 18:32] LABS: Troponin I < 0.012 ng/ml
[2024-09-07 21:48] VITALS: BP 141/75
[2024-09-07 22:08] VITALS: BP 151/97
[2024-09-07 23:00] VITALS: BP 133/71
--- NOTE | 2024-09-07 23:00 | ED.GENMED ---
History of Present Illness
<Sugey Avina PA-C - Last Filed: 09/08/24 00:16>
General
Chief Complaint: Chest Pain
Source: patient
Exam Limitations: none
Time Seen by Provider: 09/07/24 22:05
Nursing documentation reviewed up to this point in time: agreed with
History of Present Illness
History of Present Illness:
Patient is a 78-year-old female with history atrial fibrillation, CAD, hypertension, hyperlipidemia, aortic stenosis presenting to the emergency department after episode of chest pain. Patient states she was reading her book in bed around 2:30 PM
when she had sudden onset chest pain in her lower chest. She describes it as a 'discomfort 'that was constant for approximately 3 hours. Patient denies any radiation into her back, shoulders, jaw. Patient denies any associated diaphoresis,
nausea/vomiting, lightheadedness, dizziness, shortness of breath.
At this time�patient is asymptomatic and states she feels fine.
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 She most recently saw her on Saturday.
Past History
<Sugey Avina PA-C - Last Filed: 09/08/24 00:16>
Past History
ED Past Medical History: CAD, HTN, IN, Valvular disease ( heart murmur) and Other (Rheumatoid arthritis, bipolar, pulmonary embolism)
ED Past Surgical History: Cholecystectomy, Gynecological (Hysterectomy), Orthopedic (Right hand surgery, left hand surgery, R knee replacement) and Other (Surgery for deviated septum)
Social History
Tobacco: Former smoker
Alcohol: None
Drug: None
Personal:
Living: with family
Employment: Retired
Family History
Family History: Hypertension and CAD
Review of Systems
<Sugey Avina PA-C - Last Filed: 09/08/24 00:16>
Review of Systems
Allergies reviewed?: Yes
All Other Systems: ROS reviewed and negative except as documented in HPI and ROS
Phy Exam
<Sugey Avina PA-C - Last Filed: 09/08/24 00:16>
Physical Exam
Physical Exam:
Vitals: Hypertensive, otherwise vital signs stable. Afebrile
General: Patient is well appearing, no acute distress. Nontoxic appearing
Skin: Warm and dry, no rashes or lesions
Head: Normocephalic, atraumatic
Eyes: Sclera nonicteric. EOMs intact. No nystagmus.
Throat: Protecting airway
Neck: Normal ROM, no cervical spine tenderness, no meningismus
Cardiac: Regular rate and rhythm. Systolic murmur present. No reproducible chest wall tenderness.
Pulm: Normal respiratory effort, no wheezes, rales, rhonchi heard on exam.
Abdomen: No abdominal tenderness.
Extremities: No evidence of cyanosis or edema. Palpable and equal distal pulses in bilateral upper and lower extremities
Neuro: AAOx3. Grossly intact.
Psychiatric: Normal affect.
Scores
<Sugey Avina PA-C - Last Filed: 09/08/24 00:16>
Heart Score for Chest Pain Patients
STEMI patient?: No
History: Slightly or Non-Suspicious
ECG: Normal
Age: >/= 65 years
Risk Factors: >/= 3 Risk Factors or History of CAD
Troponin: </= Normal Limit
Heart Score for Chest Pain Patients: 4
Heart Score Risk: 20.3% MACE over next 6 weeks
Course
<Sugey Avina PA-C - Last Filed: 09/08/24 00:16>
Orders/Labs/Results
Orders:
Orders
09/07/24 17:25
Electrocardiogram (*1) Urgent
Reason for Study: Chest Pain
EKG- Treatment ONCE
09/07/24 17:47
Complete Blood Count/With Diff Urgent
Comprehensive Metabolic Panel Urgent
Troponin I Urgent
09/07/24 22:20
Electrocardiogram (*1) Urgent
Reason for Study: Chest Pain
EKG- Treatment ONCE
09/07/24 22:34
Troponin I Urgent
09/08/24 01:30
Troponin I Urgent
Abnormal Lab Results
09/07/24
17:47
RBC 3.69 L 10^6/uL
(4.20-5.40)
Hgb 10.3 L g/dL
(12.0-16.0)
Hct 32.8 L %
(37.0-47.0)
MCHC 31.4 L g/dL
(33.0-37.0)
RDW 16.0 H %
(11.5-14.5)
MPV 10.8 H fL
(7.4-10.4)
Absolute Monos (auto) 0.7 H 10^3/uL
(0.1-0.6)
BUN 34 H mg/dl
(7-17)
Glucose 138 H mg/dl
(70-99)
AST 37 H U/L
(14-36)
09/07/24 17:47
09/07/24 17:47
Vital Signs
Initial and Last Documented VS:
Initial Vital Signs
Temp Pulse Resp BP Pulse Ox
97.8 F 72 20 160/77 97
09/07/24 17:40 09/07/24 17:40 09/07/24 17:40 09/07/24 17:40 09/07/24 17:40
Last Documented Vital Signs
Temp Pulse Resp BP Pulse Ox
97.8 F 65 18 133/71 98
09/07/24 17:40 09/07/24 23:30 09/07/24 23:30 09/07/24 23:00 09/07/24 23:30
<Natan Mckenzie, DO - Last Filed: 09/07/24 23:27>
Orders/Labs/Results
Orders:
Orders
09/07/24 17:25
Electrocardiogram (*1) Urgent
Reason for Study: Chest Pain
EKG- Treatment ONCE
09/07/24 17:47
Complete Blood Count/With Diff Urgent
Comprehensive Metabolic Panel Urgent
Troponin I Urgent
09/07/24 22:20
Electrocardiogram (*1) Urgent
Reason for Study: Chest Pain
EKG- Treatment ONCE
09/07/24 22:34
Troponin I Urgent
09/08/24 01:30
Troponin I Urgent
Abnormal Lab Results
09/07/24
17:47
RBC 3.69 L 10^6/uL
(4.20-5.40)
Hgb 10.3 L g/dL
(12.0-16.0)
Hct 32.8 L %
(37.0-47.0)
MCHC 31.4 L g/dL
(33.0-37.0)
RDW 16.0 H %
(11.5-14.5)
MPV 10.8 H fL
(7.4-10.4)
Absolute Monos (auto) 0.7 H 10^3/uL
(0.1-0.6)
BUN 34 H mg/dl
(7-17)
Glucose 138 H mg/dl
(70-99)
AST 37 H U/L
(14-36)
09/07/24 17:47
09/07/24 17:47
Vital Signs
Initial and Last Documented VS:
Initial Vital Signs
Temp Pulse Resp BP Pulse Ox
97.8 F 72 20 160/77 97
09/07/24 17:40 09/07/24 17:40 09/07/24 17:40 09/07/24 17:40 09/07/24 17:40
Last Documented Vital Signs
Temp Pulse Resp BP Pulse Ox
97.8 F 65 18 133/71 98
09/07/24 17:40 09/07/24 23:30 09/07/24 23:30 09/07/24 23:00 09/07/24 23:30
<Sugey Avina PA-C - Last Filed: 09/08/24 00:16>
MDM/Problems Addressed
Differential Diagnosis Includes:
Not limited to: GERD, muscle strain, acute coronary syndrome, etc.
MDM/Problems Addressed:
78-year-old female presenting after episode of chest pain today. No exertional or pleuritic component. Patient now chest pain-free. No associated nausea, vomiting, dizziness, lightheadedness, shortness of breath. Mildly hypertensive, otherwise
stable vital signs. Exam as above. Patient well-appearing, currently asymptomatic by my examination. No reproducible chest wall tenderness. Systolic murmur present. Lungs clear bilaterally. No lower extremity edema. EKG initiated in triage
shows normal sinus rhythm without acute ischemic changes. Basic lab work noted without clinically significant abnormalities. Initial troponin undetectable. Will trend troponin and repeat EKG. Closely monitor patient and reassess.
Update: Repeat troponin negative although minimally increased at 0.017. EKG remains unchanged. Patient remains chest pain-free. However� given symptoms similarity to prior [place] along with known severe aortic stenosis�will admit patient to the
hospital for further troponin trending and possible cardiology consult in the morning. Patient excepted to hospitalist service in stable condition.
Chronic conditions affecting care:
Aortic stenosis, hypertension, CAD
Acute Exacerbation and/or Progression of Chronic Illness:
Acutely hypertensive
<Sugey Avina PA-C - Last Filed: 09/08/24 00:16>
*Pulse Oximetry
Patient hypoxic: no
*EKG
Interpreted by ED Provider?: Yes
EKG Intrepretation Date: 09/07/24
Interpretation: normal
Comparison EKG: no changes
Heart Rate: 65
Rate: normal
Rhythm: sinus
[place]: normal axis
Interval: normal interval
QRS Pattern: normal QRS
Ischemia: no ischemia
*Chiropractic Teacher Interpretation
Rate: normal
Interpretation: normal
Heart Rate: 65
Rhythm: sinus
*Critical Care Note
Total Time (30-74mins, 75-104mins- exclusive of procedures): Not Applicable
Data Reviewed
Review of Other/Old Records Reveals: Radiology Studies (Cardiac echo 06/19/2024-severe aortic stenosis noted)
<Sugey Avina PA-C - Last Filed: 09/08/24 00:16>
Patient Management
Discussion with other providers: Hospitalist
Escalation/DeEscalation of care consider admission/obs:
Admit for serial troponins, cardiology consult
ED Attending Note
<Sugey Avina PA-C - Last Filed: 09/08/24 00:16>
-
Portions of this chart may have been created with voice recognition software.� Occasional wrong word or��sound alike� substitutions may have occurred due to the inherent limitations of voice recognition software.
<Natan Mckenzie DO - Last Filed: 09/07/24 23:27>
ED Attending Note
Patient seen and examined by attending physician: Yes
I performed the substantive portion of visit, reviewed & personally made and approve the management plan that is documented in note by myself or MARTHA.: Yes
ED Attending Note:
Seen with PA examined independently 78-year-old female AAS CAD presents with chest pain EKG noted serial troponins noted prior echo noted
Discharge Plan
Departure
Patient Disposition: Admit
Date of Disposition: 09/07/24
Time of Disposition: 23:29
Presentation/result/management discussed w/ accepting MD/DO: Hospitalist
Discharge Problem:
Chest pain, Severe aortic stenosis
Prescriptions:
No Action
amlodipine 2.5 MG tablet
2.5 mg PO DAILY
methylprednisolone 4 MG tablet
4 mg PO DAILY
oxycodone [OxyContin] 20 MG tablet,oral only,ext.rel.12 hr
20 mg PO DAILY
Enbrel 50 MG/ML syringe
50 mg SQ SA
alprazolam [Xanax] 0.5 mg Tablet
0.5 mg PO HS
hydrocodone-acetaminophen 5-325 mg Tablet
1 tab PO Q8HPRN PRN (Reason: severe pain)
citalopram 20 mg Tablet
30 mg PO DAILY
mirtazapine 30 mg Tablet
60 mg PO HS
cholecalciferol (vitamin D3) [Vitamin D3] 25 mcg (1,000 unit) Tablet
25 mcg PO DAILY
PreserVision AREDS 4,296 mcg-226 mg-90 mg Capsule
1 cap PO DAILY
atorvastatin 40 mg Tablet
40 mg PO QPM Qty: 30 11RF
clopidogrel 75 mg Tablet
75 mg PO DAILY Qty: 30 11RF
pantoprazole 40 mg Tablet,Delayed Release (Dr/Ec)
40 mg PO DAILY Qty: 30 11RF
metoprolol tartrate 25 mg Tablet
25 mg PO BID Qty: 60 11RF
ondansetron 4 mg tablet,disintegrating
4 mg PO Q8H PRN (Reason: nausea and vomiting) 2 Days Qty: 4 0RF
dicyclomine 10 mg capsule
10 mg PO BID PRN (Reason: abdominal pain) Qty: 6 0RF
bismuth subsalicylate [Pepto-Bismol] 262 mg/15 mL Suspension
524 mg PO DAILYPRN PRN (Reason: STOMACH ACHE)
isosorbide mononitrate 30 mg Tablet Extended Release 24 Hr
30 mg PO DAILY 30 Days Qty: 30 0RF
lisinopril 20 mg Tablet
20 mg PO DAILY 30 Days Qty: 30 0RF
apixaban 5 mg Tablet
5 mg PO BID
Referrals:
Tangela Ching MD [Family Provider] -
Interventions
Interventions:
*Risk Screen - Suicide Last Done: 09/07/24 17:40
*General Assessment Last Done: 09/07/24 22:09
*Neglect/Abuse Screening Last Done: 09/07/24 22:09
*ED COVID-19 Vaccine History Last Done: 09/07/24 22:09
ED- Cardiac Assessment Last Done: 09/07/24 22:09
Discharge Date and Time
Print Language: HEBREW
[2024-09-07 23:04] LABS: Troponin I 0.017 ng/ml
[2024-09-08] VITALS (13 sets, daily range): BP systolic 119–165; BP diastolic 67–82; BMI 19.4
--- NOTE | 2024-09-08 00:17 | HPS.HSE ---
Family Physician
-
Family Physician: Tangela Ching
Chief Complaint
-
Chest pain
History of Present Illness
Patient is a 78y F with PMH significant for ASCVD, HTN and RA who presents to ED complaining of chest pain. Patient states that she was feeling well until around 2 PM today when she developed substernal chest pain which radiated straight through
to her back. The pain persisted throughout the afternoon and she presented to the ED for further evaluation. Patient denies any associated dyspnea, diaphoresis, lightheadedness or dizziness. She states that symptoms were similar to - though less
severe than - her symptoms with prior [place].
While in the ED, patient notes that her pain resolved - around 7:30 PM.
She is currently resting comfortably and has no complaints.
She denies any nausea / GI symptoms. No recent med changes.
Medical History
Past Medical History
Past Medical History: Reports Other
Additional Past Medical History:
ASCVD
Severe Aortic Stenosis
Moderate - Severe Mitral Regurgitation
Paroxysmal Atrial Fibrillation
SMA Syndrome
Benign Hypertension
Rheumatoid Arthritis
Bipolar Depression
Chronic Pain / Chronic Opioid Dependence
Past Surgical History: Reports Other
Additional Past Surgical History:
PTCA with Stent
SMA Stent
Cholecystectomy
Hysterectomy
Bunionectomy
Social History
Tobacco: Former Smoker (Quit smoking 55 years ago.)
Alcohol: None
Drug: None
Family History
Family History: Not pertinent
Allergies / Home Medications
Allergies reflects when Allergies were last updated in [facility].
Home Medications with original date entered in [facility]
Allergy/Medication List:
Allergies
Allergy/AdvReac Type Severity Reaction Status Date / Time
Sulfa (Sulfonamide Allergy Stomach Verified 09/07/24 17:40
Antibiotics) cramps
Home Medications
methylprednisolone 4 mg tablet 4 mg PO DAILY Anti-inflammatory 01/23/16
etanercept 50 mg/mL (1 mL) subcutaneous syringe (Enbrel) 50 mg SQ SA arthritis 12/09/20
oxycodone 20 mg tablet,crush resistant,extended release 12 hr (OxyContin) 20 mg PO DAILY Pain 12/09/20
alprazolam 0.5 mg tablet (Xanax) 0.5 mg PO HS sleep 06/18/22
cholecalciferol (vitamin D3) 25 mcg (1,000 unit) tablet (Vitamin D3) 25 mcg PO DAILY Supplement 02/19/24
citalopram 20 mg tablet 30 mg PO DAILY Depression 02/19/24
hydrocodone 5 mg-acetaminophen 325 mg tablet 1 tab PO Q8HPRN PRN severe pain 02/19/24
mirtazapine 30 mg tablet 60 mg PO HS Neurological Condition 02/19/24
vitamins A,C,W-clhy-lfvrbl 4,296 mcg-226 mg-90 mg capsule (PreserVision AREDS) 1 cap PO DAILY Supplement 02/19/24
atorvastatin 40 mg tablet 40 mg PO QPM High cholesterol #30 tabs 02/26/24
clopidogrel 75 mg tablet 75 mg PO DAILY Heart disease/condition #30 tabs 02/26/24
metoprolol tartrate 25 mg tablet 25 mg PO BID Heart disease/condition #60 tabs 02/26/24
pantoprazole 40 mg tablet,delayed release 40 mg PO DAILY Gastrointestinal issue #30 tabs 02/26/24
apixaban 5 mg tablet 5 mg PO BID 06/19/24
amlodipine 5 mg tablet 5 mg PO DAILY 09/08/24
ascorbic acid (vitamin C) 500 mg tablet (Vitamin C) 500 mg PO DAILY 09/08/24
lisinopril 10 mg tablet 10 mg PO DAILY 09/08/24
polyethylene glycol 3350 17 gram oral powder packet (Miralax) 17 g PO HS 09/08/24
Review of Systems
-
History Source: Patient
A 12 point ROS was completed and negative except as noted: Yes
Constitutional: Denies Fever or Chills
Respiratory: Denies Cough or Trouble Breathing
Cardiac: Reports Chest Pain; Denies Diaphoresis or Palpitations
Abdomen/GI: Denies Abdominal Pain, Nausea, Vomiting or Diarrhea
: Denies Dysuria or Frequency
Musculoskeletal: Denies Joint Pain or Edema
Neurological: Denies Dizzy or Headache
Psych: Denies Depression or Anxiety
Physical Exam
Vital Signs
Vital Signs
Temp Pulse Resp BP Pulse Ox
97.8 F 65 18 133/71 98
09/07/24 17:40 09/07/24 23:30 09/07/24 23:30 09/07/24 23:00 09/07/24 23:30
Physical Exam
General: Other (78y F in no acute distress.)
HEENT: Moist mucous membranes and PERRLA
Respiratory: Clear; No Wheezes, Rales or Rhonchi
Cardiac: S1/S2, Regular Rhythm and Murmur (III/ BRIGHT)
GI: Soft, Non Tender, Non Distended and Normal Bowel Sounds
Musculoskeletal: No Clubbing, No Cyanosis and Other (Chronic venous stasis skin changes. Trace edema.)
Neuro: AO x 3
Laboratory Results
-
09/07/24 17:47
09/07/24 17:47
Laboratory Results
Total Bilirubin 0.7 mg/dl (0.2-1.3) 09/07/24 17:47
AST 37 U/L (14-36) H 09/07/24 17:47
ALT 24 U/L (0-35) 09/07/24 17:47
Alkaline Phosphatase 60 U/L (38-126) 09/07/24 17:47
Troponin I 0.017 ng/ml D 09/07/24 22:34
Impression/Plan
-
A/P: Patient is a 78y F with PMH significant for ASCVD, hypertension and RA who presents to ED complaining of chest pain.
Chest Pain
ASCVD
- Admit for further evaluation and treatment.
- Pain x several hours this afternoon / evening - currently pain-free.
- EKG with hyperacute T waves / minimal ST changes - but limited to V2. Improved on subsequent tracings.
- Second troponin noted to be 'non-negative'.
- Monitor on tele.
- Continue current CV med regimen.
- Follow troponin to peak.
- Cardiology evaluation for additional recommendations,.
- Monitor for any recurrent chest pain.
Paroxysmal Atrial Fibrillation
- Stable. Continue metoprolol and Eliquis.
- Monitor on telemetry.
Severe Aortic Stenosis
Moderate - Severe MR
- No lightheadedness, dizziness, abdominal pain, etc.
- Cardiology evaluation as noted above.
Benign Hypertension
- Stable. Continue current med regimen.
Rheumatoid Arthritis
Chronic Pain Syndrome
Chronic Opioid Dependence
- Stable. No new joint pain, etc.
- Received weekly Enbrel - last dose was Saturday.
- Continue current medications with no changes.
Bipolar Depression
Anxiety / Insomnia
- Stable. Patient on multiple / high dose medications - and in combination with chronic opioids as noted above.
- Will continue for now without changes - but would recommend review with PCP as outpatient for any possible changes.
DVT Prophylaxis: On Eliquis
Code Status: Full
[2024-09-08] MEDS: XANAX 0.5 MG PO (01:13)
[2024-09-08] MEDS: REMERON 30 MG PO (01:16)
[2024-09-08 01:55] LABS: Troponin I < 0.012 ng/ml
[2024-09-08 07:54] LABS: Hematocrit 30.8 % (37.0-47.0); Hemoglobin 9.7 g/dL (12.0-16.0); Mean Corp Hgb Conc. 31.5 g/dL (33.0-37.0); Mean Corpuscular Hgb 27.7 pg (27.0-31.0); Mean Platelet Volume 10.9 fL (7.4-10.4); Platelet Count 140 10^3/uL (130-400); Red Cell Dist. Width 16.1 % (11.5-14.5); White Blood Cell Count 4.7 10^3/uL (4.8-10.8)
[2024-09-08 08:03] LABS: Troponin I 0.012 ng/ml
[2024-09-08 08:14] LABS: Blood Urea Nitrogen 26 mg/dl (7-17); Calcium 9.1 mg/dl (8.4-10.2); Carbon Dioxide 31 mmol/L (22-30); Chloride 105 mmol/L (98-107); Estimated Creatinine Clearance 42 ml/min; Glucose 87 mg/dl (70-99); HDL Cholesterol 88 mg/dl; LDL Cholesterol, Calculated 51 mg/dl; Potassium 4.8 mmol/L (3.5-5.1); Sodium 139 mmol/L (135-145); Total Cholesterol 152 mg/dl (50-199); Triglyceride 69 mg/dl (10-149); Very Low Density Lipoprotein 13 mg/dl (0-30); eGFR > 60.00
--- NOTE | 2024-09-08 08:47 | CON.CAR ---
Addendum entered and electronically signed by Onur Strong MD 09/08/24 09:56:
I saw and examined the patient.
The WAREHOUSE ASSISTANT or PA's note was reviewed and I agree with the note.
Comment: General: Well developed, well nourished in NAD.
Neck: Supple, no JVD, HJR, carotids +2 B/L, no bruits bilaterally.
Heart: Non displaced PMI, RRR, 3/6 systolic murmur heard throughout precordium, No S3, S4, no rubs.
Lungs: Scattered rhonchi
Extremities: No clubbing, cyanosis or edema bilaterally.
Neuro: Grossly nonfocal, awake, alert and oriented x3.
Renetta has a history of coronary disease status post RCA stent in February 2024, severe , moderate to severe MR, hypertension, rheumatoid arthritis, PAD. She presents with 2.5 hours of chest pain. This was not as severe as what she had in February
2023 when she had stent. Troponins have been serially negative. Stable cardiology status for discharge and follow-up in our office. She should call with recurrent chest discomfort
Original Note:
Consultation
Consultation Request
Date/Time Consultation Requested: 09/08/24 at 0143
Date/Time Consultation Performed: 09/08/24 at 0916
Requesting Provider: Dr. Mayen
Performing Provider: Dr. Strong
Reason for Consultation: Chest pain, CAD
Medical History
-
History of Present Illness:
Patient came to ER on 09/07/2024 late night with CP and was admitted with consultation to cardiology. As you recall patient has a history of CAD with MV CAD by cardiac cath 02/20/2024 and ultimately had RCA PCI x 2 on 02/24/2024. Since then the
patient has had a number of ER visits for CP was serially normal troponin levels. Intermixed she did have an admission for ischemic colitis ultimately leading to angioplasty and stenting of the superior mesenteric artery for ischemic colitis on
06/16/2024. By her last echo 06/19/2024 her EF was preserved with moderate to severe MR and severe . When patient was seen in the office on 06/23/2024 we reviewed with her the findings from her last cath which included an IFR positive LAD lesion
but that during her various ER visits the Troponins were always in the undetectable to normal range. Patient was pain-free upon arrival to the ER last night and has not had recurrence of pain.
PMH:
Multivessel coronary artery disease on cardiac catheterization 02/20/2024
s/p RCA ostial to mid overlapping 3.0 x 38 mm and 3.0 x 28 mm Xience bala point drug-eluting stents 02/24/2024
HTN
HLD
Severe by echo 06/19/24
Moderate to severe MR by echo 06/19/24
RA on chronic steroid therapy
chronic back pain requiring opioids
h/o PE s/p R knee replacement 2016
History of pleural effusion with MRSA 2011
PAD
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
LE claudication, followed by vascular
depression/anxiety
Family history of aortic aneurysm
Remote former smoker
Former alcoholic
DNR code status
Past Medical History
Past Medical History: Other (in HPI)
Past Surgical History: Cholecystectomy, Gynecological (hysterectomy) and Orthopedic
Social History
Tobacco: Former Smoker
Alcohol: Former
Personal:
Employment: Retired
Family History
Family History: Other (aortic aneurysm in mother)
Allergies / Home Medications
Allergy/AdvReac Type Severity Reaction Status Date / Time
Sulfa (Sulfonamide Allergy Stomach Verified 09/07/24 17:40
Antibiotics) cramps
�Medication �Instructions �Recorded �Confirmed �Type
methylprednisolone 4 mg tablet 4 mg PO DAILY Anti-inflammatory 01/23/16 09/08/24 History
etanercept 50 mg/mL (1 mL) 50 mg SQ SA arthritis 12/09/20 09/08/24 History
subcutaneous syringe (Enbrel)
oxycodone 20 mg tablet,crush 20 mg PO DAILY Pain 12/09/20 09/08/24 History
resistant,extended release 12 hr
(OxyContin)
alprazolam 0.5 mg tablet (Xanax) 0.5 mg PO HS sleep 06/18/22 09/08/24 History
cholecalciferol (vitamin D3) 25 25 mcg PO DAILY Supplement 02/19/24 09/08/24 History
mcg (1,000 unit) tablet (Vitamin
D3)
citalopram 20 mg tablet 30 mg PO DAILY Depression 02/19/24 09/08/24 History
hydrocodone 5 mg-acetaminophen 325 1 tab PO Q8HPRN PRN severe pain 02/19/24 09/08/24 History
mg tablet
mirtazapine 30 mg tablet 60 mg PO HS Neurological Condition 02/19/24 09/08/24 History
vitamins A,C,R-wggd-umifms 4,296 1 cap PO DAILY Supplement 02/19/24 09/08/24 History
mcg-226 mg-90 mg capsule
(PreserVision AREDS)
atorvastatin 40 mg tablet 40 mg PO QPM High cholesterol #30 02/26/24 09/08/24 Rx
tabs
clopidogrel 75 mg tablet 75 mg PO DAILY Heart 02/26/24 09/08/24 Rx
disease/condition #30 tabs
metoprolol tartrate 25 mg tablet 25 mg PO BID Heart 02/26/24 09/08/24 Rx
disease/condition #60 tabs
pantoprazole 40 mg tablet,delayed 40 mg PO DAILY Gastrointestinal 02/26/24 09/08/24 Rx
release issue #30 tabs
apixaban 5 mg tablet 5 mg PO BID 06/19/24 09/08/24 History
amlodipine 5 mg tablet 5 mg PO DAILY 09/08/24 09/08/24 History
ascorbic acid (vitamin C) 500 mg 500 mg PO DAILY 09/08/24 09/08/24 History
tablet (Vitamin C)
lisinopril 10 mg tablet 10 mg PO DAILY 09/08/24 09/08/24 History
polyethylene glycol 3350 17 gram 17 g PO HS 09/08/24 09/08/24 History
oral powder packet (Miralax)
Review of Systems
-
History Source: Patient
All other systems: Negative unless noted
Physical Exam
Vital Signs
Temp Pulse Resp BP Pulse Ox
97.7 F 62 16 122/67 96
09/08/24 02:18 09/08/24 05:00 09/08/24 02:18 09/08/24 02:18 09/08/24 05:04
GEN: NAD, AAO x3
HEENT: MMM
LUNGS: RA. CTA B/L without wheeze
CV: SR on tele. Reg, 2/6 BRIGHT
ABD: +BS, NT, ND, soft
EXT: No clubbing or edema B/L
NEURO: Gross non-focal
SKIN: Warm, dry and pink. No rash
Lab Results
09/08/24 07:20
09/08/24 07:20
Troponin I 0.012 ng/ml 09/08/24 07:20
Impression / Plan
-
PCP: Dr. Ching
Primary Potato Bucker: last seen by Dr. Portillo in 2019
Assessment:
Admitted with chest pain 09/07/24
Serially normal Troponin levels
Multivessel coronary artery disease on cardiac catheterization 02/20/2024
s/p RCA ostial to mid overlapping 3.0 x 38 mm and 3.0 x 28 mm Xience bala point drug-eluting stents 02/24/2024
HTN
HLD
Severe by echo 06/19/24
Moderate to severe MR by echo 06/19/24
RA on chronic steroid therapy
chronic back pain requiring opioids
h/o PE s/p R knee replacement 2016
History of pleural effusion with MRSA 2011
PAD
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
LE claudication, followed by vascular
depression/anxiety
Family history of aortic aneurysm
Remote former smoker
Former alcoholic
DNR code status
ECHO 2021: EF 55 to 60%, mild concentric LVH, mild to moderate eccentric MR, mild with peak/mean gradients 49/18 mmHg, mild to moderate TR, PAP 39 mmHg
ECHO 02/19/2024: EF 55 to 60%, mild concentric LVH, severely dilated the atrium, at least moderate to severe MR, moderate with peak/mean gradients 56/35 mmHg, AMARIS 0.98 cm�, mild AR, mild to moderate TR, PAP 33 mmHg
Echo 06/19/2024: EF 60 to 65%, stage I diastolic dysfunction, normal RV size and function, moderate to severe eccentric MR with mean transmitral gradient of 3 mmHg with an HR of 59 bpm, severe with peak/mean 79/42 mmHg and AMARIS 0.7 to 0.8 cm sq,
mild aortic regurgitation
Plan:
-Patient came to ER on 09/07/2024 late night with CP and was admitted with consultation to cardiology. As you recall patient has a history of CAD with MV CAD by cardiac cath 02/20/2024 and ultimately had RCA PCI x 2 on 02/24/2024. Since then the
patient has had a number of ER visits for CP was serially normal troponin levels. Intermixed she did have an admission for ischemic colitis ultimately leading to angioplasty and stenting of the superior mesenteric artery for ischemic colitis on
06/16/2024. By her last echo 06/19/2024 her EF was preserved with moderate to severe MR and severe . When patient was seen in the office on 06/23/2024 we reviewed with her the findings from her last cath which included an IFR positive LAD lesion
but that during her various ER visits the Troponins were always in the undetectable to normal range. Patient was pain-free upon arrival to the ER last night and has not had recurrence of pain.
-ECG reviewed by me shows SR without acute ST-T wave changes. ECG reviewed by me shows SR.
-Troponin levels this admission have been undetectable up to 0.017 which is still within the normal range and then back down to undetectable. During previous ER visit 06/19/2024 the troponin was normal and previous ER visit 05/28/2024 the troponin
was undetectable. During patient's 02/2024 admission where she was found to have MV CAD her troponin levels were elevated.
-ACS seems unlikely. No acute indication for repeat cath.
-Patient with known moderate to severe valvular heart disease that is being followed as an outpatient. No new or concerning symptoms for valvular heart disease.
-Outpatient doses of Lopressor 25 mg twice daily, lisinopril 10 mg daily, amlodipine 5 mg daily and Eliquis 5 mg twice daily should be continued.
-Patient remains on Plavix 75 mg daily and this should be continued through February 2025
-Patient with known paroxysmal Afib and is in SR on ECG reviewed by me.
[2024-09-08] MEDS: CELEXA 30 MG PO (09:30)
[2024-09-08] MEDS: ELIQUIS 5 MG PO (09:31)
[2024-09-08] MEDS: LOPRESSOR 25 MG PO (09:31)
[2024-09-08] MEDS: MEDROL 4 MG PO (09:31)
[2024-09-08] MEDS: VITAMIN C 500 MG PO (09:32)
[2024-09-08] MEDS: OCUVITE SOFTGEL 1 CAP PO (09:32)
[2024-09-08] MEDS: PLAVIX 75 MG PO (09:32)
[2024-09-08] MEDS: NORVASC 5 MG PO (09:32)
[2024-09-08] MEDS: PROTONIX 40 MG PO (09:32)
[2024-09-08] MEDS: OXYCONTIN (CONTROLLED RELEASE) 20 MG PO (09:32)
[2024-09-08] MEDS: VITAMIN D3 (cholecalciferol) 25 MCG PO (09:33)
[2024-09-08] MEDS: ZESTRIL 10 MG PO (09:33)
--- NOTE | 2024-09-08 11:17 | CM ---
spoke with pt in room, she is prev indep. lives with her son in a 1 story home with 2 steps to enter. she denies any dme's or dc planning needs. plan is for dc to home when medically stable.
--- NOTE | 2024-09-08 11:25 | PTCARENOTE ---
Received patient this morning resting in bed. Patient seen by cardiology and no further cardiac testing ordered, no need to remain NPO. Given all AM meds, sitting oob in the chair now and patient ate breakfast. Following breakfast, patient was
complaining of feeling nauseated and requesting pepto bismol, states this has been happening since she had her stents. TT to Dr. Mayen for an order.
--- NOTE | 2024-09-08 12:10 | W.DS.TRANS ---
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
-
Discharge Instructions:
Discharge Diagnosis/Procedures Chest pain/epigastric pain
Diet Low Cholesterol
Instructions:
Stand-Alone Forms:
Changes to Home Medications: Yes
Discharge Medications:
DC Medications w/original date entered in [facility]
methylprednisolone 4 mg tablet 4 mg PO DAILY Anti-inflammatory 01/23/16
etanercept 50 mg/mL (1 mL) subcutaneous syringe (Enbrel) 50 mg SQ SA arthritis 12/09/20
oxycodone 20 mg tablet,crush resistant,extended release 12 hr (OxyContin) 20 mg PO DAILY Pain 12/09/20
alprazolam 0.5 mg tablet (Xanax) 0.5 mg PO HS sleep 06/18/22
cholecalciferol (vitamin D3) 25 mcg (1,000 unit) tablet (Vitamin D3) 25 mcg PO DAILY Supplement 02/19/24
citalopram 20 mg tablet 30 mg PO DAILY Depression 02/19/24
hydrocodone 5 mg-acetaminophen 325 mg tablet 1 tab PO Q8HPRN PRN severe pain 02/19/24
mirtazapine 30 mg tablet 60 mg PO HS Neurological Condition 02/19/24
vitamins A,C,Q-vjjv-afptjb 4,296 mcg-226 mg-90 mg capsule (PreserVision AREDS) 1 cap PO DAILY Supplement 02/19/24
atorvastatin 40 mg tablet 40 mg PO QPM High cholesterol #30 tabs 02/26/24
clopidogrel 75 mg tablet 75 mg PO DAILY Heart disease/condition #30 tabs 02/26/24
metoprolol tartrate 25 mg tablet 25 mg PO BID Heart disease/condition #60 tabs 02/26/24
apixaban 5 mg tablet 5 mg PO BID 06/19/24
amlodipine 5 mg tablet 5 mg PO DAILY 09/08/24
ascorbic acid (vitamin C) 500 mg tablet (Vitamin C) 500 mg PO DAILY 09/08/24
lisinopril 10 mg tablet 10 mg PO DAILY 09/08/24
pantoprazole 40 mg tablet,delayed release 40 mg PO BID Gastrointestinal issue #60 tabs 09/08/24
polyethylene glycol 3350 17 gram oral powder packet (Miralax) 17 g PO HS 09/08/24
Home Medication Changes
Protonix increased to 40 mg twice daily
Pending Results: No
--- NOTE | 2024-09-08 12:56 | PTCARENOTE ---
Patient seen by Dr. Mayen, nausea is now resolved and patient is ok for discharge. Reviewed discharge instructions, patient is aware to increase her protonix to BID. Patient discharged home with her son.
== END 2024-09-08 12:50 | disposition home or self-care (01) ==
LOC: IVU 00:25
PROVIDERS: Physician Assistant; Physician Assistant Medical; ADMITTING PHYSICIAN Hospitalist; ATTENDING PHYSICIAN Internal Medicine; EMERGENCY PHYSICIAN Emergency Medicine; FAMILY PHYSICIAN Internal Medicine; OTHER PHYSICIAN Internal Medicine Cardiovascular Disease
DX: R07.89 Other chest pain (principal); R10.13 Epigastric pain; I25.10 Atherosclerotic heart disease of native coronary artery without angina pectoris; I10 Essential (primary) hypertension; K55.1 Chronic vascular disorders of intestine; I48.0 Paroxysmal atrial fibrillation; E78.5 Hyperlipidemia, unspecified; F31.9 Bipolar disorder, unspecified; M06.9 Rheumatoid arthritis, unspecified; F11.20 Opioid dependence, uncomplicated; F41.9 Anxiety disorder, unspecified; G47.00 Insomnia, unspecified; F10.21 Alcohol dependence, in remission; G89.4 Chronic pain syndrome; I08.0 Rheumatic disorders of both mitral and aortic valves; I25.2 Old myocardial infarction; Z86.711 Personal history of pulmonary embolism; Z96.651 Presence of right artificial knee joint; Z90.710 Acquired absence of both cervix and uterus; Z90.49 Acquired absence of other specified parts of digestive tract; Z87.891 Personal history of nicotine dependence; Z82.49 Family history of ischemic heart disease and other diseases of the circulatory system; Z79.01 Long term (current) use of anticoagulants; Z79.02 Long term (current) use of antithrombotics/antiplatelets; Z79.52 Long term (current) use of systemic steroids; Z95.5 Presence of coronary angioplasty implant and graft; Z88.2 Allergy status to sulfonamides; Z66 Do not resuscitate; Z86.14 Personal history of Methicillin resistant Staphylococcus aureus infection
CPT/HCPCS: 80048; 80053; 80061; 84484; 85025; 85027; 87070; 93005; 99285; G0378

== ENCOUNTER → 2024-09-29 08:53 | Outpatient (REF) | payer MEDICARE, SELFPAY | LOC: RAD 08:53 | PROVIDERS: ATTENDING PHYSICIAN Surgery Vascular Surgery; FAMILY PHYSICIAN Internal Medicine | DX: I73.9 Peripheral vascular disease, unspecified (principal) | CPT/HCPCS: 93922; 93925 ==

== ENCOUNTER 2024-11-01 11:10 | Emergency (ER) | payer MEDICARE, SELFPAY ==
[2024-11-01 11:14] VITALS: BP 126/83
[2024-11-01 11:16] VITALS: BP 126/83
[2024-11-01 11:30] VITALS: BMI 20.5
--- NOTE | 2024-11-01 11:30 | ED.GENMED ---
History of Present Illness
General
Chief Complaint: Abdominal Pain
Time Seen by Provider: 11/01/24 11:30
History of Present Illness
History of Present Illness:
TIME OF INITIAL ENCOUNTER: 11:35 AM
HPI: The patient came in due to vomiting and diarrhea. Prior to arrival, she also had rather significant abdominal pain. She was given Zofran and Toradol by EMS and now has no pain. She has not been on any antibiotics recently. She states that
she had diarrhea that was nonstop.
EXAM:
GENERAL: Well appearing in no distress
HEENT: Moist oral mucosa
CARDIOVASCULAR: 3 out of 6 systolic murmur in the upper sternal borders, normal heart rate, regular rhythm, No chest wall tenderness
PULMONARY: No respiratory distress, breath sounds are clear and equal
ABDOMEN: Soft with no peritoneal signs, no tenderness
NEUROLOGIC: Excellent strength all extremities, no coordination deficits
PSYCHIATRIC: Appropriate mental status, normal insight and judgement
EXTREMITIES: Nontender, no edema, moves all extremities equally
SKIN: Scattered areas of ecchymosis
NUMBER AND COMPLEXITY OF PROBLEMS ADDRESSED AT THE ENCOUNTER
� Chronic conditions affecting care: Aortic stenosis, high blood pressure, anxiety/depression
� Acute Exacerbation and/or Progression of Chronic Illness: This is an acute problem
� Differential Diagnosis includes: Foodborne illness, viral syndrome/gastroenteritis, anxiety
AMOUNT AND/OR COMPLEXITY OF DATA TO BE REVIEWED AND ANALYZED
� I performed an independent evaluation of and my interpretation is:
EKG:
CT:
X-rays:
Laboratory Studies: White count normal at 6.1, hemoglobin 10.6 which is higher than recent, chemistries relatively unremarkable
Other:
� Review of other/old records: I reviewed records, the patient was seen here in August and was kept in the hospital for the possibility of acute coronary syndrome. She is also on Eliquis for paroxysmal A-fib.
� Clinical information was obtained by an independent historian:
� Prescriptions/Medications Considered but not given:
� Further testing considered but not performed: Considered CT imaging however the patient had has virtually no symptoms on reassessment and remains pain-free
RISK OF COMPLICATIONS AND/OR MORBIDITY OR MORTALITY OF PATIENT MANAGEMENT
� Social determinants of health affecting care: Lives at home
� Discussion with other providers:
� Escalation of care including admission/observation vs risk of discharge considered: White count and other basic blood work unremarkable. Some mild nausea persist but overall feels markedly improved. She has a soft nontender
abdomen. Her symptoms include vomiting and diarrhea. She currently has no pain. She is eager to go home. We did talk about the potential interaction with Zofran and Celexa and she states that she will only use it sparingly.
ANY OTHER UPDATES:
Past History
Past History
ED Past Medical History: CAD, HTN, [place], Valvular disease ( heart murmur) and Other (Rheumatoid arthritis, bipolar, pulmonary embolism)
ED Past Surgical History: Cholecystectomy, Gynecological (Hysterectomy), Orthopedic (Right hand surgery, left hand surgery, R knee replacement) and Other (Surgery for deviated septum)
Social History
Tobacco: Former smoker
Alcohol: None
Drug: None
Personal:
Living: with family
Employment: Retired
Family History
Family History: Hypertension and CAD
Phy Exam
Physical Exam
Physical Exam:
See HPI
Course
Orders/Labs/Results
Orders:
Orders
11/01/24 11:33
Complete Blood Count/With Diff Urgent
Comprehensive Metabolic Panel Urgent
11/01/24 11:39
0.9% Sodium Chloride 500 ml [Nss] 500 ml IV BOLUS
11/01/24 13:19
Ondansetron Injectable [Zofran] 4 mg IV NOW STA
Abnormal Lab Results
11/01/24
11:33
RBC 3.73 L 10^6/uL
(4.20-5.40)
Hgb 10.6 L g/dL
(12.0-16.0)
Hct 33.7 L %
(37.0-47.0)
MCHC 31.5 L g/dL
(33.0-37.0)
RDW 16.7 H %
(11.5-14.5)
MPV 11.5 H fL
(7.4-10.4)
BUN 21 H mg/dl
(7-17)
Glucose 183 H mg/dl
(70-99)
AST 43 H U/L
(14-36)
11/01/24 11:33
11/01/24 11:33
Vital Signs
Initial and Last Documented VS:
Initial Vital Signs
Temp Pulse Resp BP Pulse Ox
36.1 C 58 17 126/83 98
11/01/24 11:14 11/01/24 11:14 11/01/24 11:14 11/01/24 11:14 11/01/24 11:14
Last Documented Vital Signs
Temp Pulse Resp BP Pulse Ox
36.1 C 58 18 128/60 99
11/01/24 11:14 11/01/24 12:00 11/01/24 12:00 11/01/24 12:00 11/01/24 11:30
*Critical Care Note
Total Time (30-74mins, 75-104mins- exclusive of procedures): Not Applicable
ED Attending Note
-
Portions of this chart may have been created with voice recognition software.� Occasional wrong word or��sound alike� substitutions may have occurred due to the inherent limitations of voice recognition software.
Discharge Plan
Departure
Patient Disposition: Home (Routine Discharge)
Date of Disposition: 11/01/24
Time of Disposition: 13:20
Patient with high blood pressure during this ER visit?: Yes
Discharge Problem:
Nausea, vomiting, and diarrhea
Instructions: Diarrhea in teens and adults, Nausea and Vomiting, Adult (DC)
Prescriptions:
New
ondansetron HCl 4 mg tablet
4 mg PO DAILY Qty: 6 0RF
No Action
methylprednisolone 4 MG tablet
4 mg PO DAILY
oxycodone [OxyContin] 20 MG tablet,oral only,ext.rel.12 hr
20 mg PO DAILY
Enbrel 50 MG/ML syringe
50 mg SQ SA
alprazolam [Xanax] 0.5 mg Tablet
0.5 mg PO HS
hydrocodone-acetaminophen 5-325 mg Tablet
1 tab PO Q8HPRN PRN (Reason: severe pain)
citalopram 20 mg Tablet
30 mg PO DAILY
mirtazapine 30 mg Tablet
60 mg PO HS
cholecalciferol (vitamin D3) [Vitamin D3] 25 mcg (1,000 unit) Tablet
25 mcg PO DAILY
PreserVision AREDS 4,296 mcg-226 mg-90 mg Capsule
1 cap PO DAILY
atorvastatin 40 mg Tablet
40 mg PO QPM Qty: 30 11RF
clopidogrel 75 mg Tablet
75 mg PO DAILY Qty: 30 11RF
metoprolol tartrate 25 mg Tablet
25 mg PO BID Qty: 60 11RF
apixaban 5 mg Tablet
5 mg PO BID
polyethylene glycol 3350 [Miralax] 17 gram Powder In Packet
17 g PO HS
amlodipine 5 mg Tablet
5 mg PO DAILY
ascorbic acid (vitamin C) [Vitamin C] 500 mg Tablet
500 mg PO DAILY
lisinopril 10 mg Tablet
10 mg PO DAILY
pantoprazole 40 mg Tablet,Delayed Release (Dr/Ec)
40 mg PO BID Qty: 60 11RF
Referrals:
Tangela Ching MD [Family Provider] -
Activity Restrictions/Additional Instructions:
I am sending a prescription for Zofran (ondansetron) to your pharmacy. However there is a potential interaction between that medication and citalopram (Celexa). I recommend only limited use of this medication and only to use it for severe symptoms.
Interventions
Interventions:
*Risk Screen - Suicide Last Done: 11/01/24 11:14
*General Assessment Last Done: 11/01/24 11:14
*Neglect/Abuse Screening Last Done: 11/01/24 11:14
*ED COVID-19 Vaccine History Last Done: 11/01/24 11:27
JJ-Stdjvl-Kxpbmwbbor Assessment Last Done: 11/01/24 11:29
Discharge Date and Time
Print Language: [place] ISLAND[place]
[2024-11-01 11:41] LABS: % Basophils 0.7 % (0-2); % Eosinophils 0.3 % (0-6); % Immature Granulocytes 0.5 % (0-0.5); % Lymphocytes 25.3 % (20.5-51.1); % Monocytes 4.1 % (1.7-9.3); % Neutrophils 69.1 % (42.2-75.2); Absolute Lymphocytes 1.6 10^3/uL (1.2-3.4); Absolute Monocytes 0.3 10^3/uL (0.1-0.6); Absolute Neutrophils 4.2 10^3/uL (1.4-6.5); Hematocrit 33.7 % (37.0-47.0); Hemoglobin 10.6 g/dL (12.0-16.0); Mean Corp Hgb Conc. 31.5 g/dL (33.0-37.0); Mean Corpuscular Hgb 28.4 pg (27.0-31.0); Mean Corpuscular Volume 90.3 fL (81.0-99.0); Mean Platelet Volume 11.5 fL (7.4-10.4); Nucleated Red Blood Cells % 0 %; Platelet Count 154 10^3/uL (130-400); Red Blood Cell Count 3.73 10^6/uL (4.20-5.40); Red Cell Dist. Width 16.7 % (11.5-14.5); White Blood Cell Count 6.1 10^3/uL (4.8-10.8)
[2024-11-01 12:00] VITALS: BP 128/60
[2024-11-01 12:08] LABS: ALT (SGPT) 29 U/L (0-35); AST (SGOT) 43 U/L (14-36); Albumin 3.9 g/dl (3.5-5.0); Alkaline Phosphatase 68 U/L (38-126); Blood Urea Nitrogen 21 mg/dl (7-17); Calcium 9.5 mg/dl (8.4-10.2); Carbon Dioxide 28 mmol/L (22-30); Chloride 103 mmol/L (98-107); Estimated Creatinine Clearance 44 ml/min; Glucose 183 mg/dl (70-99); Potassium 3.8 mmol/L (3.5-5.1); Sodium 139 mmol/L (135-145); Total Bilirubin 1.2 mg/dl (0.2-1.3); Total Protein 6.4 g/dl (6.3-8.2); eGFR > 60.00
[2024-11-01] MEDS: NSS 500 IV (12:09)
[2024-11-01 12:54] VITALS: BP 127/59
[2024-11-01 13:00] VITALS: BP 139/88
[2024-11-01] MEDS: ZOFRAN 4 MG IV (13:38)
== END 2024-11-01 14:15 | disposition home or self-care (01) ==
LOC: EMR 11:10
PROVIDERS: EMERGENCY PHYSICIAN Emergency Medicine; FAMILY PHYSICIAN Internal Medicine
DX: R11.2 Nausea with vomiting, unspecified (principal); R19.7 Diarrhea, unspecified; R10.9 Unspecified abdominal pain; I10 Essential (primary) hypertension; I25.10 Atherosclerotic heart disease of native coronary artery without angina pectoris; Z90.49 Acquired absence of other specified parts of digestive tract; Z87.891 Personal history of nicotine dependence; M06.9 Rheumatoid arthritis, unspecified; Z86.711 Personal history of pulmonary embolism
CPT/HCPCS: 96374; 96361; 99284; 80053; 85025

== ENCOUNTER 2024-11-23 14:03 | Emergency (ER) | payer MEDICARE, SELFPAY ==
[2024-11-23 14:05] VITALS: BP 130/72; BMI 21.6
[2024-11-23] MEDS: XANAX 0.5 MG PO (14:12)
--- NOTE | 2024-11-23 14:37 | ED.GENMED ---
History of Present Illness
General
Chief Complaint: Esophageal Problem
Source: patient
Exam Limitations: none
Time Seen by Provider: 11/23/24 14:11
Nursing documentation reviewed up to this point in time: agreed with
History of Present Illness
History of Present Illness:
79-year-old female with history as documented presents to the ER for evaluation after transient esophageal obstruction. Patient says she swallowed a complaint just prior to arrival. She says that she felt to get stuck in the lower neck/chest. She
says it she was having pain and could not swallow saliva. She says that this lasted for about an hour but by the time she arrived in the emergency room it had passed and she felt back to normal. Since then she has been able to drink water and has
not had any issues tolerating secretion. She says she did not have any choking or breathing difficulties, coughing and denies any symptoms at present moment. She denies any other complaints today. She denies having had similar symptoms in the
past.
Past History
Past History
ED Past Medical History: CAD, HTN, [place], Valvular disease ( heart murmur) and Other (Rheumatoid arthritis, bipolar, pulmonary embolism)
ED Past Surgical History: Cholecystectomy, Gynecological (Hysterectomy), Orthopedic (Right hand surgery, left hand surgery, R knee replacement) and Other (Surgery for deviated septum)
Social History
Tobacco: Former smoker
Alcohol: None
Drug: None
Personal:
Living: with family
Employment: Retired
Family History
Family History: Hypertension and CAD
Review of Systems
Review of Systems
All Other Systems: ROS reviewed and negative except as documented in HPI and ROS
Respiratory: Denies trouble breathing
Cardiac: Denies chest pain
ABD/GI: Denies abdominal pain or vomiting
Phy Exam
Physical Exam
Physical Exam:
General: Awake, alert, oriented x3; no acute distress
Head: Normocephalic, atraumatic
Eyes: Conjunctiva normal, sclera anicteric
Throat: Airway intact, handling secretions, midline uvula without edema
Neck: Trachea midline, supple without meningismus
Lungs: Clear to auscultation bilaterally, no wheezing, rales, rhonchi
Heart: Regular rate and rhythm, systolic murmur
Abd: Soft, non distended, nontender
Neuro: No gross deficits
Extremities: Warm and well-perfused
Scores
Heart Failure Risk
Heart Failure Risk Score: Not Applicable
Heart Score for Chest Pain Patients
STEMI patient?: Not applicable
Withdrawal Assessment of Alcohol
Withdrawal Assessment Completed?: Not applicable
Course
Orders/Labs/Results
Orders:
Orders
11/23/24 14:09
Alprazolam [Xanax] 0.5 mg .ROUTE .STK-MED ONE
11/23/24 14:11
Alprazolam [Xanax] 0.5 mg PO NOW STA
Vital Signs
Initial and Last Documented VS:
Initial Vital Signs
Temp Pulse Resp BP Pulse Ox
36.9 C 83 16 130/72 100
11/23/24 14:05 11/23/24 14:05 11/23/24 14:05 11/23/24 14:05 11/23/24 14:05
Last Documented Vital Signs
Temp Pulse Resp BP Pulse Ox
36.9 C 83 16 130/72 100
11/23/24 14:05 11/23/24 14:05 11/23/24 14:05 11/23/24 14:05 11/23/24 14:05
MDM/Problems Addressed
Differential Diagnosis Includes:
Esophageal food obstruction
MDM/Problems Addressed:
79-year-old female presents for evaluation after transient esophageal food obstruction�swallowed dumpling and felt to get caught in her throat and had difficulty tolerating secretions. This lasted for less than an hour and now has completely
resolved. She said she feels much better on arrival. She was having increased anxiety on arrival and asked for a dose of her typical home Ativan which helped. She is now resting comfortably, asymptomatic, drinking water. Will observe for short
period but if she remains stable can be discharged. Advised her to ensure that she is chewing her food well before swallowing in the future.
Clinical reassessment patient remains asymptomatic, well-appearing, tolerating p.o. without issue. Stable for discharge.
*Pulse Oximetry
Patient hypoxic: no
*Critical Care Note
Total Time (30-74mins, 75-104mins- exclusive of procedures): Not Applicable
Data Reviewed
Source: patient
Further Testing Considered But Not Given:
Considered chest x-ray but lungs clear, no breathing difficulties or coughing noted
ED Attending Note
-
Portions of this chart may have been created with voice recognition software.� Occasional wrong word or��sound alike� substitutions may have occurred due to the inherent limitations of voice recognition software.
Discharge Plan
Departure
Patient Disposition: Home (Routine Discharge)
Date of Disposition: 11/23/24
Time of Disposition: 15:09
Patient with high blood pressure during this ER visit?: No
Discharge Problem:
Food impaction of esophagus
Instructions: Food Obstruction
Prescriptions:
No Action
methylprednisolone 4 MG tablet
4 mg PO DAILY
oxycodone [OxyContin] 20 MG tablet,oral only,ext.rel.12 hr
20 mg PO DAILY
Enbrel 50 MG/ML syringe
50 mg SQ SA
alprazolam [Xanax] 0.5 mg Tablet
0.5 mg PO HS
hydrocodone-acetaminophen 5-325 mg Tablet
1 tab PO Q8HPRN PRN (Reason: severe pain)
citalopram 20 mg Tablet
30 mg PO DAILY
mirtazapine 30 mg Tablet
60 mg PO HS
cholecalciferol (vitamin D3) [Vitamin D3] 25 mcg (1,000 unit) Tablet
25 mcg PO DAILY
PreserVision AREDS 4,296 mcg-226 mg-90 mg Capsule
1 cap PO DAILY
atorvastatin 40 mg Tablet
40 mg PO QPM Qty: 30 11RF
clopidogrel 75 mg Tablet
75 mg PO DAILY Qty: 30 11RF
metoprolol tartrate 25 mg Tablet
25 mg PO BID Qty: 60 11RF
apixaban 5 mg Tablet
5 mg PO BID
polyethylene glycol 3350 [Miralax] 17 gram Powder In Packet
17 g PO HS
amlodipine 5 mg Tablet
5 mg PO DAILY
ascorbic acid (vitamin C) [Vitamin C] 500 mg Tablet
500 mg PO DAILY
lisinopril 10 mg Tablet
10 mg PO DAILY
pantoprazole 40 mg Tablet,Delayed Release (Dr/Ec)
40 mg PO BID Qty: 60 11RF
ondansetron HCl 4 mg tablet
4 mg PO DAILY Qty: 6 0RF
Activity Restrictions/Additional Instructions:
Thank you for visiting the Emergency Department at [facility].
1. Please schedule a follow up appointment as directed. Call first thing tomorrow morning to make an appointment.
2. If indicated, please take your medications as instructed and indicated on discharge paperwork.
3. If any of your symptoms do not improve, or persist, or become more severe within 6-12 hours, please return to the emergency department for further care.
4. Please return to the emergency department if you develop a headache, neck pain/stiffness, fever greater than 100.4F, chest pain, shortness of breath, persistent nausea, vomiting, slurred speech, difficulty walking, numbness/tingling, weakness,
signs of infection or any other symptoms that are worrisome to you.
Please call [phone] if you have any questions.
Interventions
Interventions:
*Risk Screen - Suicide Last Done: 11/23/24 14:05
*General Assessment Last Done: 11/23/24 14:05
*Neglect/Abuse Screening Last Done: 11/23/24 14:05
*ED- Fall Risk Assessment Last Done: 11/23/24 14:13
*ED COVID-19 Vaccine History Last Done: 11/23/24 14:13
LZ-Jgqhgs-Yczuqwaxhv Assessment Last Done: 11/23/24 14:17
ED-EENT Assessment Last Done: 11/23/24 14:17
Discharge Date and Time
Print Language: PORTUGUESE
== END 2024-11-23 15:47 | disposition home or self-care (01) ==
LOC: EMR 14:03
PROVIDERS: EMERGENCY PHYSICIAN Emergency Medicine; FAMILY PHYSICIAN Internal Medicine
DX: T18.128A Food in esophagus causing other injury, initial encounter (principal); W44.F3XA Food entering into or through a natural orifice, initial encounter; Z87.891 Personal history of nicotine dependence; F41.9 Anxiety disorder, unspecified
CPT/HCPCS: 99283

== ENCOUNTER → 2024-12-19 08:14 | Outpatient (REF) | payer MEDICARE, SELFPAY | LOC: RAD 08:14 | PROVIDERS: ATTENDING PHYSICIAN Nurse Practitioner Family; FAMILY PHYSICIAN Internal Medicine | DX: M25.571 Pain in right ankle and joints of right foot (principal) | CPT/HCPCS: 73610 ==

== ENCOUNTER → 2024-12-30 09:05 | Outpatient (REF) | payer MEDICARE, SELFPAY | LOC: RCS 09:05 | PROVIDERS: ATTENDING PHYSICIAN Internal Medicine Interventional Cardiology; FAMILY PHYSICIAN Internal Medicine | DX: I10 Essential (primary) hypertension (principal); I35.0 Nonrheumatic aortic (valve) stenosis | CPT/HCPCS: 93306 ==

== ENCOUNTER → 2025-01-12 06:24 | Outpatient (REF) | payer MEDICARE, SELFPAY | LOC: REG 06:24 | PROVIDERS: ATTENDING PHYSICIAN Nurse Practitioner Family; FAMILY PHYSICIAN Internal Medicine | DX: M79.672 Pain in left foot (principal) | CPT/HCPCS: 73630 ==

== ENCOUNTER → 2025-01-25 09:19 | Outpatient (REF) | payer MEDICARE, SELFPAY | LOC: DHVS 09:19 | PROVIDERS: ATTENDING PHYSICIAN Surgery Vascular Surgery; FAMILY PHYSICIAN Internal Medicine | DX: I77.9 Disorder of arteries and arterioles, unspecified (principal) | CPT/HCPCS: 93922 ==

== ENCOUNTER 2025-01-27 05:20 | Emergency (ER) | payer MEDICARE, SELFPAY ==
[2025-01-27 05:25] VITALS: BP 145/80
[2025-01-27 05:31] VITALS: BP 145/80; BMI 20.3
[2025-01-27 05:54] LABS: % Basophils 0.7 % (0-2); % Immature Granulocytes 0.4 % (0-0.5); % Lymphocytes 31.8 % (20.5-51.1); % Monocytes 10.2 % (1.7-9.3); % Neutrophils 53.9 % (42.2-75.2); Absolute Eosinophils 0.2 10^3/uL (0-0.7); Absolute Lymphocytes 1.8 10^3/uL (1.2-3.4); Absolute Monocytes 0.6 10^3/uL (0.1-0.6); Absolute Neutrophils 3.1 10^3/uL (1.4-6.5); Hematocrit 32.3 % (37.0-47.0); Hemoglobin 10.6 g/dL (12.0-16.0); Mean Corp Hgb Conc. 32.8 g/dL (33.0-37.0); Mean Corpuscular Hgb 29.7 pg (27.0-31.0); Mean Corpuscular Volume 90.5 fL (81.0-99.0); Mean Platelet Volume 11.3 fL (7.4-10.4); Nucleated Red Blood Cells % 0 %; Platelet Count 144 10^3/uL (130-400); Red Blood Cell Count 3.57 10^6/uL (4.20-5.40); Red Cell Dist. Width 14.7 % (11.5-14.5); White Blood Cell Count 5.7 10^3/uL (4.8-10.8)
[2025-01-27 06:11] LABS: INR 1.04; PT 13.9 Sec (11.4-14.6)
[2025-01-27 06:22] LABS: ALT (SGPT) 35 U/L (0-35); AST (SGOT) 40 U/L (14-36); Albumin 4.1 g/dl (3.5-5.0); Alkaline Phosphatase 55 U/L (38-126); Blood Urea Nitrogen 21 mg/dl (7-17); Calcium 9.6 mg/dl (8.4-10.2); Carbon Dioxide 26 mmol/L (22-30); Chloride 111 mmol/L (98-107); Estimated Creatinine Clearance 43 ml/min; Glucose 88 mg/dl (70-99); Potassium 3.5 mmol/L (3.5-5.1); Sodium 144 mmol/L (135-145); Total Bilirubin 1.1 mg/dl (0.2-1.3); Total Protein 6.6 g/dl (6.3-8.2); eGFR > 60.00
--- NOTE | 2025-01-27 06:31 | ED.GENMED ---
History of Present Illness
General
Chief Complaint: Heart Rate Problem
Time Seen by Provider: 01/27/25 06:04
History of Present Illness
History of Present Illness:
Patient is an 79-year-old female with a history of mitral regurgitation, aortic stenosis, CAD, paroxysmal atrial fibrillation who presents to the emergency department with an episode of palpitations that is now resolved. She notes the symptoms
started just prior to calling the ambulance this morning. She felt her heart was racing in her chest. There was no pain or pressure. She is currently asymptomatic and requesting to go home
Past History
Past History
ED Past Medical History: CAD, HTN, [place], Valvular disease ( heart murmur) and Other (Rheumatoid arthritis, bipolar, pulmonary embolism)
ED Past Surgical History: Cholecystectomy, Gynecological (Hysterectomy), Orthopedic (Right hand surgery, left hand surgery, R knee replacement) and Other (Surgery for deviated septum)
Social History
Tobacco: Former smoker
Alcohol: None
Drug: None
Personal:
Living: with family
Employment: Retired
Family History
Family History: Hypertension and CAD
Phy Exam
Physical Exam
Physical Exam:
GENERAL APPEARANCE: NAD, well developed/ well nourished
EYES lids/conjunctiva normal
EARS/NOSE/THROAT Mucous membranes moist, uvula midline without oral pharyngeal erythema, exudate or swelling
HEAD/NECK normocephalic atraumatic, neck is supple.
RESPIRATORY respiratory effort normal, speaks in full sentences, no accessory muscle use. Lungs clear to auscultation without rhonchi, wheezes, rales
CARDIAC Regular rate and rhythm, no edema. Loud systolic murmur
ABDOMINAL Soft, ND/NT. No pulsatile masses on exam, rebound tenderness, Spears sign or pain over Mcburney's point.
MUSCLES/EXTREMITIES No abnormal range of motion, no swelling.
SKIN Warm, pink and dry. No rashes
NEUROLOGICAL Speech is clear and appropriate. Normal level of consciousness. 5/5 strength in all extremities.
PSYCH Normal mood and affect. Judgement/competence is appropriate
Course
Orders/Labs/Results
Orders:
Orders
01/27/25 05:40
Electrocardiogram (*1) Urgent
Reason for Study: Chest Pain
Cardiac Monitoring- Treatment ONCE
EKG- Treatment ONCE
IV Insert/Care/Rem.- Treatment PRN
O2 Therapy [RESP] Urgent
Titrate/Wean O2 to maintain O2 sat greater than (%): 90
Special Instructions: Maintain sats >/=90%
Pulse Ox/spot Check [RESP] Urgent
Quantity: 1
Special Instructions: ON ROOM AIR
01/27/25 05:44
Complete Blood Count/With Diff Urgent
Comprehensive Metabolic Panel Urgent
Prothrombin Time Urgent
Troponin I Urgent
Abnormal Lab Results
01/27/25
05:44
RBC 3.57 L 10^6/uL
(4.20-5.40)
Hgb 10.6 L g/dL
(12.0-16.0)
Hct 32.3 L %
(37.0-47.0)
MCHC 32.8 L g/dL
(33.0-37.0)
RDW 14.7 H %
(11.5-14.5)
MPV 11.3 H fL
(7.4-10.4)
Monocytes % 10.2 H %
(1.7-9.3)
Chloride 111 H mmol/L
(98-107)
BUN 21 H mg/dl
(7-17)
AST 40 H U/L
(14-36)
01/27/25 05:44
01/27/25 05:44
Vital Signs
Initial and Last Documented VS:
Initial Vital Signs
Pulse Resp BP Pulse Ox
80 17 145/80 96
01/27/25 05:25 01/27/25 05:25 01/27/25 05:25 01/27/25 05:25
Last Documented Vital Signs
Temp Pulse Resp BP Pulse Ox
98.0 F 77 16 144/79 98
01/27/25 05:31 01/27/25 06:44 01/27/25 06:44 01/27/25 06:44 01/27/25 06:44
*Pulse Oximetry
Patient hypoxic: no (98)
*Critical Care Note
Total Time (30-74mins, 75-104mins- exclusive of procedures): Not Applicable
ED Attending Note
ED Attending Note
ED Attending Note:
Patient's EKG showing sinus rhythm without changes. Story is suspicious for a paroxysmal episode of possibly atrial fibrillation or another tachydysrhythmia. Labs and keep while in the emergency department. 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
next week during which time she can get a holter monitor if needed.
-
Portions of this chart may have been created with voice recognition software.� Occasional wrong word or��sound alike� substitutions may have occurred due to the inherent limitations of voice recognition software.
Discharge Plan
Departure
Patient Disposition: Home (Routine Discharge)
Date of Disposition: 01/27/25
Time of Disposition: 06:36
Patient with high blood pressure during this ER visit?: Yes
Discharge Problem:
Heart palpitations
Prescriptions:
No Action
methylprednisolone 4 MG tablet
4 mg PO DAILY
oxycodone [OxyContin] 20 MG tablet,oral only,ext.rel.12 hr
20 mg PO DAILY
Enbrel 50 MG/ML syringe
50 mg SQ SA
alprazolam [Xanax] 0.5 mg Tablet
0.5 mg PO HS
hydrocodone-acetaminophen 5-325 mg Tablet
1 tab PO Q8HPRN PRN (Reason: severe pain)
citalopram 20 mg Tablet
30 mg PO DAILY
mirtazapine 30 mg Tablet
60 mg PO HS
cholecalciferol (vitamin D3) [Vitamin D3] 25 mcg (1,000 unit) Tablet
25 mcg PO DAILY
PreserVision AREDS 4,296 mcg-226 mg-90 mg Capsule
1 cap PO DAILY
atorvastatin 40 mg Tablet
40 mg PO QPM Qty: 30 11RF
clopidogrel 75 mg Tablet
75 mg PO DAILY Qty: 30 11RF
metoprolol tartrate 25 mg Tablet
25 mg PO BID Qty: 60 11RF
apixaban 5 mg Tablet
5 mg PO BID
polyethylene glycol 3350 [Miralax] 17 gram Powder In Packet
17 g PO HS
amlodipine 5 mg Tablet
5 mg PO DAILY
ascorbic acid (vitamin C) [Vitamin C] 500 mg Tablet
500 mg PO DAILY
lisinopril 10 mg Tablet
10 mg PO DAILY
pantoprazole 40 mg Tablet,Delayed Release (Dr/Ec)
40 mg PO BID Qty: 60 11RF
ondansetron HCl 4 mg tablet
4 mg PO DAILY Qty: 6 0RF
Referrals:
UNKNOWN - PT DOES,NOT KNOW [Family Provider]
Activity Restrictions/Additional Instructions:
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 Please discuss this episode with them as you may be prescribed a Holter monitor. Return to ER with new or worsening symptoms.
Interventions
Interventions:
*Risk Screen - Suicide Last Done: 01/27/25 05:31
*General Assessment Last Done: 01/27/25 05:31
*Neglect/Abuse Screening Last Done: 01/27/25 05:31
*ED- Fall Risk Assessment Last Done: 01/27/25 05:31
*ED COVID-19 Vaccine History Last Done: 01/27/25 05:31
*Nursing Disposition Last Done: 01/27/25 06:44
ED- Cardiac Assessment Last Done: 01/27/25 05:31
ED- Pulmonary Assessment Last Done: 01/27/25 05:31
Discharge Date and Time
Discharge Date/Time: 01/27/25 06:45
Print Language: LAO
[2025-01-27 06:33] LABS: Troponin I < 0.012 ng/ml
[2025-01-27 06:44] VITALS: BP 144/79
== END 2025-01-27 06:45 | disposition home or self-care (01) ==
LOC: EMR 05:20
PROVIDERS: Student in an Organized Health Care Education/Training Program; EMERGENCY PHYSICIAN Emergency Medicine
DX: R00.2 Palpitations (principal); I34.0 Nonrheumatic mitral (valve) insufficiency; I35.0 Nonrheumatic aortic (valve) stenosis; I25.10 Atherosclerotic heart disease of native coronary artery without angina pectoris; I10 Essential (primary) hypertension; I48.0 Paroxysmal atrial fibrillation; M06.9 Rheumatoid arthritis, unspecified; Z82.49 Family history of ischemic heart disease and other diseases of the circulatory system; Z86.711 Personal history of pulmonary embolism; Z87.891 Personal history of nicotine dependence; Z90.49 Acquired absence of other specified parts of digestive tract; Z90.710 Acquired absence of both cervix and uterus; Z96.651 Presence of right artificial knee joint
CPT/HCPCS: 99283; 80053; 84484; 85025; 85610; 93005

== ENCOUNTER 2025-02-08 06:20 | Day surgery (SDC) | payer MEDICARE, SELFPAY ==
[2025-02-08] VITALS (21 sets, daily range): BP systolic 105–141; BP diastolic 60–75; BMI 19.7
[2025-02-08] MEDS: NSS 500 IV (06:50)
[2025-02-08 06:59] LABS: Hemoglobin 11.7 g/dL (12.0-16.0); Mean Corp Hgb Conc. 31.6 g/dL (33.0-37.0); Mean Corpuscular Hgb 29.2 pg (27.0-31.0); Mean Corpuscular Volume 92.3 fL (81.0-99.0); Mean Platelet Volume 11.6 fL (7.4-10.4); Platelet Count 171 10^3/uL (130-400); Red Blood Cell Count 4.01 10^6/uL (4.20-5.40); Red Cell Dist. Width 14.9 % (11.5-14.5); White Blood Cell Count 6.1 10^3/uL (4.8-10.8)
[2025-02-08 07:06] LABS: INR 0.93; PT 12.8 Sec (11.4-14.6)
[2025-02-08 07:07] LABS: APTT 28.1 Sec (23.4-35.0)
[2025-02-08 07:13] LABS: Blood Urea Nitrogen 26 mg/dl (7-17); Calcium 9.8 mg/dl (8.4-10.2); Carbon Dioxide 29 mmol/L (22-30); Chloride 108 mmol/L (98-107); Estimated Creatinine Clearance 43 ml/min; Glucose 91 mg/dl (70-99); Potassium 4.1 mmol/L (3.5-5.1); Sodium 145 mmol/L (135-145); eGFR > 60.00
[2025-02-08 09:39] LABS: ACT-LR - POC 244 Seconds (116-155)
--- NOTE | 2025-02-08 10:46 | W.SUR.POST ---
Surgical Immediate Post Op
Note
Pre Op Diagnosis: PAD
Post Op Diagnosis: Same
Procedure Performed: LLE arteriogram femoral and pedal access, left popliteal IVL and stent placement, left TPT IVL and stent scaffold placement
Primary Surgeon: Gerald
Secondary Surgeons: Samson PGY5
Anesthesia: local and sedation
Estimated Blood Loss: <2cc
Fluids: See anesthesia flow sheet
Drains/Shunts: none
Specimens/Cultures: None
Doppler/Duplex/Angio (Y/N): Y
Complications: none
Operative Findings: Successful stent placement
[2025-02-08] MEDS: PLAVIX 300 MG PO (11:01)
[2025-02-08] MEDS: NSS 1000 IV (11:41)
--- NOTE | 2025-02-08 19:22 | OR.RPT ---
Operative Report
Operative Report
Date of Operation: 02/08/2025
Pre Op Diagnosis:
1. 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
2. Severe aortic stenosis
Post Op Diagnosis:
1. 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
2. Severe aortic stenosis
Procedure:
1.) Intravascular lithotripsy to left popliteal artery (Shockwave Javelin catheter followed by 6 mm x 80 mm E8 balloon)
2.) Intravascular lithotripsy to left tibioperoneal trunk (Shockwave Javelin catheter) -retrograde pedal access approach
3.) Balloon angioplasty and drug-eluting stent placement to left popliteal artery (6 mm x 140 mm Zilver PTX)
4.) Drug-eluting bioabsorbable scaffold stent placement to tibioperoneal trunk (3.5 mm x 28 mm Shea Esprit) -retrograde pedal access approach
5.) Ultrasound-guided percutaneous access to the right common femoral artery
6.) Ultrasound-guided percutaneous retrograde pedal artery access, posterior tibial artery
7.) Diagnostic aortobiiliac arteriogram
8.) Diagnostic left lower extremity arteriogram
Surgeon: Arnulfo Duarte III, MD
Production Hand: Tanner Davies MD, PGY5
Anesthesia: Sedation with local
Fluoroscopy:
71.5 min
147 mGy
26.20 gy.cm2
Complications: None
Estimated Blood Loss: Less than 20 cc
History and Indications for Procedure: 79-year-old female with known history of atherosclerotic disease presented with a nonhealing left dorsal foot wound. She had abnormal preoperative arterial studies. She was taken to the operating room for
arteriogram and possible endovascular intervention
Procedure in Detail: Renetta Larios was correctly identified and placed supine on the operating table. After adequate induction of anesthesia the bilateral groins were prepped and draped in the usual sterile fashion. A timeout was performed with
the nursing and anesthesia staff confirming the patient's identity as well as the nature and laterality of the procedure.
The right common femoral artery was identified under ultrasound guidance. The artery was patent. The superior and inferior aspects of the femoral head were identified with radiographic guidance and marked at the skin level. The proposed puncture
site was infiltrated with local anesthesia. Under ultrasound guidance we accessed the right common femoral artery with a micropuncture needle and upsized to a 5 Fr sheath over a [place] wire. The wire and a ShepherSafeTacMag hook flush catheter were
advanced into the distal abdominal aorta and a diagnostic aorto-biiliac arteriogram was performed:
AORTO-ILIAC ARTERIOGRAM:
Aorta: Patent. Diffusely calcified but no significant stenosis identified
Right common iliac artery: Calcified. 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 No significant stenosis
Right external iliac artery: Patent with no significant stenosis identified
Left common iliac artery: Diffusely calcified. Patent with no significant stenosis identified
Left external iliac artery: Patent with no significant stenosis identified
Under roadmap guidance using a Glidewire and the Shepherds hook catheter we selected the left common iliac artery and then the external iliac artery. A Quickcross catheter was tracked up and over the aortic bifurcation and placed in the distal
external iliac artery. A diagnostic left lower extremity arteriogram was then performed which demonstrated the following:
LEFT LOWER EXTREMITY:
Common femoral artery: Patent with no stenosis identified
Profunda femoral artery: Patent with no stenosis identified
Superficial femoral artery: Patent with mild focal calcified stenosis distally.
Popliteal artery: Patent. Heavily calcified diffusely. Bulky calcified stenosis high-grade above-knee popliteal artery. Bulky luminal calcified plaque throughout the popliteal artery behind the knee contributing to high-grade stenosis
Anterior tibial artery: Patent proximally. Occluded mid hardy.
Tibioperoneal trunk: Heavily calcified. Focal occlusion proximally. Reconstitutes distally.
Peroneal artery: Reconstitutes proximally and is patent to the ankle.
Posterior tibial artery: Reconstitutes proximally and is patent to the ankle. Limited plantar flow identified.
ENDOVASCULAR INTERVENTION: Systemic heparin was administered. Exchanged out for a 6 Fr 45 cm sheath over a Storq wire. Selected the superficial femoral artery and then the popliteal artery under roadmap guidance with Quickcross catheter and
glidewire. The calcified popliteal artery disease was crossed with a Glidewire but could not advance the Quickcross through the bulky calcified plaque in the popliteal artery behind the knee. I exchanged out for the [address] Due to the
heavily calcified nature of the popliteal artery disease and in an effort to successfully cross the lesion, modify the calcium and achieve luminal gain with endovascular intervention I elected to proceed with intravascular lithotripsy with a
Shockwave Javelin catheter. The Javelin catheter was brought into position under radiographic guidance over the 0.014 wire. The Javelin catheter was advanced through the popliteal artery and across the disease while simultaneously delivering
lithotripsy pulses. 60 pulses were delivered with the intent of using the remaining pulses on the tibioperoneal trunk. However the window on the Javelin tip ruptured and additional use of the catheter could not be performed. After successfully
crossing through the lesion I made the decision to proceed with balloon based lithotripsy on the bulky residual plaque in the popliteal artery. Due to the heavily calcified nature of the popliteal artery disease and in an effort to modify the
calcium to achieve maximum luminal gain with endovascular intervention I elected to proceed with intravascular lithotripsy. A 6 mm x 80 mm Shockwave balloon was placed across the popliteal artery stenosis under roadmap guidance. Alternating rounds
of lithotripsy pulse delivery at sub-nominal pressure and angioplasty at nominal pressure was performed across the stenosis. In between rounds of pulse delivery and angioplasty the balloon was deflated and repositioned under roadmap guidance. All
400 pulses were delivered. Subsequent arteriogram demonstrated significant improvement but residual calcified plaque with some stenosis remained. Under roadmap guidance I then brought a 6 mm x 140 mm Zilver PTX stent into the desired location.
Stent was deployed in the desired location in the popliteal artery. The stent was postdilated with a 6 mm angioplasty balloon.
Subsequent arteriogram demonstrated a patent popliteal artery stent with no residual stenosis identified however there was sluggish flow distally through the stent due to very limited outflow secondary to the tibioperoneal trunk occlusion and the
mid anterior tibial artery occlusion. We attempted to cross through the tibioperoneal trunk occlusion using a variety of 0.014 wires and 0.014 Quickcross catheter. This was unsuccessful.
I then prepped and draped the left foot in the usual sterile fashion. Using ultrasound guidance I identified the posterior tibial artery just proximal to the medial malleolus. Under ultrasound guidance I accessed the posterior tibial artery in a
retrograde fashion with a micropuncture needle. A 4 Polish sheath was then placed followed immediately by the radial artery cocktail. Using a 0.014 wire with the 0.014 Quickcross I was able to successfully navigate across the occluded
tibioperoneal trunk. I then upsized to a 5 Polish sheath in the posterior tibial artery. I then brought into position a new Javelin catheter to be used on the calcified tibioperoneal trunk occlusion. Due to the heavily calcified nature of the
tibioperoneal trunk occlusion and in an effort to successfully cross the lesion, modify the calcium and achieve luminal gain with endovascular intervention I elected to proceed with intravascular lithotripsy with a Shockwave Javelin catheter. The
Javelin catheter was brought into position under radiographic guidance over the 0.014 wire. The Javelin catheter was advanced through the tibioperoneal trunk and across the disease while simultaneously delivering lithotripsy pulses. 120 pulses were
delivered to the tibioperoneal trunk occlusion. Subsequent arteriogram demonstrated patent TP trunk with noticeable luminal gain. I then followed this with 3.5 mm x 40 mm angioplasty balloon. This resulted in significant improvement but residual
calcified plaque and some degree of stenosis remained. I was concerned over reocclusion and therefore treated this area with a 3.5 mm x 28 mm Shea Esprit bioabsorbable stent. The stent was introduced retrograde through the 5 Polish sheath at the
ankle and positioned in the desired location under roadmap guidance. This was deployed in the desired location and subsequent arteriogram demonstrated an excellent technical result.
COMPLETION ARTERIOGRAM: Excellent technical result. Patent popliteal artery stent with now brisk outflow into the tibioperoneal trunk, peroneal and posterior tibial arteries. Improvement in flow to the peroneal artery. Sluggish flow around the
posterior tibial artery while the [address] was [address] Flow into the foot was identified through the posterior tibial artery.
Satisfied with this result we concluded the procedure. The left femoral sheath tip was pulled back into the left external iliac artery. Protamine was administered. The 5 Polish sheath in the posterior tibial artery was pulled and direct manual
pressure was held over the puncture site until hemostasis was achieved. A sterile dressing was applied.
The patient tolerated the procedure well and was taken to the recovery area in stable condition.
Attestation: I was present and responsible for the entire procedure.
Signed:
Arnulfo Duarte III, MD
Vascular Surgery
[facility]
== END 2025-02-08 15:42 | disposition home or self-care (01) ==
LOC: CATH 06:20
PROVIDERS: ATTENDING PHYSICIAN Surgery Vascular Surgery; PRIMARYCARE PHYSICIAN Internal Medicine; REFERRING PHYSICIAN Internal Medicine Interventional Cardiology
DX: I70.245 Atherosclerosis of native arteries of left leg with ulceration of other part of foot (principal); L97.529 Non-pressure chronic ulcer of other part of left foot with unspecified severity; I48.91 Unspecified atrial fibrillation; Z86.711 Personal history of pulmonary embolism; Z79.02 Long term (current) use of antithrombotics/antiplatelets; Z79.82 Long term (current) use of aspirin; Z79.01 Long term (current) use of anticoagulants; Z79.84 Long term (current) use of oral hypoglycemic drugs; Z79.891 Long term (current) use of opiate analgesic; Z79.899 Other long term (current) drug therapy; T82.858A Stenosis of other vascular prosthetic devices, implants and grafts, initial encounter
CPT/HCPCS: C9773; C9765; C1874; 75625; 75710; 80048; 85027; 85610; 85730; C1725; C1769; C1894; Q9967

== ENCOUNTER 2025-02-09 16:38 | Emergency (ER) | payer MEDICARE, SELFPAY ==
[2025-02-09 16:48] VITALS: BP 122/61
--- NOTE | 2025-02-09 20:27 | ED.GENMED ---
History of Present Illness
General
Chief Complaint: Musculo-Skeletal Complaint
Source: patient
Exam Limitations: none
Time Seen by Provider: 02/09/25 19:00
Nursing documentation reviewed up to this point in time: agreed with
History of Present Illness
History of Present Illness:
Patient is an 79-year-old female currently postop day 1 from LLE arteriogram and stent placement who presents to the emergency department with concerns of skin tear. Patient states she had stent placed yesterday with Dr. Duarte and went to change
her bandage today when the tape ripped off a piece of her skin. She has been unable to stop the bleeding since this occurred prompting visit to the emergency department.
She denies any bleeding from operative access site on left medial leg. Patient denies any significant pain. She denies any fevers, chills, significant redness around surgical site.
Patient is currently on both Plavix and Eliquis.
No other concerns today.
Past History
Past History
ED Past Medical History: CAD, HTN, [place], Valvular disease ( heart murmur) and Other (Rheumatoid arthritis, bipolar, pulmonary embolism)
ED Past Surgical History: Cholecystectomy, Gynecological (Hysterectomy), Orthopedic (Right hand surgery, left hand surgery, R knee replacement) and Other (Surgery for deviated septum)
Social History
Tobacco: Former smoker
Alcohol: None
Drug: None
Personal:
Living: with family
Employment: Retired
Family History
Family History: Hypertension and CAD
Review of Systems
Review of Systems
Allergies reviewed?: Yes
All Other Systems: ROS reviewed and negative except as documented in HPI and ROS
Phy Exam
Physical Exam
Physical Exam:
Vitals: Patient's vital signs are stable. Afebrile
General: Patient is well appearing, no acute distress
Skin: Approximately 3 cm X 2 cm oblong shaped skin tear on left medial lower leg with small area at inferior aspect which is oozing blood slowly.
Head: Normocephalic, atraumatic
Throat: Protecting airway
Neck: Normal ROM, no cervical spine tenderness
Cardiac: Regular rate
Pulm: No apparent respiratory distress
Abdomen: Nondistended
Extremities: Skin tear of left lower extremity as described above. Nonhealing wound to left dorsal foot covered with bandage. 2+ palpable left DP, PT pulses in LLE. Strength intact bilaterally
Neuro: Grossly intact
Psychiatric: Normal affect.
Course
Vital Signs
Initial and Last Documented VS:
Initial Vital Signs
Temp Pulse Resp BP Pulse Ox
97.8 F 74 20 122/61 99
02/09/25 16:48 02/09/25 16:48 02/09/25 16:48 02/09/25 16:48 02/09/25 16:48
Last Documented Vital Signs
Temp Pulse Resp BP Pulse Ox
97.8 F 74 20 122/61 99
02/09/25 16:48 02/09/25 16:48 02/09/25 16:48 02/09/25 16:48 02/09/25 20:28
MDM/Problems Addressed
Differential Diagnosis Includes:
Not limited to: Skin tear, abrasion, cellulitis, etc.
MDM/Problems Addressed:
79-year-old female presenting with skin tear to left medial leg after removing adhesive bandage earlier today. She is on Plavix and Eliquis and was unable to stop bleeding at home. She has had vascular procedure, stent placement through left lower
extremity yesterday, however has no bleeding from vascular access site. Patient hemodynamically stable on arrival. On exam she has a approximately 3X 2 cm skin tear on left medial lower leg with 1 area of small oozing inferior aspect. Left lower
extremity neurovascularly intact. Without evidence of surrounding cellulitis or infection. Wound was irrigated thoroughly with normal saline. A compressive dressing was placed in triage which does appear to have significantly slowed bleeding
however there is still one obvious oozing site. Verbal consent obtained by patient.
Silver nitrate applied to oozing areas with adequate hemostasis. Patient monitored in ED for a brief period of time without evidence of rebleed. Pressure bandage was then applied with Surgicel for further hemostasis. Discussed importance of
continuing medications as prescribed given recent stent placement. Wound care instructions discussed at length and advised very close monitoring for any signs of infection. Patient stable for discharge home. She will follow with primary care and
back surgery.
Chronic conditions affecting care:
Atrial fibrillation, vascular stents on Eliquis and Plavix
Acute Exacerbation and/or Progression of Chronic Illness:
N/A
*Pulse Oximetry
SaO2: 99
Oxygen Mode of Delivery: Room air
Patient hypoxic: no
*EKG
Interpreted by ED Provider?: NA
*Supervisor Drilling And Sh[employer] Interpretation
Rate: Supervisor Drilling [employer]- N/A
*Critical Care Note
Total Time (30-74mins, 75-104mins- exclusive of procedures): Not Applicable
Data Reviewed
Review of Other/Old Records Reveals: Operative Reports (Operative note from 02/08/2025-stent placement in LLE by Dr. Duarte-[facility])
Source: previous hospital records
Patient Management
Escalation/DeEscalation of care consider admission/obs:
Admit not indicated
ED Attending Note
-
Portions of this chart may have been created with voice recognition software.� Occasional wrong word or��sound alike� substitutions may have occurred due to the inherent limitations of voice recognition software.
Discharge Plan
Departure
Patient Disposition: Home (Routine Discharge)
Date of Disposition: 02/09/25
Time of Disposition: 20:19
Patient with high blood pressure during this ER visit?: No
Covid-19: Not Applicable
Discharge Problem:
Noninfected skin tear of left leg
Instructions: Wound care - ED discharge instructions
Prescriptions:
No Action
methylprednisolone 4 MG tablet
4 mg PO DAILY
oxycodone [OxyContin] 20 MG tablet,oral only,ext.rel.12 hr
20 mg PO DAILY
Enbrel 50 MG/ML syringe
50 mg SQ TH
alprazolam [Xanax] 0.5 mg Tablet
0.5 mg PO HS
hydrocodone-acetaminophen 5-325 mg Tablet
1 tab PO Q6HPRN PRN (Reason: severe pain)
mirtazapine 30 mg Tablet
60 mg PO HS
cholecalciferol (vitamin D3) [Vitamin D3] 25 mcg (1,000 unit) Tablet
25 mcg PO DAILY
atorvastatin 40 mg Tablet
40 mg PO QPM Qty: 30 11RF
metoprolol tartrate 25 mg Tablet
25 mg PO BID Qty: 60 11RF
polyethylene glycol 3350 [Miralax] 17 gram Powder In Packet
17 g PO QPM
amlodipine 5 mg Tablet
5 mg PO DAILY
lisinopril 10 mg Tablet
10 mg PO DAILY
alprazolam [Xanax] 0.5 mg Tablet
0.5 mg PO PRN PRN (Reason: Anxiety)
Eliquis 2.5 mg Tablet
2.5 mg PO BID
pantoprazole 40 mg tablet,delayed release (DR/EC)
40 mg PO DAILY
citalopram 30 mg Capsule
30 mg PO DAILY
nitroglycerin 0.4 mg Tablet, Sublingual
0.4 mg SUBLINGUAL Q5-15M PRN (Reason: chest pain)
PreserVision AREDS-2 250-90-40-1 mg Capsule
1 tab PO DAILY
triamcinolone acetonide 0.1 % Cream
1 applic TOPICAL DAILYPRN PRN (Reason: vaginal itching)
clopidogrel 75 mg Tablet
75 mg PO DAILY Qty: 90 0RF
Referrals:
Tangela Ching MD [Family Provider, Internal Medicine]
Activity Restrictions/Additional Instructions:
RETURN TO THE EMERGENCY DEPARTMENT WITH ANY NUMBNESS/TINGLING IN LEFT LOWER LEG, BLEEDING THAT WILL NOT STOP AT HOME, OR ANY OTHER SIGNS OF INFECTION FROM WOUND INCLUDING SIGNIFICANT REDNESS, PURULENT DRAINAGE, FEVERS, RED STREAKING, OR ANY OTHER
CONCERNS
- As discussed�your wound was cauterized with silver nitrate and a pressure dressing was applied in the emergency department. Please keep dressing on for 24 to 48 hours. Then you can can remove dressing daily wash gently with soap and water. It
is important to keep wound clean and dry, you can apply small amount of antibiotic ointment to prevent infection.
- Follow-up with your primary care provider/vascular surgeon for further evaluation/management to ensure symptoms are improving/further evaluation
- Continue to take all your medications as prescribed
Monitor your symptoms closely and return to the emergency department with any acute worsening/new symptoms or other concerns
Interventions
Interventions:
*Risk Screen - Suicide Last Done: 02/09/25 16:48
*General Assessment Last Done: 02/09/25 17:57
*Neglect/Abuse Screening Last Done: 02/09/25 16:48
*ED COVID-19 Vaccine History Last Done: 02/09/25 17:57
*Nursing Disposition Last Done: 02/09/25 20:45
ED-Musculoskeletal Assessment Last Done: 02/09/25 17:57
Discharge Date and Time
Discharge Date/Time: 02/09/25 20:46
Print Language: CROATIAN
== END 2025-02-09 20:46 | disposition home or self-care (01) ==
LOC: EMR 16:38
PROVIDERS: EMERGENCY PHYSICIAN Emergency Medicine; FAMILY PHYSICIAN Internal Medicine
DX: S81.812A Laceration without foreign body, left lower leg, initial encounter (principal); X58.XXXA Exposure to other specified factors, initial encounter; I25.10 Atherosclerotic heart disease of native coronary artery without angina pectoris; I10 Essential (primary) hypertension; I21.9 Acute myocardial infarction, unspecified; I38 Endocarditis, valve unspecified; R01.1 Cardiac murmur, unspecified; M06.9 Rheumatoid arthritis, unspecified; I48.91 Unspecified atrial fibrillation; Z79.01 Long term (current) use of anticoagulants; Z79.02 Long term (current) use of antithrombotics/antiplatelets; Z82.49 Family history of ischemic heart disease and other diseases of the circulatory system; Z86.711 Personal history of pulmonary embolism; Z87.891 Personal history of nicotine dependence; Z90.49 Acquired absence of other specified parts of digestive tract; Z90.710 Acquired absence of both cervix and uterus; Z96.651 Presence of right artificial knee joint
CPT/HCPCS: 99282

== ENCOUNTER 2025-02-12 10:42 | Emergency (ER) | payer MEDICARE, SELFPAY ==
[2025-02-12 10:45] VITALS: BP 155/82
[2025-02-12 11:05] VITALS: BP 131/57
[2025-02-12 11:09] VITALS: BMI 20.5
--- NOTE | 2025-02-12 11:52 | ED.GENMED ---
History of Present Illness
General
Chief Complaint: Skin Problem
Time Seen by Provider: 02/12/25 11:42
History of Present Illness
History of Present Illness:
79-year-old female presents to the emergency department for evaluation of left calf swelling beginning today. She is 4 days status post left lower extremity angioplasty with intravascular lithotripsy to the left popliteal and left tibioperoneal
trunk as well as drug-eluting stent placement to the left popliteal and tibioperoneal trunk performed at this hospital by Dr. Duarte. She did hold her Eliquis for a total of 3 days prior to and postsurgically. She denies any pain to the calf at
this point. Did have significant claudication symptoms prior to the surgery and the symptoms have not returned as of this point. Does have a small skin tear to the left medial lower leg from dressing removal the day after the procedure.
Past History
Past History
ED Past Medical History: CAD, HTN, [place], Valvular disease ( heart murmur) and Other (Rheumatoid arthritis, bipolar, pulmonary embolism)
ED Past Surgical History: Cholecystectomy, Gynecological (Hysterectomy), Orthopedic (Right hand surgery, left hand surgery, R knee replacement) and Other (Surgery for deviated septum)
Social History
Tobacco: Former smoker
Alcohol: None
Drug: None
Personal:
Living: with family
Employment: Retired
Family History
Family History: Hypertension and CAD
Review of Systems
Review of Systems
Allergies reviewed?: Yes
All Other Systems: ROS reviewed and negative except as documented in HPI and ROS
Phy Exam
Physical Exam
Physical Exam:
GEN: Well appearing, NAD, WDWN
HEENT: Oral mucosa moist, no scleral icterus
Cardiac: Regular rate
Lung: No respiratory distress, no tachypnea
MSK: Moderate diffuse swelling of the left lower extremity predominantly in the calf, does not involve the foot. There is a 2 cm x 2.5 cm superficial skin tear to the left medial lower leg with no surrounding erythema or purulent discharge.
Dorsalis pedis and posterior tibialis pulses are strong by Doppler. Chronic wound to the dorsum of the left midfoot with no erythema or discharge. No pain with passive stretch of the left calf
Skin: Good color, no pallor or jaundice, no rashes
Neuro: AO x3, moves all extremities freely
Psych: Calm, cooperative
Course
Orders/Labs/Results
Orders:
Orders
02/12/25 11:52
Venous Doppler Lwr Ext Left [US Periph Venous LOWER Ext LT] Urgent
Comment:
Reason For Exam: LLE edema
Vital Signs
Initial and Last Documented VS:
Initial Vital Signs
Temp Pulse Resp BP Pulse Ox
98.2 F 75 18 155/82 99
02/12/25 10:45 02/12/25 10:45 02/12/25 10:45 02/12/25 10:45 02/12/25 10:45
Last Documented Vital Signs
Temp Pulse Resp BP Pulse Ox
98 F 78 20 131/57 98
02/12/25 13:46 02/12/25 13:46 02/12/25 13:46 02/12/25 13:46 02/12/25 13:46
MDM/Problems Addressed
MDM/Problems Addressed:
Ultrasound shows no evidence for DVT. This is most likely reperfusion edema given that she has mild discomfort but no claudication symptoms and adequate pulses by Doppler as well as no rest pain. Minor skin abrasion does not appear clinically
infected thus no antibiotics are indicated. Encouraged her to follow-up with vascular surgery as an outpatient
*Pulse Oximetry
SaO2: 98
Oxygen Mode of Delivery: Room air
Patient hypoxic: no
*Critical Care Note
Total Time (30-74mins, 75-104mins- exclusive of procedures): Not Applicable
ED Attending Note
-
Portions of this chart may have been created with voice recognition software.� Occasional wrong word or��sound alike� substitutions may have occurred due to the inherent limitations of voice recognition software.
Discharge Plan
Departure
Patient Disposition: Home (Routine Discharge)
Date of Disposition: 02/12/25
Time of Disposition: 13:37
Patient with high blood pressure during this ER visit?: No
Discharge Problem:
Left leg swelling
Instructions: Swelling
Prescriptions:
No Action
methylprednisolone 4 MG tablet
4 mg PO DAILY
oxycodone [OxyContin] 20 MG tablet,oral only,ext.rel.12 hr
20 mg PO DAILY
Enbrel 50 MG/ML syringe
50 mg SQ TH
alprazolam [Xanax] 0.5 mg Tablet
0.5 mg PO HS
hydrocodone-acetaminophen 5-325 mg Tablet
1 tab PO Q6HPRN PRN (Reason: severe pain)
mirtazapine 30 mg Tablet
60 mg PO HS
cholecalciferol (vitamin D3) [Vitamin D3] 25 mcg (1,000 unit) Tablet
25 mcg PO DAILY
atorvastatin 40 mg Tablet
40 mg PO QPM Qty: 30 11RF
metoprolol tartrate 25 mg Tablet
25 mg PO BID Qty: 60 11RF
polyethylene glycol 3350 [Miralax] 17 gram Powder In Packet
17 g PO QPM
amlodipine 5 mg Tablet
5 mg PO DAILY
lisinopril 10 mg Tablet
10 mg PO DAILY
alprazolam [Xanax] 0.5 mg Tablet
0.5 mg PO PRN PRN (Reason: Anxiety)
Eliquis 2.5 mg Tablet
2.5 mg PO BID
pantoprazole 40 mg tablet,delayed release (DR/EC)
40 mg PO DAILY
citalopram 30 mg Capsule
30 mg PO DAILY
nitroglycerin 0.4 mg Tablet, Sublingual
0.4 mg SUBLINGUAL Q5-15M PRN (Reason: chest pain)
PreserVision AREDS-2 250-90-40-1 mg Capsule
1 tab PO DAILY
triamcinolone acetonide 0.1 % Cream
1 applic TOPICAL DAILYPRN PRN (Reason: vaginal itching)
clopidogrel 75 mg Tablet
75 mg PO DAILY Qty: 90 0RF
Referrals:
Arnulfo Duarte III, MD [Active, Vascular Surgery] - Call in 1-3 days for appt
Tangela Ching MD [Family Provider, Internal Medicine]
Interventions
Interventions:
*Risk Screen - Suicide Last Done: 02/12/25 10:45
*General Assessment Last Done: 02/12/25 11:10
*Neglect/Abuse Screening Last Done: 02/12/25 10:45
*ED- Fall Risk Assessment Last Done: 02/12/25 11:10
*ED COVID-19 Vaccine History Last Done: 02/12/25 11:10
*Nursing Disposition Last Done: 02/12/25 13:46
ED-Skin Assessment Last Done: 02/12/25 11:10
Discharge Date and Time
Discharge Date/Time: 02/12/25 13:47
Print Language: FILIPINO
[2025-02-12 13:46] VITALS: BP 131/57
== END 2025-02-12 13:47 | disposition home or self-care (01) ==
LOC: EMR 10:42
PROVIDERS: EMERGENCY PHYSICIAN Emergency Medicine; FAMILY PHYSICIAN Internal Medicine
DX: R22.42 Localized swelling, mass and lump, left lower limb (principal); I10 Essential (primary) hypertension; I25.10 Atherosclerotic heart disease of native coronary artery without angina pectoris; M06.9 Rheumatoid arthritis, unspecified; Z87.891 Personal history of nicotine dependence; Z86.711 Personal history of pulmonary embolism
CPT/HCPCS: 99284; 93971

== ENCOUNTER 2025-02-19 18:08 | Emergency (ER) | payer MEDICARE, SELFPAY ==
[2025-02-19 18:15] VITALS: BP 105/78
[2025-02-19 18:35] LABS: Hematocrit 31.1 % (37.0-47.0); Hemoglobin 9.8 g/dL (12.0-16.0); Mean Corp Hgb Conc. 31.5 g/dL (33.0-37.0); Mean Corpuscular Volume 92.8 fL (81.0-99.0); Nucleated Red Blood Cells % 0 %; Platelet Count 184 10^3/uL (130-400); Red Cell Dist. Width 15.2 % (11.5-14.5)
[2025-02-19 18:56] LABS: ALT (SGPT) 30 U/L (0-35); AST (SGOT) 38 U/L (14-36); Albumin 4.3 g/dl (3.5-5.0); Alkaline Phosphatase 67 U/L (38-126); Blood Urea Nitrogen 25 mg/dl (7-17); Calcium 9.3 mg/dl (8.4-10.2); Carbon Dioxide 27 mmol/L (22-30); Chloride 107 mmol/L (98-107); Glucose 113 mg/dl (70-99); Potassium 5.1 mmol/L (3.5-5.1); Sodium 140 mmol/L (135-145); Total Protein 6.9 g/dl (6.3-8.2); eGFR 50.80
--- NOTE | 2025-02-19 23:02 | ED.GENMED ---
History of Present Illness
General
Chief Complaint: Swelling
Time Seen by Provider: 02/19/25 23:02
History of Present Illness
History of Present Illness:
TIME OF INITIAL EVALUATION
- 11:05 PM
REVIEW OF OLD RECORDS
- The patient has history of pneumonia, PE, A-fib on Eliquis. I reviewed records, the patient had negative study for DVT of the left lower extremity 1 week ago. The patient had left lower extremity arterial procedures with Dr. Duarte 2 weeks ago.
Note:
CHIEF COMPLAINT(S)
Foot wound after recent surgery.
HISTORY OF PRESENT ILLNESS
The patient is an 79-year-old female who presents with a non-healing wound on the dorsum of the left foot. The patient underwent a procedure on the with Dr. Duarte and had a follow-up negative ultrasound approximately a week ago. Since the
procedure, she reports no substantial change in the wound healing. The patient is scheduled for a follow-up appointment at the wound center on . The wound size is approximately one centimeter. The patient previously experienced pain in the
leg prior to the procedure, which has since improved. However, she reports that the area surrounding the wound appears bruised, likely due to blood tracking from the vessels, a recognized issue post-procedure. The patient is on a blood thinner.
The patient had a prior episode of atrial fibrillation for about ten minutes two weeks ago but indicates that her physicians are aware of this. A heart murmur is present, attributed to aortic stenosis, but no intervention such as transcatheter
aortic valve replacement (TAVR) is planned.
Upon examination, there is no indication of a deep vein thrombosis, as there is no tenderness in the leg, and she has been asymptomatic for significant complications such as shortness of breath.
PHYSICAL EXAM
- Cardiovascular: Presence of a loud heart murmur, consistent with known aortic stenosis. Regular rhythm.
- Dermatological: One-centimeter wound on the dorsum of the left foot with no evidence of infection. There is bruising around the area, consistent with superficial bleeding.
- General: Well appearing in no distress
- HEENT: Moist oral mucosa
- Pulmonary: No respiratory distress, breath sounds are clear and equal
- Abdomen: Soft with no peritoneal signs, no tenderness
- Neurologic: Excellent strength all extremities, no coordination deficits
- Psychiatric: Appropriate mental status, normal insight and judgement
- Extremities: Nontender, no edema, moves all extremities equally, there is no calf tenderness
- Skin: Venous stasis to the left lower extremity anteriorly, fair perfusion to the toes, they are not cool to touch, there is some ecchymosis noted to the left lateral hindfoot
PROBLEM LIST
- Acute: Non-healing surgical wound on the left foot.
- Chronic: Aortic stenosis, history of atrial fibrillation.
PLAN
The patient is to continue with the scheduled appointment at the wound center. No additional diagnostic tests, such as an ultrasound, will be ordered as the recent study was negative, and clinical assessment does not suggest acute complications. The
patient will continue taking the prescribed blood thinner. There is no need for immediate intervention for aortic stenosis at this time. The patient is cleared for discharge with reassurance and instructions for wound care at home.
DIFFERENTIAL DIAGNOSIS
The Differential Diagnosis includes, in no particular order and is not limited to:
1. Chronic venous insufficiency
2. Superficial thrombophlebitis
3. Peripheral arterial disease
4. Aortic stenosis-related symptoms
5. Wound infection
6. Medication-related bleeding
7. Lingering post-operative tissue changes
8. Subclinical thromboembolism
9. Atrophic skin conditions
10. Peripheral neuropathy
RADIOLOGY
-
EKG
- Sinus 85, left axis deviation
LABS
- White count is normal, hemoglobin is a little bit lower compared to 02/08 now at 9.8 but this is still near baseline. Creatinine 1.1 which is slightly higher than prior.
UPDATE
-SUMMARY OF ENCOUNTER
The patient, an 79-year-old female, presented with a non-healing wound on the left foot and was evaluated for possible complications following a recent surgical procedure. Upon examination, there was no evidence suggestive of deep vein thrombosis
(DVT), supported by a negative ultrasound study conducted a week prior. The patient was reassured and expressed comfort with outpatient management of her condition.
ASSESSMENT
The patient does not exhibit signs of DVT, has a known non-healing wound on the left foot, and is currently on a blood thinner medication (Apixaban).
PLAN
The patient is to continue with her current medications and follow up with the scheduled appointment at the wound center. No additional imaging, such as an ultrasound, is recommended at this time due to a previously negative study and reassuring
physical examination.
MEDICATION RECONCILIATION
The patient is taking Apixaban (Eliquis) for blod thinning. Compliance has been verified.
MEDICAL DECISION MAKING
-Complexity of Data Reviewed: Chronic conditions affecting care include aortic stenosis and a history of atrial fibrillation. Differential diagnosis considerations include chronic venous insufficiency, superficial thrombophlebitis, peripheral
arterial disease, aortic stenosis-related symptoms, wound infection, medication-related bleeding, lingering post-operative tissue changes, subclinical thromboembolism, atrophic skin conditions, and peripheral neuropathy.
-Data:
Category 1
Reviewed recent, negative DVT ultrasound study. Physical examination findings are consistent with no progression of DVT.
-Risk:
Consideration of Admission/Observation: Escalation of care including admission/observation was considered given the complexity and risk of the patients presenting complaint, exam findings, and her underlying comorbidities. However, ultimately, the
patient is safe for outpatient management with close follow-up. Reasoning: Work-up is reassuring, does not reveal any acute life/organ-threatening processes, patients symptoms are well controlled upon reevaluation, reexamination is reassuring,
vitals are stable, and the patient is agreeable with discharge and reliable for follow-up.
DIAGNOSIS
1. Non-healing surgical wound on left foot (ICD-10: T89.9)
2. Aortic stenosis, unspecified (ICD-10: I35.0)
3. History of atrial fibrillation (ICD-10: I48.91)
Past History
Past History
ED Past Medical History: CAD, HTN, [place], Valvular disease ( heart murmur) and Other (Rheumatoid arthritis, bipolar, pulmonary embolism)
ED Past Surgical History: Cholecystectomy, Gynecological (Hysterectomy), Orthopedic (Right hand surgery, left hand surgery, R knee replacement) and Other (Surgery for deviated septum)
Social History
Tobacco: Former smoker
Alcohol: None
Drug: None
Personal:
Living: with family
Employment: Retired
Family History
Family History: Hypertension and CAD
Phy Exam
Physical Exam
Physical Exam:
See HPI
Scores
Heart Failure Risk
Heart Failure Risk Score: Not Applicable
Course
Orders/Labs/Results
Orders:
Orders
02/19/25 18:17
Electrocardiogram (*1) Urgent
Reason for Study: Other
Other Reason for Exam: anixety
EKG- Treatment ONCE
02/19/25 18:24
Complete Blood Count/With Diff Urgent
Comprehensive Metabolic Panel Urgent
Abnormal Lab Results
02/19/25
18:24
RBC 3.35 L 10^6/uL
(4.20-5.40)
Hgb 9.8 L g/dL
(12.0-16.0)
Hct 31.1 L %
(37.0-47.0)
MCHC 31.5 L g/dL
(33.0-37.0)
RDW 15.2 H %
(11.5-14.5)
MPV 11.2 H fL
(7.4-10.4)
Absolute Monos (auto) 0.8 H 10^3/uL
(0.1-0.6)
Monocytes % 9.9 H %
(1.7-9.3)
BUN 25 H mg/dl
(7-17)
Creatinine 1.1 H mg/dL
(0.6-1.0)
Glucose 113 H mg/dl
(70-99)
AST 38 H U/L
(14-36)
02/19/25 18:24
02/19/25 18:24
Vital Signs
Initial and Last Documented VS:
Initial Vital Signs
Temp Pulse Resp BP Pulse Ox
36.8 C 90 16 105/78 98
02/19/25 18:15 02/19/25 18:15 02/19/25 18:15 02/19/25 18:15 02/19/25 18:15
Last Documented Vital Signs
Temp Pulse Resp BP Pulse Ox
36.8 C 90 16 105/78 98
02/19/25 18:15 02/19/25 18:15 02/19/25 18:15 02/19/25 18:15 02/19/25 23:04
*Pulse Oximetry
SaO2: 98
Oxygen Mode of Delivery: Room air
Patient hypoxic: no
*Critical Care Note
Total Time (30-74mins, 75-104mins- exclusive of procedures): Not Applicable
ED Attending Note
-
Portions of this chart may have been created with voice recognition software.� Occasional wrong word or��sound alike� substitutions may have occurred due to the inherent limitations of voice recognition software.
Discharge Plan
Departure
Prescriptions:
No Action
methylprednisolone 4 MG tablet
4 mg PO DAILY
oxycodone [OxyContin] 20 MG tablet,oral only,ext.rel.12 hr
20 mg PO DAILY
Enbrel 50 MG/ML syringe
50 mg SQ TH
alprazolam [Xanax] 0.5 mg Tablet
0.5 mg PO HS
hydrocodone-acetaminophen 5-325 mg Tablet
1 tab PO Q6HPRN PRN (Reason: severe pain)
mirtazapine 30 mg Tablet
60 mg PO HS
cholecalciferol (vitamin D3) [Vitamin D3] 25 mcg (1,000 unit) Tablet
25 mcg PO DAILY
atorvastatin 40 mg Tablet
40 mg PO QPM Qty: 30 11RF
metoprolol tartrate 25 mg Tablet
25 mg PO BID Qty: 60 11RF
polyethylene glycol 3350 [Miralax] 17 gram Powder In Packet
17 g PO QPM
amlodipine 5 mg Tablet
5 mg PO DAILY
lisinopril 10 mg Tablet
10 mg PO DAILY
alprazolam [Xanax] 0.5 mg Tablet
0.5 mg PO PRN PRN (Reason: Anxiety)
Eliquis 2.5 mg Tablet
2.5 mg PO BID
pantoprazole 40 mg tablet,delayed release (DR/EC)
40 mg PO DAILY
citalopram 30 mg Capsule
30 mg PO DAILY
nitroglycerin 0.4 mg Tablet, Sublingual
0.4 mg SUBLINGUAL Q5-15M PRN (Reason: chest pain)
PreserVision AREDS-2 250-90-40-1 mg Capsule
1 tab PO DAILY
triamcinolone acetonide 0.1 % Cream
1 applic TOPICAL DAILYPRN PRN (Reason: vaginal itching)
clopidogrel 75 mg Tablet
75 mg PO DAILY Qty: 90 0RF
Interventions
Interventions:
*Risk Screen - Suicide Last Done: 02/19/25 18:15
*Neglect/Abuse Screening Last Done: 02/19/25 18:15
Discharge Date and Time
Print Language: TURKMEN
[2025-02-19 23:24] VITALS: BP 154/83
== END 2025-02-19 23:38 | disposition home or self-care (01) ==
LOC: EMR 18:08
PROVIDERS: Emergency Medicine; EMERGENCY PHYSICIAN Emergency Medicine; FAMILY PHYSICIAN Internal Medicine
DX: T81.89XA Other complications of procedures, not elsewhere classified, initial encounter (principal); Y83.8 Other surgical procedures as the cause of abnormal reaction of the patient, or of later complication, without mention of misadventure at the time of the procedure; I10 Essential (primary) hypertension; I25.10 Atherosclerotic heart disease of native coronary artery without angina pectoris; I35.0 Nonrheumatic aortic (valve) stenosis; I48.91 Unspecified atrial fibrillation; Z86.711 Personal history of pulmonary embolism; Z87.891 Personal history of nicotine dependence; Z79.01 Long term (current) use of anticoagulants
CPT/HCPCS: 99284; 80053; 85025; 93005

== ENCOUNTER → 2025-02-25 07:46 | Outpatient (REF) | payer MEDICARE, SELFPAY | LOC: WOUND 07:46 | PROVIDERS: ATTENDING PHYSICIAN Surgery; FAMILY PHYSICIAN Internal Medicine | DX: L97.422 Non-pressure chronic ulcer of left heel and midfoot with fat layer exposed (principal); L97.322 Non-pressure chronic ulcer of left ankle with fat layer exposed; I73.9 Peripheral vascular disease, unspecified; M06.9 Rheumatoid arthritis, unspecified; Z95.5 Presence of coronary angioplasty implant and graft | CPT/HCPCS: 11042; 99203 ==

== ENCOUNTER → 2025-03-03 12:55 | Outpatient (REF) | payer MEDICARE, SELFPAY | LOC: RAD 12:55 | PROVIDERS: ATTENDING PHYSICIAN Surgery Vascular Surgery; FAMILY PHYSICIAN Internal Medicine | DX: I73.9 Peripheral vascular disease, unspecified (principal) | CPT/HCPCS: 93922; 93925 ==

== ENCOUNTER → 2025-03-04 08:31 | Outpatient (REF) | payer MEDICARE, SELFPAY | LOC: WOUND 08:31 | PROVIDERS: ATTENDING PHYSICIAN Surgery; FAMILY PHYSICIAN Internal Medicine | DX: L97.422 Non-pressure chronic ulcer of left heel and midfoot with fat layer exposed (principal); L97.322 Non-pressure chronic ulcer of left ankle with fat layer exposed; I73.9 Peripheral vascular disease, unspecified; M06.9 Rheumatoid arthritis, unspecified; Z95.5 Presence of coronary angioplasty implant and graft | CPT/HCPCS: 11042 ==

== ENCOUNTER → 2025-03-11 09:34 | Outpatient (REF) | payer MEDICARE, SELFPAY | LOC: WOUND 09:34 | PROVIDERS: ATTENDING PHYSICIAN Surgery | DX: L97.422 Non-pressure chronic ulcer of left heel and midfoot with fat layer exposed (principal); L97.322 Non-pressure chronic ulcer of left ankle with fat layer exposed; I73.9 Peripheral vascular disease, unspecified; M06.9 Rheumatoid arthritis, unspecified; Z95.5 Presence of coronary angioplasty implant and graft; Z79.01 Long term (current) use of anticoagulants | CPT/HCPCS: 99213 ==

== ENCOUNTER → 2025-03-18 08:32 | Outpatient (REF) | payer MEDICARE, SELFPAY | LOC: WOUND 08:32 | PROVIDERS: ATTENDING PHYSICIAN Surgery; FAMILY PHYSICIAN Internal Medicine | DX: L97.322 Non-pressure chronic ulcer of left ankle with fat layer exposed (principal); I73.9 Peripheral vascular disease, unspecified; M06.9 Rheumatoid arthritis, unspecified; Z95.5 Presence of coronary angioplasty implant and graft; Z79.01 Long term (current) use of anticoagulants | CPT/HCPCS: 11042 ==

== ENCOUNTER → 2025-03-25 08:44 | Outpatient (REF) | payer MEDICARE, SELFPAY | LOC: WOUND 08:44 | PROVIDERS: ATTENDING PHYSICIAN Surgery; FAMILY PHYSICIAN Internal Medicine | DX: L97.322 Non-pressure chronic ulcer of left ankle with fat layer exposed (principal); I73.9 Peripheral vascular disease, unspecified; M06.9 Rheumatoid arthritis, unspecified; Z95.5 Presence of coronary angioplasty implant and graft; Z79.01 Long term (current) use of anticoagulants | CPT/HCPCS: 99213 ==

== ENCOUNTER → 2025-04-01 08:36 | Outpatient (REF) | payer MEDICARE, SELFPAY | LOC: WOUND 08:36 | PROVIDERS: ATTENDING PHYSICIAN Surgery; FAMILY PHYSICIAN Internal Medicine | DX: L97.322 Non-pressure chronic ulcer of left ankle with fat layer exposed (principal); I73.9 Peripheral vascular disease, unspecified; M06.9 Rheumatoid arthritis, unspecified; Z95.5 Presence of coronary angioplasty implant and graft; Z79.01 Long term (current) use of anticoagulants | CPT/HCPCS: 11042 ==

== ENCOUNTER → 2025-04-07 07:45 | Outpatient (REF) | payer MEDICARE, SELFPAY | LOC: RAD 07:45 | PROVIDERS: ATTENDING PHYSICIAN Surgery Vascular Surgery; FAMILY PHYSICIAN Internal Medicine | DX: K55.9 Vascular disorder of intestine, unspecified (principal) | CPT/HCPCS: 93975 ==

== ENCOUNTER → 2025-04-09 14:15 | Outpatient (REF) | payer MEDICARE, SELFPAY | LOC: WOUND 14:15 | PROVIDERS: ATTENDING PHYSICIAN Surgery; FAMILY PHYSICIAN Internal Medicine | DX: L97.322 Non-pressure chronic ulcer of left ankle with fat layer exposed (principal); I73.9 Peripheral vascular disease, unspecified; M06.9 Rheumatoid arthritis, unspecified; Z95.5 Presence of coronary angioplasty implant and graft; Z79.01 Long term (current) use of anticoagulants | CPT/HCPCS: 97597 ==

== ENCOUNTER 2025-04-16 04:19 | Emergency (ER) | payer MEDICARE, SELFPAY ==
[2025-04-16 04:22] VITALS: BP 153/85
--- NOTE | 2025-04-16 05:18 | ED.GENMED ---
History of Present Illness
General
Chief Complaint: Nose Bleed
Source: patient
Exam Limitations: none
Time Seen by Provider: 04/16/25 04:29
Nursing documentation reviewed up to this point in time: agreed with
History of Present Illness
History of Present Illness:
Note:
CHIEF COMPLAINT(S)
Nosebleed.
HISTORY OF PRESENT ILLNESS
The patient is an 79-year-old female who presents with a nosebleed. The patient reports that the bleeding started at approximately 1:00 AM and she has been unable to stop it since then. She denies frequent nosebleeds but mentions being on
blood-thinning medications, specifically Clopidogrel and a medication currently identified as 'alquist,' although this could potentially be a misunderstanding referring to another anticoagulant medication. The patient does not recall any trauma to
her nose but notes that the bleeding is from the left nostril. She is unsure if she might have inadvertently scratched her nose. The bleeding continued during her way to the medical facility.
REVIEW OF SYSTEMS
- Ear, Nose, and Tongue: Persistent bleeding from the left nostril, denies recent nosebleeds prior to this event.
- Medications: Patient is on Clopidogrel and refers to a medication sounding like 'alquist.'
PHYSICAL EXAM
General: Alert, no acute distress.
Skin: Warm, dry.
Head: Normocephalic, atraumatic.
Neck: Supple, trachea midline.
Eye Ears, Nose, Mouth and Throat: Oral mucosa moist. Bleeding noted from the left nostril.
Cardiovascular: Normal peripheral perfusion, No edema.
Respiratory: Respirations are non-labored.
Gastrointestinal: Abdomen nondistended.
Back: Normal range of motion, Normal alignment.
Musculoskeletal: Normal range of motion, normal strength.
Neurological: Alert and oriented to person, place, time, and situation, No focal neurological deficit observed.
Psychiatric: Cooperative, appropriate mood & affect.
PLAN
Performed a nasal examination and gently inserted a nasal tampon to aid in controlling the bleeding. Applied a constricting solution to manage bleeding, and plan to reassess in 10 minutes.
DIFFERENTIAL DIAGNOSIS
The Differential Diagnosis includes, in no particular order and is not limited to:
1. Epistaxis secondary to anticoagulant use.
2. Hypertension-related epistaxis.
3. Bleeding disorders.
4. Nasal trauma.
5. Dry nasal mucosa.
6. Nasal polyps.
7. Allergic rhinitis.
8. Nasal septum deviation.
9. Infection causing nasal irritation.
10. Foreign body in the nasal cavity.
Disposition:
SUMMARY OF ENCOUNTER
An 79-year-old female presented with a nosebleed from the left nostril. The patient has a history of using anticoagulant medications, including Clopidogrel (Plavix). Upon arrival, the bleeding had mostly stopped. A small bleeder was identified and
successfully cauterized. The patient tolerated the procedure well, and upon reevaluation, there was nearly complete cessation of bleeding.
ASSESSMENT
The patients nosebleed was likely exacerbated by anticoagulant use, and a small bleeder was managed successfully with cauterization.
PLAN
The patient will be discharged home with instructions to follow up with an Ear, Nose, and Throat specialist. Return to the emergency department if symptoms worsen or bleeding reoccurs.
PATIENT EDUCATION AND COUNSELING
The patient was advised on proper nasal care and signs to watch for that would necessitate a return to the emergency department.
FOLLOW-UP INSTRUCTIONS
The patient should schedule a follow-up appointment with an Ear, Nose, and Throat specialist.
MEDICAL DECISION MAKING
- Complexity of Data Reviewed: Chronic conditions affecting care include anticoagulant use and recent epistaxis. Possible causes include epistaxis secondary to anticoagulant use and nasal trauma.
- Data:
- My independent interpretation of the nasal examination showed a small bleeder in the left nostril which was managed with cauterization.
-Risk: Consideration of Admission/Observation was evaluated but the patient is deemed safe for outpatient management given the minimal bleeding post-procedure and stable condition upon reassessment. The patient is on anticoagulants which may
increase bleeding risk.
DIAGNOSIS
Epistaxis (R04.0) associated with anticoagulant use.
Past History
Past History
ED Past Medical History: CAD, HTN, [place], Valvular disease ( heart murmur) and Other (Rheumatoid arthritis, bipolar, pulmonary embolism)
ED Past Surgical History: Cholecystectomy, Gynecological (Hysterectomy), Orthopedic (Right hand surgery, left hand surgery, R knee replacement) and Other (Surgery for deviated septum)
Social History
Tobacco: Former smoker
Alcohol: None
Drug: None
Personal:
Living: with family
Employment: Retired
Family History
Family History: Hypertension and CAD
Course
Vital Signs
Initial and Last Documented VS:
Initial Vital Signs
Temp Pulse Resp BP Pulse Ox
97.9 F 78 22 153/85 96
04/16/25 04:22 04/16/25 04:22 04/16/25 04:22 04/16/25 04:22 04/16/25 04:22
Last Documented Vital Signs
Temp Pulse Resp BP Pulse Ox
97.9 F 78 22 153/85 96
04/16/25 04:22 04/16/25 04:22 04/16/25 04:22 04/16/25 04:22 04/16/25 04:22
*Pulse Oximetry
SaO2: 96
Oxygen Mode of Delivery: Room air
Patient hypoxic: no
*Critical Care Note
Total Time (30-74mins, 75-104mins- exclusive of procedures): Not Applicable
ED Attending Note
-
Portions of this chart may have been created with voice recognition software.� Occasional wrong word or��sound alike� substitutions may have occurred due to the inherent limitations of voice recognition software.
Discharge Plan
Departure
Patient Disposition: Home (Routine Discharge)
Date of Disposition: 04/16/25
Time of Disposition: 05:19
Patient with high blood pressure during this ER visit?: Yes
Condition: Good
Discharge Problem:
Acute anterior epistaxis
Instructions: Nosebleeds (DC), BLOOD PRESSURE
Prescriptions:
No Action
methylprednisolone 4 MG tablet
4 mg PO DAILY
oxycodone [OxyContin] 20 MG tablet,oral only,ext.rel.12 hr
20 mg PO DAILY
Enbrel 50 MG/ML syringe
50 mg SQ TH
alprazolam [Xanax] 0.5 mg Tablet
0.5 mg PO HS
hydrocodone-acetaminophen 5-325 mg Tablet
1 tab PO Q6HPRN PRN (Reason: severe pain)
mirtazapine 30 mg Tablet
60 mg PO HS
cholecalciferol (vitamin D3) [Vitamin D3] 25 mcg (1,000 unit) Tablet
25 mcg PO DAILY
atorvastatin 40 mg Tablet
40 mg PO QPM Qty: 30 11RF
metoprolol tartrate 25 mg Tablet
25 mg PO BID Qty: 60 11RF
polyethylene glycol 3350 [Miralax] 17 gram Powder In Packet
17 g PO QPM
amlodipine 5 mg Tablet
5 mg PO DAILY
lisinopril 10 mg Tablet
10 mg PO DAILY
alprazolam [Xanax] 0.5 mg Tablet
0.5 mg PO PRN PRN (Reason: Anxiety)
Eliquis 2.5 mg Tablet
2.5 mg PO BID
pantoprazole 40 mg tablet,delayed release (DR/EC)
40 mg PO DAILY
citalopram 30 mg Capsule
30 mg PO DAILY
nitroglycerin 0.4 mg Tablet, Sublingual
0.4 mg SUBLINGUAL Q5-15M PRN (Reason: chest pain)
PreserVision AREDS-2 250-90-40-1 mg Capsule
1 tab PO DAILY
triamcinolone acetonide 0.1 % Cream
1 applic TOPICAL DAILYPRN PRN (Reason: vaginal itching)
clopidogrel 75 mg Tablet
75 mg PO DAILY Qty: 90 0RF
Referrals:
Tangela Ching MD [Family Provider, Internal Medicine]
Activity Restrictions/Additional Instructions:
Thank You for choosing [facility].
It was a pleasure meeting you and taking part in your care. We hope for your continued healing and wellness.
Please read discharge instructions in their entirety. However, they are for general education and may not describe your exact diagnosis at discharge. Information on your ER visit and medical conditions were discussed with you along with appropriate
follow up information...
If indicated, please take your medications as instructed and indicated on discharge paperwork.
Please schedule a follow up appointment as directed. Call to schedule an appointment
Please return to the emergency department with ANY change in, persisting, or worsening of symptoms. If any of your symptoms do not improve, or persist, or become more severe within 6-12 hours, please return to the emergency department for further
care.
Please return to the emergency department if you develop a headache, neck pain/stiffness, fever greater than 100.4F, chest pain, shortness of breath, persistent nausea, vomiting, slurred speech, difficulty walking, numbness/tingling, weakness, signs
of infection or any other symptoms that are worrisome to you.
If you have any questions or concerns please do not hesitate to call the Hospital at or E-mail me directly at [email or web address]
Interventions
Interventions:
*Risk Screen - Suicide Last Done: 04/16/25 04:22
Discharge Date and Time
Print Language: BULGARIAN
[2025-04-16 05:33] VITALS: BP 160/78
== END 2025-04-16 05:50 | disposition home or self-care (01) ==
LOC: EMR 04:19
PROVIDERS: EMERGENCY PHYSICIAN Student in an Organized Health Care Education/Training Program; FAMILY PHYSICIAN Internal Medicine
DX: R04.0 Epistaxis (principal); I10 Essential (primary) hypertension; I25.10 Atherosclerotic heart disease of native coronary artery without angina pectoris; Z86.711 Personal history of pulmonary embolism; I25.2 Old myocardial infarction; M06.9 Rheumatoid arthritis, unspecified; Z87.891 Personal history of nicotine dependence; Z79.02 Long term (current) use of antithrombotics/antiplatelets
CPT/HCPCS: 30901; 99282

== ENCOUNTER → 2025-04-26 09:04 | Outpatient (REF) | payer MEDICARE, SELFPAY | LOC: WOUND 09:04 | PROVIDERS: ATTENDING PHYSICIAN Surgery; FAMILY PHYSICIAN Internal Medicine | DX: L97.322 Non-pressure chronic ulcer of left ankle with fat layer exposed (principal); I73.9 Peripheral vascular disease, unspecified; M06.9 Rheumatoid arthritis, unspecified; Z95.5 Presence of coronary angioplasty implant and graft; Z79.01 Long term (current) use of anticoagulants | CPT/HCPCS: 99212 ==

== ENCOUNTER → 2025-07-06 08:04 | Outpatient (REF) | payer MEDICARE, SELFPAY | LOC: RCS 08:04 | PROVIDERS: ATTENDING PHYSICIAN Internal Medicine Interventional Cardiology; FAMILY PHYSICIAN Internal Medicine | DX: I25.10 Atherosclerotic heart disease of native coronary artery without angina pectoris (principal); I35.0 Nonrheumatic aortic (valve) stenosis | CPT/HCPCS: 93306 ==